=== PATIENT | female | born 2000 | race Caucasian/White ===

== ENCOUNTER 2023-04-25 18:41 | Emergency (ER) | payer OTHER, SELFPAY ==
[2023-04-25 18:44] VITALS: BP 132/80; PULSE 107; RESP 18; TEMP 36.9; O2SAT 97; BMI 18.9
--- NOTE | 2023-04-25 18:56 | ED.SOB1 ---
HPI - SOB/Dyspnea General Chief Complaint: Shortness of Breath/Dyspnea Stated Complaint: DIFF BREATHING Time Seen by Provider: 04/25/23 18:53 Source: patient Mode of arrival: ambulance Limitations: no limitations History of Present Illness HPI Narrative: 23-year-old female past medical history of asthma presents for a cough, sinus congestion and shortness of breath that started this morning. She states that she is allergic to cats and 3 of the house that she went to today had cats. She took a Benadryl today and this gave her some relief. She tried using her albuterol inhaler without relief. She states that hurts to take in a deep breath only on the left side. She is on control. Denies fever, sore throat, ear pain, CP Related Data Home Medications Medication Instructions Recorded Confirmed desogestrel 0.15 mg-ethinyl 1 tab PO QDAY 04/25/23 04/25/23 estradiol 0.03 mg tablet (Isibloom) quetiapine 100 mg tablet 100 mg PO .QHS 04/25/23 04/25/23 Previous Rx's Medication Instructions Recorded jwubvgjmioszapm-zbdjrvctsiohoqn-FB 10 ml PO Q6H PRN cold symptoms 2 04/25/23 2 mg-30 mg-10 mg/5 mL oral syrup days #80 mL (Bromfed DM) Allergies Allergy/AdvReac Type Severity Reaction Status Date / Time No Known Drug Allergies Allergy Verified 04/25/23 18:44 Review of Systems ROS Status of ROS 10 or more systems reviewed and unremarkable except as noted in history and below PFSH PFSH Social History Smoking status: Current every day smoker Exam Narrative Exam Narrative: General: A&Ox3, no distress, talking in full an complete sentences skin: warm, dry, intact head: normocephalic, atraumatic eyes: PERRLA, EOMI, normal conjunctiva nose: nares patent throat: no stridor neck: supple, trachea midline cardiac: +S1/S1. no murmur respiratory: lungs CTA, non-labored, no wheezing, no retractions extremities: FROM x 4, strength +5/5 neuro: A&Ox3 psych: appropriate mood and affect, cooperative Constitutional Vital Signs, click to edit/add: Last Vital Signs Temp 98.5 F 04/25/23 18:44 Pulse 107 H 04/25/23 18:44 Resp 18 04/25/23 18:44 BP 132/80 04/25/23 18:44 Pulse Ox 97 04/25/23 18:44 O2 Del Method Room Air 04/25/23 18:44 Course Vital Signs Vital signs: Vital Signs Temperature 98.5 F 04/25/23 18:44 Pulse Rate 107 H 04/25/23 18:44 Respiratory Rate 18 04/25/23 18:44 Blood Pressure 132/80 04/25/23 18:44 Pulse Oximetry 97 04/25/23 18:44 Oxygen Delivery Method Room Air 04/25/23 18:44 Temperature 98.5 F 04/25/23 18:44 Pulse Rate 107 H 04/25/23 18:44 Respiratory Rate 18 04/25/23 18:44 Blood Pressure 132/80 04/25/23 18:44 Pulse Oximetry 97 04/25/23 18:44 Oxygen Delivery Method Room Air 04/25/23 18:44 MDM - SOB/Dyspnea MDM Narrative Medical decision making narrative: Negative for COVID. D-dimer negative. Normal magnesium. Likely viral and patient will be given Decadron here and a prescription for Bromfed and follow-up with family doctor. I did offer chest x-ray and she declines. Afebrile, not tachypneic, not tachycardic, tolerating p.o., not hypoxic, non toxic appearing and ambulating at baseline and hemodynamically stable to be d/c. answered all questions. educated on SE of meds. pt in agreement with tx. educated when to return to ER. Lab Data Labs: Lab Results 04/25/23 04/25/23 Range/Units 18:57 19:10 D-Dimer 0.47 (<=0.59) mg/L FEU Magnesium 1.9 (1.8-2.4) mg/dL SARS-CoV-2 (PCR) Negative (NEGATIVE) Discharge Plan Discharge Chief Complaint: Shortness of Breath/Dyspnea Clinical Impression: Acute viral bronchitis Patient Disposition: Home, Self-Care Time of Disposition Decision: 19:42 Condition: Good Mode of Transportation: Private Vehicle Prescriptions / Home Meds: New dsknyjuxlytloqt-fddnudwmv-QX [Bromfed DM] 2-30-10 mg/5 mL syrup 10 ml PO Q6H PRN (Reason: cold symptoms) 2 Days Qty: 80 0RF No Action desogestrel-ethinyl estradiol [Isibloom] 0.15-0.03 mg tablet 1 tab PO QDAY quetiapine 100 mg tablet 100 mg PO .QHS Instructions: Acute Bronchitis (ED) Stand Alone Forms: Portal Instructions Referrals: Juan Carlos Jose MD [Primary Care Provider] - 1 week Discharge Date/Time: 04/25/23 19:53
[2023-04-25 19:22] LABS: SARS-CoV-2 Ag NEGATIVE (NEGATIVE)
[2023-04-25 19:29] LABS: Magnesium 1.9 mg/dL (1.8-2.4)
[2023-04-25 19:32] LABS: D Dimer 0.47 mg/L FEU (<=0.59)
[2023-04-25] MEDS: DEXAMETHASONE SODIUM PHOSPHATE 10 MG/ML VIAL PO (19:50)
[2023-04-26 15:51] LABS: SARS-CoV-2 NAA NOT DETECTED (NOT DETECTE)
== END 2023-04-25 19:53 | disposition home or self-care (01) ==
PROVIDERS: Physician Assistant; Emergency Provider Emergency Medicine; PCP Family Medicine
DX: J20.8 Acute bronchitis due to other specified organisms (principal); Z20.822 Contact with and (suspected) exposure to COVID-19; Z79.899 Other long term (current) drug therapy; J45.909 Unspecified asthma, uncomplicated; F17.210 Nicotine dependence, cigarettes, uncomplicated
CPT/HCPCS: 36415; 83735; 85378; 87635; 87811; 99283; J1100; U0003

== ENCOUNTER 2023-08-10 22:01 | Emergency (ER) | payer OTHER, SELFPAY ==
[2023-08-10 22:05] VITALS: BP 136/85; PULSE 81; RESP 16; TEMP 37.6; O2SAT 99; BMI 20.2
--- NOTE | 2023-08-10 22:25 | ED_ITS ---
HPI - Eye Problem General Chief complaint: Eye Problems Stated complaint: RED SWOLLEN EYE Time Seen by Provider: 08/10/23 22:12 Source: patient Mode of arrival: walk-in Limitations: no limitations History of Present Illness HPI Narrative: This otherwise healthy 23-year-old female who does not wear corrective lenses or contact lenses presents for evaluation of acute onset of redness and tenderness to the left upper eyelid. The patient states she woke up for work this evening and her left eye was crusted shut. She cleaned it off and noticed that she had redness and swelling to the upper eyelid. He states the eyelid is tender. She denies any foreign body sensation. She does not have a fever. She has pain with movement of the eye. There is no focal erythema around the eyes. She has not had a fever. Her vision is intact. She has tearing of the eye but no purulent drainage. Related Data Home Medications Medication Instructions Recorded Confirmed desogestrel 0.15 mg-ethinyl 1 tab PO QDAY 04/25/23 08/10/23 estradiol 0.03 mg tablet (Isibloom) quetiapine 100 mg tablet 100 mg PO .QHS 04/25/23 08/10/23 Allergies Allergy/AdvReac Type Severity Reaction Status Date / Time No Known Drug Allergies Allergy Verified 08/10/23 22:09 Review of Systems ROS Status of ROS 10 or more systems reviewed and unremark able except as noted in history and below [facility] Social History Smoking status: Never smoker Exam Narrative Exam Narrative: Nurses note and vital signs reviewed and patient is not hypoxic. General: The patient appears well and in no apparent distress. Patient is resting comfortably on cart. Skin: Warm, dry, no pallor noted. There is no rash noted. Head: Normocephalic, atraumatic Eye: Pupils are equal and reactive, extraocular muscles are intact, the left upper eyelid is erythematous and tender with no visible hordoleum. Conjunctiva of the upper and lower eyelids are inflamed Ears, Nose, Mouth, and Throat: oral mucosa is moist. Nares patent. Mouth without vesicles. Ear canals patent. Tm's without Erythema Cardiovascular: Regular Rate and Rhythm Respiratory: Patient is in no distress, no accessory muscle use, lungs are clear to auscultation, no wheezing, rales or rhonchiy Neurological: A&O x4, normal speech Psychiatric: Cooperative Constitutional Vital Signs, click to edit/add: Last Vital Signs Temp 99.7 F 08/10/23 22:05 Pulse 81 08/10/23 22:05 Resp 16 08/10/23 22:05 BP 136/85 08/10/23 22:05 Pulse Ox 99 08/10/23 22:05 O2 Del Method Room Air 08/10/23 22:05 Course Vital Signs Vital signs: Vital Signs Temperature 99.7 F 08/10/23 22:05 Pulse Rate 81 08/10/23 22:05 Respiratory Rate 16 08/10/23 22:05 Blood Pressure 136/85 08/10/23 22:05 Pulse Oximetry 99 08/10/23 22:05 Oxygen Delivery Method Room Air 08/10/23 22:05 Temperature 99.7 F 08/10/23 22:05 Pulse Rate 81 08/10/23 22:05 Respiratory Rate 16 08/10/23 22:05 Blood Pressure 136/85 08/10/23 22:05 Pulse Oximetry 99 08/10/23 22:05 Oxygen Delivery Method Room Air 08/10/23 22:05 MDM - Eye Problem MDM Narrative Medical decision making narrative: This 23-year-old female presents for evaluation of acute onset of left upper eyelid swelling and tenderness. She does not have a history of MRSA. She does work for a [employer] and thought maybe she had gotten something in her eye however she does not have any recollection of getting anything in her eye or foreign body sensation. When she woke up she states that her left eye was matted shut, she cleaned the eye off and noticed that the upper eyelid was erythematous and tender. She has not had a fever. She does not wear corrective lenses. Physical exam is consistent with acute blepharitis or developing hordoleum. I gave her a warm washcloth to soothe and comfort the eye. She was medicated emergency department with ibuprofen, Zofran, erythromycin ointment and 100 mg doxycycline. She will be discharged home with the remainder of the erythromycin ointment and doxycycline to use for the next 1 week. Discharge Plan Discharge Chief Complaint: Eye Problems Clinical Impression: Blepharitis of eyelid of left eye Patient Disposition: Home, Self-Care Time of Disposition Decision: 22:32 Prescriptions / Home Meds: No Action desogestrel-ethinyl estradiol [Isibloom] 0.15-0.03 mg tablet 1 tab PO QDAY quetiapine 100 mg tablet 100 mg PO .QHS Instructions: Blepharitis (ED) Stand Alone Forms: Portal Instructions Referrals: Juan Carlos Jose MD [Primary Care Provider] - 1 week
[2023-08-10] MEDS: DOXYCYCLINE MONOHYDRATE 100 MG CAPSULE PO (22:42)
[2023-08-10] MEDS: ONDANSETRON 4 MG RAPDIS TABLET SL (22:42)
[2023-08-10] MEDS: IBUPROFEN 600 MG TABLET PO (22:42)
[2023-08-10] MEDS: ERYTHROMYCIN OP OINT 0.5% 1 GM TUBE OP (22:42)
== END 2023-08-10 22:54 | disposition home or self-care (01) ==
PROVIDERS: Emergency Provider Emergency Medicine; PCP Family Medicine
DX: H01.004 Unspecified blepharitis left upper eyelid (principal); Z79.899 Other long term (current) drug therapy
CPT/HCPCS: 99284; Q0162

== ENCOUNTER 2025-04-18 08:47 | Outpatient (OUT) | payer OTHER, SELFPAY ==
--- OUTSIDE RECORDS SUMMARY | 2025-04-11 21:08 | XMS_ITS | Continuity of Care Document ---
Author Organization [facility] Address [address] [place] [address] Phone Care Team Providers Care Manager Process Excellence Name Role Phone Juan Carlos Jose MD Primary Care Provider [phone] Clau Gregory APRN Attending Provider Care Teams Patient Care Team Team Status: Active Member Role Status Jovani Jose MD Primary Care Provider Active Visit Care Team Team Status: Inactive Member Role Status Jovani Jose MD Primary Care Provider Active Start: April 11, 2025 End: April 11, 2025 JOLIE Goetz Attending Provider Active Start: April End: April 11, 2025 Visit Care Team Team Status: Inactive Member Role Status Jovani Jose MD Primary Care Provider Active Start: April 11, 2025 End: April 11, 2025 JOLIE Goetz Attending Provider Active Start: April End: April 11, 2025 Chief Complaint and Reason for Visit Chief Complaint Admit Date Left thumb injury April 11, 2025 2:05pm S69.92XA - Unspecified injury of left wr ist, hand April 11, 2025 2:22pm Reason for Visit Admit Date Fracture of thumb, left, closed Septembe r 2024 2:05pm Injury of left thumb April 11 2:05pm Allergies, Adverse Reactions, Alerts Allergen Type Severity Reaction Last Updated Verified Status No Known Allergies Allergy Unknown 2024 2:07pm Yes Active Social History Smoking Status Status Start Date End Date Date of Observa tion Never smoked tobacco (finding) January 20, 2018 12:25pm Observation Status Observation Response Date of Response Legal Sex Female (finding) Sex Assigned At Female March Family History Relationship Condition Age at Onset Recorded Date/T sonam mother Unknown Problems Active Problems Medical Problem Onset Date Status Fracture of thumb, left, closed Unknown Active Injury of left thumb Unknown Active Medications Medication Status Dose Units Route Directions Qty Days St art Date Stop Date End Date Instructions Adherence Inhaler,Ass ist Devices,Acc ess Device Active January 20, 2018 12:00a m Ibuprofen 600 mg tablet Discont inued 600 MG PO Three times daily as needed for pain January 20, 2018 12:00a m Septe er 2024 2:08p m Quetiapine 50 mg tablet Active 50 MG PO Daily 2024 12:00a m Unknown Procedures Procedure Date Performed Status XR finger LT thumb April 11, 2025 2:22pm c ompleted Relevant Diagnostic Tests and/or Laboratory Data Diagnostic Imaging Reports Author [facility] Report Date/Time April 11, 2025 2:40pm [facility] [place] [address] XRay Report Signed Patient: Deepti Armstrong MR#: [id number] : 2000 Acct:[id number] Age/Sex: 25 / F ADM Date: 5 Loc: XDUCLY Room: Type: [facility] Attending Dr: Clau Gregory APRN, [employer]-C Copies to: Clau Gregory APRN~ Ordering Provider: Clau Gregory APRN Date of Service: 04/11/25 XR/XR finger LT thumb: S69.92XA - Unspecified injury of left wrist, hand and fin... LEFT THUMB - 3 views CLINICAL HISTORY: Injury to left thumb for one day. Limited range of motion. COMPARISON: None FINDINGS: No focal soft tissue abnormality. There appears be a fracture involving the base of the distal phalanx of the thumb. In addition, appears to be a fracture involving the base of the proximal phalanx of the thumb. These fractures are only seen on one view. XR/XR finger LT thumb IMPRESSION: FRACTURES INVOLVING THE BASES OF THE PHALANGES OF THE THUMB. Impression dictated by: Irwin Newsome Jr.OCayla 04/11/2025 2:40 PM Dictation Location: [facility]--23 Transcribed By: PWS 04/11/25 1440 Dictated By: Irving Ray Jr, DO 04/11/25 1439 Signed By: <Electronically signed by Irving Ray Jr, DO in OV> 04/11/25 1440 Vital Signs Vital Reading Result Reference Range Collection Date/Time Height 65 [in_i] April 11, 2025 2:06pm Weight 58.74 kg April 11, 2025 2:06pm Body Temperature 98.7 [degF] 97.6-99.0 April 012024 2:06pm Heart Rate 85 /min 60-100 April 11, 2025 2:06pm Respiratory rate 18 /min 12-24 April 012024 2:06pm Oxygen saturation by Pulse oximetry 99 % 95-100 April 11, 2025 2:06pm BP Systolic 115 mm[Hg] 100-140 April 11, 2025 2:06pm BP Diastolic 80 mm[Hg] 60-100 April 11, 2025 2:06pm BMI (Body Mass Index) 21.5 kg/m2 Sept2024 2:06pm Advance Directives Advance Directive Response Recorded Date/ Time Advance Directives No January 20 1:04pm Insurance Providers Guarantor Deepti Armstrong Address [address] [place] [phone] Contact Info. Home Phone: Payer Policy Id Subscriber's Name Subscriber Id Effe ctive Date Expiration Date [employer] [id number] Deepti Armstrong [id number] Encounters Encounter Location(s) Arrival/Admit Date Discharge/Depart Date Provider(s) Departed Physician/Prov ider Office Visit -[facility] April 11, 2025 2:05pm April 11, 2025 3:07pm Clau Gregory APRN Departed Clinical -[facility] April 11, 2025 2:22pm April 11, 2025 2:23pm Clau Gregory APRN Recent Diagnosis Onset Date Admit Date Fracture of thumb, left, closed Unknown April 11, 2025 2:05pm Injury of left thumb Unknown April 012024 2:05pm Assessments Diagnosis Onset Date Resolution Status Admit Date Fracture of thumb, left, closed acute April 11, 2025 2:05pm Injury of left thumb acute Sept emb2024 2:05pm Plan of Treatment Author Clau Gregory [facility] Authored April 11, 2025 3:02pm Xray shows fractures at the base of the proximal and distal phalanxes. Alumifoam splint applied. Encouraged rest, ice, elevation. May use tylenol/motrin as needed for pain. Follow up with Ortho as discussed. Future Tests Future scheduled test information is unavailable Pending Tests Pending diagnostic test information is unavailable Future Visits Future appointment information is unavailable Referrals to Other Providers Referral information is unavailable Future Procedures Future procedure information is unavailable Future Medications Future medication information is unavailable Patient Instructions Patient instructions are unavailable
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
--- OUTSIDE RECORDS SUMMARY | 2025-04-18 08:50 | XMS_ITS | Clinical Summary ---
Author Organization [facility] Address [id number] [address] [place] [address] Care Team Providers Care Contract Recruiter Name Role Phone Unavailable Primary Care Provider Unavailabl e Allergies No known active allergies Medications omeprazole (PriLOSEC) 20 mg capsuleIndicati ons:heartburn Take 1 capsule (20 mg total) by mouth in the morning. Indications: heartburn. 05/18/2022 Active acetaminophen (TYLENOL EXTRA STRENGTH) 500 mg tabletIndicatio ns:toothache Take 2 tablets (1,000 mg total) by mouth every 6 (six) hours as needed for pain Indications: a toothache. 60 tablet 06/01/2022 Active Active Problems Problem Noted Date Diagnosed Date Oral abscess 05/29/2022 Tooth abscess 05/28/2022 Immunizations No known immunizations Social History Tobacco Use Types Packs/Day Years Used Date Smoking Tobacco: Never Smokeless Tobacco: Never Tobacco Cessation:Counseling Given: Not Answered Alcohol Use Standard Drinks/Week Comments Not Currently 0 (1 standard drink = 0.6 oz pur e alcohol) Childcare Answer Date Recorded Childcare Unknown 01/10/2019 Employment Answer Date Recorded Employment Unknown 01/10/2019 Purpose - Life Answer Date Recorded Purpose and direction in life Unknown Comments No Sex and Gender Information Value Date Recorded Sex Assigned at Not on file Legal Sex Female 10:40 PM EDT Gender Identity Not on file Sexual Orientation Not on file Last Filed Vital Signs Vital Sign Reading Time Taken Comments Blood Pressure 112/65 06/01/2022 8:18 AM EDT Pulse 89 06/01/2022 8:18 AM EDT Temperature 36.5 C (97.7 F) 06/01/2022 8:18 AM EDT Respiratory Rate 18 06/01/2022 8:18 AM EDT Oxygen Saturation 99% 05/31/2022 8:11 PM EDT Inhaled Oxygen Concentration - - Weight - - Height - - Body Mass Index - - Plan of Treatment Health Maintenance Due Date Last Done Comments Depression Screening 2011 Tobacco Screening 2011 Adult BMI Screening 2017 Pap Smear 2020 Influenza Vaccine 04/01/2025 05/24/2019, , 07/05/2017, Additional history exists DTaP,Tdap and Td Vaccines (8 - Td or Tdap) 10/26/2030 10/26/2020, 10/28/2010, 04/01/2004, Additional history exists Medical Devices Not on file Insurance Advance Directives * Full Code (Latest Code Status on File) Date Activated Date Inactivated Comments 05/28/2022 3:29 PM 06/01/2022 11:15 AM
--- OUTSIDE RECORDS SUMMARY | 2025-04-18 08:50 | XMS_ITS | Clinical Summary ---
Author Organization [facility] Address [address] [place], [place] [address] Care Team Providers Care Recep Name Role Phone Juan Carlos Jose MD Primary Care Provider [phone] Allergies No known active allergies Medications hydrOXYzine pamoate (VISTARIL) 25 mg capsule Take 25 mg by mouth three times daily as needed. Active escitalopram oxalate (LEXAPRO) 20 mg tablet Take 20 mg by mouth once daily. Active LEVONORGESTREL-E THIN ESTRADIOL (ORSYTHIA ORAL) Take by mouth. Active Active Problems Problem Noted Date Diagnosed Date Chronic abdominal pain 10/08/2015 Nausea with vomiting 10/08/2015 Dizziness 10/08/2015 Anxiety 10/08/2015 Palpitations 10/08/2015 Abnormal blood chemistry 09/16/2015 Social History Tobacco Use Types Packs/Day Years Used Date Smoking Tobacco: Never Smokeless Tobacco: Never Alcohol Use Standard Drinks/Week Comments No 0 (1 standard drink = 0.6 oz pur e alcohol) Comments Unknown Sex and Gender Information Value Date Recorded Sex Assigned at Not on file Legal Sex Female 7:58 AM EST Gender Identity Not on file Sexual Orientation Not on file Last Filed Vital Signs Vital Sign Reading Time Taken Comments Blood Pressure 114/71 09/16/2015 2:55 PM EST Pulse 80 09/16/2015 2:55 PM EST Temperature - - Respiratory Rate 16 09/16/2015 2:55 PM EST Oxygen Saturation - - Inhaled Oxygen Concentration - - Weight 62.1 kg (137 lb) 10/08/2015 11:04 AM EST Height 165.1 cm (5' 5 ) 10/08/2015 11:04 AM EST Body Mass Index 22.8 10/08/2015 11:04 AM EST Plan of Treatment Health Maintenance Due Date Last Done Comments Peds To Adult Transition Initial Discussion 2011 Peds To Adult Transition Annual Assessment 2013 HPV Vaccine (1 - 3-dose series) 2014 Anxiety Screening 2017 Depression Screening 2017 HIV Screening 2017 Hepatitis C Screening 2017 DTaP,Tdap,Td Vaccine (1 - Tdap) 2018 Hepatitis B Vaccine (1 of 3 - 19+ 3-dose series) 03/18 Cervical Cancer Screening 2020 Influenza Vaccine (#1) 2025 Insurance [employer] Care Teams Recep Relationship Specialty Start Date End Date Juan Carlos Jose MD PCP - General Family Medicine 09/03/15
--- OUTSIDE RECORDS SUMMARY | 2025-04-18 08:50 | XMS_ITS | Encounter Summary ---
Author Organization [facility] Address [id number] [address] [place] [address] Care Team Providers Care Pulper Name Role Phone Unavailable Primary Care Provider Unavailabl e Encounter Details Date Type Department Care Team (Late st Contact Info) Description 07/01/2022 Telephone [facility] [address] [place] [address] Shyann Alvarenga RMA Social History Tobacco Use Types Packs/Day Years Used Date Smoking Tobacco: Never Smokeless Tobacco: Never Alcohol Use Standard Drinks/Week Comments Not Currently 0 (1 standard drink = 0.6 oz pur e alcohol) Childcare Answer Date Recorded Childcare Unknown 01/10/2019 Employment Answer Date Recorded Employment Unknown 01/10/2019 Purpose - Life Answer Date Recorded Purpose and direction in life Unknown Comments Yes Sex and Gender Information Value Date Recorded Sex Assigned at Not on file Legal Sex Female 10:40 PM EDT Gender Identity Not on file Sexual Orientation Not on file documented as of this encounter Miscellaneous Notes * Telephone Encounter - ROXANE Husain - 07/01/2022 1:14 PM EST Tried to call patient to schedule appointment from referral we received but there was no answer rupal message could not be left. * Telephone Encounter - ROXANE Nolasco - 07/01/2022 1:14 PM EST Spoke with patient's mother and informed her that we had received a referral for patient. Patient'smother stated that she would let her know as she was unavailable at the time. Patient will contact office back. documented in this encounter Plan of Treatment Not on file documented as of this encounter Visit Diagnoses Not on filedocumented in this encounter
--- OUTSIDE RECORDS SUMMARY | 2025-04-18 08:50 | XMS_ITS | Encounter Summary ---
Author Organization [facility] Address [id number] [address] [place] [address] Care Team Providers Care Pediatric Ophthalmologist Name Role Phone Unavailable Primary Care Provider Unavailabl e Encounter Details Date Type Department Care Team (Late st Contact Info) Description 05/28/2022 Documentation [facility] [address] [place] [address] Rhonda Jones, DDS [address] [facility], [address] [place] [address] Social History Tobacco Use Types Packs/Day Years Used Date Smoking Tobacco: Never Assessed Childcare Answer Date Recorded Childcare Unknown 01/10/2019 Employment Answer Date Recorded Employment Unknown 01/10/2019 Purpose - Life Answer Date Recorded Purpose and direction in life Unknown Comments Yes Sex and Gender Information Value Date Recorded Sex Assigned at Not on file Legal Sex Female 10:40 PM EDT Gender Identity Not on file Sexual Orientation Not on file documented as of this encounter Plan of Treatment Not on file documented as of this encounter Visit Diagnoses Not on filedocumented in this encounter
--- OUTSIDE RECORDS SUMMARY | 2025-04-18 08:51 | XMS_ITS | Patient Health Record ---
Author Organization [facility] [place] Address [address] [place] [address] Care Team Providers Care Learning Services Coordinator Name Role Phone Matt Jose Primary Care Provider [phone] Allergies Allergen (clinical drug ingredient) Drug/Non Drug Allergy documented on EMR Reaction Allergy Type Onset Date Status None Reported (uncoded) Unknown Allergy Active Results Component Value Reference Range Notes COVID-19, Flu A+B IH (Not ye t reviewed by provider) Interpretation: Performing Lab: Notes/Report: COVID neg FLU A neg FLU B neg Control present Reason For Referral No Information Medications Medication SIG (Take, Route, Frequency, Duration) Notes Start Date End Date Status Amoxicillin-Pot Clavulanate 875-125 MG 1 tablet Orally every 12 hrs; Duration: 10 days 09/21/2024 Active Benzonatate 200 MG 1 capsule Orally Thr ee times a day; Duration: 7 days 09/24/2024 Active Albuterol Sulfate HFA 108 (90 Base) MCG/ACT 1 puff as needed Inhalation every 4 hrs PRN 06/14/2024 Active SEROquel 50 MG 1 tablet Orally qhs; Duration: 30 days 06/14/2024 Active Hyoscyamine Sulfate 0.125 MG 1-2 tabs SL SL every 4 hrs PRN abd pain 08/06/2024 Active Ondansetron 4 MG 1 tablet on the tong ue and allow to dissolve Orally qid; Duration: 5 days 08/06/2024 Active Diclofenac Sodium 75 MG 1 tablet as need ed Orally Twice a day; Duration: 30 days 04/11/2025 Active Social History Tobacco Use: Social History Observation Description Date Details (start date - stop date) Never Smoker NA - NA Tobacco Use/Smoking Question Answer Notes Patient is a nonsmoker AUDIT-C (Standard) Question Answer Notes Did you have a drink containing alcohol in the p ast year? 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) Active confirmed Problem Closed traumatic dislocation of patellofemoral joint (674692588) Dislocation of left patella, initial encounter (S83.005A) Active confirmed Vital Signs Temperature 100.3 degrees Fahrenheit 09/21/2024 Blood pressure diastolic 70 mm Hg 09/21/2024 Height 65 in 09/21/2024 Blood pressure systolic 110 mm Hg 09/21/2024 Weight 130.6 lbs 09/21/2024 BMI 21.73 kg/m2 09/21/2024 Encounters Encounter Location Date Provider Diagnosis [address] [address] 06/06/2024 Matt Campbelly [address] [address] 07/04/2024 Matt Hoy Anxiety F41.[address] [address] 09/24/2024 Matt Hoy [facility] [address] [place] [address] 04/11/2025 Matt Adriany [facility] [address] [place] [address] 08/06/2024 Matt Hoy Gastroenteritis K52. [address] [address] 09/21/2024 Matt Hoy Fever R50.9 and Acut e bronchitis, unspecified organism J20.9 [facility] [address] [place] [address] 06/14/2024 Matt Jose Anxiety F41.9 Assessments Encounter Date Diagnosis (ICD Code) Assessment Notes Treatment Notes Treatment Clinical Notes Section Notes 06/14/2024 Anxiety (ICD-10 - F41.9) 08/06/2024 Gastroenteritis (ICD-10 - K52.9) Get plenty of rest. Stay hydrated by sucking on ice chips or taking small sips of water. You can also try drinking clear soda, clear broths or noncaffeinated sports drinks. Stop eating solid foods for a few hours to let your stomach settle. East back into eating by eating bland, mirz-zy-dimnum foods like crackers, toast, gelatin, bananas, rice and chicken. Try to avoid foods/substances including dairy products, caffeine, alcohol, nicotine and fatty or highly seasoned foods. Medications such as ibuprofen or tylenol can make your stomach more upset, so use sparingly if at all. Also avoid foxl-tnu-robbtjm anti-diarrheal medications because it can make it harder for your body to eliminate the virus. 09/21/2024 Fever (ICD-10 - R50.9) 07/04/2024 Anxiety (ICD-10 - F41.9) 09/21/2024 Acute bronchitis, unspecified organism (ICD-10 - J20.9) Rest and drink more liquids, especially water. You may use a humidifier or vaporizer to help keep the drainage moist. Sney-tba-aoenoaj Nasal Saline may help the stuffy and runny nose. Use Ibuprofen and or Tylenol as needed for fever, chills, body aches or pain. Children 5 years old should not be given rkab-clp-sdjxpmz cough and cold medications such as guaifenesin and dextromethorphan. If you're over age 5, you may try vlex-vxt-yztdjws cold medications such as guaifenesin and dextromethorphan, or multi-symptom cold reliever such as Dayquil to help reduce the symptoms. Antibiotics have been prescribed. You should take these until completed and follow the directions. Antibiotics can sometimes cause upset stomach, and in rare cases, serious allergic reactions or serious gastrointestinal problems. If you start having severe abdominal pain, severe vomiting, or bloody diarrhea, you should be reevaluated by your physician or urgent care immediately. Follow up with your Primary Care Provider or return to clinic if symptoms do not improve within 3-5 days. If you develop severe symptoms such as shortness of breath, repeated vomiting, coughing up blood, or chest pain you should go to the emergency room or call 911 Plan Of Treatment Pending Test Test Name Order Date COVID-19, Flu A+B IH 09/21/2024 Insurance Providers Payer Name Payer Address Payer Phone Subscriber Number Group Number Insured Name Patient Relationship to Insured Coverage Start Date Coverage End Date [employer] [place] [employer] [address] [place] [address] [id number] Deepti Armstrong Self - patient is the insured Medical (General) History Medical History History ICD Code Asthma Ulcers Bladder/Kidney Infections Fainting/Passing out Anxiety Surgical History Surgery Date(Month/Year) tonsilectomy 2012 left knee MPFL reconstruction Hospitalization History Reason Date(Month/Year) see above
--- OUTSIDE RECORDS SUMMARY | 2025-04-18 08:51 | XMS_ITS | Clinical Summary ---
Author Organization [facility] Address [address] [place] [address] Care Team Providers Care Commissioner Of Internal Revenue Name Role Phone Juan Carlos Jose MD Primary Care Provider [phone] Allergies Active Allergy Reactions Criticality Noted Date Comments Citalopram Rash Low 02/07/2023 Medications etonogestrel-et hinyl estradiol (Nuvaring) 0.12-0.015 MG/24HR vaginal ringIndications : control counseling Insert 1 Ring into the vagina every 28 (twenty-eigh t) days. Insert vaginal ring for 3 weeks, then remove for 1 week. 1 each 11 02/07/2023 Active Family History Relation Name Status Comments Father Alive Mother Sibling Alive Social History Tobacco Use Types Packs/Day Years Used Date Smoking Tobacco: Never Smokeless Tobacco: Never Tobacco Cessation:Counseling Given: Not Answered Alcohol Use Standard Drinks/Week Comments Never 0 (1 standard drink = 0.6 oz pur e alcohol) Comments Unknown Sex and Gender Information Value Date Recorded Sex Assigned at Not on file Legal Sex Female 6:47 PM EDT Gender Identity Not on file Sexual Orientation Not on file Last Filed Vital Signs Vital Sign Reading Time Taken Comments Blood Pressure 106/68 02/07/2023 10:04 AM EDT Pulse - - Temperature - - Respiratory Rate - - Oxygen Saturation - - Inhaled Oxygen Concentration - - Weight 55.8 kg (123 lb) 02/07/2023 10:04 AM EDT Height 167.6 cm (5' 6 ) 02/07/2023 10:04 AM EDT Body Mass Index 19.85 02/07/2023 10:04 AM EDT Plan of Treatment Not on file Insurance [id number] [place] [address] [employer] MEDICAID [id number] [place] [address] Care Teams Commissioner Of Internal Revenue Relationship Specialty Start Date End Date Juan Carlos Jose MD PCP - General Family Medicine 02/03/23
--- OUTSIDE RECORDS SUMMARY | 2025-04-18 08:51 | XMS_ITS | Clinical Summary ---
Author Organization [facility] Address [address], [address] [place] [address] Care Team Providers Care Riveter Helper Name Role Phone Juan Carlos Jose MD Primary Care Provider [phone] Allergies No known active allergies Medications cetirizine (ZYRTEC) 5 MG tablet Take by mouth daily. Active Albuterol Sulfate (PROAIR HFA IN) Inhale into the lungs. Active NONFORMULARY control by mouth daily Active amitriptyline (ELAVIL) 10 MG tablet Take 20 mg by mouth nightly Active omeprazole (PRILOSEC) 20 MG delayed release capsule Take 40 mg by mouth daily Active docusate (COLACE, DULCOLAX) 100 MG CAPS Take 100 mg by mouth 2 times daily 01/06/2017 Active cephALEXin (KEFLEX) 500 MG capsule Take 2 capsules by mouth every 8 hours 6 capsule 01/06/2017 Active Active Problems Problem Noted Date Diagnosed Date Cyst of breast 11/14/2012 Family History Medical History Relation Name Comments Schizophrenia Maternal Grandfather Cancer Maternal Grandmother breast Other Mother Arthritis Paternal Grandmother Relation Name Status Comments Maternal Grandfather Maternal Grandmother Mother Paternal Grandmother Social History Tobacco Use Types Packs/Day Years Used Date Smoking Tobacco: Never Smokeless Tobacco: Never Alcohol Use Standard Drinks/Week Comments No 0 (1 standard drink = 0.6 oz pur e alcohol) Comments No Sex and Gender Information Value Date Recorded Sex Assigned at Not on file Legal Sex Female 5:54 AM EST Gender Identity Not on file Sexual Orientation Not on file Last Filed Vital Signs Vital Sign Reading Time Taken Comments Blood Pressure 110/70 01/06/2017 12:30 PM EDT Pulse 72 01/06/2017 12:30 PM EDT Temperature 36.5 C (97.7 F) 01/06/2017 12:30 PM EDT Respiratory Rate 16 01/06/2017 12:30 PM EDT Oxygen Saturation 98% 01/06/2017 12:30 PM EDT Inhaled Oxygen Concentration - - Weight 54.2 kg (119 lb 7.8 oz) 01/05/2017 8:24 P M EDT Height 165.1 cm (5' 5 ) 01/05/2017 8:24 PM EDT Body Mass Index 19.88 01/05/2017 8:24 PM EDT Plan of Treatment Not on file Medical Devices Implanted Type Area Inside Sales Specialist Device Identifier Shelf Expiration Date Model / Serial / Lot Tissue Frozen Gracilis Tendon >200mml Implanted:Qty: 1 on 01/05/2017 by Edgar Hamilton DO at [facility] Bone/[place] t/Tissue/ Human/Syn th Left: Knee [employer]-PMM 12/11/2018 [id number] / / System Delivery Composite Mpfl Implanted:Qty: 1 on 01/05/2017 by Edgar Hamilton DO at [facility] Screw/Tk te/Nail/R od Left: Knee [employer]-PMM 08/31/2018 [id number] / / Insurance [employer] Advance Directives * Full Code (Latest Code Status on File) Date Activated Date Inactivated Comments 01/05/2017 8:20 PM 01/06/2017 6:05 PM Care Teams Riveter Helper Relationship Specialty Start Date End Date Juan Carlos Jose MD [address] [place] [address] PCP - General 11/14/12
--- OUTSIDE RECORDS SUMMARY | 2025-04-18 08:53 | XMS_ITS | CCD ---
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 Neutrophils/100 WBC (Bld) 71.4 % Normal 43.0-75.0 [facility] Comment on above: Performed By: #### B MP #### [facility] [address] [place] [address] Dr. Carroll Pryor Platelet mean volume (Bld) [Entitic vol] 11.2 fL Normal 9.5-13.5 [facility] Comment on above: Performed By: #### B MP #### [facility] [address] [place] [address] Dr. Carroll Pryor PLT 325 103/ul Normal 150-450 [facility] Comment on above: Performed By: #### B MP #### [facility] [address] [place] [address] Dr. Carroll Pryor RBC 3.47 106/ul Critically low 4.20-5.40 [facility] Comment on above: Performed By: #### B MP #### [facility] [address] [place] [address] Dr. Carroll Pryor WBC 11.9 103/ul Critically high 4.0-11.0 [facility] Comment on above: Performed By: #### B MP #### [facility] [address] [place], [place] [id number] Dr. Carroll Pryor Covid-19 PCR ([facility])on SARS-CoV-2 (COVID-19) RNA ERINN+probe Ql (Unsp spec) Not detected Normal NOT DETECTED [facility] Comment on above: Result Comment: When diagnostic testing is negative, the possibility of a false negative should be considered in the context of a patient's recent exposures and the presence of clinical signs and symptoms consistent with SARS-CoV-2. This test is not yet approved or cleared by the [place] FDA. When there are no FDA-approved or cleared tests available, and other criteria are met, FDA can make tests available under an emergency access mechanism called an Emergency Use Authorization (EUA). The EUA for this test is supported by the Traffic Rate Analyst of Health and Human Service's declaration that circumstances exist to justify the emergency use of in vitro diagnostics for the detection and/or diagnosis of the virus that causes COVID-19. This EUA will remain in effect for the duration of the COVID-19 declaration justifying emergency of IVDs, unless it is terminated or revoked by the FDA (after which the test may no longer be used). Performed By: #### C VDTBH #### [facility] [address] [place] [address] Dr. Carroll Pryor DRUG SCREEN RAPID (URINE)on 07-03-2022 AMP Negative Normal NEGATIVE [facility] Comment on above: Performed By: #### C VDTBH #### [facility] [address] [place] [address] Dr. Carroll Pryor BAR Negative Normal NEGATIVE [facility] Comment on above: Performed By: #### C VDTBH #### [facility] [address] [place] [address] Dr. Carroll Pryor BUP Negative Normal NEGATIVE [facility] Comment on above: Performed By: #### C VDTBH #### [facility] [address] [place] [address] Dr. Carroll Pryor BZO Negative Normal NEGATIVE [facility] Comment on above: Performed By: #### C VDTBH #### [facility] [address] [place] [address] Dr. Carroll Pryor VA Negative Normal NEGATIVE [facility] Comment on above: Performed By: #### C VDTBH #### [facility] [address] [place] [address] Dr. Carroll Pryor CUT-OFFS SEE BELOW Normal [facility] Comment on above: Result Comment: AMP (Amphetamine): 500ng/mL, BAR (Barbituates): 200 ng/mL, BZO (Benzodiazepines): 150 ng/mL, BUP (Buprenorphine): 10 ng/mL, VA (Cocaine): 150 ng/mL, mAMP (Methamphetamine): 500 ng/mL, MTD (Methadone): 200 ng/mL, OPI (Opiates): 100 ng/mL, OXY (Oxycodone): 100 ng/mL, PCP (Phencyclidine): 25 ng/mL, PPX (Propoxyphene): 300 ng/mL, THC (Cannabinoids): 50 ng/mL, TCA (Trycyclic Antidepressants): 300 ng/mL Performed By: #### C VDTBH #### [facility] [address] [place] [address] Dr. Carroll Pryor DRUG CUT HEADER DRUG CLASS TEST SYST EM CUT-OFF CONCENTRATIONS ARE FOLLOWS: Normal [facility] Comment on above: Performed By: #### C VDTBH #### [facility] [address] [place] [address] Dr. Carroll Pryor mAMP Negative Normal NEGATIVE [facility] Comment on above: Performed By: #### C VDTBH #### [facility] [address] [place] [address] Dr. Carroll Pryor MTD Negative Normal NEGATIVE [facility] Comment on above: Performed By: #### C VDTBH #### [facility] [address] [place] [address] Dr. Carroll Pryor OPI Negative Normal NEGATIVE [facility] Comment on above: Performed By: #### C VDTBH #### [facility] [address] [place] [address] Dr. Carroll Pryor OXY Negative Normal NEGATIVE [facility] Comment on above: Performed By: #### C VDTBH #### [facility] [address] [place] [address] Dr. Carroll Pryor PCP Negative Normal NEGATIVE [facility] Comment on above: Performed By: #### C VDTBH #### [facility] [address] [place] [address] Dr. Carroll Pryor PPX Negative Normal NEGATIVE [facility] Comment on above: Performed By: #### C VDTBH #### [facility] [address] [place] [address] Dr. Carroll Pryor TCA Negative Normal NEGATIVE [facility] Comment on above: Performed By: #### C VDTBH #### [facility] [address] [place] [address] Dr. Carroll Pryor THC Negative Normal NEGATIVE [facility] Comment on above: Performed By: #### C VDTBH #### [facility] [address] [place] [address] Dr. Carroll Pryor TYPE AND SCREENon 07-03-2022 TYPE AND SCREEN Negative Normal [facility] Comment on above: Performed By: #### U ACSIND #### [facility] [address] [place] [address] Dr. Carroll Pryor UA (CLEAN/CATCH) NC MACHINIST/MICRO I F IND.on 06-26-2022 Bilirubin Ql (U) Negative Normal NEGATIVE [facility] Comment on above: Performed By: #### U ACSIND #### [facility] [address] [place] [address] Dr. Carroll Pryor Clarity (U) CLEAR Normal CLEAR [facility] Comment on above: Performed By: #### U ACSIND #### [facility] [address] [place] [address] Dr. Carroll Pryor Color (U) LT. YELLOW Normal YELLOW [facility] Comment on above: Performed By: #### U ACSIND #### [facility] [address] [place] [address] Dr. Carroll Pryor Glucose Ql (U) Negative Normal NEGATIVE [facility] Comment on above: Performed By: #### U ACSIND #### [facility] [address] [place] [address] Dr. Carroll Pryor Hemoglobin Ql (U) Negative Normal NEGATIVE [facility] Comment on above: Performed By: #### U ACSIND #### [facility] [address] [address] [address] Carroll Pryor Ketones Ql (U) TRACE Abnormal NEGATIVE [facility] Comment on above: Performed By: #### U ACSIND #### [facility] [address] [place] [address] Dr. Carroll Pryor LEUKOCYTES Negative Normal NEGATIVE [facility] Comment on above: Performed By: #### U ACSIND #### [facility] [address] [address] [address] Carroll Pryor Nitrite Ql (U) Negative Normal NEGATIVE [facility] Comment on above: Performed By: #### U ACSIND #### [facility] [address] [place] [address] Dr. Carroll Pryor pH (U) 6.0 [pH] Normal 5-9 [facility] Comment on above: Performed By: #### U ACSIND #### [facility] [address] [place] [address] Dr. Carroll Pryor SPEC GRAVITY >=1.030 Abnormal 1.005-<=1. 025 [facility] Comment on above: Performed By: #### U ACSIND #### [facility] [address] [place] [address] Dr. Carroll Pryor UA PROTEIN Negative Normal NEGATIVE/ TRACE [facility] Comment on above: Performed By: #### U ACSIND #### [facility] [address] [place] [address] Dr. Carroll Pryor UR MICRO IND NOT INDICATED Normal [facility] Comment on above: Performed By: #### U ACSIND #### [facility] [address] [place] [address] Dr. Carroll Pryor Urobilinogen Qn (U) 0.2 {Kulwinder'U}/dL Normal 0.2 - 1. 0 [facility] Comment on above: Performed By: #### U ACSIND #### [facility] [address] [place] [address] Dr. Carroll Pryor Nursing Assessmenton 022 Nursing Assessment [id number]#[id number]:[address] [facility] CULTURE OTHERon 06-18-2022 CULTURE OTHER Culture Observations : No growth of aerobes at 48 hours. Culture Observations: No growth of anaerobes at 72 hours. Normal [facility] Comment on above: Performed By: #### O THCX #### [facility] [address] [place] [address] Dr. Carroll Pryor GRAM STAINon 06-18-2022 COMMENTS NO ORGANISMS OBSERVED Normal [facility] Comment on above: Performed By: #### C VDTBH #### [facility] [address] [place] [address] Dr. Carroll Pryor DIPHTHEROIDS [facility] Comment on above: Performed By: #### C VDTBH #### [facility] [address] [place] [address] Dr. Carroll Pryor EPITHELIALS [facility] Comment on above: Performed By: #### C VDTBH #### [facility] [address] [place] [address] Dr. Carroll Pryor FUNGAL ELEMENTS [facility] Comment on above: Performed By: #### C VDTBH #### [facility] [address] [place] [address] Dr. Carroll MAGDALENO NEG BACILLI [facility] Comment on above: Performed By: #### C VDTBH #### [facility] [address] [place] [address] Dr. Carroll MAGDALENO NEG DIPPLOCOCCI [facility] Comment on above: Performed By: #### C VDTBH #### [facility] [address] [place] [address] Dr. Carroll Pryor GRAM POS BACILLI [facility] Comment on above: Performed By: #### C VDTBH #### [facility] [address] [place] [address] Dr. Carroll Pryor GRAM POSITIVE COCCI Normal [facility] Comment on above: Performed By: #### C VDTBH #### [facility] [address] [place] [address] Dr. Carroll Pryor GRAM STAIN SOURCE Right cheek mass Normal T [facility] Comment on above: Performed By: #### C VDTBH #### [facility] [address] [place] [address] Dr. Carroll Pryor GS_DIPTH Normal [facility] Comment on above: Performed By: #### C VDTBH #### [facility] [address] [place] [address] Dr. Carroll Pryor WBC NONE SEEN Normal [facility] Comment on above: Performed By: #### C VDTBH #### [facility] [address] [place] [address] Dr. Carroll Pryor US FINE NEEDLE ASP EXPon US FINE NEEDLE ASP EXP EXAMINATION: US FINE NEEDLE ASP EXP HISTORY: Structure of right cheek COMPARISON: No relevant comparison available. TECHNIQUE: After obtaining informed consent, ultrasound-guided fine needle aspiration was performed in the usual sterile manner. FINDINGS: IMAGING: Ultrasound. BIOPSY NEEDLE: 25-gauge and 19-gauge 2 inch needles LOCATION: Hypoechogenic right cheek mass/abscess SPECIMEN TYPE: Small amount of fluid aspirated. LOCAL ANESTHETIC: 2 mL 1% buffered lidocaine without epinephrine. COMPLICATIONS: None. LABORATORY: Tissue sample sent for culture. OTHER: Negative. PATHOLOGY: None ordered IMPRESSION: 1. Uneventful ultrasound guided fine needle aspiration (FNA). 2. Culture results are pending. Electronically authenticated by: JOHN OSORIO Date: 2022-06-18 13:09 Normal [facility] GROUP B STREP CULTUREon 06-01 S. agalactiae Ag Ql (Unsp spec) Culture Observations: NEGATIVE FOR GROUP B STREPTOCOCCUS. Normal [facility] Comment on above: Performed By: #### G BSCX #### [facility] [address] [place] [address] Dr. Carroll Pryor US ST HEAD_NECKon 06-10-[address] HEAD_NECK EXAM: US ST HEAD_NEC K HISTORY: Mass of head ; right cheek swelling and painful lump since tooth extraction a few weeks ago COMPARISON: None. TECHNIQUE: Percutaneous ultrasound of right cheek. Left cheek evaluated for comparison. FINDINGS: Geographic shaped hypoechoic area within the subcutaneous tissues of the right cheek, 2.2 x 1.5 x 1.0 cm which corresponds to patient's palpable, tender lump. IMPRESSION: 1. Suspect mild ligamentous changes/abscess within right cheek soft tissues. Ultrasound-guided biopsy could be performed if lump/symptoms do not resolve with treatment. Electronically authenticated by: KELSI MANN Date: 2022-06-10 16:09 Normal [facility] Outside Recordson 06-04-2022 Outside Records [id number]#[id number]:[address] [facility] Insurance Correspondence Off iceon 06-02-2022 Insurance Correspondence Office [id number]#[id number]:[address] [facility] Coding Summary.on 05-31-2022 Coding Summary. CD:[id number] Gh0bWw+PG hlYWQ+OO0CJIQiK93kySOrzD3LN5v DOE2ILZNFZNBBBU4YZE5zbYB8BNhl A1SobkNh DvkrvUOzHS74NQy5WSJ5iNvcVHhrl V7efTZhG1h9XfQzQM54uV23MUqaLZ FpYyM9PbTmbzyedISy U8mtShTckWDfPby+PHRhYmxlIHdpZ GLgCCqqPSGuEyAhePxjKO6bQh4cKD VyLWNvbGxhcHNlOiBj g3wmYIKxEEblEM9gfLbdH7SseUZ5L XZvx3y1Ct62dOG+TSTlANO7dCidJI jmm763ZpAqt7hgAVJ0 aVMvSVkoXEJ0V21ld6G4USZkRFLnZ HB0lLM9sJ2ffDwnqucrG9YscRDaVy H5PYR0rSFafI5iwSkj dlcqiC2cWlz+F18ADG3NDRWFST1SP is6I6IcWqxiyEQ+IP11YNVnPL51fM LwvCRen2aquSp2NyMw ABNcSRK2vZnzPTmeu9KxXJIfN38cd CTco3H2WJNjyJxtcOVaPgKstSL1bO 3tFQedxtlsv1wejsjd Skhfp2drwh30hE23J58cKUilNDZkG UP6EZLoXVQdlRnafb5yfQ9kMs9+ID yyk7mtv1jvkZc8FkDo CCKziaTpxEmmGBG1h5FfEa32B7Kyj Hdej1TaBbu5he93eDPrp6D4bIR5TL zoHWEozK0wMDziMbJ2 XLFtVjYdtH47jBIqWTwqIb1abRmur KqtDG5pBOSymojnSRSquB7sCVPwiV JhgJzdCA1mINSgxqix b787MnGrXEQ9HDFhiWIiP5HcjW3hX sSkHWBbGCGnS2EuwXNiPDbiP774SE ubClX3SNAiwdMiB4Ob QRAayEvwTcV7r3P5Mi9Bl3LznwltN BA1CWweZIIfKrZvXiJlKzA9L1ZpHc d9JHJunCwdPN2iD5Nb BLVxvhmdtpqmhYF1LKKuAWAhyS20r SDlGSnfCa2yt3A3i807FQUyYPMfzK 01Ch3yaMaxUQCviJCL mU0cgpdwn1ildyvxWcNsFEHhQZc1V Dj2FOTdzOpfByInCYM9AsD6LBJ8jP ZndL6nxKidqprenF2k Oyc+B98boX7iXZT0CYQ1fzifXJDzq dYwJG74WA27Z2AjWvblfXBacFN+PG KkczZwhGerBX3zUdQs q6rah3OdXNrgH6XzWNZsNQrhWmj7T SAyOVJ1zZF6sB4nNYNlDJhll9R7vJ S1C9AqplFsoh2lu6ba IDHrSElcY18cfSDti9G2VCUdrGS3S CJasCepCvNrlL62Ooc+PGNvbGdyb3 NkOqocr6mhd3ohhWi8 RvUnDDJdiaAqjUegERL0t4XzOy74P 29sIHdpZHRoPSIxNSUiIHZhbGlnbj 2deA7jVz0+PGNvbCB3 vZP7iE0kIJJtGpM0BRhtM650GaPzn BQpQzukq1fuw9glhOd7WzQoWFOilh OlnWduFQT8o9UdJt64 V73uVHxhSKSgMURsWFDqHOVvkGzvl s1fdU8kFt9+ST4rv9ewbz36jJ59mK I+VVOjRJE1gMsmIQmy NMMbcE4wFIojWaX9IQQbRgXhcJ29v PDrLTqdRj2huCizjDeaDA1uVFVjsi bpp123PwGvm5llLVGj eXRcKQjdVSG0F10ax9L1YTDaKNSgT XL8wXV5nY2cyUgvrvdmbAImlLvvnu OahUmwDHjzTLoaQ498 KLQpdXtiXpBswVllzpMhYhYwJVt6A 1RmNue3OBYnwEdkCN8ztGJaIVlvFa 8bcMqvcOubTT6jLWJk bclkx857DhVke1mrCEJhkMBvDQzuY XQ1R04tf0M6PQQgKUQmFQA9zLZ8dT 1hbGlnbjogbGVmdDsg nzYsaPtuSWfdLSgbY125YRSgzWtnB wAifsIcSUEzhVY9JQ76YJ85xKKdb2 I6uWC3F7NnBSVqruka trrniXW5KZMhEIKdeP02Wx9uhZdrN s6sPDPsXDF6OKBteSJpD8NerI1kQh CkVYGySTIaI4KjiJVb WHnzG780TWllJzP1LEZiaqRlW3JcC AFvpIuxAbY4m5L2Ru0MR9I9YD84XF 15vUDqa1U1kWI6L0Vi RGVjfnvhvcjynHV2BOCaRRFqmQ03F r2raOgkYe1yJGApAMP6JLDurINeY9 OghI2hAjSrDQAhQBXi D6MtaRRjBJdwK378PBzyCcE9PZQeh tRpX5XpLTRcpVjaIyF4i7F7Qt5PYU e6CT51BD63sNHqt9S1 bIT8W8DbMKQwbybgmhzoyOY9SGPdK SXctQ38Gx4jdFtvNl5gUVQdTZJ8BX ZwyDKfL3XipX4iRvTy QGPvUNSuT9YhtPSbHLnmO640PBprI rZ3YWQzirDpL9HpWICbrFbhPeZ6m2 Q6Dd4GFBLtPI62SKQ1 nBM6DT66XX74M7WtVkmluYFifQA+P HRhYmxlIHdpZHRoPScxMDAlJyBzdH qsBZ5mXd6rYSBbDNCj ySinmKAnFsEuy7ixDDHtIOqxXJ0xa WtiD9YwxBI8OQIra1e5Xo99F07lN8 JvdXA+WLOzeOS5bZQ3 tP2mXxIjBnT3BCepG955RcZzyGAkY yvej6pez8zzuXk0RfJ8STHqdxBboU opPTV2y6OzSb79D84q XXxwNZSlUZSqKNKcUKTeoCzpic5yx G9wIi8+AUSbvFX2fTZ2kM8xNhTaCl Y0UGcuM795VvCvtIUg Tjfje0rvz5hogBx0TxEeQBYpptCsn KghDBE8m4JrIa81G4FntIsjq1QvBo t6wl50bEEla1D5fJN1 R2OeLYTrahuupOIuvOxtVY6xDFBpt wpuKGQwpR7lVBKmO5o7AzRdUsQ8JW vpU1RqqpZ9XVXueWKw JNvqMMF9I10li2U8OMPwEUKfNVO0z PG1xS3nmHgzrstqnCUflYymzwXijI zkVAglMRltX645LMTg kWjbNCCiuT4cTRPojAXecKueRG8wI TBpbjsnPkhJTFRPTiwgSkFOTkEgSj wvdGQ+KBNoNVK7uCjm XNnhPZBfrA2fCVHkE8g0KxZtTuE8D XdjU7DvRMLhjuepEs14jN7oTsMoAn K5PAcvC9LlvyE1QHBr qSRdNLkwEIV5Q59wa2Q7UYPyKGLrI LY3tTO9wT3nuTxefrxufQTtwBhcxe LgwSfwPOaeDEbdF277 LCNfsWdpOzE0ArP5JfA7WSd6L6YxR vp2DBHrlPnyNA1glREhHZtqFq7spA moxJtnZJ6lQVWevlhb LKIiqP1bKXJgoPCrjHoyRT7bBWDvd yhuq099OhGhUEZ7FVEhoGSjY4RjrQ 3dFtIeXAXvYASrU2Zj kWHbPMjlD476DMcqBjS2YPAwhxHnI 5IpOAGxzOfxTeB2u4Q1Qh5xEaXQYR FyczwvdGQ+PHRkIHN0 gXxxFQnuPFZdbH4sJIPeW7s2TpWsK hW9OAqoN3JlGFAozcohQy15oZ1aYl MgAaT2EWgmJ2FjuiZ4 YXJpiMKhHZrxHFJ8J10wa0Q9ZSUgP OBhNMG2xPR2bQ6lxMcxszdkyRChhX sgdmVydGljYWwtYWxp L076BQXntEwwClAqbGSkIQbsdAP+P CXvOYK6rPnjMZinZSGzsH8jKITwM4 o3CrBiZsA3XWadX5Dw ITIayefiPa43aL8jEjUpGfO0JUccW 8XyupX0DQJbyQEbIAfyJBQ8T03er5 J9EVHbHCRhENQ0cVK5 uM1jyXowkrsqzXVxtNlvkuRxhLbiD XrrFZouX026VVLhkFgoTeaxdAO2yQ VudDwvdGQ+XJ37yc23 O6BlGyqcVgl0HTLuHFN4vXH2mJ4yX OZqHUekt3H1kXO0D5UxkhQgjt1fx4 wkJIAhCBskD06hnUBs t6B7TPTrbSU0FGWlyOcxBbCaoQ20C yc+ASMfsSdew1FmHtjyf6swu0ppqM b8EjQoNUUdoqRgnOua RLG3t4CkQp23C15gTSluOAGgSCVzP JVhOFMmxHvymd0pmA2xAo8+PGNvbC C3xDF8qD8dPzEwXzH6 IGnwQ047LpAnnAEwUxvzr1wkc1ejz Rq3DiJaTWMblwMsjForAEB6h8EbCo 33A5OjkAzmm2MfWgh1 lk29qHBbo0V6aKM7W7OuZLDqgnwrt JEdiTglPL4cMUFcxbxnDYSdmI9nWU GjE6i6QpDmOdE3DGej L2MxpvC3BRYicWYzPTSfxUWWhI4sc ujtc9udmutgNjQeOOUhGWm3WGj1SF YprNugApYuDWG1ZjP3 CES6uORarL2naOqxidtbxH3gExv+U Kg7s9svwTXrHV2njAE3QC19XW95sC Cax3D1jGB9B3LaEYTh yuzikvdnsXH2PJTnEKIkcA65Kr6na SwpZl9yBDTxEWZ3MEHelRYtL2ZvrC 0yIrChYGRjCGDtC1Ig yZMhGCyfM939YVjaMnM5MMBsjzYzJ 7VeXRAuoJxtPrH4k9P8Ip9DXX80RU 85ZL90oOBxz9S8pCH4 Y2MkHQSaiaoomeopdKH9XHPiMWVhy J45Fv7jaDjlKq5hOCUpEDC6NZQbvR DjB2MevK3cZyDaSPAc ULVjA3JwwSTjCEkiZ500QEbkDiH2P ZMcocIdU2WkKPNudCvhEkI2s8V9Xh 7DQb46BR41RC91wMSt u0D8nHV2S4FvUOMvrwkkstekjGV1M HDaOELwtT34Yc9ztFbaFj6eUJQtDE U1PFWgkWCxW8XwjB1n EyNySPLvIZYjX5AnhDWfEWmpS697G DdsBsO8KVRmnbXtU4QjRCDjrXtiVa I6v9Q3Ay9SWSfowiu2 K4JvOzdqbEV+JQ77XTXiBY63uJFze CChy5enzKo7NsJaMBRjBYU8aQsaCJ jif9XuVNUrG07ssOAn c2U6 (more content not included)... Normal [facility] ABO/Rh History Checkon 05-29 ABO/Rh History Check Patient discharged prior Normal [facility] Comment on above: Performed By: #### 2 [id number], [id number], [id number], [id number] ####[facility] [address] [place] [address] ABO/Rhon 05-28-2022 ABO/Rh Positive Invalid Interpretation Code [facility] Comment on above: Performed By: #### 2 [id number], [id number], [id number], [id number] ####[facility] [address] [place] [address] ABSCon 05-28-2022 ABSC Gel Interp Negative Normal [facility] Comment on above: Performed By: #### 2 [id number], [id number], [id number], [id number] ####[facility] [address] [place] [address] Auto Diffon 05-28-2022 Basophils/100 WBC (Bld) 0.5 % Normal 0.0-2.[address] [facility] Comment on above: Order Comment: Order Added by Discern Expert. Performed By: #### 2 [id number], 6307801, 8469513, 2058508, 22654365, 8717707, 6753753, 85640152, 50870519, 4160834 ####[facility] [address] [place] [address] Basophils/Leukocytes Auto (Bld) [Pure # fraction] 0.1 E9/L Normal 0.0-0.[address] [facility] Comment on above: Order Comment: Order Added by Discern Expert. Performed By: #### 2 104012, 8346777, 3458078, 1761580, 54611467, 9546798, 2311449, 68312722, 14605573, [id number] ####[address] [place] [address] Eosinophils/100 WBC (Bld) 0.7 % Normal 0.0-8.[address] [facility] Comment on above: Order Comment: Order Added by Discern Expert. Performed By: #### 2 876277, 9956487, 8388324, 6514717, 89611179, 5599810, 8456310, 60249590, 15092391, 6310803 ####[address] [place] [address] Eosinophils/Leukocyt es Auto (Bld) [Pure # fraction] 0.1 E9/L Normal 0.0-0.[address] [facility] Comment on above: Order Comment: Order Added by Discern Expert. Performed By: #### 2 447219, 1137699, 7075054, 0073578, 24512499, 2441089, 4914947, 02622787, 32029357, 9486106 ####[address] [place] [address] Lymphocytes/100 WBC (Bld) 14.1 % Normal 14.0-50.[address] [facility] Comment on above: Order Comment: Order Added by Discern Expert. Performed By: #### 2 066858, 6323185, 5761563, 6157806, 35072419, 7941295, 3193056, 15217130, 54238763, 9510872 ####[facility] [address] [place] [address] Lymphocytes/Leukocyt es Auto (Bld) [Pure # fraction] 1.6 E9/L Normal 1.0-4.[address] [facility] Comment on above: Order Comment: Order Added by Discern Expert. Performed By: #### 2 950294, 8053505, 2075602, 1539923, 64904723, 4890560, 1261377, 39534740, 64277043, 2075814 ####[facility] [address] [place] [address] Monocytes/100 WBC (Bld) 10.6 % Normal 4.0-14.[address] [facility] Comment on above: Order Comment: Order Added by Discern Expert. Performed By: #### 2 933014, 0734422, 8152118, 6812660, 86748173, 9243537, 7472476, 54606786, 59636909, 5076256 ####[facility] [address] [place] [address] Monocytes/Leukocytes Auto (Bld) [Pure # fraction] 1.2 E9/L High 0.2-1.[address] [facility] Comment on above: Order Comment: Order Added by Discern Expert. Performed By: #### 2 802049, 0761111, 9135090, 9432988, 47069070, 7346519, 1832174, 63854367, 91688445, 1988685 ####[facility] [address] [place] [address] Neutrophils/100 WBC (Bld) 74.1 % Normal 36.0-75.[address] [facility] Comment on above: Order Comment: Order Added by Discern Expert. Performed By: #### 2 983282, 4578772, 3505833, 5566826, 20790282, 0046508, 1575498, 66496961, 51483294, 0247644 ####[facility] [address] [place] [address] Neutrophils/Leukocyt es Auto (Bld) [Pure # fraction] 8.6 E9/L High 2.0-7.[address] [facility] Comment on above: Order Comment: Order Added by Discern Expert. Performed By: #### 2 737337, 1987062, 9012497, 5024594, 67740643, 9356690, 2788255, 76296843, 18286720, 7196071 ####[facility] [address] [place] [address] BLOOD BANKOrdered By: Eliu Nails on 05-28-2022 ABO/Rh Interp Positive Invalid Interpretation Code [facility] BB Subsection ABSC Gel Interp Negative (05/28/22 4:15 AM) Normal [facility] BB Subsection FMHV 0 mL Invalid Interpretation Code [facility] Man Sero BMPon 05-28-2022 Urea nitrogen/Creatinine [Mass ratio] UTC Abnormal 05-[address] [facility] Comment on above: Result Comment: Resu lt verified by Discern Rule. Performed result UTC (Unable to Calculate) was sent as an Alpha code due the inability to calculate a valid numeric value. Performed By: #### 2 478389, 8438431, 0811112, 1528633, 01889648, 8871951, 9667929, 63556559, 92177193, 7087095 ####[facility] [address] [place] [address] Anion gap [Moles/Vol] 13 mmol/L Normal 6-[address] [facility] Comment on above: Performed By: #### 2 634605, 1096705, 7940780, 9164198, 19592555, 5557139, 7277495, 15785468, 34198371, 5011255 ####[facility] [address] [place] [address] Calcium [Mass/Vol] 8.4 mg/dL Low 8.9-11.[address] [facility] Comment on above: Performed By: #### 2 925040, 8871882, 4801190, 7808283, 12122376, 4883664, 2373280, 86786588, 82096612, 5521435 ####[facility] [address] [place] [address] Chloride [Moles/Vol] 105 mmol/L Normal 101-111 [facility] Comment on above: Performed By: #### 2 586859, 5616553, 8884063, 9449081, 73066487, 8092123, 9018893, 03526917, 66465263, 1148736 ####[facility] [address] [place] [address] CO2 [Moles/Vol] 21 mmol/L Normal 21-[address] [facility] Comment on above: Performed By: #### 2 389650, 8459838, 9146390, 5367383, 30993473, 3850634, 6254783, 61072678, 85027772, 9482931 ####[facility] [address] [place] [address] Creatinine [Mass/Vol] 0.5 mg/dL Normal 0.5-1.[address] [facility] Comment on above: Performed By: #### 2 487074, 4274697, 9825098, 6482115, 34165690, 8520560, 0441884, 85605655, 07336599, 4680911 ####[facility] [address] [place] [address] Glucose [Mass/Vol] 95 mg/dL Normal 55-[address] [facility] Comment on above: Result Comment: If t his glucose result represents a fasting glucose, interpretation should refer to the following reference range: 55-99 mg/dL Performed By: #### 2 522096, 0150687, 9011893, 9604369, 21448703, 4973854, 2295325, 75146635, 16017054, 6787807 ####[facility] [address] [place] [address] Potassium [Moles/Vol] 3.5 mmol/L Normal 3.5-5.[address] [facility] Comment on above: Performed By: #### 2 949005, 9031910, 9352529, 3248568, 51443740, 7686521, 9627802, 18114387, 94763877, 8874806 ####[facility] [address] [place] [address] Sodium [Moles/Vol] 135 mmol/L Normal 135-[address] [facility] Comment on above: Performed By: #### 2 053121, 7644226, 1996560, 8458763, 60527198, 6202057, 8531628, 79942446, 33535857, 4570131 ####[facility] [address] [place] [address] Urea nitrogen [Mass/Vol] mg/dL Normal 5-[address] [facility] Comment on above: Performed By: #### 2 287330, 9176586, 0125243, 8782589, 74013834, 0542184, 1620313, 04964887, 33481294, 8797161 ####[facility] [address] [place] [address] Blood Bank ID#on 05-28-2022 BBID# [id number] Invalid Interpretation Code [facility] Comment on above: Performed By: #### 2 061723, 63100829, 76268309, 37543411 ####[facility] [address] [place] [address] CBC w/ Auto Diffon 2 Erythrocyte distribution width (RBC) [Ratio] 13.2 % Normal 10.9-14.[address] [facility] Comment on above: Performed By: #### 2 347828, 0545942, 5105626, 0746354, 92564550, 2397306, 4193520, 13981604, 90814249, 9402596 ####[facility] [address] [place] [address] Hematocrit (Bld) [Volume fraction] 24.6 % Low 34.0-46.[address] [facility] Comment on above: Performed By: #### 2 635066, 6758427, 4518783, 8159447, 36990442, 6084188, 4370272, 54972698, 49817886, 3154061 ####[facility] [address] [place] [address] Hemoglobin (Bld) [Mass/Vol] 8.4 g/dL Low 12.0-16.[address] [facility] Comment on above: Performed By: #### 2 905517, 7529090, 4603668, 6520577, 05086326, 2965490, 3884920, 94035722, 95217182, 2466121 ####[facility] [address] [place] [address] MCH (RBC) [Entitic mass] 30.0 pg Normal 27.0-34.[address] [facility] Comment on above: Performed By: #### 2 536139, 5899822, 1012699, 4262369, 41562513, 2788229, 3011063, 83609048, 56712346, 3995135 ####[facility] [address] [place] [address] MCHC (RBC) [Mass/Vol] 34.2 g/dL Normal 31.4-36.[address] [facility] Comment on above: Performed By: #### 2 137025, 6393533, 0110370, 7029598, 10180341, 6488003, 3979489, 05774017, 85185912, 8832450 ####[facility] [address] [place] [address] MCV (RBC) [Entitic vol] 87.7 fL Normal 80.0-100.[address] [facility] Comment on above: Performed By: #### 2 770778, 4890883, 3131309, 9573205, 33220803, 0347636, 8710779, 44960043, 91774449, 2695776 ####[facility] [address] [place] [address] Platelet mean volume (Bld) [Entitic vol] 8.6 fL Normal 6.4-10.[address] [facility] Comment on above: Performed By: #### 2 653825, 0540813, 3113695, 1748973, 76775502, 7735505, 7131052, 22253607, 78329981, 7052819 ####[facility] [address] [place] [address] Platelets (Bld) [#/Vol] 258.0 E9/L Normal 150.0-500. [address] [facility] Comment on above: Performed By: #### 2 655464, 6075827, 2790688, 0366981, 80133275, 2550510, 1252416, 95651109, 02331448, 2111135 ####[facility] [address] [place] [address] RBC (Bld) [#/Vol] 2.8 E12/L Low 4.3-5.[address] [facility] Comment on above: Performed By: #### 2 645371, 6870300, 0257062, 8893830, 29148213, 8797230, 1901576, 08328794, 95354825, 6301189 ####[facility] [address] [place] [address] WBC corrected for nucl RBC Auto (Bld) [#/Vol] 11.7 E9/L High 4.0-11.[address] [facility] Comment on above: Performed By: #### 2 776812, 3959266, 0034050, 3110933, 60888660, 3902786, 4671476, 85681251, 91108168, 6009496 ####[facility] [address] [place] [address] CHEMISTRYOrdered By: SYSTEM SYSTEM on 05-28-2022 Albumin [Mass/Vol] 2.4 g/dL Low 3.3 - 5.0 gm/dL [facility] Remisol Albumin/Globulin [Mass ratio] 0.6 {ratio} Low 1.1 - 2.2 [facility] ALP [Catalytic activity/Vol] 86 [iU]/d Normal 21 - 98 Int._Unit/ L [facility] ALT No additional P-5'-P [Catalytic activity/Vol] 7 [iU]/d Normal 6 - 46 Int._Unit/ L [facility] Anion gap [Moles/Vol] 13 mmol/L Normal 6 - 16 mEq/L [facility] AST [Catalytic activity/Vol] 13 [iU]/d Normal 5 - 43 Int._Unit/ L [facility] Bilirubin [Mass/Vol] 0.7 mg/dL Normal 0.0 - 1 .1 mg/dL [facility] Bilirubin.direct [Mass/Vol] 0.5 mg/dL High 0.1 - 0.4 mg/dL [facility] Bilirubin.indirect [Mass or moles/Vol] 0.2 mg/dL Normal 0.1 - 0.9 mg/dL [facility] Calcium [Mass/Vol] 8.4 mg/dL Low 8.9 - 11. 1 mg/dL [facility] Chloride [Moles/Vol] 105 mmol/L Normal 101 - 1 11 mmol/L [facility] CO2 [Moles/Vol] 21 mmol/L Normal 21 - 31 mmol/L [facility] Creatinine [Mass/Vol] 0.5 mg/dL Normal 0.5 - 1.3 mg/dL [facility] Remisol GFR/1.73 sq M.predicted among blacks MDRD (S/P/Bld) [Vol rate/Area] mL/min/1.73 m2 Normal >=59mL/min /1.73 m2 [facility] Chem S GFR/1.73 sq M.predicted among non-blacks MDRD (S/P/Bld) [Vol rate/Area] mL/min/1.73 m2 Normal >=59mL/min /1.73 m2 [facility] Chem S Globulin (S) [Mass/Vol] 4.2 g/dL High 1.4 - 4.0 gm/dL [facility] Remisol Glucose [Mass/Vol] 95 mg/dL Normal 55 - 199 mg/dL [facility] Potassium [Moles/Vol] 3.5 mmol/L Normal 3.5 - 5.3 mmol/L [facility] Protein [Mass/Vol] 6.6 g/dL Normal 6.0 - 7.8 gm/dL [facility] Sodium [Moles/Vol] 135 mmol/L Normal 135 - 145 mmol/L [facility] Urate [Mass/Vol] 3.5 mg/dL Normal 2.2 - 7.4 mg/dL [facility] Urea nitrogen [Mass/Vol] mg/dL Normal 5 - 21 mg/dL [facility] Urea nitrogen/Creatinine [Mass ratio] Unable to Calculate Invalid Interpretation Code [facility] Remisol COAGULATIONOrdered By: Eliu Nails on 05-28-2022 aPTT Coag (PPP) [Time] 22.4 s Low 25.1 - 36.5 second(s) [facility] Auto Coag Fibrin+Fibrinogen fragments (S) [Mass/Vol] <10 (05/28/22 4:15 AM) Normal <10 [facility] Man Sero Fibrinogen Coag (PPP) [Mass/Vol] 619 mg/dL High 200 - 393 mg/dL [facility] Auto Coag INR Coag (PPP) [Relative time] 1.0 {INR} Invalid Interpretation Code [facility] Auto Coag PT Coag (PPP) [Time] 11.2 s Normal 9.4 - 1 2.5 second(s) [facility] Auto Coag EMS Documentationon 05-28-20 EMS Documentation [id number]#[id number]:[address] [facility] EMS Documentation [id number]#1.00CD:[address] [facility] EMS Documentation [id number]#1.00CD:[address] [facility] EMS Documentation [id number]#1.00CD:[address] [facility] FSPon 05-28-2022 Fibrin+Fibrinogen fragments (S) [Mass/Vol] <10 Normal <[address] [facility] Comment on above: Performed By: #### 2 097876, 7782047, 2332584, 0101277, 83537673, 4981689, 4922617, 39458432, 16746989, 2507228 ####[facility] [address] [place] [address] Stainon 05-28-2022 FMHV 0 mL Invalid Interpretation Code [facility] Comment on above: Performed By: #### 2 241586, 3129218, 3763125, 2539649, 43590422, 3166774, 4344386, 74082303, 93146107, 4033860 ####[facility] [address] [place] [address] Negative Control Negative Normal [facility] Comment on above: Performed By: #### 2 439219, 5372567, 6742032, 3981973, 36626708, 3624906, 9212737, 02540684, 59298698, 6450856 ####[facility] [address] [place] [address] Fibrinogenon 05-28-2022 Fibrinogen Coag (PPP) [Mass/Vol] 619 mg/dL High 200-[address] [facility] Comment on above: Performed By: #### 2 496304, 8375328, 8628594, 2849181, 77759977, 1026601, 4719612, 47325755, 22674535, 2167714 ####[facility] [address] [place] [address] HEMATOLOGYOrdered By: SYSTEM SYSTEM on 05-28-2022 Basophils/100 WBC (Bld) 0.5 % Normal 0.0 - 2.0 % [facility] HemeAutoSS Basophils/Leukocytes Auto (Bld) [Pure # fraction] 0.1 E9/L Normal 0.0 - 0.2 E9/L [facility] HemeAutoSS Eosinophils/100 WBC (Bld) 0.7 % Normal 0.0 - 8.0 % [facility] HemeAutoSS Eosinophils/Leukocyt es Auto (Bld) [Pure # fraction] 0.1 E9/L Normal 0.0 - 0.5 E9/L [facility] HemeAutoSS Lymphocytes/100 WBC (Bld) 14.1 % Normal 14.0 - 50.0 % [facility] HemeAutoSS Lymphocytes/Leukocyt es Auto (Bld) [Pure # fraction] 1.6 E9/L Normal 1.0 - 4.0 E9/L [facility] HemeAutoSS Monocytes/100 WBC (Bld) 10.6 % Normal 4.0 - 14.0 % [facility] HemeAutoSS Monocytes/Leukocytes Auto (Bld) [Pure # fraction] 1.2 E9/L High 0.2 - 1.0 E9/L [facility] HemeAutoSS Neutrophils/100 WBC (Bld) 74.1 % Normal 36.0 - 75.0 % [facility] HemeAutoSS Neutrophils/Leukocyt es Auto (Bld) [Pure # fraction] 8.6 E9/L High 2.0 - 7.5 E9/L [facility] HemeAutoSS HEMATOLOGYOrdered By: Eliu Nails on 05-28-2022 Erythrocyte distribution width (RBC) [Ratio] 13.2 % Normal 10.9 - 14.2 % [facility] HemeAutoSS Hematocrit (Bld) [Volume fraction] 24.6 % Low 34.0 - 46.0 % [facility] HemeAutoSS Hemoglobin (Bld) [Mass/Vol] 8.4 g/dL Low 12.0 - 16.0 gm/dL [facility] HemeAutoSS MCH (RBC) [Entitic mass] 30.0 pg Normal 27.0 - 34.0 pg [facility] HemeAutoSS MCHC (RBC) [Mass/Vol] 34.2 g/dL Normal 31.4 - 36.0 gm/dL [facility] HemeAutoSS MCV (RBC) [Entitic vol] 87.7 fL Normal 80.0 - 100.0 fL [facility] HemeAutoSS Platelet mean volume (Bld) [Entitic vol] 8.6 fL Normal 6.4 - 10.8 fL [facility] HemeAutoSS Platelets (Bld) [#/Vol] 258.0 E9/L Normal 150.0 - 500.0 E9/L [facility] HemeAutoSS RBC (Bld) [#/Vol] 2.8 E12/L Low 4.3 - 5.9 E12/L [facility] HemeAutoSS WBC corrected for nucl RBC Auto (Bld) [#/Vol] 11.7 E9/L High 4.0 - 11.0 E9/L [facility] HemeAutoSS Hep Func Panelon 05-28-2022 Albumin [Mass/Vol] 2.4 g/dL Low 3.3-5.[address] [facility] Comment on above: Performed By: #### 2 274203, 0314911, 4328936, 8083583, 51852053, 2832969, 2693812, 48805127, 64463127, 8360918 ####[facility] [address] [place] [address] Albumin/Globulin (S) [Mass conc ratio] 0.6 Low 1.1-2.[address] [facility] Comment on above: Performed By: #### 2 109875, 8450796, 3660645, 7923785, 72554705, 5878099, 6913115, 93772805, 25023912, 6752360 ####[facility] [address] [place] [address] ALP [Catalytic activity/Vol] 86 Int._Unit/L Normal 21-[address] [facility] Comment on above: Performed By: #### 2 169093, 4022356, 2978699, 9504166, 42924795, 3605122, 5879108, 49037966, 79845270, 9809253 ####[facility] [address] [place] [address] ALT No additional P-5'-P [Catalytic activity/Vol] 7 Int._Unit/L Normal 6-[address] [facility] Comment on above: Performed By: #### 2 409490, 1872546, 6203680, 9647520, 41673414, 7975637, 6723631, 38222768, 43927170, 2299827 ####[facility] [address] [place] [address] AST [Catalytic activity/Vol] 13 Int._Unit/L Normal 5-[address] [facility] Comment on above: Performed By: #### 2 033799, 3246349, 9739322, 5714632, 07214772, 8249264, 5477213, 09593187, 79162293, 8809554 ####[facility] [address] [place] [address] Bilirubin [Mass/Vol] 0.7 mg/dL Normal 0.0-1.1 [facility] Comment on above: Performed By: #### 2 496497, 0913987, 1666390, 6529016, 84884342, 5224190, 1673967, 27309149, 35276797, 3285637 ####[facility] [address] [place] [address] Bilirubin.direct [Mass/Vol] 0.5 mg/dL High 0.1-0.[address] [facility] Comment on above: Performed By: #### 2 644514, 3004318, 7335683, 7877511, 02227436, 5596229, 9975516, 19823767, 02002978, 9020537 ####[facility] [address] [place] [address] Bilirubin.indirect [Mass or moles/Vol] 0.2 mg/dL Normal 0.1-0.[address] [facility] Comment on above: Performed By: #### 2 455353, 9161954, 2575172, 1359153, 51907041, 0690001, 4762748, 92104936, 38578331, 6256161 ####[facility] [address] [place] [address] Globulin (S) [Mass/Vol] 4.2 g/dL High 1.4-4.[address] [facility] Comment on above: Performed By: #### 2 987880, 4402111, 0174555, 8286186, 82539501, 7585228, 3236481, 49243618, 02374472, 3827652 ####[facility] [address] [place] [address] Protein [Mass/Vol] 6.6 g/dL Normal 6.0-7.[address] [facility] Comment on above: Performed By: #### 2 777522, 2684370, 7887576, 9609310, 48014925, 3663582, 0422012, 67488928, 23203304, 9269495 ####[facility] [address] [place] [address] Inpatient Clinical Summaryon 05-28-2022 Inpatient Clinical Summary [address] [address] Clinical Summary Person Information Name: DEEPTI CARDOZA [place] Age: 22 Years : 2000 Sex: Female PCP: Eloisa Khan MD Marital Status: Single Phone: [phone] Race: White Ethnicity: Non- or Language: Barbadian Visit Id: Visit Reason: FACIAL ABRASION Speciality: Acuity: Obs Enc Type: Inpatient Med Service: Obstetrics Arrival: 05/26/2022 17:28:35 Discharge: 05/28/2022 13:15:00 Dispo Type: Critical [facility] Hosp Address: [address] [place] [id number] Provider Notes: Diagnosis: 1:; 2:Facial abscess; 3:Acute abscess of maxillary sinus; 4:Starvation ketoacidosis Problems Active (01/11/2022) Smoking Status: Never Smoker Functional Status: Sensory Deficits: History of Falls: Mobility Assistance Prior to Admission: Independent ADLs: Independent Current Level of Assistance for Self-Care/Mobility: Cognitive Status: Allergies No Known Allergies Laboratory or Other Results This Visit (last charted value for your 05/26/2022 visit) Hematology 05/28/2022 4:15 AM Basophil Auto: 0.5 % -- Normal range between ( 0.0 and 2.0 ) Eos Auto: 0.7 % -- Normal range between ( 0.0 and 8.0 ) Hct: 24.6 % -- Normal range between ( 34.0 and 46.0 ) HGB: 8.4 gm/dL -- Normal range between ( 12.0 and 16.0 ) Lymph Auto: 14.1 % -- Normal range between ( 14.0 and 50.0 ) RBC: 2.8 E12/L -- Normal range between ( 4.3 and 5.9 ) RDW: 13.2 % -- Normal range between ( 10.9 and 14.2 ) MCH: 30.0 pg -- Normal range between ( 27.0 and 34.0 ) MCHC: 34.2 gm/dL -- Normal range between ( 31.4 and 36.0 ) MCV: 87.7 fL -- Normal range between ( 80.0 and 100.0 ) Bowman Auto: 10.6 % -- Normal range between ( 4.0 and 14.0 ) MPV: 8.6 fL -- Normal range between ( 6.4 and 10.8 ) Neutro Auto: 74.1 % -- Normal range between ( 36.0 and 75.0 ) Platelet: 258.0 E9/L -- Normal range between ( 150.0 and 500.0 ) WBC: 11.7 E9/L -- Normal range between ( 4.0 and 11.0 ) Bowman Absolute: 1.2 E9/L -- Normal range between ( 0.2 and 1.0 ) Eos Absolute: 0.1 E9/L -- Normal range between ( 0.0 and 0.5 ) Basophil Absolute: 0.1 E9/L -- Normal range between ( 0.0 and 0.2 ) Neutro Absolute: 8.6 E9/L -- Normal range between ( 2.0 and 7.5 ) Lymph Absolute: 1.6 E9/L -- Normal range between ( 1.0 and 4.0 ) Coagulation 05/28/2022 4:15 AM FSP: <10 INR: 1.0 Fibrinogen: 619 mg/dL -- Normal range between ( 200 and 393 ) PT: 11.2 second(s) -- Normal range between ( 9.4 and 12.5 ) PTT: 22.4 second(s) -- Normal range between ( 25.1 and 36.5 ) Chemistry 05/28/2022 4:15 AM Creatinine: 0.5 mg/dL -- Normal range between ( 0.5 and 1.3 ) A/G Ratio: 0.6 -- Normal range between ( 1.1 and 2.2 ) BUN/Creat Ratio: Unable to Calculate -- Normal range between ( 10 and 20 ) AGAP: 13 mEq/L -- Normal range between ( 6 and 16 ) Albumin Lvl: 2.4 gm/dL -- Normal range between ( 3.3 and 5.0 ) Alk Phos: 86 Int._Unit/L -- Normal range between ( 21 and 98 ) ALT: 7 Int._Unit/L -- Normal range between ( 6 and 46 ) AST: 13 Int._Unit/L -- Normal range between ( 5 and 43 ) Bili Direct: 0.5 mg/dL -- Normal range between ( 0.1 and 0.4 ) Bili Total: 0.7 mg/dL -- Normal range between ( 0.0 and 1.1 ) CO2: 21 mmol/L -- Normal range between ( 21 and 31 ) Glucose Lvl: 95 mg/dL -- Normal range between ( 55 and 199 ) Sodium Lvl: 135 mmol/L -- Normal range between ( 135 and 145 ) Total Protein: 6.6 gm/dL -- Normal range between ( 6.0 and 7.8 ) BUN: <5 mg/dL -- Normal range between ( 5 and 21 ) Calcium Lvl: 8.4 mg/dL -- Normal range between ( 8.9 and 11.1 ) Potassium Lvl: 3.5 mmol/L -- Normal range between ( 3.5 and 5.3 ) Uric Acid: 3.5 mg/dL -- Normal range between ( 2.2 and 7.4 ) Chloride: 105 mmol/L -- Normal range between ( 101 and 111 ) Bili Indirect: 0.2 mg/dL -- Normal range between ( 0.1 and 0.9 ) eGFR: >60 mL/min/1.73 m2 eGFR AA: >60 mL/min/1.73 m2 Globulin: 4.2 gm/dL -- Normal range between ( 1.4 and 4.0 ) 05/27/2022 5:46 AM Magnesium: 1.5 mg/dL -- Normal range between ( 1.3 and 2.4 ) Blood Bank 05/28/2022 4:15 AM ABO/Rh: A POS ABSC Gel Interp: Negative FMHV: 0 mL Measurements: Height: 167.5 cm Weight: 69.5 kg Blood Pressure: 114 mmHg / 61 mmHg BMI: 24.31 kg/m2 Procedures History of knee surgery (2016) Tonsillectomy (2009) Immunizations No Immunizations Documented This Visit Final Med List: clindamycin By Mouth 3 times a day. multivitamin, ( Multivitamins with Vitamin B Complex, Vitamin C, Minerals and L-Methylfolate oral capsule) 1 Capsules By Mouth every day. omeprazole 40 Milligram By Mouth every day as needed Control of stomach acid. Care Team Members: Attending Physician: Dl White MD Consulting Physician: Asim Monroe DO; ABDIAZIZ VILLANUEVA, Denis Ariza (more content not included)... Normal [facility] Inpatient Patient Summaryon 05-28-2022 Inpatient Patient Summary [address] [address] Patient Discharge Instructions PERSON INFORMATION Name: DEEPTI CARDOZA Date of : 2000 Current Date: 05/28/2022 13:28:46 PHYSICIANS Admitting Physician: Dl White MD Primary Care Physician: Eloisa Khan MD PCP Comment: Discharge Diagnosis: 1:; 2:Facial abscess; 3:Acute abscess of maxillary sinus; 4:Starvation ketoacidosis Condition at Discharge: Other: pt transferred for [facility] to assume care due to level of care needed. Dr. Freed transferred pt to [facility] DEEPTI CARDOZA has been given the following list of follow-up instructions, prescriptions, and patient education materials: PATIENT FOLLOW-UP INFORMATION Diet: Activity: Wound Care Instructions: Remove Your Dressing IN: Days Call Your Doctor For: IF UNABLE TO CONTACT YOUR PHYSICIAN AND YOU FEEL IT IS AN EMERGENCY, GO TO THE NEAREST EMERGENCY ROOM OR CALL 911 Home Treatment: Devices/Equipment: None Special Services: Additional Instructions: Physician to provide the following pending test results: None Follow up: With: Address: When: Rajendra RUSS [facility]ly [facility], [address] [place] [address] [place] [address] Business (1) In the event that this physician does not participate in your insurance network, please consult with your insurance company to find a nearby participating provider. Comment: NANI Pierre JANNA J, have received the attached patient education materials/instructions and have verbalized understanding. Patient Signature Date Clinican/Nurse Signature Date MEDICATION LIST Medications to Continue with No Changes Other Medications clindamycin By Mouth 3 times a day. Last Dose: Next Dose: multivitamin, ( Multivitamins with Vitamin B Complex, Vitamin C, Minerals and L-Methylfolate oral capsule) 1 Capsules By Mouth every day. Last Dose: Next Dose: omeprazole 40 Milligram By Mouth every day as needed Control of stomach acid. Last Dose: Next Dose: Pharmacy Information: Other: [facility] [place] PATIENT EDUCATION INFORMATION Instructions: Medication Leaflets: You may receive a survey from [email or web address] asking you to rate your care experience. Your feedback is important and will help us understand what we do well and how we can improve the quality of care we provide to you, your loved ones and our community. It?s an honor to serve you. Thank you for choosing [facility] Normal [facility] Insurance Correspondence Off 05-28-2022 Insurance Correspondence Office [id number]#[id number]:[address] [facility] Outside Recordson 05-28-2022 Outside Records [id number]#[id number]:[address] [facility] PT & PTTon 05-28-2022 aPTT Coag (PPP) [Time] 22.4 second(s) Low 25.1-36.[address] [facility] Comment on above: Result Comment: Para meter 15 days - 4 weeks 1 - 5 months 6 - 11 months 1 - 5 years 6 - 10 years 11 - 17 years PTT Mean: 35.4 (27.6-45.6) Mean: 33.5 (24.8-40.7) Mean: 32.4 (25.1-40.7) Mean: 31.6 (24.0-39.2) Mean: 31.6 (26.9-38.7) Mean: 31.0 (24.6-38.4) Pediatric Reference ranges were obtained from a study by ezio Malcolm al. prepared from 1437 samples obtained at 7 different centers using the same coagulation reagent and instrumentation as [facility]. Currently there are no coagulation studies available worldwide for children to 14 days, and no normal ranges. Heparin therapeutic range (represented by Anti-Factor Xa activity of 0.2 - 0.4 U/mL) corresponds to PTT of 56.6 - 109.0 sec. Performed By: #### 2 538399, 7366859, 6692610, 3368522, 82978554, 3378841, 9095639, 64890167, 67734150, 9683404 ####[facility] [address] [place] [address] INR Coag (PPP) [Relative time] 1.0 {INR} Invalid Interpretation Code [facility] Comment on above: Result Comment: INR results are specifically intended to assess patients stabilized on long-term Anticoagulation therapy suggested INR?s ?Less Intensive Anticoagulation? 2.0 ? 3.0 Conventional Range 3.0 ? 4.5 Performed By: #### 2 036638, 0618448, 3585967, 1492015, 99030686, 0952693, 1636322, 42668954, 89942281, 7080764 ####[facility] [address] [place] [address] PT Coag (PPP) [Time] 11.2 second(s) Normal 9.4-12.[address] [facility] Comment on above: Result Comment: 15 d ays - 4 weeks 1 - 5 months 6 -11 months 1 ? 5 years 6 ? 10 years 11 -17 years Mean: 11.2 (9.5 ? 12.6) Mean: 11.0 (9.7 ? 12.8) Mean: 11.0 (9.8 ? 13.0) Mean: 11.3 (9.9 ? 13.4) Mean: 11.7 (10.0 ? 14.6) Mean: 11.8 (10.0 - 14.1) Pediatric Reference ranges were obtained from a study by Mulugeta Lomeli et al. prepared from 1437 samples obtained at 7 different centers using the same coagulation reagent and instrumentation as [facility]. Currently there are no coagulation studies available worldwide for children to 14 days, and no normal ranges. Performed By: #### 2 164074, 2725664, 0966228, 1180227, 59325805, 3916408, 6000776, 72213482, 55728402, 1973714 ####[facility] [address] [place] [address] Prescriptions/Work Noteson 1 Prescriptions/Work Notes [id number]#[id number]:[address] [facility] Progress Note-Physicianon Progress Note-Physician Assessment/Plan 22-year-old with second (first 1 uneventful with the baby of 7 pounds 7 ounces) at 33 weeks of and 5 days presents to emergency department due to severe facial pain and inability to to eat. 1. (Z34.90: Encounter for supervision of normal , unspecified, unspecified trimester) Continue with vitamin Starvation ketoacidosis has resolved Routine monitoring for baby every shift Will transfer patient to a place with [facility] and OMFS 2. Facial abscess (L02.01: Cutaneous abscess of face) Worse today Spoke to ENT. preferrers patient going to tertiary care with OMFS Will continue with Unasyn and warm compress NPO Transfer to [facility] once bed is available 3. Acute abscess of maxillary sinus (J01.00: Acute maxillary sinusitis, unspecified) will need OMFS Transfer to [facility] Continue with Tylenol Antibiotics as ordered 4. Starvation ketoacidosis (T73.0XXA: Starvation, initial encounter) Resolved Will continue with IVF as patient will be NPO Orders: ampicillin-sulbactam + Sodium Chloride 0.9% intravenous solution 100 mL, 3 gram = 1 EA, Injection, IV Piggyback, q6hrFT for 10 day(s), Stop date 06/06/22 17:59:00 EST, Routine, Start date 05/27/22 18:00:00 EDT, 200 mL/hr, Infuse over 30 minute(s) Sodium Chloride 0.9% intravenous solution 1,000 mL, 1,000 mL, IV, 100 mL/hr, for 1 dose(s), Stop date 05/28/22 4:04:00 EDT, Routine, Start date 05/27/22 18:05:00 EDT, 10 hour(s), Total volume (mL): 1,000, 68.2 kg, 1.78, m2 Basic Metabolic Panel eGFR NPO Diet Plan discussed with patient at bedside This report was transcribed using voice recognition software. Every effort was made to ensure accuracy, however, inadvertently computerized city jailer mistakes may be present. Denis Freed Hospitalist Subjective Patient is worse today. Abscess stopped draining overnight. She cannot close her lips. Review of Systems Worse. Pain is 9 out of 10. Objective Vitals & Measurements T: 36.9 ?C(Oral) TMIN: 36.6 ?C(Oral) TMAX: 37.0 ?C(Oral) HR: 88(Monitored) RR: 18 BP: 127/68 SpO2: 98% WT: 69.5 kg Intake & Output This visit (24 hour periods starting at 07:00 EDT) 05/28/22 * 05/27/22 05/26/22 Total Summary Intake mL 10.5 3,166.79 2,459.74 Output mL 100 1,250 1,725 Fluid Balance -89.5 1,916.79 734.74 Intake (8) Dextrose 5% with 0.45% NaCl intravenous solution 1,000 mL + sodium bicarbonate 75 mEq mL -- -- 1,185.62 Generic Diluent, acetaminophen mL -- -- 50.12 Oral Intake mL -- 1,660 1,020 Sodium Chloride 0.9% intravenous solution 250 mL mL -- 961.79 -- Sodium Chloride 0.9%, ampicillin-sulbactam mL -- 500 200 acetaminophen-hydrocodone mL 10 40 -- nalbuphine mL 0.5 3 2 ondansetron mL -- 2 2 Total 10.5 3,166.79 2,459.74 Output (1) Urine Voided mL 100 1,250 1,725 Total 100 1,250 1,725 Counts (0) * This column has not completed the indicated time period. Physical Exam General: alert, moderate distress on Room air ENMT: Right side of the face is much more swollen and red. She looks much more uncomfortable. Dense and hard Cardiovascular: regular rate and rhythm, normal peripheral perfusion Respiratory: Lungs CTA, respirations non labored Abdomen: Soft, nontender, without rebound or rigidity, positive bowel sounds Extremities: no deformity, no trauma Genitourinary: Gravid uterus Skin: Intact Hematological: No signs of large bruising/ecchymosis or petechiae Neurological: oriented x 4, LOC appropriate for age, CN II-XII intact, motor strength equal & normal bilaterally, sensation equal & normal bilaterally, speech normal Psych: Denies suicidal ideation or homicidal ideation Lab Results WBC: 11.7 E9/L High (05/28/22 04:15:00) RBC: 2.8 E12/L Low (05/28/22 04:15:00) HGB: 8.4 gm/dL Low (05/28/22 04:15:00) Hct: 24.6 % Low (05/28/22 04:15:00) MCV: 87.7 fL (05/28/22 04:15:00) MCH: 30 pg (05/28/22 04:15:00) MCHC: 34.2 gm/dL (05/28/22 04:15:00) RDW: 13.2 % (05/28/22 04:15:00) Platelet: 258 E9/L (05/28/22 04:15:00) MPV: 8.6 fL (05/28/22 04:15:00) Neutro Auto: 74.1 % (05/28/22 04:15:00) Lymph Auto: 14.1 % (05/28/22 04:15:00) Bowman Auto: 10.6 % (05/28/22 04:15:00) Eos Auto: 0.7 % (05/28/22 04:15:00) Basophil Auto: 0.5 % (05/28/22 04:15:00) Neutro Absolute: 8.6 E9/L High (05/28/22 04:15:00) Lymph Absolute: 1.6 E9/L (05/28/22 04:15:00) Bowman Absolute: 1.2 E9/L High (05/28/22 04:15:00) Eos Absolute: 0.1 E9/L (05/28/22 04:15:00) Basophil Absolute: 0.1 E9/L (05/28/22 04:15:00) PT: 11.2 second(s) (05/28/22 04:15:00) INR: 1 (05/28/22 04:15:00) PTT: 22.4 second(s) Low (05/28/22 04:15:00) Fibrinogen: 619 mg/dL High (05/28/22 04:15:00) FSP: <10 (05/28/22 04:15:00) Glucose Lvl: 95 mg/dL (05/28/22 04:15:00) BUN: <5 (05/28/22 04:15:00) Creatinine: 0.5 mg/dL (05/28/22 04:15:00) eGFR: >60 (05/28/22 04:15:00) eGFR AA: >6 (more content not included)... Normal [facility] Comment on above: Result Comment: Elec tronically Signed By: ABDIAZIZ VILLANUEVA, Denis Ariza\.br\Date and Time Signed: 05/28/22 09:31 EDT Transfer Documentson 022 Transfer Documents [id number]#[id number]:[address] [facility] Transfer Documents [id number]#[id number]:[address] [facility] Uric Acidon 05-28-2022 Urate [Mass/Vol] 3.5 mg/dL Normal 2.2-7.[address] [facility] Comment on above: Performed By: #### 2 943955, 6617376, 7094354, 6404717, 77658353, 8848839, 6732933, 73233639, 91320101, 4764369 ####[facility] [address] [place] [address] eGFRon 05-28-2022 GFR/1.73 sq M.predicted among blacks MDRD (S/P/Bld) [Vol rate/Area] mL/min/{1.73_m2} Normal >=[address] [facility] Comment on above: Order Comment: Order added by Discern Expert. Result Comment: eGFR is race adjusted. AA=. Performed By: #### 2 888858, 3982674, 4465015, 1109195, 45506500, 1713160, 0653275, 84685644, 17529640, 0159081 ####[facility] [address] [place] [address] GFR/1.73 sq M.predicted among non-blacks MDRD (S/P/Bld) [Vol rate/Area] mL/min/{1.73_m2} Normal >=[address] [facility] Comment on above: Order Comment: Order added by Discern Expert. Result Comment: Spa Assistant Manager timbo kidney disease could be indicated at eGFR's of less than 60 mL/min/1.73m2. Kidney failure is indicated at less than 15 mL/min/1.73m2. Performed By: #### 2 103035, 6401911, 5876678, 2424994, 37886887, 2478263, 7439197, 14225681, 79478435, 0530910 ####[facility] [address] [place] [address] Auto Diffon 05-27-2022 Basophils/100 WBC (Bld) 0.2 % Normal 0.0-2.[address] [facility] Comment on above: Order Comment: Order Added by Discern Expert. Performed By: #### 2 162931, 4178994, 04336529, 8055723, 1447441 #### [facility] [address] [place] [address] Basophils/Leukocytes Auto (Bld) [Pure # fraction] 0.0 E9/L Normal 0.0-0.[address] [facility] Comment on above: Order Comment: Order Added by Discern Expert. Performed By: #### 2 605875, 6605980, 07791087, 6374678, 1423673 #### [facility] [address] [place] [address] Eosinophils/100 WBC (Bld) 0.3 % Normal 0.0-8.[address] [facility] Comment on above: Order Comment: Order Added by Litzy Expert. Performed By: #### 2 866356, 2731835, 50781953, 7089029, 5525160 #### [facility] [address] [place] [address] Eosinophils/Leukocyt es Auto (Bld) [Pure # fraction] 0.0 E9/L Normal 0.0-0.[address] [facility] Comment on above: Order Comment: Order Added by Litzy Expert. Performed By: #### 2 344013, 9044242, 53017429, 3339178, 3916346 #### [facility] [address] [place] [address] Lymphocytes/100 WBC (Bld) 8.3 % Low 14.0-50.[address] [facility] Comment on above: Order Comment: Order Added by Litzy Expert. Performed By: #### 2 912026, 7484009, 90672857, 1525742, 8494074 #### [facility] [address] [place] [address] Lymphocytes/Leukocyt es Auto (Bld) [Pure # fraction] 1.2 E9/L Normal 1.0-4.[address] [facility] Comment on above: Order Comment: Order Added by Litzy Expert. Performed By: #### 2 475203, 7993352, 42787001, 9498746, 2949062 #### [facility] [address] [place] [address] Monocytes/100 WBC (Bld) 11.6 % Normal 4.0-14.[address] [facility] Comment on above: Order Comment: Order Added by Discern Expert. Performed By: #### 2 522629, 8019723, 29113614, 8923771, 1260244 #### [facility] [address] [place] [address] Monocytes/Leukocytes Auto (Bld) [Pure # fraction] 1.7 E9/L High 0.2-1.[address] [facility] Comment on above: Order Comment: Order Added by Discern Expert. Performed By: #### 2 295717, 4133675, 21342272, 8367289, 4737418 #### [facility] [address] [place] [address] Neutrophils/100 WBC (Bld) 79.6 % High 36.0-75.[address] [facility] Comment on above: Order Comment: Order Added by Discern Expert. Performed By: #### 2 310586, 4820811, 57877134, 4949170, 2447204 #### [facility] [address] [place] [address] Neutrophils/Leukocyt es Auto (Bld) [Pure # fraction] 11.8 E9/L High 2.0-7.[address] [facility] Comment on above: Order Comment: Order Added by Discern Expert. Performed By: #### 2 931981, 2577633, 64135399, 6885855, 9103933 #### [facility] [address] [place] [address] BMPon 05-27-2022 Potassium [Moles/Vol] 3.3 mmol/L Low 3.5-5.[address] [facility] Comment on above: Performed By: #### 2 722103, 5112566, 92044315, 2968408, 2969096 #### [facility] [address] [place] [address] Urea nitrogen/Creatinine [Mass ratio] [facility] Abnormal 10-[address] [facility] Comment on above: Result Comment: Resu lt verified by Discern Rule. Performed result UT (Unable to Calculate) was sent as an Alpha code due the inability to calculate a valid numeric value. Performed By: #### 2 433056, 1233331, 64012802, 7138971, 3196615 #### [facility] [address] [place] [address] Anion gap [Moles/Vol] 11 mmol/L Normal 6-[address] [facility] Comment on above: Performed By: #### 2 270862, 6720065, 69708383, 4557128, 1883240 #### [facility] [address] [place] [address] Calcium [Mass/Vol] 8.3 mg/dL Low 8.9-11.[address] [facility] Comment on above: Performed By: #### 2 775401, 6651911, 67316582, 4384967, 4221146 #### [facility] [address] [place] [address] Chloride [Moles/Vol] 104 mmol/L Normal 101-111 [facility] Comment on above: Performed By: #### 2 298014, 4978701, 53002384, 3066994, 6523992 #### [facility] [address] [place] [address] CO2 [Moles/Vol] 20 mmol/L Low 21-[address] [facility] Comment on above: Performed By: #### 2 045883, 0508174, 59212989, 6289821, 5822689 #### [facility] [address] [place] [address] Creatinine [Mass/Vol] 0.5 mg/dL Normal 0.5-1.[address] [facility] Comment on above: Performed By: #### 2 442200, 2481474, 57900630, 5290779, 3117729 #### [facility] [address] [place] [address] Glucose [Mass/Vol] 98 mg/dL Normal 55-[address] [facility] Comment on above: Result Comment: If t his glucose result represents a fasting glucose, interpretation should refer to the following reference range: 55-99 mg/dL Performed By: #### 2 643881, 2772323, 86081640, 2996272, 5069069 #### [facility] [address] [place] [address] Sodium [Moles/Vol] 132 mmol/L Low 135-[address] [facility] Comment on above: Performed By: #### 2 549601, 9945909, 75374280, 9672805, 4527407 #### [facility] [address] [place] [address] Urea nitrogen [Mass/Vol] mg/dL Normal 5-[address] [facility] Comment on above: Performed By: #### 2 266333, 3433473, 45407026, 8023214, 5276777 #### [facility] [address] [place] [address] CBC w/ Auto Diffon Erythrocyte distribution width (RBC) [Ratio] 13.0 % Normal 10.9-14.[address] [facility] Comment on above: Performed By: #### 2 543055, 9542184, 11356203, 3208044, 1584993 #### [facility] [address] [place] [address] Hematocrit (Bld) [Volume fraction] 25.2 % Low 34.0-46.[address] [facility] Comment on above: Performed By: #### 2 626569, 9885468, 46796813, 4879957, 3805297 #### [facility] [address] [place] [address] Hemoglobin (Bld) [Mass/Vol] 8.6 g/dL Low 12.0-16.[address] [facility] Comment on above: Performed By: #### 2 414580, 4855542, 34887830, 1329301, 3075697 #### [facility] [address] [place] [address] MCH (RBC) [Entitic mass] 29.8 pg Normal 27.0-34.[address] [facility] Comment on above: Performed By: #### 2 876798, 7242233, 45651999, 0763710, 5908566 #### [facility] [address] [place] [address] MCHC (RBC) [Mass/Vol] 34.0 g/dL Normal 31.4-36.[address] [facility] Comment on above: Performed By: #### 2 799236, 8655148, 35374987, 2621838, 5764253 #### [facility] [address] [address] MCV (RBC) [Entitic vol] 87.6 fL Normal 80.0-100.[address] [facility] Comment on above: Performed By: #### 2 952470, 4377874, 64891460, 9660588, 9978645 #### [facility] [address] [address] Platelet mean volume (Bld) [Entitic vol] 8.9 fL Normal 6.4-10.[address] [facility] Comment on above: Performed By: #### 2 093911, 6828091, 32944757, 9996859, 5181782 #### [facility] [address] [place] [address] Platelets (Bld) [#/Vol] 270.0 E9/L Normal 150.0-500. [address] [facility] Comment on above: Performed By: #### 2 926267, 6153765, 27816552, 0946376, 1715704 #### [facility] [address] [place] [address] RBC (Bld) [#/Vol] 2.9 E12/L Low 4.3-5.[address] [facility] Comment on above: Performed By: #### 2 091945, 1035808, 08776615, 4851424, 1923417 #### [facility] [address] [address] WBC corrected for nucl RBC Auto (Bld) [#/Vol] 14.8 E9/L High 4.0-11.[address] [facility] Comment on above: Performed By: #### 2 569258, 6759057, 60546389, 6776712, 9493697 #### [facility] [address] [place] [address] CHEMISTRYOrdered By: SYSTEM SYSTEM on 05-27-2022 Anion gap [Moles/Vol] 11 mmol/L Normal 6 - 16 mEq/L [facility] Calcium [Mass/Vol] 8.3 mg/dL Low 8.9 - 11. 1 mg/dL [facility] Chloride [Moles/Vol] 104 mmol/L Normal 101 - 1 11 mmol/L [facility] CO2 [Moles/Vol] 20 mmol/L Low 21 - 31 mmol/L [facility] Creatinine [Mass/Vol] 0.5 mg/dL Normal 0.5 - 1.3 mg/dL [facility] GFR/1.73 sq M.predicted among blacks MDRD (S/P/Bld) [Vol rate/Area] mL/min/1.73 m2 Normal >=59mL/min /1.73 m2 [facility] Chem S GFR/1.73 sq M.predicted among non-blacks MDRD (S/P/Bld) [Vol rate/Area] mL/min/1.73 m2 Normal >=59mL/min /1.73 m2 [facility] Chem S Glucose [Mass/Vol] 98 mg/dL Normal 55 - 199 mg/dL [facility] Magnesium [Mass/Vol] 1.5 mg/dL Normal 1.3 - 2 .4 mg/dL [facility] Sodium [Moles/Vol] 132 mmol/L Low 135 - 145 mmol/L [facility] Urea nitrogen [Mass/Vol] mg/dL Normal 5 - 21 mg/dL [facility] Urea nitrogen/Creatinine [Mass ratio] Unable to Calculate Invalid Interpretation Code [facility] CHEMISTRYOrdered By: Ehsan Sequeira on 05-27-2022 Potassium [Moles/Vol] 3.3 mmol/L Low 3.5 - 5.3 mmol/L [facility] Coding Summary.on 05-27-2022 Coding Summary. CD:[id number] Gh0bWw+PG hlYWQ+WH7HHUQvL11ieSOkbR5LW2s WKM8VZNWJEUAFBF0WLG0fbSX6PYrq A6NfgqZj YzfiuEVxGE07MPs0GRD0aBamYCdew W2fvJYuE0r7UgCaQE85yA04VKlkCJ XiAvE7RvYvvrjkvMJk C7mvVmJjrUJyHhv+PHRhYmxlIHdpZ ORvPSbeSUTyKhAsaSckRE1yPa5rOD VyLWNvbGxhcHNlOiBj u9jtVROfXPndZL8cpXhvK4TjnMV4X QFsm9s3Fa73tUG+VCMbAYX4vVxpOS tin269OtAsj6cuZUT1 rTQpKSijSKN7V78kk3V2NCZuQVMwC JA7qAN5eE6wuDonltplO5CsdZUeGx V6UQO5qHPhkK0zgAss wvklzQ3eFal+T24OZP1EFYFPQJ2VF ml2V9FxMizqqNK+OD23MWIbAR73iD LkqJZvz3emaCa9GyHh CHBrHGJ5xOahFEmdq0BeNCDiI83je BZee9B9CUNzaRzbhJJuQcAzcBV4gI 1fWMftfcbiu6yjdybn Msvdp7ywup74vZ77E28vMFudOASzM CY2ABTgGQXrlTknia5osZ4mSp0+ID efw3vuy9jxaGk3RkPs IPOlmeBriNdqZVJ8r6ZgHa93C9Vyk Oblj5DnPdi4oa77tEAho4L5zVX2UV rfHIKhsI1vKPxsCmM7 CDCmYrJvzX77aPCgUBkiJl7ogNhfs RmcRR8hHGJhgxaxAZUjxQ4uQXEggN XizPtqJF9oCFVuvvfm r984RpFbLEY0AHIicXDxZ5XchY6vA iPxUXIiWKYsD2ZffURkEHqpX227XP vqItX1ERYminNtY9Wk BOKqwWbnEfA5v2Y2Ad0Yg0QnpjeiV BJ1HCpyWEUjUnM6PrRaCsJ9W5YxOz u4WIUxfOlkES0kW0Gl KHItdjkyigdnaWQ9UKEhRAWhzC68h MXyWCxhOh3yo7C3s554IUXqXPLxfF 66Ko9ekSfrQYIobRSF iH1bbyced3fvmpolExCkDHLrBWa0B Px3TTMmrOmnUmIkKSY7UzB2KXT0rG FzhY6avKrrazuvpO1v Oyc+Y16pqL8dZGD4HNT4hojzXQPuf aXjMC62RH03Y2LjGutmtTFwvMJ+PG PvfaAjrEyiPG4zAgYc n6ath6EpHOttP2MhOUEiNTocSwa4T UIfOEO4dKV9lN8tBFJpIFiej8Y0zS S8Q4OqbuOwxf7eg9ix UASvGZuiA93oiITce2Z4GYTbiNL6D XCcdFkcLwKxiO23Kco+PGNvbGdyb3 OlNchit3dbm5yryJj2 KhMeXYNggkCzjQoiJEG0o4HkKn22O 29sIHdpZHRoPSIxNSUiIHZhbGlnbj 4zfP1cYn1+PGNvbCB3 lWB9kR9uWVQrMqX3VVytJ274VdTye NXeVptwc7wyi1pdvNl9HvBlHGSwkx HxjXecOJD7g7LvWf75 N62xGAoqFHSlSJHrOZReGIMhcWxej e2yyN7pVx5+PJ5iv1hayo25fS09jC I+FBKvYXL1jSzmFJdl DWYykN8jWZvzMnS4VNTwLrGjfU77z KZxBZcnEt7nuNxnmRjmJX3pJNBxpd evl185VzWqp6wqAYKx uUXiGCwwIBI2M22to5U8TKJnLRXgF AN9rPC1qP2rqLggvhdlbSNhmTbjgy EgsSwoSBsjTAeqI136 ISEtbMwyZdWfdXpmqoLsNbPmZDq0E 8GfWej7JAYfePdqGA9znEZjRZlvLy 1vbYbkgMwbMA8tOHTh ozvlq935OwRqv0jyUCNzpICoNVtiQ QI4Y13cd2N4QLHtJPFcFGG5kYI9tL 1hbGlnbjogbGVmdDsg sxKvzNwtATvfEYxpY318XMEnqAzsQ oHbfhEoHSKzwYH2CL72WO65uSRul7 I5hKI2Z4JjXRUnwnln cwqtfJI4OWRbMNLjqM64Pb9agYzpN m1rTDWmTXI2AJCznEQdR4MeoM9tLq OtCNDgDCSnV6QrvFZg TNofX217PJyrOqX5WKEttbHyF6SiJ JCleUmtEgU9z2X7Eh2FD2X1KX40BE 86fNVtv6L3zCB3D7Ts OZQwlzayobwffMW3ZMFzMFGndW69Z c7uySemNm6pYUMmASP3MBLjeBSnV4 IyzW3dHpHhNIOgRKVg F4HeuXIfTCttI140UZqhSsE7YADgj dKoS4HhYNXniGhlQbS6s1X1Fp7CSA o3AX75WF66kLKjv1N4 dOU9Q1WkAMXvzulmvcljzMW6KZOsM UMynP41Jq9yjCacJn5iUAByFPI0IP MilNFxG2VrlL8dHmYp YQVpDZHxG1CxaQRuBDcmI732QTgyF pN9JHSdszFiD6TjWFLcsThvFfL5n9 V3Rm4UVSQjPR27HFJ7 gWZ9XV50LZ35M6YiEtgtbHEckNW+P HRhYmxlIHdpZHRoPScxMDAlJyBzdH xaLF4lTz9nILYuQNPn cTdejURrUtQsj6olKIJiZRozVL2eb KwyG9XyhZX7VCAua0i8Nq62H24aL2 JvdXA+ZWKvzAW9tMK6 uK2oEsVfZaM5JIlaH960BiXdwXDqU zgpo7vsl4juvOz0JsQ0YAWbebLzqV jvRYP9y1OvQr02Z93l BJdhUJGoBHOiRSJpJBFbfTmxxm9bn G9wIi8+KVMcnJF6vBD2qL6fHpJgKg C1SFtdO924KoUfmGXj Vkptx5oxv1dlnMk6OoZsYMOijqPzf UauZOM5k7GeVb43B8DejAwlu0VjFd m4kz67lPCjk1I6qUK5 R0PaSOLentbhzCXwdQokDN0pSACvc licKTRaqO9qADMoU1o7DbYiIuJ5JX brJ1KcgbZ4FDPiqVBh LPyyYEH3S14yg2N1FMOmDPWgLXG0z CF5fB7rfSbhltqeqMTxhWyopoIfnL elGNjeEWxlY293LCHx xEqkSNHxvM7vNWFfeESjhRmiMU8yL TBpbjsnPkhJTFRPTiwgSkFOTkEgSj wvdGQ+FRJaYTM1bTub BQdmAPDqwC3aEAHeM3t5IoGxZbC4T QcrD9YwQCKujfmdUy87zF5sKiOdTj K7ISrmE7ScrfT4HUBw qSAmLKhsELK1J49ju4D5QPOdPKHrB XU1bCA4dY6cnZvodhcuxXModXpzvw DusYpcCFkjXOgdF461 KQIzmRaoJvS2UuE7FfK3OCs3M3ApW kj4YWQgqPltFG8ucYXqRBofUq9vyA pflJhzME6wXEFdubfj HVLpnS6lYBDonYCnjUbjXL7mIHYcj dmmx052AhOsMQB9ZLOprHQpF8TlkB 5qRjZxVPBjAMOcV0Mv lNLmCEbpP252KRasVbM0BDYxzqQgQ 0JxEDMesDnpKwQ9p6W6My5aDxRYBX FyczwvdGQ+PHRkIHN0 mNuxUZyvGUQttT4oYONkB7m7LgYiG jN1WLkwZ6OxFKUljszlRm33rV9qAo BvBcY9ZZxiU5XmkzY6 ASPlbDIqZWmpXAC1S42by1J3VLJyC DKkHOW7rBJ2aU7vkNjanozpjPUxyG sgdmVydGljYWwtYWxp B037KZCbaCotAfVfhSDaGDgcdRQ+P VQzRDO3tYfvGWkcWRUcgR5gODZpE9 m8IrUeJkJ4TNqdZ5Oa TTZvwchtEb88vA8qVfCdWxK8SHexS 4CjdmU3ORYxwJHqFSxjJDK8E01yz1 P0EWXcYXGdGIB2yCP3 vW1duMhddzmwsWLdpDnlbhJvmJfxZ FniQTchJ354VUEuhBdiPqQyOFSzHE 5jeTwvdGQ+OR31np59 G3FjBbpwRjw3FRXdJSN5oNK0yL2tT GHvTOtdj5K2iIK1Z4GvnaTwch7am5 qlYMDbNFvkD05scWXq t4J0BMHlpWE8EFNkeUrbQlTylI75B yc+NPBjzUjhr4DeVutci6xrp6ggiD z1EgGeJYInddEgtJpa AQW8e6YkBy90P23kYYbySCLoVMSxQ GVuMEKzzPblrj5uuB9fUt0+PGNvbC G1zPL8jQ2eHyCoGyF3 XFaqA228CnYcqRTsTojec7qre7ura Qd2TsZuZQKkqtEtcEuyMVU8s4VgBb 20F2YiqSumj8AeXuc8 ag93xSGuh7U8bCH7Y6SlBNSfeaewn KVxeGynEM0aKVOneuwpSJQljD2hTA DnV0t0FwHwTyL0UWxm N1CylyJ8HPSzlPLbRCFspVUXnE3lw gnxh7xxndwvYwWeMNRtIOn3OMe6FV GswZhqDsExMDO8ApL6 WUA0pZWfuM9liOucfktexN9pCzn+U Ba3c6tuwCAeVB4pfNW6JJ54LV12yQ Dll8U9vUN4P2SjRDUd zljgcovgaGZ0UOAiMFCvcS67Nr1fy AygTl8yMDZkAXK1OFTxqCBnI8GrhP 7eQnZkIJExLKNxO5Ll qKLjOLsjO140LGeoSeA6GRLpykRxO 4CbLSEycXpyKzP0e4T7Vy8NDR75SB 76IA78bLKrs1L9cNZ3 Z8NpTEMmucvpzjkibKK3SRVzIHOpk X02Gq2xdEebDx1rQGFrUHZ2WTBneM CiF9CmoP6rQfXgAJTy BMAtE5QanGXuCGhcM677SYpiEaY4S DMexrXsD0KlIAVghZqiCuV4k4I6Xu 9JGk74EP18GH07pDNm f1W5tAN9X5UvPIRntmjzzpipcCZ7K XKvVHOakZ67Ch5gnTcgFm9xPXKdMT D2QHUndVSyP7RtfL0s EcFbNTXwIFZyH1RpoHYeVUtmD732J KtgCtM7JFBsroHuG2RqKBDcwBswVe Q0v4R2Hc2BYQfgvrn9 L4ToKfuvbPJ+RG38AMYzJS44yGXwk YOjg7crfPi1AxNpAHQbXEO3lZiiZY zxu3IdREAdS67vwMDh c2U6 (more content not included)... Normal [facility] Consultation Noteon 05-27-20 Consultation Note ENT Full consult dic t. Imp: Right facial cellulitis Right dental abscess Right facial pain Plan: 1. Continue IV antibiotics 2. Warm compresses 3. Follow for progress 4. Should be considered for dental extraction if not improving Normal [facility] Comment on above: Result Comment: Elec tronically Signed By: Asim Monroe DO\.br\Date and Time Signed: 05/27/22 12:59 EDT HEMATOLOGYOrdered By: SYSTEM SYSTEM on 05-27-2022 Basophils/100 WBC (Bld) 0.2 % Normal 0.0 - 2.0 % [facility] HemeAutoSS Basophils/Leukocytes Auto (Bld) [Pure # fraction] 0.0 E9/L Normal 0.0 - 0.2 E9/L [facility]eAutoSS Eosinophils/100 WBC (Bld) 0.3 % Normal 0.0 - 8.0 % [facility]eAutoSS Eosinophils/Leukocyt es Auto (Bld) [Pure # fraction] 0.0 E9/L Normal 0.0 - 0.5 E9/L [facility]eAutoSS Lymphocytes/100 WBC (Bld) 8.3 % Low 14.0 - 50.0 % [facility]eAutoSS Lymphocytes/Leukocyt es Auto (Bld) [Pure # fraction] 1.2 E9/L Normal 1.0 - 4.0 E9/L [facility]eAutoSS Monocytes/100 WBC (Bld) 11.6 % Normal 4.0 - 14.0 % [facility]eAutoSS Monocytes/Leukocytes Auto (Bld) [Pure # fraction] 1.7 E9/L High 0.2 - 1.0 E9/L [facility]AutoSS Neutrophils/100 WBC (Bld) 79.6 % High 36.0 - 75.0 % [facility]eAutoSS Neutrophils/Leukocyt es Auto (Bld) [Pure # fraction] 11.8 E9/L High 2.0 - 7.5 E9/L [facility] HemeAutoSS HEMATOLOGYOrdered By: Selina De Jesus on 05-27-2022 Erythrocyte distribution width (RBC) [Ratio] 13.0 % Normal 10.9 - 14.2 % [facility] Hematocrit (Bld) [Volume fraction] 25.2 % Low 34.0 - 46.0 % [facility]eAuto[facility] Hemoglobin (Bld) [Mass/Vol] 8.6 g/dL Low 12.0 - 16.0 gm/dL [facility]Auto[facility] MCH (RBC) [Entitic mass] 29.8 pg Normal 27.0 - 34.0 pg [facility] MCHC (RBC) [Mass/Vol] 34.0 g/dL Normal 31.4 - 36.0 gm/dL [facility]Auto[facility] MCV (RBC) [Entitic vol] 87.6 fL Normal 80.0 - 100.0 fL [facility] Platelet mean volume (Bld) [Entitic vol] 8.9 fL Normal 6.4 - 10.8 fL [facility] HemeAutoSS Platelets (Bld) [#/Vol] 270.0 E9/L Normal 150.0 - 500.0 E9/L [facility]Auto[facility] RBC (Bld) [#/Vol] 2.9 E12/L Low 4.3 - 5.9 E12/L [facility] HemeAutoSS WBC corrected for nucl RBC Auto (Bld) [#/Vol] 14.8 E9/L High 4.0 - 11.0 E9/L [facility] HemeAutoSS Insurance Correspondence Off iceon 05-27-2022 Insurance Correspondence Office [id number]:[address] [facility] Magnesiumon 05-27-2022 Magnesium [Mass/Vol] 1.5 mg/dL Normal 1.3-2.[address] [facility] Comment on above: Performed By: #### 2 059434, 6193093, 53629206, 2115235, 8644999 #### [facility] [address] [place] [address] Progress Note-Physicianon 10 -27-2022 Progress Note-Physician Assessment/Plan 22-year-old with second (first 1 uneventful with the baby of 7 pounds 7 ounces) at 33 weeks of and 4 days presents to emergency department due to severe facial pain and inability to to eat. 1. (Z34.90: Encounter for supervision of normal , unspecified, unspecified trimester) Continue with vitamin Starvation ketoacidosis has resolved Routine monitoring for baby every shift Ordered: Initial IP Consult New/Estab Pt Low 55 Min 17837 2. Facial abscess (L02.01: Cutaneous abscess of face) Continue with Unasyn Abscess is draining Continue with warm compresses We will stop IV fluids and encourage oral intake Will use liquid Tylenol and told nurse to use krdzip-ioy-vkegb for today and use IV pain medication for breakthrough pain. Still left Tylenol as needed Ordered: Initial IP Consult New/Estab Pt Low 55 Min 44038 3. Acute abscess of maxillary sinus (J01.00: Acute maxillary sinusitis, unspecified) Continue with Tylenol and Nubain Antibiotics as ordered Awaiting ENT evaluation Ordered: Initial IP Consult New/Estab Pt Low 55 Min 66480 4. Starvation ketoacidosis (T73.0XXA: Starvation, initial encounter) Resolved Will let patient eat and drink normally and encouraging oral intake Stopping IV fluids We will still repeat labs tomorrow morning Ordered: Initial IP Consult New/Estab Pt Low 55 Min 96306 Orders: acetaminophen, 640 mg = 20 mL, Liquid, Oral, q6hr PRN Pain/Fever, Routine, Start date 05/27/22 8:24:00 EDT, 05/27/22 8:24:00 EDT acetaminophen + Generic Diluent 50 mL, 500 mg = 50 mL, Soln-IV, IV Piggyback, Once, Stop date 05/26/22 18:00:00 EDT, Start date 05/26/22 18:00:00 EDT, 400 mL/hr, Infuse over 7.5 minute(s) ampicillin-sulbactam + Sodium Chloride 0.9% intravenous solution 100 mL, 3 gram = 1 EA, Injection, IV Piggyback, q6hrFT, Routine, Start date 05/27/22 0:00:00 EDT, 200 mL/hr, Infuse over 30 minute(s) Dextrose 5% with 0.45% NaCl intravenous solution 1,000 mL + sodium bicarbonate 75 mEq, 1,000 mL, IV, 150 mL/hr, for 1 dose(s), Stop date 05/27/22 0:59:00 EDT, Start date 05/26/22 17:48:00 EDT, 7.2 hour(s), Total volume (mL): 1,075, 69 kg, 1.79, m2 multivitamin, , 1 tab(s), Tab, Oral, Daily, Routine, Start date 05/27/22 9:00:00 EDT ondansetron, 4 mg = 2 mL, Injection, IV Push, q6hr PRN Nausea, Routine, Start date 05/26/22 18:00:00 EDT pantoprazole, 40 mg = 1 tab(s), Tab-DR, Oral, Daily PRN Control of stomach acid, Routine, Start date 05/26/22 19:13:00 EDT, 05/26/22 19:13:00 EDT Ambulate with Assistance Automated Diff Basic Metabolic Panel CBC w/ Auto Diff Consult to ENT eGFR Intake and Output Magnesium Level Notify Provider Vital Signs Notify Provider Vital Signs Precautions Regular Diet Vital Signs Warm Compress Weight Plan discussed with patient at bedside This report was transcribed using voice recognition software. Every effort was made to ensure accuracy, however, inadvertently computerized city jailer mistakes may be present. Dr. Denis Freed Hospitalist at [facility] Subjective Patient feels still soreness and discomfort. No other complaints. Talked about eye being open more. There is drainage coming out with the warm compresses. Review of Systems Soreness. Still able to swallow and no difficulty breathing Objective Vitals & Measurements T: 37.9 ?C(Oral) TMIN: 36.8 ?C(Oral) TMAX: 37.9 ?C(Oral) HR: 110(Monitored) RR: 20 BP: 133/58 SpO2: 98% HT: 167.5 cm WT: 68.2 kg Intake & Output This visit (24 hour periods starting at 07:00 EDT) 05/27/22 * 05/26/22 05/25/22 Total Summary Intake mL -- 2,459.74 -- Output mL -- 1,725 -- Fluid Balance -- 734.74 -- Intake (6) Dextrose 5% with 0.45% NaCl intravenous solution 1,000 mL + sodium bicarbonate 75 mEq mL -- 1,185.62 -- Generic Diluent, acetaminophen mL -- 50.12 -- Oral Intake mL -- 1,020 -- Sodium Chloride 0.9%, ampicillin-sulbactam mL -- 200 -- nalbuphine mL -- 2 -- ondansetron mL -- 2 -- Total -- 2,459.74 -- Output (1) Urine Voided mL -- 1,725 -- Total -- 1,725 -- Counts (0) * This column has not completed the indicated time period. Physical Exam General: alert, mild distress ENMT: Has swelling on the right side of the face that is improved compared to before. She is able to open her eye and there is no squinting going on like yesterday Cardiovascular: regular rate and rhythm, normal peripheral perfusion Respiratory: Lungs CTA, respirations non labored Abdomen: Soft, nontender, without rebound or rigidity, positive bowel sounds Extremities: no deformity, no trauma Genitourinary: Deferred Hematological: No signs of large bruising or petechiae. Neurological: oriented x 4, LOC appropriate for age, CN II-XII intact, motor strength equal & normal bilaterally, sensation equal & normal bilaterally, (more content not included)... Normal [facility] Comment on above: Result Comment: Elec tronically Signed By: ABDIAZIZ VILLANUEVA, Denis Ariza\.br\Date and Time Signed: 05/27/22 08:28 EDT eGFRon 05-27-2022 GFR/1.73 sq M.predicted among blacks MDRD (S/P/Bld) [Vol rate/Area] mL/min/{1.73_m2} Normal >=[address] [facility] Comment on above: Order Comment: Order added by Discern Expert. Result Comment: eGFR is race adjusted. AA=. Performed By: #### 2 289867, 3983429, 49573200, 4745020, 7524850 #### [facility] Laboratory [address] [place] [address] GFR/1.73 sq M.predicted among non-blacks MDRD (S/P/Bld) [Vol rate/Area] mL/min/{1.73_m2} Normal >=[address] [facility] Comment on above: Order Comment: Order added by Discern Expert. Result Comment: Spa Assistant Manager timbo kidney disease could be indicated at eGFR's of less than 60 mL/min/1.73m2. Kidney failure is indicated at less than 15 mL/min/1.73m2. Performed By: #### 2 826651, 3904372, 44629125, 9146057, 9721661 #### [facility] [address] [place] [address] Auto Diffon 05-26-2022 Basophils/100 WBC (Bld) 0.2 % Normal 0.0-2.[address] [facility] Comment on above: Order Comment: Order Added by Discern Expert. Performed By: #### 2 170740, 9656844, 11334951, 6268110, 0364264, 40885772 ####[address] [place] [address] Basophils/Leukocytes Auto (Bld) [Pure # fraction] 0.0 E9/L Normal 0.0-0.[address] [facility] Comment on above: Order Comment: Order Added by Discern Expert. Performed By: #### 2 670267, 8086050, 75794462, 7467792, 0380101, 36666960 ####[facility] [address] [place] [address] Eosinophils/100 WBC (Bld) 0.1 % Normal 0.0-8.[address] [facility] Comment on above: Order Comment: Order Added by Discern Expert. Performed By: #### 2 393105, 3702259, 06037469, 5847261, 8734719, 54833336 ####[facility] [address] [place] [address] Eosinophils/Leukocyt es Auto (Bld) [Pure # fraction] 0.0 E9/L Normal 0.0-0.[address] [facility] Comment on above: Order Comment: Order Added by Discern Expert. Performed By: #### 2 230981, 7508700, 40858882, 4641279, 7675100, 54588289 ####[place] [address] [address] Lymphocytes/100 WBC (Bld) 7.1 % Low 14.0-50.[address] [facility] Comment on above: Order Comment: Order Added by Discern Expert. Performed By: #### 2 434646, 4465282, 52083111, 7862290, 7972586, 97548736 ####[address] [address] Lymphocytes/Leukocyt es Auto (Bld) [Pure # fraction] 1.1 E9/L Normal 1.0-4.[address] [facility] Comment on above: Order Comment: Order Added by Discern Expert. Performed By: #### 2 267670, 3297620, 39451113, 9564460, 8451927, 90805039 ####[address] [address] Monocytes/100 WBC (Bld) 7.7 % Normal 4.0-14.[address] [facility] Comment on above: Order Comment: Order Added by Discern Expert. Performed By: #### 2 187509, 1712985, 52352235, 2907620, 7737364, 44908962 ####[address] [address] Monocytes/Leukocytes Auto (Bld) [Pure # fraction] 1.2 E9/L High 0.2-1.[address] [facility] Comment on above: Order Comment: Order Added by Discern Expert. Performed By: #### 2 650776, 1756689, 02205503, 0019114, 4458334, 71546005 ####[address] [address] Neutrophils/100 WBC (Bld) 84.9 % High 36.0-75.[address] [facility] Comment on above: Order Comment: Order Added by Litzy Expert. Performed By: #### 2 346174, 0973268, 76839391, 3261116, 8644004, 16439838 ####[address] [address] Neutrophils/Leukocyt es Auto (Bld) [Pure # fraction] 13.6 E9/L High 2.0-7.[address] [facility] Comment on above: Order Comment: Order Added by Discern Expert. Performed By: #### 2 353896, 4680043, 06316788, 6948757, 7366924, 85069051 ####[facility] [address] [place] [address] BMPon 05-26-2022 Urea nitrogen/Creatinine [Mass ratio] UTC Abnormal - [facility] Comment on above: Result Comment: Resu lt verified by Discern Rule. Performed result [facility] (Unable to Calculate) was sent as an Alpha code due the inability to calculate a valid numeric value. Performed By: #### 2 057093, 6043153, 42290378, 3683261, 4683902, 57782039 ####[facility] [address] [place] [address] Anion gap [Moles/Vol] 21 mmol/L High 6-[address] [facility] Comment on above: Performed By: #### 2 025164, 8946511, 76705387, 9413318, 7673509, 97416660 ####[facility] [address] [place] [address] Calcium [Mass/Vol] 9.3 mg/dL Normal 8.9-11.[address] [facility] Comment on above: Performed By: #### 2 778092, 4669134, 31749810, 1378774, 9874617, 64061900 ####[facility] [address] [place] [address] Chloride [Moles/Vol] 101 mmol/L Normal 101-111 [facility] Comment on above: Performed By: #### 2 707297, 2843788, 13774787, 4639333, 8415103, 05092959 ####[facility] [address] [place] [address] CO2 [Moles/Vol] 11 mmol/L Abnormal [facility] Comment on above: Result Comment: Crit ical Result verified by repeat analysis\Critical Result S_CO2:11.0) Called to [facility] AT by FIORELLA MOMIN and read back for confirmation at 05/26/2022 15:30:3 Performed By: #### 2 874006, 4699109, 46664293, 9805665, 4343365, 57907355 ####[facility] [address] [place] [address] Creatinine [Mass/Vol] 0.6 mg/dL Normal 0.5-1.[address] [facility] Comment on above: Performed By: #### 2 272645, 9074082, 76994757, 9267738, 9054499, 95501641 ####[facility] [address] [place] [address] Glucose [Mass/Vol] 63 mg/dL Normal 55-[address] [facility] Comment on above: Result Comment: If t his glucose result represents a fasting glucose, interpretation should refer to the following reference range: 55-99 mg/dL Performed By: #### 2 564387, 6122440, 05546581, 6195705, 5527745, 58823310 ####[facility] [address] [place] [address] Potassium [Moles/Vol] 4.0 mmol/L Normal 3.5-5.[address] [facility] Comment on above: Performed By: #### 2 565245, 6546293, 50221524, 4519911, 8709412, 84479603 ####[facility] [address] [place] [address] Sodium [Moles/Vol] 129 mmol/L Low 135-[address] [facility] Comment on above: Performed By: #### 2 792052, 3571426, 56496161, 2929930, 4828571, 45044306 ####[facility] [address] [place] [address] Urea nitrogen [Mass/Vol] mg/dL Normal 5-[address] [facility] Comment on above: Performed By: #### 2 136435, 2140964, 77625684, 6903811, 6290576, 72458358 ####[facility] [address] [place] [address] CBC w/ Auto Diffon Erythrocyte distribution width (RBC) [Ratio] 12.9 % Normal 10.9-14.[address] [facility] Comment on above: Order Comment: staples d for pt in wr x2. will check back later [id number] 05/26/2022 14:13:36 EDT Performed By: #### 2 987940, 4825415, 11884154, 7891669, 6984296, 30277260 ####[facility] [address] [place] [address] Hematocrit (Bld) [Volume fraction] 32.5 % Low 34.0-46.[address] [facility] Comment on above: Order Comment: staples d for pt in wr x2. will check back later [id number] 05/26/2022 14:13:36 EDT Performed By: #### 2 475833, 2320955, 76210798, 0713975, 9243153, 34745757 ####[facility] [address] [place] [address] Hemoglobin (Bld) [Mass/Vol] 10.8 g/dL Low 12.0-16.[address] [facility] Comment on above: Order Comment: staples d for pt in wr x2. will check back later [id number] 05/26/2022 14:13:36 EDT Performed By: #### 2 263195, 3954696, 84802761, 6560832, 2772339, 66035626 ####[facility] [address] [place] [address] MCH (RBC) [Entitic mass] 29.9 pg Normal 27.0-34.[address] [facility] Comment on above: Order Comment: staples d for pt in wr x2. will check back later [id number] 05/26/2022 14:13:36 EDT Performed By: #### 2 012937, 3817897, 24526745, 0003964, 0591307, 61479008 ####[facility] [address] [place] [address] MCHC (RBC) [Mass/Vol] 33.3 g/dL Normal 31.4-36.[address] [facility] Comment on above: Order Comment: staples d for pt in wr x2. will check back later [id number] 05/26/2022 14:13:36 EDT Performed By: #### 2 115572, 5250824, 64651484, 5389889, 4812331, 22666661 ####[address] [place] [address] MCV (RBC) [Entitic vol] 89.7 fL Normal 80.0-100.[address] [facility] Comment on above: Order Comment: staples d for pt in wr x2. will check back later [id number] 05/26/2022 14:13:36 EDT Performed By: #### 2 078827, 6248960, 50486342, 9256822, 1820634, 85831813 ####[address] [address] Platelet mean volume (Bld) [Entitic vol] 8.5 fL Normal 6.4-10.[address] [facility] Comment on above: Order Comment: staples d for pt in wr x2. will check back later [id number] 05/26/2022 14:13:36 EDT Performed By: #### 2 764041, 0870844, 06778725, 1040546, 6788675, 50809159 ####[facility] [address] [place] [address] Platelets (Bld) [#/Vol] 288.0 E9/L Normal 150.0-500. [address] [facility] Comment on above: Order Comment: staples d for pt in wr x2. will check back later [id number] 05/26/2022 14:13:36 EDT Performed By: #### 2 683651, 2811435, 88413903, 7731396, 3991792, 09588495 ####[facility] [address] [place] [address] RBC (Bld) [#/Vol] 3.6 E12/L Low 4.3-5.[address] [facility] Comment on above: Order Comment: bel chacon for pt in wr x2. will check back later [id number] 05/26/2022 14:13:36 EDT Performed By: #### 2 988899, 7186072, 06251506, 5616660, 5244883, 79614407 ####[facility] [address] [place] [address] WBC corrected for nucl RBC Auto (Bld) [#/Vol] 16.0 E9/L High 4.0-11.[address] [facility] Comment on above: Order Comment: bel chacon for pt in wr x2. will check back later [id number] 05/26/2022 14:13:36 EDT Result Comment: Slid e reviewed by MICHELLE. Performed By: #### 2 097338, 9526944, 27334660, 9137605, 4857226, 65289286 ####[facility] [address] [place] [address] CHEMISTRYOrdered By: SYSTEM SYSTEM on 05-26-2022 Anion gap [Moles/Vol] 21 mmol/L High 6 - 16 mEq/L [facility] Calcium [Mass/Vol] 9.3 mg/dL Normal 8.9 - 11. 1 mg/dL [facility] Chloride [Moles/Vol] 101 mmol/L Normal 101 - 1 11 mmol/L [facility] CO2 [Moles/Vol] 11 mmol/L Invalid Interpretation Code 21 - 31 mmol/L [facility] Comment on above: Result Comment: Crit ical Result verified by repeat analysis\Critical Result S_CO2:11.0) Called to [facility] by FIORELLA MOMIN and read back for confirmation at 05/26/2022 15:30:3 Creatinine [Mass/Vol] 0.6 mg/dL Normal 0.5 - 1.3 mg/dL [facility] GFR/1.73 sq M.predicted among blacks MDRD (S/P/Bld) [Vol rate/Area] mL/min/1.73 m2 Normal >=59mL/min /1.73 m2 [facility] Chem S GFR/1.73 sq M.predicted among non-blacks MDRD (S/P/Bld) [Vol rate/Area] mL/min/1.73 m2 Normal >=59mL/min /1.73 m2 [facility] Chem S Glucose [Mass/Vol] 63 mg/dL Normal 55 - 199 mg/dL [facility] Lactate [Mass/Vol] 0.8 mmol/L Normal 0.5 - 2.2 mmol/L [facility] Potassium [Moles/Vol] 4.0 mmol/L Normal 3.5 - 5.3 mmol/L [facility] Sodium [Moles/Vol] 129 mmol/L Low 135 - 145 mmol/L [facility] Urea nitrogen [Mass/Vol] mg/dL Normal 5 - 21 mg/dL [facility] Remisol Urea nitrogen/Creatinine [Mass ratio] Unable to Calculate Invalid Interpretation Code 10 - [address] Maxillofacial w/ Contrast on 05-26-2022 CT Maxillofacial w/ Contrast Exam Date/Time: 05/26/2022 15:32 EDT Reason for Exam: Maxillary/facial abscess;Other (please specify) Addendum All CT scans at this facility use dose modulation, iterative reconstruction, and/or weight based dosing when appropriate to reduce radiation dose to as low as reasonably achievable. FINAL REPORT Dictated: 07/07/2022 2:37 pm Negro Rodrigez DO Signed (Electronic Signature): 07/07/2022 2:37 pm Signed by: Negro Rodrigez DO Transcribed by: AMANDA Technologist: JAYA Report IMPRESSION: SOFT TISSUE ABSCESS SUPERFICIAL TO THE RIGHT MAXILLA MEASURING APPROXIMATELY 2 X 1.5 X 1.5 CM WITH ADJACENT PHLEGMON AND OVERLYING CELLULITIS. EXAMINATION: CT Maxillofacial w/ Contrast HISTORY: Facial abscess COMPARISON: None available TECHNIQUE: Multiple axial images were obtained of the maxillofacial region with contrast. Multiplanar reformats were obtained. FINDINGS: Within the soft tissues just superficial to the right maxilla there is a rim-enhancing fluid collection measuring approximately 2 cm in AP dimension by 1.5 cm in transverse dimension by 1.5 cm in craniocaudal dimension with a small focus of air within the nondependent portion of this fluid collection. There is regional subcutaneous soft tissue edema. No cortical breakthrough of the maxilla. Dental oscar of the second maxillary bicuspid where there is also a tiny periapical lucency concerning for periapical abscess. A Mildly enlarged sublingual and right cervical chain lymph nodes are likely reactive. No acute facial bone fracture. Mild mucosal thickening of the right maxillary sinus. Report Orbital contents are within normal limits. FINAL REPORT Dictated: 05/26/2022 3:51 pm Negro Rodrigez DO Signed (Electronic Signature): 05/26/2022 3:51 pm Signed by: Negro Rodrigez DO Transcribed by: AMANDA Technologist: JAYA Technical Comments GFR (mL/min/1/73m2) na Contrast: Isovue 300 Contrast amount in ml's: 100 Report last revised on 07/07/2022 14:37 EST by Negro Rodrigez DO [facility] Consent for Treatmenton 05-02 Consent for Treatment [id number]:127 [facility] Consent for Treatment [id number]:127 [facility] ED Clinical Summaryon 2021 ED Clinical Summary (Inserted Image. Ana ble to display) [place] [id number] ED Clinical Summary Person Information Name: DEEPTI CARDOZA Stephanie/[facility] Age: 22 Years : 2000 Sex: Female Language: Barbadian PCP: Eloisa Khan MD Marital Status: Single Visit Id: Visit Reason: Dental pain; Facial swelling; DENTAL PAIN/SWELLING Speciality: Acuity: 3 Enc Type: Emergency Med Service: Emergency Arrival: 05/26/2022 12:44:59 Discharge: 05/26/2022 17:45:57 LOS: 000 05:01 Checkin: 05/26/2022 12:44:59 Checkout: 05/26/2022 17:45:57 Dispo Type: Home (Routine DC) EVENTS: Event Name Event Status Request Date/Time Start Date/Time Complete Date/Time Arrive Complete 05/26/2022 12:44:59 05/26/2022 12:44:59 05/26/2022 12:44:59 Document Home Meds Request 05/26/2022 12:44:59 Triage Complete 05/26/2022 12:44:59 05/26/2022 12:53:32 05/26/2022 12:53:32 Bed Assign Complete 05/26/2022 12:48:43 05/26/2022 12:48:43 05/26/2022 12:48:43 Dr Exam Complete 05/26/2022 12:48:43 05/26/2022 14:49:02 05/26/2022 14:49:02 RN Exam Complete 05/26/2022 12:48:43 05/26/2022 14:44:34 05/26/2022 14:44:34 Pending Labs Complete 05/26/2022 13:50:37 05/26/2022 15:30:45 Lab Complete 05/26/2022 13:50:37 05/26/2022 15:30:45 Pending Labs Cancel 05/26/2022 13:51:52 05/26/2022 14:22:52 Pending Labs Inlab 05/26/2022 13:52:13 Lab Inlab 05/26/2022 13:52:13 Pending Labs Complete 05/26/2022 14:23:21 05/26/2022 14:23:21 05/26/2022 14:49:35 Pending Labs Complete 05/26/2022 14:34:01 05/26/2022 14:34:01 05/26/2022 15:30:47 Lab Complete 05/26/2022 14:34:01 05/26/2022 14:34:01 05/26/2022 15:30:47 Registration Complete 05/26/2022 14:49:02 05/26/2022 15:00:36 05/26/2022 15:00:36 Pending Labs Complete 05/26/2022 14:49:50 05/26/2022 14:49:50 05/26/2022 14:49:50 Meds Admin Complete 05/26/2022 15:00:09 05/26/2022 17:20:00 CT Complete 05/26/2022 15:00:09 05/26/2022 15:32:28 05/26/2022 15:32:41 Reg Complete Request 05/26/2022 15:00:36 Reg Bed Request Complete 05/26/2022 15:00:36 05/26/2022 15:00:36 05/26/2022 15:00:36 Pending Labs Complete 05/26/2022 15:01:19 05/26/2022 15:01:19 05/26/2022 15:01:27 Lab Complete 05/26/2022 15:01:19 05/26/2022 15:01:19 05/26/2022 15:01:27 Pending Labs Complete 05/26/2022 15:36:32 05/26/2022 16:31:24 Lab Complete 05/26/2022 15:36:32 05/26/2022 16:31:24 Urine Collect Complete 05/26/2022 15:36:32 05/26/2022 16:31:24 Meds Admin Cancel 05/26/2022 15:38:00 05/26/2022 17:20:49 Pending Labs Complete 05/26/2022 16:01:56 05/26/2022 16:01:56 05/26/2022 16:01:56 Consult Request 05/26/2022 17:15:00 Consult Request 05/26/2022 17:15:35 Meds Admin Request 05/26/2022 17:20:00 Meds Admin Request 05/26/2022 17:24:36 Meds Admin Request 05/26/2022 17:26:28 Meds Admin Request 05/26/2022 17:28:08 Discharge Complete 05/26/2022 17:46:04 05/26/2022 17:46:04 05/26/2022 17:46:04 Transfer Complete 05/26/2022 17:46:04 05/26/2022 17:46:04 05/26/2022 17:46:04 ADDRESS: [address] [place] [id number] [facility] DOC NOTES: MEDICAL INFORMATION: Prescriptions Given: Medications to Continue with No Changes Other Medications amitriptyline 20 Milligram By Mouth once a day (at bedtime). diphenhydrAMINE (Allergy 25 mg oral tablet) 1 Tablets By Mouth As Directed as needed Allergy symptoms. ethinyl estradiol-norethindrone (Junel 08/20) 1 Tablets By Mouth every day. multivitamin, ( Multivitamins with Vitamin B Complex, Vitamin C, Minerals and L-Methylfolate oral capsule) 1 Capsules By Mouth every day. omeprazole 40 Milligram By Mouth every day as needed Control of stomach acid. sucralfate (Carafate 1 gram Tab) 1 Tablets By Mouth 4 times a day. Refills: 0. PATIENT EDUCATION INFORMATION: Instructions: Follow up: DIAGNOSIS: 1:Facial abscess; 2:Facial cellulitis; 3:Starvation ketoacidosis Normal [facility] ED Note-Physicianon 05-26-20 ED Note-Physician Basic Information Time Seen: Domitila Mariano M.D. 05/26/2022 14:49 Chief Complaint Sent by dentist today. Facial swelling and pain from tooth abscess. Chills and nausea. Taking antibiotic as prescribed since tuesday. History of Present Illness The patient is 22-year-old female 33 weeks who presented to the emergency room with left facial swelling and pain. The patient states she initially saw the dentist on Tuesday who placed her on clindamycin for an infected tooth. The patient states over the weekend it got worse. She went to see the dentist again on Tuesday who tried to open the abscess. The patient states since Tuesday her swelling has gotten worse. She has some chills this morning. Denies any fever. The patient denies any other associated symptoms. Review of Systems Additional ROS info: Except as noted in the above Review of Systems and in the History of Present Illness all other systems have been reviewed and are negative or noncontributory. Physical Exam Vitals & Measurements T: 37.6 ?C(Oral) HR: 106(Peripheral) RR: 16 BP: 115/67 SpO2: 100% HT: 167.6 cm WT: 69 kg BMI: 24.56 General: alert, mild distress Skin: warm, dry Head: no trauma, there is moderate swelling of the right maxillary region with induration and mild erythema on the skin. The swelling reaches to the lower aspect of the lower palpebral does not involve the orbital region Neck: Trachea midline Eye: normal conjunctiva, sclera clear, PERRL, EOMI, vision unchanged ENMT: Oral mucosa moist, there is moderate tenderness with tongue blade percussion over the right upper second premolar. There is swelling on the lateral aspect of the gingiva. Cardiovascular: Tachycardia Respiratory: Lungs CTA, respirations non labored, breath sounds equal Gastrointestinal: soft, non distended, uterus is gravid, no tenderness, no guarding Extremities: no deformity, no trauma Neurological: Alert and oriented, speech normal, no focal neuro deficits Psychiatric: cooperative, affect appropriate for age, Medical Decision Making The patient presented with facial pain and swelling. Her pain is due to facial abscess with cellulitis. Initially the case was discussed with Dr. White who agreed with CT scan. Blood work reviewed. The patient has leukocytosis. Her sodium is low. CO2 is 11. Glucose 63. More likely starvation ketoacidosis as the patient states she has been barely eating because of the pain. The urine shows ketones but no glucose. Initially patient was given Unasyn 3 g IV. She was given 1 L of normal saline then D5 and normal saline. The case is discussed with Dr. Monroe who agreed with Unasyn and he will see the patient in consult. Dr. White will admit the patient to labor and delivery with consult hospitalist for comanagement of ketoacidosis. Critical Care Time: 40 minutes billable from other separate procedures Assessment/Plan 1. Facial abscess (L02.01: Cutaneous abscess of face) 2. Facial cellulitis (L03.211: Cellulitis of face) 3. Starvation ketoacidosis (T73.0XXA: Starvation, initial encounter) Orders: Sodium Chloride 0.9% intravenous solution, 1,000 mL, Soln-IV, IV, Once, Stop date 05/26/22 14:56:00 EDT, STAT, Start date 05/26/22 14:56:00 EDT, mL/hr, Infuse over 61, minute(s) Automated Diff Basic Metabolic Panel Blood Culture Charcoal CBC w/ Auto Diff Consult to ENT Consult to Hospitalist CT Maxillofacial w/ Contrast eGFR Extra Blue Tube Extra SST Tube Lactic Acid Sedimentation Rate Automated UA With Cult Reflex Medications Administered Given Dextrose 5% with NS IV Cyndi 1000 mL 1,000 mL, 1000 mL, IV [id number] [F], 1000 mL, IV Sodium Chloride 0.9% intravenous solution 100 mL + ampicillin-sulbactam additive 3 gm, IV Piggyback Disposition Plan Patient Discharge Condition Stable Discharge Disposition Admitted to the hospital Discharge Prescription List Prescriptions No active prescription medications Follow-up No qualifying data available Problem List/Past Medical History Ongoing Historical No qualifying data Medications Inpatient ampicillin-sulbactam additive + Sodium Chloride 0.9% intravenous solution 100 mL Dextrose 5% with 0.45% NaCl intravenous solution 1,000 mL + sodium bicarbonate 75 mEq Dextrose 5% with 0.45% NaCl intravenous solution 1,000 mL + sodium bicarbonate 75 mEq Ofirmev + Generic Diluent 50 mL Home Allergy 25 mg oral tablet, 25 mg= 1 tab(s), Oral, As Directed, PRN, Not taking amitriptyline, 20 mg, Oral, Once a day (at bedtime), Not taking Carafate 1 gram Tab, 1 gm= 1 tab(s), Oral, QID, Not taking Junel 08/20, 1 tab(s), Oral, Daily, Not taking omeprazole, 40 mg, Oral, Daily, PRN, Not taking Multivitamins with Vitamin B Complex, Vitamin C, Minerals and L-Methylfolate oral capsule, 1 cap(s), Oral, Daily Allergies No Known Allergies Social History Alcohol - No Risk, 01/11/2022 Substance Abuse - No Risk, 01/11/2022 Tobacco - No Risk, 01/11/2022 Lab Res (more content not included)... Normal [facility] Comment on above: Result Comment: Elec tronically Signed By: Domitila Mariano M.D.\.favio\Date and Time Signed: 05/26/22 17:54 EDT ED Patient Education Noteon 05-26-2022 ED Patient Education Note Normal [facility] ED Patient Summaryon 022 ED Patient Summary (Inserted Image. Ana ble to display) [place] [id number] Patient Discharge Instructions Person Information Name: DEEPTI CARDOZA Age: 22 Years Arrival Date: 05/26/2022 12:44:59 Discharge Diagnosis: 1:Facial abscess; 2:Facial cellulitis; 3:Starvation ketoacidosis Primary Care Physician: Eloisa Khan MD Provider Information Primary Provider: Domitila Mariano M.D. Advanced Hand Painter:None The exam and treatment you received in the Emergency Department were for an urgent problem and are not intended as complete care. It is important that you follow up with a doctor, nurse practitioner, or physician?s clinical trial assistant for ongoing care. If your symptoms become worse or you do not improve as expected and you are unable to reach your usual health care provider, you should return to the Emergency Department. We are available 24 hours a day. NANI DEEPTI Elia has been given the following list of patient education materials, prescriptions and follow-up instructions: Follow-up Instructions: In the event that this physician does not participate in your insurance network, please consult with your insurance company to find a nearby participating provider. Patient Education Materials: A MESSAGE TO ALL PATIENTS REGARDING OPIOIDS PRESCRIPTION OPIOIDS: WHAT YOU NEED TO KNOW Prescription opioids can be used to help relieve ypxcgmee-md-xqxjfl pain and are often prescribed following a surgery or injury, or for certain health conditions. These medications can be an important part of the treatment but also come with serious risks. It is important to work with your healthcare provider to make sure you are getting the safest, most effective care. WHAT ARE THE RISKS AND SIDE EFFECTS OF OPIOID USE? Prescription opioids carry serious risks of addiction and overdose, especially with prolonged use. An opioid overdose, often marked by slowed breathing, can cause sudden . The use of prescription opioids can have a number of side effects as well, even when taken as directed: ? Tolerance?meaning you might need to take more of the medication for the same pain relief ? Physical dependence?meaning you have symptoms of withdrawal when a medication is stopped ? Increased sensitivity to pain ? Constipation ? Nausea, vomiting, and dry mouth ? Sleepiness and dizziness ? Confusion ? Depression ? Low levels of testosterone that can result in lower sex drive, energy, and strength ? Itching and sweating RISKS ARE GREATER WITH: ? History of drug misuse, substance use disorder, or overdose ? Mental health conditions (such as depression or anxiety) ? Sleep apnea ? Older age (65 years and older) ? Avoid alcohol while taking prescription opioids. Also, unless specifically advised by your health care provider, medications to avoid include: ? Benzodiazepines (such as Xanax or Valium) ? Muscle relaxants (such as Soma or Flexeril) ? Hypnotics (such as Ambien or Lunesta) ? Other prescription opioids KNOW YOUR OPTIONS Talk to your health care provider about ways to manage your pain that don?t involve prescription opioids. Some of these options may actually work better and have fewer risks and side effects. Options may include: ? Pain relievers such as acetaminophen, ibuprofen, and naproxen ? Some medication that are also used for depression or seizures ? Physical therapy and exercise ? Cognitive behavioral therapy, a psychological, goal-directed approach, in which patients learn how to modify physical, behavioral, and emotional triggers of pain and stress. IF YOU ARE PRESCRIBED OPIOIDS FOR PAIN: ? Never take opioids in greater amounts or more often than prescribed. ? Follow up with your primary health care provider. o Work together to create a plan on how to manage your pain. o Talk about ways to help manage your pain that don?t involve prescription opioids. o Talk about any and all concerns and side effects. ? Help prevent misuse and abuse o Never sell or share prescription opioids. o Never use another person?s prescription opioids. ? Store prescription opioids in a secure place and out of reach of others (this may include visitors, children, friends, and family). ? Safely dispose of unused prescription opioids: Find your community drug take-back program or your pharmacy mail-back program, or flush them down the toilet, following guidance from the Food and Drug Administration (www.fda.gov/Drugs/ResourcesF orYou). ? Visit www.cdc.gov/drugoverdose to learn about the risks of opioids abuse and overdose. ? If you believe you may be struggling with addiction, tell your health landcare officer and ask for guidance or call [facility] National Helpline at 2-942-734-MCRL. v Source: [place] Department of Health and Human Services/Center for Disease Control & Prevention [facility] Medications G (more content not included)... Normal [facility] HEMATOLOGYOrdered By: SYSTEM SYSTEM on 05-26-2022 Basophils/100 WBC (Bld) 0.2 % Normal 0.0 - 2.0 % [facility] HemeAutoSS Basophils/Leukocytes Auto (Bld) [Pure # fraction] 0.0 E9/L Normal 0.0 - 0.2 E9/L [facility] HemeAutoSS Eosinophils/100 WBC (Bld) 0.1 % Normal 0.0 - 8.0 % [facility] HemeAutoSS Eosinophils/Leukocyt es Auto (Bld) [Pure # fraction] 0.0 E9/L Normal 0.0 - 0.5 E9/L [facility] HemeAutoSS Lymphocytes/100 WBC (Bld) 7.1 % Low 14.0 - 50.0 % [facility] HemeAutoSS Lymphocytes/Leukocyt es Auto (Bld) [Pure # fraction] 1.1 E9/L Normal 1.0 - 4.0 E9/L [facility] HemeAutoSS Monocytes/100 WBC (Bld) 7.7 % Normal 4.0 - 14.0 % [facility] HemeAutoSS Monocytes/Leukocytes Auto (Bld) [Pure # fraction] 1.2 E9/L High 0.2 - 1.0 E9/L [facility] HemeAutoSS Neutrophils/100 WBC (Bld) 84.9 % High 36.0 - 75.0 % [facility] HemeAutoSS Neutrophils/Leukocyt es Auto (Bld) [Pure # fraction] 13.6 E9/L High 2.0 - 7.5 E9/L [facility] HemeAutoSS HEMATOLOGYOrdered By: Trevor Garcia on 05-26-2022 Erythrocyte distribution width (RBC) [Ratio] 12.9 % Normal 10.9 - 14.2 % [facility] HemeAutoSS Hematocrit (Bld) [Volume fraction] 32.5 % Low 34.0 - 46.0 % [facility] HemeAutoSS Hemoglobin (Bld) [Mass/Vol] 10.8 g/dL Low 12.0 - 16.0 gm/dL [facility] HemeAutoSS MCH (RBC) [Entitic mass] 29.9 pg Normal 27.0 - 34.0 pg [facility] HemeAutoSS MCHC (RBC) [Mass/Vol] 33.3 g/dL Normal 31.4 - 36.0 gm/dL [facility] HemeAutoSS MCV (RBC) [Entitic vol] 89.7 fL Normal 80.0 - 100.0 fL [facility] HemeAutoSS Platelet mean volume (Bld) [Entitic vol] 8.5 fL Normal 6.4 - 10.8 fL [facility] HemeAutoSS Platelets (Bld) [#/Vol] 288.0 E9/L Normal 150.0 - 500.0 E9/L [facility] HemeAutoSS RBC (Bld) [#/Vol] 3.6 E12/L Low 4.3 - 5.9 E12/L [facility] HemeAutoSS Sed Rate Automated 57 mm/h High 0 - 34 mm/hr [facility] HemeAutoSS WBC corrected for nucl RBC Auto (Bld) [#/Vol] 16.0 E9/L High 4.0 - 11.0 E9/L [facility] HemeAutoSS Comment on above: Result Comment: Slid e reviewed by MICHELLE. Lactic Acidon 05-26-2022 Lactate [Mass/Vol] 0.8 mmol/L Normal 0.5-2.[address] [facility] Comment on above: Performed By: #### 2 [id number], [id number], [id number] ####[facility] [address] [place] [address] Progress Note-Nurseon 2021 Progress Note-Nurse Patient brought back to ED 14 at this time. Normal [facility] RAD - Consent to Procedureon 05-26-2022 RAD - Consent to Procedure [id number] [facility] Sed Rate Automatedon 022 Sed Rate Automated 57 mm/hr High 0-[address] [facility] Comment on above: Performed By: #### 2 [id number], [id number] ####[facility] [address] [place] [address] UA With Cult Reflexon 2021 Bilirubin Ql (U) Negative Normal Negative [facility] Comment on above: Performed By: #### 1 [id number] ####[facility] [address] [place] [address] Clarity (U) CLEAR Normal Clear [facility] Comment on above: Performed By: #### 1 [id number] ####[facility] [address] [place] [address] Color (U) YELLOW Normal Yellow [facility] Comment on above: Performed By: #### 1 [id number] ####[address] [address] Epithelial cells.squamous LM.HPF (Urine sed) [#/Area] 0-2 Normal 0-[address] [facility] Comment on above: Performed By: #### 1 [id number] ####[address] [address] Glucose Test strip (U) [Mass/Vol] Negative Normal Negative [facility] Comment on above: Performed By: #### 1 [id number] ####[address] [address] Hemoglobin Ql (U) TRACE Abnormal Negative [facility] Comment on above: Performed By: #### 1 [id number] ####[address] [address] Ketones (U) [Mass/Vol] 3+ Abnormal Negative [facility] Comment on above: Performed By: #### 1 [id number] ####[address] [address] Plantation.plasma/Lithi um.RBC (Bld) [Mass ratio] 0-3 Normal 0-[address] [facility] Comment on above: Performed By: #### 1 [id number] ####[address] [address] Nitrite Ql (U) Negative Normal Negative [facility] Comment on above: Performed By: #### 1 [id number] ####[address] [address] pH (U) 5.5 [pH] Invalid Interpretation Code 5.0-9.[address] [facility] Comment on above: Performed By: #### 1 [id number] ####[address] [address] Protein (U) [Mass/Vol] Negative Normal Negative [facility] Comment on above: Performed By: #### 1 [id number] ####[address] [address] Specific gravity (U) [Rel density] 1.020 Invalid Interpretation Code 1.005-1.[address] [facility] Comment on above: Performed By: #### 1 [id number] ####[facility] [address] [place] [address] Type of Urine collection method Clean Catch Normal [facility] Comment on above: Performed By: #### 1 [id number] ####[facility] [address] [place] [address] Urobilinogen Qn (U) 0.2 {Kulwinder'U}/dL Normal 0.0-1.[address] [facility] Comment on above: Performed By: #### 1 [id number] ####[facility] [address] [place] [address] WBC Auto Ql (U) Negative Normal Negative [facility] Comment on above: Performed By: #### 1 [id number] ####[facility] [address] [place] [address] WBC LM.HPF (Urine sed) [#/Area] 0-5 Normal 0-[address] [facility] Comment on above: Performed By: #### 1 [id number] ####[facility] [address] [place] [address] URINALYSISOrdered By: Fiorella cuellar on 05-26-2022 Bilirubin Ql (U) Negative (05/26/22 4:17 PM) Normal Negative [facility] UA Auto SS Clarity (U) Clear (05/26/22 4:17 PM) Normal Clear [facility] UA Auto SS Color (U) Yellow (05/26/22 4:17 PM) Normal Yellow [facility] UA Auto SS Epithelial cells.squamous LM.HPF (Urine sed) [#/Area] 0-2 /HPF Normal 0-2/HPF [facility] UA Auto SS Glucose Test strip (U) [Mass/Vol] Negative (05/26/22 4:17 PM) Normal Negative [facility] UA Auto SS Hemoglobin Ql (U) Trace *ABN* (05/26/22 4:17 PM) Invalid Interpretation Code Negative [facility] UA Auto SS Ketones (U) [Mass/Vol] 3+ *ABN* (05/26/22 4:17 PM) Invalid Interpretation Code Negative [facility] UA Auto SS Plantation.plasma/Lithi um.RBC (Bld) [Mass ratio] 0-3 /HPF Normal 0-3/HPF [facility] UA Auto SS Nitrite Ql (U) Negative (05/26/22 4:17 PM) Normal Negative [facility] UA Auto SS pH (U) 5.5 *NA* (05/26/22 4:17 PM) Invalid Interpretation Code 5.0 - 9.0 [facility] UA Auto SS Protein (U) [Mass/Vol] Negative (05/26/22 4:17 PM) Normal Negative [facility] UA Auto SS Specific gravity (U) [Rel density] 1.020 *NA* (05/26/22 4:17 PM) Invalid Interpretation Code 1.005 - 1.030 [facility] UA Auto SS UA Spec Desc Clean Catch (05/26/22 4:17 PM) Normal [facility] UA Auto SS Urobilinogen Qn (U) 0.3170196 {Kulwinder'U}/dL Normal 0.0 - 1.0 EU/dL [facility] UA Auto SS WBC Auto Ql (U) Negative (05/26/22 4:17 PM) Normal Negative [facility] UA Auto SS WBC LM.HPF (Urine sed) [#/Area] 0-5 /HPF Normal 0-5/HPF [facility] UA Auto SS eGFRon 05-26-2022 GFR/1.73 sq M.predicted among blacks MDRD (S/P/Bld) [Vol rate/Area] mL/min/{1.73_m2} Normal >=[address] [facility] Comment on above: Order Comment: Order added by Discern Expert. Result Comment: eGFR is race adjusted. AA=. Performed By: #### 2 [id number], [id number], [id number], [id number], [id number], [id number] ####[facility] [address] [place] [address] GFR/1.73 sq M.predicted among non-blacks MDRD (S/P/Bld) [Vol rate/Area] mL/min/{1.73_m2} Normal >=[address] [facility] Comment on above: Order Comment: Order added by Discern Expert. Result Comment: Spa Assistant Manager timbo kidney disease could be indicated at eGFR's of less than 60 mL/min/1.73m2. Kidney failure is indicated at less than 15 mL/min/1.73m2. Performed By: #### 2 [id number], [id number], [id number], [id number], [id number], [id number] ####[facility] [address] [place] [address] PREG GROWTHon 05-06-2022 US PREG GROWTH EXAMINATION: US PREG GROWTH HISTORY: Large for gestation age fetus COMPARISON: No relevant comparison available. FINDINGS: Heart Rate: 136.0 bpm Amniotic Fluid Volume: 22.5 cm Number: 1.0 Position: Cephalic presentation, longitudinal lie Maximum Vertical Pocket: 7.3 cm cm 5.1 cm cm 5.6 cm cm 4.6 cm cm BIOMETRY: BPD: 7.9 cm cm; 31 weeks 5 days; 69% HC: 28.9 cmcm; 31 weeks 6 days, 44% AC: 28.3 cm cm; 32 weeks 3 days, 88% FL: 5.9 cm cm; 30 weeks 6 days; 41.1 % % EFW: 1844.0 grams, 4 lbs. 1 oz., 76% FL/AC: 20.9 FL/BPD: 75.2 HC/AC: 1.0 GESTATIONAL AGE: Age by EDC: 30 weeks 5 days SLADE by EDC: 07/10/2022 Age by US: 31 weeks 5 days SLADE by US: 07/03/2022 IMPRESSION: Amniotic fluid index at the upper limits of normal Otherwise normal interval growth Electronically authenticated by: JOHN OSORIO Date: 2022-05-06 17:01 Normal [facility] GLUCOSE - 1HRon 04-21-2022 Glucose [Mass/Vol] 112 mg/dL Critically high 74-106 [facility] Comment on above: Performed By: #### C BC #### [facility] [address] [place] [address] Dr. Carroll Pryor HEMOGRAM AND PLATELon 2021 Hematocrit (Bld) [Volume fraction] 31.2 % Critically low 36.0-48.0 [facility] Comment on above: Performed By: #### C BC #### [facility] [address] [place] [address] [address] Carroll Pryor Hemoglobin (Bld) [Mass/Vol] 10.7 g/dL Critically low 12.0-16.0 [facility] Comment on above: Performed By: #### C BC #### [facility] [address] [place] [address] Dr. Carroll Pryor MCH (RBC) [Entitic mass] 31.7 pg Normal 26.7-34.0 [facility] Comment on above: Performed By: #### C BC #### [facility] [address] [place] [address] Dr. Carroll Pryor MCHC (RBC) [Mass/Vol] 34.3 g/dL Normal 29.9-35.2 [facility] Comment on above: Performed By: #### C BC #### [facility] [address] [place] [address] Dr. Carroll Pryor MCV (RBC) [Entitic vol] 92.3 fL Normal 81.0-99.0 [facility] Comment on above: Performed By: #### C BC #### [facility] [facility] [address] [place] [address] Dr. Carroll Pryor PLT 257 103/ul Normal 150-450 [facility] Comment on above: Performed By: #### C BC #### [facility] [address] [place] [address] Dr. Carroll Pryor RBC 3.38 106/ul Critically low 4.20-5.40 [facility] Comment on above: Performed By: #### C BC #### [facility] [address] [place] [address] Dr. Carroll Pryor WBC 10.3 103/ul Normal 4.0-11.0 [facility] Comment on above: Performed By: #### C BC #### [facility] [address] [place] [address] Dr. Carroll Pryor PAP ACOG PANEL 2: 21 to 29on 04-02-2022 . . Normal [facility] Comment on above: Result Comment: Perf ormed at: BA Performed By: #### B MP #### [facility] [address] [place] [address] Dr. Carroll Pryor Age Gdln ACOG Testing 21-29 Normal [facility] Comment on above: Performed By: #### B MP #### [facility] [address] [place] [address] Dr. Carroll Pryor DIAGNOSIS: Comment Normal [facility] Comment on above: Result Comment: NEGA TIVE FOR INTRAEPITHELIAL LESION OR MALIGNANCY. Performed at: BA Performed By: #### B MP #### [facility] [address] [place] [address] Dr. Carroll Pryor Methodology: Comment Normal [facility] Comment on above: Result Comment: This liquid based ThinPrep(R) pap test was screened with the use of an image guided system. Performed at: WB Performed By: #### B MP #### [facility] [address] [place] [address] Dr. Carroll Pryor Note: Comment Normal [facility] Comment on above: Result Comment: The Pap smear is a screening test designed to aid in the detection of premalignant and malignant conditions of the uterine cervix. It is not a diagnostic procedure and should not be used as the sole means of detecting cervical cancer. Both false-positive and false-negative reports do occur. . Performed at: WB Performed By: #### B MP #### [facility] [address] [place] [address] Dr. Carroll Pryor Performed by: Comment Normal [facility] Comment on above: Result Comment: Kailee [employer] (ASCP) Performed at: BA Performed By: #### B MP #### [facility] [address] [place] [address] Dr. Carroll Pryor Reflex Criteria: Comment Normal [facility] Comment on above: Result Comment: The HPV DNA reflex criteria were not met with this specimen result therefore, no HPV testing was performed. . Performed at: BA Performed By: #### B MP #### [facility] [address] [place] [address] Dr. Carroll Pryor Specimen adequacy: Comment [facility] Comment on above: Result Comment: Sati sfactory for evaluation. No endocervical component is identified. Performed at: BA Performed By: #### B MP #### [facility] [address] [address] [address] Carroll Pryor CHLAMYDIA/GONOCOCCUS ERINN (SW AB/URINE/PAPon 04-01-2022 Chlamydia trachomatis, ERINN Negative Normal Negative [facility] Comment on above: Performed By: #### C BC #### [facility] [address] [address] [address] Carroll Pryor Neisseria gonorrhoeae, ERINN Negative Normal Negative [facility] Comment on above: Performed By: #### C BC #### [facility] [address] [address] [address] Carroll Pryor VAGINITIS/VAGINOSIS DNA PROB Casey 03-31-2022 Rhoda species Negative Normal Negative [facility] Comment on above: Performed By: #### U ACSIND #### [facility] [address] [address] [address] Carroll Pryor Gardnerella vaginalis Negative Normal Negative [facility] Comment on above: Performed By: #### U ACSIND #### [facility] [address] [address] [address] Carroll Pryor Trichomonas vaginalis Negative Normal Negative [facility] Comment on above: Performed By: #### U ACSIND #### [facility] [address] [address] [address] Carroll Pryor US PREG ANATOMY SINGLEon US PREG ANATOMY SINGLE EXAMINATION: US PREG ANATOMY SINGLE HISTORY: screening COMPARISON: No relevant comparison available. TECHNIQUE: Transabdominal sonographic examination was performed for obstetrical and evaluation. FINDINGS: Number: 1 Heart Rate: 138.0 bpm H.B. /min Amniotic Fluid Volume: Subjectively normal Placental Location: Posterior with lower margin 5.3 cm from os. Incidental 1.8 cm placental denson. Cervix Length: 4.8 cm, closed. ANATOMY: Normal Structures -cerebellum, choroid plexus, cisterna magna, lateral cerebral ventricles, orbits, midline falx, hard palate, four-chamber heart, RVOT, LVOT, stomach, kidneys, bladder, umbilical cord insertion into abdomen, three-vessel cord, cervical spine, thoracic spine, lumbar spine, sacral spine, right upper extremity, left upper extremity, right lower extremity, left lower extremity. SUBOPTIMALLY SEEN: None ABNORMALITIES: None BIOMETRY: BPD: 4.8 cm 20 weeks 4 days HC: 18.9 cm 21 weeks 1 days AC: 17.0 cm 22 weeks 0 days FL: 3.6 cm 21 weeks 3 days EFW:437.0 grams; 62% FL/AC: 21.2 FL/BPD: 75.0 HC/AC: 1.1 GESTATIONAL AGE: Age by EDC: 21 weeks 2 days SLADE by EDC: 07/10/2022 Age by current US: 21 weeks 2 days SLADE by current US: 07/10/2022 IMPRESSION: 1. Single live intrauterine with growth detailed above. Electronically authenticated by: KELSI MANN Date: 2022-03-01 16:35 Normal [facility] CBC AUTO DIFFon 02-22-2022 BASO # 0.0 103/ul Normal 0.0-0.1 [facility] Comment on above: Performed By: #### C VDTBH #### [facility] [address] [place] [address] Dr. Carroll Pryor Basophils/100 WBC (Bld) 0.2 % Normal 0.2-2.0 [facility] Comment on above: Performed By: #### C VDTBH #### [facility] [address] [place] [address] Dr. Carroll Pryor EO # 0.1 103/ul Normal 0.0-0.7 [facility] Comment on above: Performed By: #### C VDTBH #### [facility] [address] [place] [address] Dr. Carroll Pryor Eosinophils/100 WBC (Bld) 0.6 % Critically low 0.9-7.0 [facility] Comment on above: Performed By: #### C VDTBH #### [facility] [address] [place] [address] Dr. Carroll Pryor Erythrocyte distribution width (RBC) [Ratio] 12.0 % Normal 11.0-15.0 [facility] Comment on above: Performed By: #### C VDTBH #### [facility] [address] [place] [address] Dr. Carroll Pryor Hematocrit (Bld) [Volume fraction] 29.6 % Critically low 36.0-48.0 [facility] Comment on above: Performed By: #### C VDTBH #### [facility] [address] [place] [address] Dr. Carroll Pryor Hemoglobin (Bld) [Mass/Vol] 10.5 g/dL Critically low 12.0-16.0 [facility] Comment on above: Performed By: #### C VDTBH #### [facility] [address] [place] [address] Dr. Carroll Pryor IG # 0.05 10e3/ul Critically high 0.00-0.03 [facility] Comment on above: Performed By: #### C VDTBH #### [facility] [address] [place] [address] Dr. Carroll Pryor IG % 0.6 % Critically high 0.0-0.5 [facility] Comment on above: Performed By: #### C VDTBH #### [facility] [address] [place] [address] Dr. Carroll Pryor LYMPH # 0.3 103/ul Critically low 1.2-3.8 [facility] Comment on above: Performed By: #### C VDTBH #### [facility] [address] [place] [address] Dr. Carroll Pryor Lymphocytes/100 WBC (Bld) 2.9 % Critically low 20.5-60.0 [facility] Comment on above: Performed By: #### C VDTBH #### [facility] [address] [place] [address] Dr. Carroll Pryor MANUAL DIFF REQ NO Normal [facility] Comment on above: Performed By: #### C VDTBH #### [facility] [address] [place] [address] Dr. Carroll Pryor MCH (RBC) [Entitic mass] 31.5 pg Normal 26.7-34.0 [facility] Comment on above: Performed By: #### C VDTBH #### [facility] [address] [place] [address] Dr. Carroll Pryor MCHC (RBC) [Mass/Vol] 35.5 g/dL Critically high 29.9-35.2 [facility] Comment on above: Performed By: #### C VDTBH #### [facility] [address] [place] [address] Dr. Carroll Pryor MCV (RBC) [Entitic vol] 88.9 fL Normal 81.0-99.0 [facility] Comment on above: Performed By: #### C VDTBH #### [facility] [address] [place] [address] Dr. Carroll Pryor MONO # 0.5 103/ul Normal 0.3-0.8 [facility] Comment on above: Performed By: #### C VDTBH #### [facility] [address] [place] [address] Dr. Carroll Pryor Monocytes/100 WBC (Bld) 5.8 % Normal 1.7-12.0 [facility] Comment on above: Performed By: #### C VDTBH #### [facility] [address] [place] [address] Dr. Carroll Pryor NEUT # 7.8 103/ul Critically high 1.4-6.5 [facility] Comment on above: Performed By: #### C VDTBH #### [facility] [address] [place] [address] Dr. Carroll Pryor Neutrophils/100 WBC (Bld) 89.9 % Critically high 43.0-75.0 [facility] Comment on above: Performed By: #### C VDTBH #### [facility] [address] [place] [address] Dr. Carroll Pryor Platelet mean volume (Bld) [Entitic vol] 10.4 fL Normal 9.5-13.5 [facility] Comment on above: Performed By: #### C VDTBH #### [facility] [address] [place] [address] Dr. Carroll Pryor PLT 214 103/ul Normal 150-450 [facility] Comment on above: Performed By: #### C VDTBH #### [facility] [address] [place] [address] Dr. Carroll Pryor RBC 3.33 106/ul Critically low 4.20-5.40 [facility] Comment on above: Performed By: #### C VDTBH #### [facility] [address] [place] [address] Dr. Carroll Pryor WBC 8.6 103/ul Normal 4.0-11.0 [facility] Comment on above: Performed By: #### C VDTBH #### [facility] [address] [place] [address] Dr. Carroll Pryor Covid-19 PCR ([facility])on 01-30 SARS-CoV-2 (COVID-19) RNA ERINN+probe Ql (Unsp spec) Detected Critically abnormal NOT DETECTED [facility] Comment on above: Result Comment: This test is not yet approved or cleared by the [place] FDA. When there are no FDA-approved or cleared tests available, and other criteria are met, FDA can make tests available under an emergency access mechanism called an Emergency Use Authorization (EUA). The EUA for this test is supported by the Traffic Rate Analyst of Health and Human Service's declaration that circumstances exist to justify the emergency use of in vitro diagnostics for the detection and/or diagnosis of the virus that causes COVID-19. This EUA will remain in effect for the duration of the COVID-19 declaration justifying emergency of IVDs, unless it is terminated or revoked by the FDA (after which the test may no longer be used). Performed By: #### U ACSIND #### [facility] [address] [place] [address] Dr. Carroll Pryor PROF 14(COMP METB)on 022 Albumin [Mass/Vol] 3.1 g/dL Critically low 3.4-5.0 [facility] Comment on above: Performed By: #### C VDTBH #### [facility] [address] [place] [address] Dr. Carroll Pryor Albumin/Globulin [Mass ratio] 0.8 {ratio} Normal [facility] Comment on above: Performed By: #### C VDTBH #### [facility] [address] [address] [address] Carroll Pryor ALP [Catalytic activity/Vol] 40 U/L Critically low 46-116 [facility] Comment on above: Performed By: #### C VDTBH #### [facility] [address] [address] [address] Carroll Pryor ALT [Catalytic activity/Vol] 10 U/L Critically low 14-59 [facility] Comment on above: Performed By: #### C VDTBH #### [facility] [address] [address] [address] Carroll Pryor Anion gap [Moles/Vol] 15.3 mmol/L Normal [facility] Comment on above: Performed By: #### C VDTBH #### [facility] [address] [place] [address] Dr. Carroll Pryor AST [Catalytic activity/Vol] 11 U/L Critically low 15-37 [facility] Comment on above: Performed By: #### C VDTBH #### [facility] [address] [place] [address] Dr. Carroll Pryor Bilirubin [Mass/Vol] 0.3 mg/dL Normal 0.2-1.0 [facility] Comment on above: Performed By: #### C VDTBH #### [facility] [address] [place] [address] Dr. Carroll Pryor Calcium [Mass/Vol] 8.7 mg/dL Normal 8.5-10.1 [facility] Comment on above: Performed By: #### C VDTBH #### [facility] [address] [place] [address] Dr. Carroll Pryor Chloride [Moles/Vol] 103 mmol/L Normal 98-107 [facility] Comment on above: Performed By: #### C VDTBH #### [facility] [address] [address] [address] Carroll Pryor CO2 [Moles/Vol] 19.1 mmol/L Critically low 21.0-32.0 [facility] Comment on above: Performed By: #### C VDTBH #### [facility] [address] [place] [address] Dr. Carroll Pryor Creatinine [Mass/Vol] 0.60 mg/dL Normal 0.55-1.02 [facility] Comment on above: Performed By: #### C VDTBH #### [facility] [address] [place] [address] Dr. Carroll Pryor EGFR-AF ANGOLAN >60 Normal >=60 [facility] Comment on above: Performed By: #### C VDTBH #### [facility] [address] [place] [address] Dr. Carroll Pryor EGFR-NON AF ANGOLAN >60 Normal >=60 [facility] Comment on above: Performed By: #### C VDTBH #### [facility] [address] [place] [address] Dr. Carroll Pryor Globulin (S) [Mass/Vol] 3.8 g/dL Normal [facility] Comment on above: Performed By: #### C VDTBH #### [facility] [address] [place] [address] Dr. Carroll Pryor Glucose [Mass/Vol] 88 mg/dL Normal 74-106 [facility] Comment on above: Performed By: #### C VDTBH #### [facility] [address] [place] [address] Dr. Carroll Pryor Potassium [Moles/Vol] 3.4 mmol/L Critically low 3.5-5.1 [facility] Comment on above: Performed By: #### C VDTBH #### [facility] [address] [place] [address] Dr. Carroll Pryor Protein [Mass/Vol] 6.9 g/dL Normal 6.4-8.2 [facility] Comment on above: Performed By: #### C VDTBH #### [facility] [address] [place] [address] Dr. Carroll Pryor Sodium [Moles/Vol] 134 mmol/L Critically low 136-145 Th [facility] Comment on above: Performed By: #### C VDTBH #### [facility] [address] [place] [address] Dr. Carroll Pryor Urea nitrogen [Mass/Vol] 5.0 mg/dL Critically low 7.0-18.0 [facility] Comment on above: Performed By: #### C VDTBH #### [facility] [address] [place] [address] Dr. Carroll Pryor Urea nitrogen/Creatinine [Mass ratio] 8.3 mg/mg Normal [facility] Comment on above: Performed By: #### C VDTBH #### [facility] [address] [place] [address] Dr. Carroll Kauffman Urineon 01-13-2022 Bacteria identified Cx Nom (U) Microbiology PROCEDURE: Urine Culture [R1] SOURCE: U CleanCatch BODY SITE: COLLECTED DATE/TIME: 01/11/2022 19:59 EDT RECEIVED DATE/TIME: 01/11/2022 21:31 EDT START DATE/TIME: 01/11/2022 21:31 EDT FREE TEXT SOURCE: NUSRAT VILLANUEVA, Hayden SILVERIO MD, Hayden FINAL REPORTS Final Report [] Verified Date/Time: 01/13/2022 06:56 EDT 300 cfu/ml Mixed skin contaminants Performing Locations R1: This test was performed at: [facility], [address] [place] [address], [address] [place] [address], [facility] Comment on above: Performed By: #### 1 [id number] ####[facility] [id number] [place] [address] CHLAMYDIA/GONOCOCCUS ERINN (SW AB/URINE/PAPon 01-13-2022 Chlamydia trachomatis, ERINN Negative Normal Negative [facility] Comment on above: Performed By: #### C BC #### [facility] [address] [place] [address] Dr. Carroll Pryor Neisseria gonorrhoeae, ERINN Negative Normal Negative [facility] Comment on above: Performed By: #### C BC #### [facility] [address] [place] [address] Dr. Carroll Pryor Coding Summary.on 01-13-2022 Coding Summary. CD:[id number] Gh0bWw+PG hlYWQ+BJ6SVFMpS34yeCYhiX0YZ4o KQH4KRWFLLCUTYP8CXF3bhTW3RVlv F0AbixKp BvnsfOMtKI06QAb1XQW0pNyzZUxef H9dlEUrU3y7ImEkWN41vE58ECfxQZ LvXwB5OdStzsehpEFk K4wyZiFvfOGhMtc+PHRhYmxlIHdpZ VBmTVtbNNLpTkPpuZxqSC2oLp1yMN VyLWNvbGxhcHNlOiBj d1qfMXEgLTjdAY2ctTmkR5CrxMY8B DUbq9c6Cg05aAD+CBIuYIU8zXjkHF lql894TeFia9coBKG8 eXNwCTejAYX2Z33xx0T2MUTxBKPjI NC1tYP9cE3niZosofivQ3XqmXNhDa A1DLT0sSTofI8hsThp iicqdR4zJut+I50SOL4MUQHWCO5MP eh0M5DwVbexyUF+WI40ESQmSD00cQ AwlTXpe0dbwCl0UkHc XTPsMWD9oGzfSDnbh7YrRIKiL60xh RIva6M1UPTznUtzsGHoXbSvtEC1zT 8dMEmlrepfz2zckoeh Wnqrd8peuz67gB67K11iRShsLFOpY IR0WMEgHVPfzHdimj6ceD8qUt2+ID mod8pqi5dhpWj2PuYh KPYuuuDusMlaMVT8x1QxXf02X8Oae Pivi2BcEsy4lt96pXYlg5I7mQE8LE crGJCyqP3aXJftVeI3 SOFjHaMnaG81yPGwCSliMj9ibUlpk MntWL8xUYVudttzHHAqmA2kGXKqgT NhbQpmNG3dEYRbvycb a297TaNgWTG0EZPhlWFaE6XgbX8fI pIxGNAsIGZaN5PgcIXsVUwdI413ZJ iwFkM0DJYyrgFwB7Qe JDRrvJomGzF8y3H1Io8Rs9TfdiphC XH3YDfvLTB6LsN9HmDvLvX7N4RuOz x1QDRquPqfXI0zO9Gv WJIiojdxkpwyiKX9UQPwEWNgyQ14i OQcGPsvMe3yf2H4y655USNuICJesO 33An5ttMobETIyyFNN iC1vehyjs6ipymsnPmLfELGuQYz1N Bi2VMXtvRueSlKfOMU3XlP4BXC1gY VbrO8zgGrxmybzxT6g Oyc+L87yrK5wXAV8EJK6jaxvSJOne oImNE82ES21S0RoMxoaoNTfuNT+PG LutiJtpAnsEY1bMcQx j8gzf2QuGBhxV9PoDXMoRBqaCoq5O BXiRIO1aJY9zG1oQVGcKUdmp3A8qP Q7K0AligCstr1yz5vv UTQxBZvfW70njYKlp5F9UWUukAD5U ZNfhBqgCxNulF87Ead+PGNvbGdyb3 IwOcvva4zwh5kevJl2 RwRzBIJuhqQyyCcxDSQ1h9JeZe94N 29sIHdpZHRoPSIxNSUiIHZhbGlnbj 4pyC7kBy3+PGNvbCB3 rGO2vM2vDUTiExW5JVltW576SxWpd CEfPlfuj9jbj8dpcNc3AtXgUHYpmq FovFogYCA6s6WfEh67 C35oBKmnCITxVGXgBCJmILSdtXstk z2oqC4eVt3+HD6qs1pgpn25bO95lM I+AXFsDEQ1eHwlIJfy SGTmvF8aLAykAfY1HRDyVxAusM34r GTuVOczDk3nuOtrfRceBR3mLKHtid lgb487WqTfp0fiQPQr aKTqTJalQXR3K28dx6Z3HJZaGAXuG TG2lTX9mH3jnIgwxyabeVWkbVtcyv CnhDgiIZepHCavI184 LGQulEesQpPcfFivtqJdLhKcUKa7T 6DhZeh5NORrbOhtPP8cyPRfZMjgSi 8umGngxZbeCS7qAQXw mwicz983PyShh9tdTDAznEElLLzeE UP7X66ya1B9JAMxRSHeWBZ8xUV9nM 1hbGlnbjogbGVmdDsg onJjjYbfRBgxTVyyG754JBJcrQaxN fMvinOeTMYtyHU9MX76RZ51wCOyu4 K4wRE6Z3OpLIQprwdy veabcOY0ZZMoAQCarV01Tr8feHtcZ o2aQQXkZYP4GVHycYViE7KcwG3iEv SuWBXqVVOiN7DfeHMb TTprK670OLlcUtJ3OYIwlgYeG5YaU MIptPltGeX4q4Y1Ne3RW3G5DM77YM 00tLEyi2T0oFG6V3Qf GJAgjngynaytrYN6UPPnABMdpP01P f7jrRtbSw0eNGRrDNP1GKDxwQHjU0 XggU2aEoWjDYJnWSKu I7IhjCJvQXbdC510DUhhGqG3JHWgs tVgB3HvYKDnrFwcDgL6u2P7Ak7YKC y3LD08UC17xZLob1Q0 aKB4V1NfTXZzncymxmqnrOW8GKXmB NVicI75Rs1hpQfbHv5qWHIpFQG2DY YnjTFfY0IneW9dQqDf EZDnYXNsC4ZbdUZqXXuvU827NAqcD xY2CJSkjxHtW6PfJICfbRgeQzS6b3 S9Bd5YGGZxWP92FUY0 qGQ5PS90EU32G0DiGqtvvXIsbHX+P HRhYmxlIHdpZHRoPScxMDAlJyBzdH liZX1oLf2rTOGaKHUn qLpffCRxSpMwi1hsKVKqLFhlBC9ca QlqP3AqaOM1CYSki6t6Os32W56tY0 JvdXA+QKCbzUR6hJZ7 wV0hKxAaAyI3AFnhG715UsFskMTdT gflt6qhk4yzjEg9CyE0HUTixcBotJ daQET2w1KtYl94Y49f EFemKKZcUPWzNNWiHICklIyhkk8ns G9wIi8+UHEbzMX9aCS0eD7tOdWrOs A9JZyoB584UgNebMBv Zbneq5pnu2sopFp8YwCpYOLdzfXkj ZcsPVV9f7PxSm56E7XrhHktk9QvYk t4kz83eTQru0Q7bXL4 N6EkJGSqfojkkUKexEqcTD1mFPKpi xnbPARmnS6uNWTuU8t0TuQxTkO6QU cmP6IaodM0BJNyqJFx CXniHUD0G41hz8G4TVFuIPZgCQH5g MU2yE4maGkbqtaqwRXszPmokeOjyY coDPfjKGytE148QQUo hJgyYLJevY1mKSQqfZZncMzkEU8xZ TBpbjsnPkhJTFRPTiwgSkFOTkEgSj wvdGQ+XJIkBGZ2tNui AVbrIHKgwO0xOANaX0h9XqTiSpE7P UxsC6QjRSHzowamFf66rU2zUhHmOv P4QIavT0IskgT3IBEw lJDkWGrrFUO1F77dr0V9MTYcOCReL KZ6bII9cB4ryWngoarauBQhnImtnu FvpCsrTBwgGAgmF469 ZAVhnUpkAlV6JtW6DnF3JFc3M7FrJ ig3PELqiOaeUP6hlZSeONboNj7peW mpoUkvPS5jADGvjyfx DQFawA0qZDTkcJLtpVghTN8uTTVbb zkuu193XsXjJEB8OVTxmGBtT7UvfA 9qJfAfSFSeQCVjI2Uo kWZeTLqdY592UPgrSgL1FSGhbyJwK 0UvWRVveDjxGhW4i1U5Ag7lAzCRUH FyczwvdGQ+PHRkIHN0 rFumWIriSNBgmC3uDFFdD3y5DxMqS pL3PWacX0ZuTOSwuyovJp38uM5lPn WhTdW9GNfyS1QcixO0 MSEsvBVmYFapHWM8K01ty4L5MWOmG FYmEFV2xJK3qU0nyImjdrknnPIwqW sgdmVydGljYWwtYWxp R242JHQeaVppSaPufQQqXFyxdYI+P UMdFNX8qLrkRIrmUMAbcG0oSQKtJ0 q0UaTmNvO0NOcmQ1Kf SLPcycoqIo02bC3uKmCjXtQ1KHzjP 1VgpaM4UUSfdQNrHXueHEF7I18nk1 H1WPExSCZfQAK1yXQ2 tG7kpLrdbaoyyMZrnZybcxCntLxbS HpmGKpmR387RAXfaHyiXb0EOJTcuA FnZTwvdGQ+FX21rn52 E1JoHjdqYeg1VIXxHEX3lHG2sG3iB DErLVfts2Q4wQS1F6AbzuDvbm2to1 xwSLZgDWgaZ46qlVKq k1M7CEDtgJT6ARDzjHutOaUerW01F yc+NDIdfSetx8VmNvahe9rmt7yzcH h8XjKiOSTcrwEtqLfh URU2v7CrBw83Q84eUQkqQAXsMYPaW ELfSFCpoDgsnq4zqD6kFd5+PGNvbC Y2rQP9gE7rXbPsFiQ2 NWmeN318LxCbiTMhHhlyu7oeq0lmz Dw2XbBzLGJcbfRfzGxlKXA0p0VbRu 27D3BfuCmwq3AiPyh1 yw01mYRto0F2jIT0V3BzVBVogkbji LAqsQteOJ4bENSvuyujJWYshJ8jEP JmE5m8OyIaFtG2VRwd R6XcggD9VOJzaXEeNBLrkWEGzH8hp jrgx1foyiznHtLjGTPqNLr4DUv3FF AktKbqGcFeAIU9OvJ5 XWL0mJIzpK9rwJlnsrpdgM5rQez+U Cm8k1myyJSoTB8xeGE8AL77BR23iZ Qtw1F5iFE1I6MfWZPx ejsatvwyfDC2XVVjGKTeqG01Dq4im PpsFj4fYYZoLKS2GPTppWIsX4LiuC 9hSxAbMHQmIQThX7Pl bKKbGYuaE422QNlyGsO0QVGhddFsV 0FnGTEcjDhlLrA8z7N7Sd7LLU36FO 03ZO36sJYlk8X7aBG5 M6BkVXVjetrtwzcwtLX0PNEpTBWyf J12Hv5vuHlhZt1aTXFuPJY8SNBaxE YhD1RtdN3uVtKtZEXi ULMkN2WfiLVtXXfjK604TUcbYwL4G ERphkRaW2OlXYEmoHkzHpF6n0Z2Dp 2XYb76OO22DC13pSIy p9O3eYT8Q7TmSLYojulxbjhvcWL9C CViSUWdjZ03Qy9mrAudBv2jYUVqDC R5PWEjbJPiM0HhzE6q MpThKWAsXXKxI9BlzTYpPTgpZ997M RzwUaA8CSUojvMvX5NlFPAlzLxyIq P5t6U0Xw9DMDjdpwh7 B6UxKqqibYL+FI66EYMcEL09nRTct DWhj9ykjQp5KnDnNPIaBCD2yVzbNV try1LrTJMxO67lmUKa c2U6 (more content not included)... Normal [facility] Nursing Assessmenton 022 Nursing Assessment [id number]#1.00CD:[address] [facility] Consent for Treatmenton 12-30 Consent for Treatment [id number]#1.00CD:127 [facility] Discharge Instructionson Discharge Instructions [id number]#1.00CD:[address] [facility] ER URINE PROFILEon Bilirubin Ql (U) Negative Normal NEGATIVE [facility] Comment on above: Performed By: #### YULIET VELAZQUEZ #### [facility] [address] [place] [address] Dr. Carroll Pryor Clarity (U) CLEAR Normal CLEAR [facility] Comment on above: Performed By: #### JEREMIAH VELAZQUEZRO #### [facility] [address] [place] [address] Dr. Carroll Pryor Color (U) YELLOW Normal YELLOW [facility] Comment on above: Performed By: #### JEREMIAH VELAZQUEZRO #### [facility] [address] [place] [address] Dr. Carroll Pryor ERUAHD A micrscopic examina tion will be performed if indicated. Normal [facility] Comment on above: Performed By: #### YULIET VELAZQUEZ #### [facility] [address] [place] [address] Dr. Carroll Pryor Glucose Ql (U) Negative Normal NEGATIVE [facility] Comment on above: Performed By: #### YULIET VELAZQUEZ #### [facility] [address] [place] [address] Dr. Carroll Pryor Hemoglobin Ql (U) LARGE Abnormal NEGATIVE [facility] Comment on above: Performed By: #### RUTHIE VELAZQUEZICRO #### [facility] [address] [place] [address] Dr. Carroll Pryor Ketones Ql (U) Negative Normal NEGATIVE [facility] Comment on above: Performed By: #### Christopher ORELLANA UMICRO #### [facility] [address] [place] [address] Dr. Carroll Pryor LEUKOCYTES Negative Normal NEGATIVE [facility] Comment on above: Performed By: #### Christopher ORELLANA UMICRO #### [facility] [address] [place] [address] Dr. Carroll Pryor Nitrite Ql (U) Negative Normal NEGATIVE [facility] Comment on above: Performed By: #### RUTHIE VELAZQUEZICRO #### [facility] [address] [place] [address] Dr. Carroll Pryor pH (U) 6.0 [pH] Normal 5-9 [facility] Comment on above: Performed By: #### Christopher ORELLANA UMICRO #### [facility] [address] [place] [address] Dr. Carroll Pryor SPEC GRAVITY 1.025 Normal 1.005-<=1. 025 [facility] Comment on above: Performed By: #### Christopher ORELLANA UMICRO #### [facility] [address] [place] [address] Dr. Carroll Pryor UA PROTEIN Negative Normal NEGATIVE/ TRACE [facility] Comment on above: Performed By: #### Christopher ORELLANA UMICRO #### [facility] [address] [place] [address] Dr. Carroll Pryor UR MICRO IND INDICATED Normal [facility] Comment on above: Performed By: #### Christopher ORELLANA UMICRO #### [facility] [address] [place] [address] Dr. Carroll Pryor Urobilinogen Qn (U) 0.2 {Kulwinder'U}/dL Normal 0.2 - 1. 0 [facility] Comment on above: Performed By: #### E YULIET ORELLANA #### [facility] [address] [address] [address] Carroll Pryor Inpatient Clinical Summaryon 01-11-2022 Inpatient Clinical Summary [address] [address] Clinical Summary Person Information Name: DEEPTI CARDOZA [place] Age: 21 Years : 2000 Sex: Female PCP: Eloisa Khan MD Marital Status: Single Race: White Ethnicity: Non- or Language: Barbadian Visit Id: Visit Reason: CRAMPING-14 WKS Speciality: Acuity: Obs Enc Type: OB Triage Med Service: Obstetrics Arrival: 01/11/2022 19:10:53 Discharge: 01/11/2022 20:44:00 Dispo Type: Home ([facility]) Address: [address] [place] [address] [address] [facility] [id number] Provider Notes: Diagnosis: Problems Active (01/11/2022) Smoking Status: Former Smoker Functional Status: Sensory Deficits: History of Falls: Mobility Assistance Prior to Admission: ADLs: Current Level of Assistance for Self-Care/Mobility: Cognitive Status: Allergies No Known Allergies Laboratory or Other Results This Visit (last charted value for your 01/11/2022 visit) Urinalysis 01/11/2022 7:59 PM UA Bacteria: Trace /HPF UA Bili: Negative UA Color: Yellow UA Glucose: Negative UA Ketones: Negative UA Leuk Est: Negative UA Nitrite: Negative UA Protein: Negative UA RBC: 4-20 /HPF UA Squam Epithelial: 0-2 /HPF UA Urobilinogen: 0.2 EU/dL -- Normal range between ( 0.0 and 1.0 ) UA WBC: 6-15 /HPF UA Spec Desc: Clean Catch UA Blood: 2+ UA Clarity: Clear UA pH: 6.0 -- Normal range between ( 5.0 and 9.0 ) UA Spec Grav: 1.025 -- Normal range between ( 1.005 and 1.030 ) Measurements: Height: 167.64 cm Weight: 61.5 kg Blood Pressure: 118 mmHg / 64 mmHg BMI: 21.88 kg/m2 Procedures No Procedures Documented Immunizations No Immunizations Documented This Visit Final Med List: amitriptyline 20 Milligram By Mouth once a day (at bedtime). diphenhydrAMINE (Allergy 25 mg oral tablet) 1 Tablets By Mouth As Directed as needed Allergy symptoms. ethinyl estradiol-norethindrone (08/20) 1 Tablets By Mouth every day. multivitamin, ( Multivitamins with Vitamin B Complex, Vitamin C, Minerals and L-Methylfolate oral capsule) 1 Capsules By Mouth every day. omeprazole 40 Milligram By Mouth every day as needed Control of stomach acid. sucralfate (Carafate 1 gram Tab) 1 Tablets By Mouth 4 times a day. Refills: 0. Care Team Members: Attending Physician: Hayden SILVERIO MD Consulting Physician: Referring Physician: Follow up: With: Address: When: Hayden SILVERIO [address] [place] [address], [facility], [facility] [place] [address] [phone] Business (1) Within 1 to 2 days Comments: Call for any problems. Call physician for heavy vaginal bleeding Call office in the morning to schedule an ultrasound Patient Education Information: Normal [facility] Inpatient Patient Summaryon 01-11-2022 Inpatient Patient Summary [address] [address] Patient Discharge Instructions PERSON INFORMATION Name: DEEPTI CARDOZA Date of : 2000 Current Date: 01/11/2022 21:07:24 PHYSICIANS Admitting Physician: Hayden SILVERIO MD Primary Care Physician: Eloisa Khan MD PCP Comment: Discharge Diagnosis: Condition at Discharge: DEEPTI CARDOZA has been given the following list of follow-up instructions, prescriptions, and patient education materials: PATIENT FOLLOW-UP INFORMATION Diet: Activity: Wound Care Instructions: Remove Your Dressing IN: Days Call Your Doctor For: IF UNABLE TO CONTACT YOUR PHYSICIAN AND YOU FEEL IT IS AN EMERGENCY, GO TO THE NEAREST EMERGENCY ROOM OR CALL 911 Home Treatment: Devices/Equipment: Special Services: Additional Instructions: Physician to provide the following pending test results: Follow up: With: Address: When: Hayden SILVERIO [address] [place] [address], [address], [place] [address] [phone] Business (1) Within 1 to 2 days Comments: Call for any problems. Call physician for heavy vaginal bleeding Call office in the morning to schedule an ultrasound In the event that this physician does not participate in your insurance network, please consult with your insurance company to find a nearby participating provider. Comment: NAIN Pierre JANNA J, have received the attached patient education materials/instructions and have verbalized understanding. Patient Signature Date Clinican/Nurse Signature Date MEDICATION LIST Medications to Continue with No Changes Other Medications amitriptyline 20 Milligram By Mouth once a day (at bedtime). Last Dose: Next Dose: diphenhydrAMINE (Allergy 25 mg oral tablet) 1 Tablets By Mouth As Directed as needed Allergy symptoms. Last Dose: Next Dose: ethinyl estradiol-norethindrone (08/20) 1 Tablets By Mouth every day. Last Dose: Next Dose: multivitamin, ( Multivitamins with Vitamin B Complex, Vitamin C, Minerals and L-Methylfolate oral capsule) 1 Capsules By Mouth every day. Last Dose: Next Dose: omeprazole 40 Milligram By Mouth every day as needed Control of stomach acid. Last Dose: Next Dose: sucralfate (Carafate 1 gram Tab) 1 Tablets By Mouth 4 times a day. Refills: 0. Last Dose: Next Dose: Pharmacy Information: Other: [facility] PATIENT EDUCATION INFORMATION Instructions: Medication Leaflets: You may receive a survey from Nickolas Malloy asking you to rate your care experience. Your feedback is important and will help us understand what we do well and how we can improve the quality of care we provide to you, your loved ones and our community. It?s an honor to serve you. Thank you for choosing [facility] Normal [facility] Insurance Correspondenceon 0 01-11-2022 Insurance Correspondence [id number] [facility] UA With Cult Reflexon 2021 Bacteria LM Ql (Urine sed) TRACE Normal Trace [facility] Comment on above: Performed By: #### 1 [id number], [id number] ####[facility] [address] [place] [address] Bilirubin Ql (U) Negative Normal Negative [facility] Comment on above: Performed By: #### 1 [id number], [id number] ####[facility] [address] [place] [address] Clarity (U) CLEAR Normal Clear [facility] Comment on above: Performed By: #### 1 [id number], [id number] ####[facility] [address] [place] [address] Color (U) YELLOW Normal Yellow [facility] Comment on above: Performed By: #### 1 [id number], [id number] ####[facility] [address] [place] [address] Epithelial cells.squamous LM.HPF (Urine sed) [#/Area] 0-2 Normal 0-[address] [facility] Comment on above: Performed By: #### 1 [id number], [id number] ####[facility] [address] [place] [address] Glucose Test strip (U) [Mass/Vol] Negative Normal Negative [facility] Comment on above: Performed By: #### 1 [id number], [id number] ####[facility] [address] [place] [address] Hemoglobin Ql (U) 2+ Abnormal Negative [facility] Comment on above: Performed By: #### 1 [id number], [id number] ####[facility] [address] [place] [address] Ketones (U) [Mass/Vol] Negative Normal Negative [facility] Comment on above: Performed By: #### 1 [id number], [id number] ####[facility] [address] [place] [address] Plantation.plasma/Lithi um.RBC (Bld) [Mass ratio] 4-20 Normal 0-[address] [facility] Comment on above: Performed By: #### 1 [id number], [id number] ####[facility] [address] [place] [address] Nitrite Ql (U) Negative Normal Negative [facility] Comment on above: Performed By: #### 1 [id number], [id number] ####[facility] [address] [place] [address] pH (U) 6.0 [pH] Invalid Interpretation Code 5.0-9.[address] [facility] Comment on above: Performed By: #### 1 [id number], [id number] ####[address] [address] Protein (U) [Mass/Vol] Negative Normal Negative [facility] Comment on above: Performed By: #### 1 [id number], [id number] ####[address] [address] Specific gravity (U) [Rel density] 1.025 Invalid Interpretation Code 1.005-1.[address] [facility] Comment on above: Performed By: #### 1 [id number], [id number] ####[place] [address] Type of Urine collection method Clean Catch Normal [facility] Comment on above: Performed By: #### 1 [id number], [id number] ####[address] [address] Urobilinogen Qn (U) 0.2 {Kulwinder'U}/dL Normal 0.0-1.[address] [facility] Comment on above: Performed By: #### 1 [id number], [id number] ####[address] [address] WBC Auto Ql (U) Negative Normal Negative [facility] Comment on above: Performed By: #### 1 [id number], [id number] ####[address] [address] WBC LM.HPF (Urine sed) [#/Area] 6-15 Abnormal 0-[address] [facility] Comment on above: Performed By: #### 1 [id number], [id number] ####[address] [address] URINALYSISOrdered By: Fiorella cuellar on 01-11-2022 Bacteria LM Ql (Urine sed) Trace /HPF Normal Trace/HPF [facility] UA Auto SS Bilirubin Ql (U) Negative (01/11/22 7:59 PM) Normal Negative [facility] UA Auto SS Clarity (U) Clear (01/11/22 7:59 PM) Normal Clear [facility] UA Auto SS Color (U) Yellow (01/11/22 7:59 PM) Normal Yellow [facility] UA Auto SS Epithelial cells.squamous LM.HPF (Urine sed) [#/Area] 0-2 /HPF Normal 0-2/HPF [facility] UA Auto SS Glucose Test strip (U) [Mass/Vol] Negative (01/11/22 7:59 PM) Normal Negative [facility] UA Auto SS Hemoglobin Ql (U) 2+ *ABN* (01/11/22 7:59 PM) Invalid Interpretation Code Negative [facility] UA Auto SS Ketones (U) [Mass/Vol] Negative (01/11/22 7:59 PM) Normal Negative [facility] UA Auto SS Plantation.plasma/Lithi um.RBC (Bld) [Mass ratio] 4-20 /HPF Normal 0-3/HPF [facility] UA Auto SS Nitrite Ql (U) Negative (01/11/22 7:59 PM) Normal Negative [facility] UA Auto SS pH (U) 6.0 *NA* (01/11/22 7:59 PM) Invalid Interpretation Code 5.0 - 9.0 [facility] UA Auto SS Protein (U) [Mass/Vol] Negative (01/11/22 7:59 PM) Normal Negative [facility] UA Auto SS Specific gravity (U) [Rel density] 1.025 *NA* (01/11/22 7:59 PM) Invalid Interpretation Code 1.005 - 1.030 [facility] UA Auto SS UA Spec Desc Clean Catch (01/11/22 7:59 PM) Normal [facility] UA Auto SS Urobilinogen Qn (U) 0.9221572 {Kulwinder'U}/dL Normal 0.0 - 1.0 EU/dL [facility] UA Auto SS WBC Auto Ql (U) Negative (01/11/22 7:59 PM) Normal Negative [facility] UA Auto SS WBC LM.HPF (Urine sed) [#/Area] 6-15 /HPF Invalid Interpretation Code 0-5/HPF [facility] UA Auto SS URINE MICROSCOPIC ONLYon BACTERIA TRACE Abnormal NONE SEEN [facility] Comment on above: Performed By: #### Christopher ORELLANA UMICRO #### [facility] [address] [place] [address] Dr. Carroll Pryor Bacteria identified Cx Nom (U) NOT INDICATED Normal [facility] Comment on above: Performed By: #### E ESTEBAN, UMICRO #### [facility] [address] [place] [address] Dr. Carroll Pryor CAST SEEN Abnormal NONE SEEN [facility] Comment on above: Performed By: #### E ESTEBAN, UMICRO #### [facility] [address] [place] [address] Dr. Carroll Pryor Crystals LM Nom (Urine sed) NONE SEEN Normal NONE SEEN [facility] Comment on above: Performed By: #### E ESTEBAN UMICRO #### [facility] [address] [place] [address] Dr. Carroll Pryor Epithelial cells LM Ql (Urine sed) MODERATE Abnormal NONE SEEN /RARE [facility] Comment on above: Performed By: #### Christopher ORELLANA UMICRO #### [facility] [address] [place] [address] Dr. Carorll Pryor HYALINE CAST RARE Normal [facility] Comment on above: Performed By: #### Christopher ORELLANA UMICRO #### [facility] [address] [place] [address] Dr. Carroll Pryor MUCOUS NONE SEEN Normal NONE SEEN [facility] Comment on above: Performed By: #### Christopher ORELLANA UMICRO #### [facility] [address] [place] [address] Dr. Carroll Pryor RBC 10-20 Abnormal 0-2 [facility] Comment on above: Performed By: #### Christopher ORELLANA UMICRO #### [facility] [address] [place] [address] Dr. Carroll Pryor WBC 0-2 Abnormal NONE SEEN [facility] Comment on above: Performed By: #### Christopher ORELLANA UMICRO #### [facility] [address] [place] [address] Dr. Carroll Pryor US PREG PLACENTAon 06-13-202 2 US PREG PLACENTA EXAMINATION: US PREG PLACENTA HISTORY: Abnormal vaginal bleeding COMPARISON: No relevant comparison available. FINDINGS: PLACENTA: Posterior, grade 0. No mass, subchorionic hematoma, or abruption. HEART RATE: 142 OTHER: None. IMPRESSION: 1. Early intrauterine 14 weeks, 2 days. 2. Unremarkable posterior placenta. Electronically authenticated by: KELSI MANN Date: 2022-01-11 13:58 Normal [facility] WET PREPon 01-11-2022 CLUE CELLS NONE SEEN Normal NONE SEEN [facility] Comment on above: Performed By: #### C BC #### [facility] [address] [place] [address] Dr. Carroll Pryor FUNGAL ELEMENTS NONE SEEN Normal NONE SEEN [facility] Comment on above: Performed By: #### C BC #### [facility] [address] [place] [address] Dr. Carroll Pryor RBC -WET PREP NONE SEEN Normal NONE SEEN [facility] Comment on above: Performed By: #### C BC #### [facility] [address] [place] [address] Dr. Carroll Pryor TRICHOMONAS NONE SEEN Normal NONE SEEN [facility] Comment on above: Performed By: #### C BC #### [facility] [address] [place] [address] Dr. Carroll Pryor WBC- WET PREP NONE SEEN Normal NONE SEEN [facility] Comment on above: Performed By: #### C BC #### [facility] [address] [place] [address] Dr. Carroll Pryor WET PREP BACTERIA NONE SEEN Normal NONE SEEN [facility] Comment on above: Performed By: #### C BC #### [facility] [address] [place] [address] Dr. Carroll Pryor HEP B SURFACE ANTIGEN SCREEN on 12-24-2021 HBsAg Screen Negative Normal Negative [facility] Comment on above: Performed By: #### C VDTBH #### [facility] [address] [place] [address] Dr. Carroll Pryor HEPATITIS C VIRUS AB W/ REFL EX QUANTon 12-24-2021 HCV AB 0.1 s/co ratio Normal 0.0-0.9 [facility] Comment on above: Performed By: #### C VDTBH #### [facility] [address] [place] [address] Dr. Carroll Pryor Interpretation: Comment Normal [facility] Comment on above: Result Comment: Nega tive Not infected with HCV, unless recent infection is suspected or other evidence exists to indicate HCV infection. Performed By: #### C VDTB #### [facility] [address] [place] [address] Dr. Carroll Pryor HIV 1 AND 2 WITH REFLEXon HIV Screen 4th Generation wRfx Non-Reactive Normal Non Reactive [facility] Comment on above: Result Comment: HIV Negative HIV-1/HIV-2 antibodies and HIV-1 p24 antigen were NOT detected. There is no laboratory evidence of HIV infection. Performed By: #### C VDTBH #### [facility] [address] [place] [address] Dr. Carroll Pryor RPR QUANTon 12-24-2021 Rapid Plasma Reagin, Quant Non-Reactive Normal NonRea<1:1 [facility] Comment on above: Result Comment: Plea se Note: This test does not meet current guidelines for screening and diagnosis of syphilis. This test is intended for following treatment response in patients being treated for syphilis infection. To screen for syphilis infection, a reflex cascade that includes both RPR and a treponema-specific assay should be utilized, such as Treponema pallidum (Syphilis) Screening Bath (215449) or Rapid Plasma Reagin (RPR) Test With Reflex to Quantitative RPR and Confirmatory Treponema pallidum Antibodies (136108). Performed By: #### B MP #### [facility] [address] [place] [address] Dr. Carroll Pryor RUBELLA AB IGGon 12-24-2021 Rubella Antibodies, IgG 1.27 index Normal Immune >0.99 [facility] Comment on above: Result Comment: Non- immune <0.90 Equivocal 0.90 - 0.99 Immune >0.99 Performed By: #### C VDTBH #### [facility] [address] [place] [address] Dr. Carroll Pryor CBC AUTO DIFFon 12-23-2021 BASO # 0.0 103/ul Normal 0.0-0.1 [facility] Comment on above: Performed By: #### U ACSIND #### [facility] [address] [address] [address] Carroll Pryor Basophils/100 WBC (Bld) 0.2 % Normal 0.2-2.0 [facility] Comment on above: Performed By: #### U ACSIND #### [facility] [address] [address] [address] Carroll Pryor EO # 0.1 103/ul Normal 0.0-0.7 [facility] Comment on above: Performed By: #### U ACSIND #### [facility] [address] [place] [address] Dr. Carroll Pryor Eosinophils/100 WBC (Bld) 0.4 % Critically low 0.9-7.0 [facility] Comment on above: Performed By: #### U ACSIND #### [facility] [address] [place] [address] Dr. Carroll Pryor Erythrocyte distribution width (RBC) [Ratio] 11.7 % Normal 11.0-15.0 [facility] Comment on above: Performed By: #### U ACSIND #### [facility] [address] [place] [address] Dr. Carroll Pryor Hematocrit (Bld) [Volume fraction] 37.9 % Normal 36.0-48.0 [facility] Comment on above: Performed By: #### U ACSIND #### [facility] [address] [place] [address] Dr. Carroll Pryor Hemoglobin (Bld) [Mass/Vol] 13.0 g/dL Normal 12.0-16.0 [facility] Comment on above: Performed By: #### U ACSIND #### [facility] [address] [place] [address] Dr. Carroll Pryor IG # 0.05 10e3/ul Critically high 0.00-0.03 [facility] Comment on above: Performed By: #### U ACSIND #### [facility] [address] [address] [address] Carroll Pryor IG % 0.4 % Normal 0.0-0.5 [facility] Comment on above: Performed By: #### U ACSIND #### [facility] [address] [address] [address] Carroll Pryor LYMPH # 1.6 103/ul Normal 1.2-3.8 [facility] Comment on above: Performed By: #### U ACSIND #### [facility] [address] [address] [address] Carroll Pryor Lymphocytes/100 WBC (Bld) 12.6 % Critically low 20.5-60.0 [facility] Comment on above: Performed By: #### U ACSIND #### [facility] [address] [place] [address] Dr. Carroll Pryor MANUAL DIFF REQ NO Normal [facility] Comment on above: Performed By: #### U ACSIND #### [facility] [address] [place] [address] Dr. Carroll Pryor MCH (RBC) [Entitic mass] 30.3 pg Normal 26.7-34.0 [facility] Comment on above: Performed By: #### U ACSIND #### [facility] [address] [place] [address] Dr. Carroll Pryor MCHC (RBC) [Mass/Vol] 34.3 g/dL Normal 29.9-35.2 [facility] Comment on above: Performed By: #### U ACSIND #### [facility] [address] [place] [address] Dr. Carroll Pryor MCV (RBC) [Entitic vol] 88.3 fL Normal 81.0-99.0 [facility] Comment on above: Performed By: #### U ACSIND #### [facility] [address] [place] [address] Dr. Carroll Pryor MONO # 0.7 103/ul Normal 0.3-0.8 [facility] Comment on above: Performed By: #### U ACSIND #### [facility] [address] [address] [address] Carroll Pryor Monocytes/100 WBC (Bld) 5.2 % Normal 1.7-12.0 [facility] Comment on above: Performed By: #### U ACSIND #### [facility] [address] [address] [address] Carroll Pryor NEUT # 10.5 103/ul Critically high 1.4-6.5 [facility] Comment on above: Performed By: #### U ACSIND #### [facility] [address] [address] [address] Carroll Pryor Neutrophils/100 WBC (Bld) 81.2 % Critically high 43.0-75.0 [facility] Comment on above: Performed By: #### U ACSIND #### [facility] [address] [address] [address] Carroll Pryor Platelet mean volume (Bld) [Entitic vol] 9.9 fL Normal 9.5-13.5 [facility] Comment on above: Performed By: #### U ACSIND #### [facility] [address] [address] Dr. Carroll Pryor PLT 285 103/ul Normal 150-450 [facility] Comment on above: Performed By: #### U ACSIND #### [facility] [address] [address] [address] Carroll Pryor RBC 4.29 106/ul Normal 4.20-5.40 [facility] Comment on above: Performed By: #### U ACSIND #### [facility] [address] [address] [address] Carroll Pryor WBC 12.9 103/ul Critically high 4.0-11.0 [facility] Comment on above: Performed By: #### U ACSIND #### [facility] [address] [address] [address] Carroll Pryor CULTURE URINEon 12-23-2021 CULTURE URINE Culture Observations : MODERATE GROWTH OF MIXED GENITAL BRIAN. NO POTENTIAL PATHOGENS SEEN. Normal [facility] Comment on above: Performed By: #### U ACSIND #### [facility] [address] [place] [address] Dr. Carroll Pryor GLYCOHEMOGLOBIN A1Con 2021 ADA RECOMMENDATION SEE BELOW Normal [facility] Comment on above: Result Comment: ADA RECOMMENDED LIMIT 4.0 - 6.0 ADA THERAPEUTIC TARGET < 7.0 ACTION SUGGESTED > 7.0 Performed By: #### C VDTBH #### [facility] [address] [place] [address] Dr. Carroll Pryor Glucose [Mass/Vol] 105 mg/dL Normal [facility] Comment on above: Performed By: #### C VDTBH #### [facility] [address] [place] [address] Dr. Carroll Pryor HbA1c (Bld) [Mass fraction] 5.3 % Normal 4.5-6.2 [facility] Comment on above: Performed By: #### C VDTBH #### [facility] [address] [place] [address] Dr. Carroll Pryor RACHNA BOX TEST PT SEND OUTo n 12-23-2021 SENT TO REF LAB 12/23/2021 Normal [facility] Comment on above: Performed By: #### N BOX #### [facility] [address] [place] [address] Dr. Carroll Pryor TYPE AND SCREENon 12-23-2021 TYPE AND SCREEN Negative Normal [facility] Comment on above: Performed By: #### U ACSIND #### [facility] [address] [place] [address] Dr. Carroll Pryor CBC AUTO DIFFon 12-16-2021 BASO # 0.0 103/ul Normal 0.0-0.1 [facility] Comment on above: Performed By: #### C BC #### [facility] [address] [place] [address] Dr. Carroll Pryor Basophils/100 WBC (Bld) 0.3 % Normal 0.2-2.0 [facility] Comment on above: Performed By: #### C BC #### [facility] [address] [place] [address] Dr. Carroll Pryor EO # 0.1 103/ul Normal 0.0-0.7 [facility] Comment on above: Performed By: #### C BC #### [facility] [address] [place] [address] Dr. Carroll Pryor Eosinophils/100 WBC (Bld) 1.2 % Normal 0.9-7.0 [facility] Comment on above: Performed By: #### C BC #### [facility] [address] [place] [address] Dr. Carroll Pryor Erythrocyte distribution width (RBC) [Ratio] 11.4 % Normal 11.0-15.0 [facility] Comment on above: Performed By: #### C BC #### [facility] [address] [place] [address] Dr. Carroll Pryor Hematocrit (Bld) [Volume fraction] 35.4 % Critically low 36.0-48.0 [facility] Comment on above: Performed By: #### C BC #### [facility] [address] [place] [address] Dr. Carroll Pryor Hemoglobin (Bld) [Mass/Vol] 12.2 g/dL Normal 12.0-16.0 [facility] Comment on above: Performed By: #### C BC #### [facility] [address] [place] [address] Dr. Carroll Pryor IG # 0.02 10e3/ul Normal 0.00-0.03 [facility] Comment on above: Performed By: #### C BC #### [facility] [address] [place] [address] Dr. Carroll Pryor IG % 0.3 % Normal 0.0-0.5 [facility] Comment on above: Performed By: #### C BC #### [facility] [address] [place] [address] Dr. Carroll Pryor LYMPH # 1.4 103/ul Normal 1.2-3.8 [facility] Comment on above: Performed By: #### C BC #### [facility] [address] [place] [address] Dr. Carroll Pryor Lymphocytes/100 WBC (Bld) 18.4 % Critically low 20.5-60.0 [facility] Comment on above: Performed By: #### C BC #### [facility] [address] [place] [address] Dr. Carroll Pryor MANUAL DIFF REQ NO Normal [facility] Comment on above: Performed By: #### C BC #### [facility] [address] [place] [address] Dr. Carroll Pryor MCH (RBC) [Entitic mass] 30.7 pg Normal 26.7-34.0 [facility] Comment on above: Performed By: #### C BC #### [facility] [address] [place] [address] Dr. Carroll Pryor MCHC (RBC) [Mass/Vol] 34.5 g/dL Normal 29.9-35.2 [facility] Comment on above: Performed By: #### C BC #### [facility] [address] [place] [address] Dr. Carroll Pryor MCV (RBC) [Entitic vol] 88.9 fL Normal 81.0-99.0 [facility] Comment on above: Performed By: #### C BC #### [facility] [address] [place] [address] Dr. Carroll Pryor MONO # 0.4 103/ul Normal 0.3-0.8 [facility] Comment on above: Performed By: #### C BC #### [facility] [address] [place] [address] Dr. Carroll Pryor Monocytes/100 WBC (Bld) 5.5 % Normal 1.7-12.0 [facility] Comment on above: Performed By: #### C BC #### [facility] [address] [place] [address] Dr. Carroll Pryor NEUT # 5.6 103/ul Normal 1.4-6.5 [facility] Comment on above: Performed By: #### C BC #### [facility] [address] [place] [address] Dr. Carroll Pryor Neutrophils/100 WBC (Bld) 74.3 % Normal 43.0-75.0 [facility] Comment on above: Performed By: #### C BC #### [facility] [address] [place] [address] Dr. Carroll Pryor Platelet mean volume (Bld) [Entitic vol] 10.1 fL Normal 9.5-13.5 [facility] Comment on above: Performed By: #### C BC #### [facility] [address] [place] [address] Dr. Carroll Pryor PLT 251 103/ul Normal 150-450 [facility] Comment on above: Performed By: #### C BC #### [facility] [address] [place] [address] Dr. Carroll Pryor RBC 3.98 106/ul Critically low 4.20-5.40 [facility] Comment on above: Performed By: #### C BC #### [facility] [address] [place] [address] Dr. Carroll Pryor WBC 7.5 103/ul Normal 4.0-11.0 [facility] Comment on above: Performed By: #### C BC #### [facility] [address] [place] [address] Dr. Carroll Pryor ER URINE PROFILEon 2 Bilirubin Ql (U) Negative Normal NEGATIVE [facility] Comment on above: Performed By: #### C VDTBH #### [facility] [address] [place] [address] Dr. Carroll Pryor Clarity (U) CLEAR Normal CLEAR [facility] Comment on above: Performed By: #### C VDTBH #### [facility] [address] [place] [address] Dr. Carroll Pryor Color (U) YELLOW Normal YELLOW [facility] Comment on above: Performed By: #### C VDTBH #### [facility] [address] [place] [address] Dr. Carroll Pryor ERUAHD A micrscopic examina tion will be performed if indicated. Normal [facility] Comment on above: Performed By: #### C VDTBH #### [facility] [address] [place] [address] Dr. Carroll Pryor Glucose Ql (U) Negative Normal NEGATIVE [facility] Comment on above: Performed By: #### C VDTBH #### [facility] [address] [place] [address] Dr. Carroll Pryor Hemoglobin Ql (U) Negative Normal NEGATIVE [facility] Comment on above: Performed By: #### C VDTBH #### [facility] [address] [place] [address] Dr. Carroll Pryor Ketones Ql (U) Negative Normal NEGATIVE [facility] Comment on above: Performed By: #### C VDTBH #### [facility] [address] [place] [address] Dr. Carroll Pryor LEUKOCYTES Negative Normal NEGATIVE [facility] Comment on above: Performed By: #### C VDTBH #### [facility] [address] [place] [address] Dr. Carroll Pryor Nitrite Ql (U) Negative Normal NEGATIVE [facility] Comment on above: Performed By: #### C VDTBH #### [facility] [address] [place] [address] Dr. Carroll Pryor pH (U) 6.0 [pH] Normal 5-9 [facility] Comment on above: Performed By: #### C VDTBH #### [facility] [address] [place] [address] Dr. Carroll Pryor SPEC GRAVITY >=1.030 Abnormal 1.005-<=1. 025 [facility] Comment on above: Performed By: #### C VDTBH #### [facility] [address] [place] [address] Dr. Carroll Pryor UA PROTEIN Negative Normal NEGATIVE/ TRACE [facility] Comment on above: Performed By: #### C VDTBH #### [facility] [address] [place] [address] Dr. Carroll Pryor UR MICRO IND NOT INDICATED Normal [facility] Comment on above: Performed By: #### C VDTBH #### [facility] [address] [place] [address] Dr. Carroll Pryor Urobilinogen Qn (U) 0.2 {Kulwinder'U}/dL Normal 0.2 - 1. 0 [facility] Comment on above: Performed By: #### C VDTB #### [facility] [address] [place] [address] Dr. Carroll Pryor PROF CHEM 8 (BAS METB)on Anion gap [Moles/Vol] 10.2 mmol/L Normal [facility] Comment on above: Performed By: #### B MP #### [facility] [address] [place] [address] Dr. Carroll Pryor Calcium [Mass/Vol] 8.7 mg/dL Normal 8.5-10.1 [facility] Comment on above: Performed By: #### B MP #### [facility] [address] [place] [address] Dr. Carroll Pryor Chloride [Moles/Vol] 106 mmol/L Normal 98-107 [facility] Comment on above: Performed By: #### B MP #### [facility] [address] [place] [address] Dr. Carroll Pryor CO2 [Moles/Vol] 26.8 mmol/L Normal 21.0-32.0 [facility] Comment on above: Performed By: #### B MP #### [facility] [address] [place] [address] Dr. Carroll Pryor Creatinine [Mass/Vol] 0.56 mg/dL Normal 0.55-1.02 [facility] Comment on above: Performed By: #### B MP #### [facility] [address] [place] [address] Dr. Carroll Pryor EGFR-AF ANGOLAN >60 Normal >=60 [facility] Comment on above: Performed By: #### B MP #### [facility] [address] [place] [address] Dr. Carroll Pryor EGFR-NON AF ANGOLAN >60 Normal >=60 [facility] Comment on above: Performed By: #### B MP #### [facility] [address] [place] [address] Dr. Carroll Pryor Glucose [Mass/Vol] 89 mg/dL Normal 74-106 [facility] Comment on above: Performed By: #### B MP #### [facility] [address] [address] [address] Carroll Pryor Potassium [Moles/Vol] 4.0 mmol/L Normal 3.5-5.1 [facility] Comment on above: Performed By: #### B MP #### [facility] [address] [address] [address] Carroll Pryor Sodium [Moles/Vol] 139 mmol/L Normal 136-145 [facility] Comment on above: Performed By: #### B MP #### [facility] [address] [address] [address] Carroll Pryor Urea nitrogen [Mass/Vol] 6.0 mg/dL Critically low 7.0-18.0 [facility] Comment on above: Performed By: #### B MP #### [facility] [address] [address] [address] Carroll Pryor Urea nitrogen/Creatinine [Mass ratio] 10.7 mg/mg Normal [facility] Comment on above: Performed By: #### B MP #### [facility] [address] [address] [address] Carroll Pryor US KIDNEYS BLADDERon -[id number] [id number] US KIDNEYS BLADDER EXAM: US KIDNEYS TRESSA DDER HISTORY: Personal history of urinary calculi COMPARISON: 10/07/2017 TECHNIQUE: Multiple sonographic images of the kidneys and urinary bladder were obtained, supplemented with Doppler. FINDINGS: The right kidney measures 12.5 x 5.1 x 4 point centimeters. The cortical thickness is 1.2 cm. Multiple echogenic foci are seen scattered throughout the kidney, the largest measuring 5 mm in the midpole. There is no evidence of a cystic or solid mass. There is no apparent hydronephrosis at this time. The left kidney measures 12.1 x 4.2 x 4.5 cm. The cortical thickness of 1.1 cm. Multiple echogenic foci are noted throughout, the largest measuring 4 mm in the mid pole. There is no evidence of a cystic or solid mass. There is no apparent hydronephrosis at this time. The urinary bladder is moderately well distended and the bladder cid are smooth. The bladder cid are not thickened and there is no evidence of a mass or calcification within the bladder. The prevoid volume is 446 mL and the post void volume is 3.5 mL, which is normal. Incidentally noted is a small intrauterine gestation. IMPRESSION: No cystic or solid mass is identified in either kidney. There are multiple renal calculi present bilaterally, without evidence of hydronephrosis at this time. The urinary bladder appears unremarkable. No mass or calcification is identified. There is a normal post void residual volume. Incidentally noted is an intrauterine gestation. No free fluid is present at this time. Electronically authenticated by: EMILY PETERSON Date: 2021-12-16 12:21 Normal [facility] US PREG TVon 12-04-2021 US PREG TV EXAMINATION: US PREG TV HISTORY: Missed period COMPARISON: No relevant comparison available. FINDINGS: Saldivar intrauterine gestation Gestational sac: 2.96 cm, 7 weeks 6 days CRL: 1.6 cm, 8 weeks 3 days Heart rate: 165 bpm Yolk sac: Yes The cervix is closed measuring 5.1 cm in length The uterus is normal in appearance, retroverted, retroflexed The right ovary is not visualized Left ovary measures 3.4 x 2.2 x 2.2 cm, normal in appearance. Clinical age: 8 weeks 6 days Clinical [place]: 07/10/2022 Ultrasound age: 8 weeks 1 day Ultrasound [place]: 07/15/2022 IMPRESSION: Saldivar intrauterine gestation measuring 8 weeks 1 day Electronically authenticated by: JOHN OSORIO Date: 2021-12-04 16:14 Normal [facility] PREG QUANT HCGon 09-06-2021 HCG QUANT 607 mIU/mL Normal [facility] Comment on above: Performed By: #### C BC #### [facility] [address] [place] [address] Dr. Carroll Pryor HCG RANGE SEE BELOW Normal [facility] Comment on above: Result Comment: 5-50 0-1 WEEK 40-300 1-2 WEEKS 100-1,000 2-3 WEEKS 500-6,000 3-4 WEEKS 5,000-200,000 1-2 MONTHS 10,000-100,000 2-3 MONTHS 3,000-50,000 2ND TRIMESTER 1,000-50,000 3RD TRIMESTER Performed By: #### C BC #### [facility] [address] [place] [address] Dr. Carroll Pryor ABO AND RH TYPEon 09-05-2021 ABO and Rh group Nom (Bld) ABO Rh Typing A Rh Positive Normal [facility] Comment on above: Performed By: #### U ACSIND #### [facility] [address] [place] [address] Dr. Carroll Pryor CBC AUTO DIFFon 09-05-2021 BASO # 0.0 103/ul Normal 0.0-0.1 [facility] Comment on above: Performed By: #### C BC #### [facility] [address] [place] [address] Dr. Carroll Pryor Basophils/100 WBC (Bld) 0.3 % Normal 0.2-2.0 [facility] Comment on above: Performed By: #### C BC #### [facility] [address] [place] [address] Dr. Carroll Pryor EO # 0.2 103/ul Normal 0.0-0.7 [facility] Comment on above: Performed By: #### C BC #### [facility] [address] [place] [address] Dr. Carroll Pryor Eosinophils/100 WBC (Bld) 2.4 % Normal 0.9-7.0 [facility] Comment on above: Performed By: #### C BC #### [facility] [address] [place] [address] Dr. Carroll Pryor Erythrocyte distribution width (RBC) [Ratio] 11.8 % Normal 11.0-15.0 [facility] Comment on above: Performed By: #### C BC #### [facility] [address] [place] [address] Dr. Carroll Pryor Hematocrit (Bld) [Volume fraction] 40.8 % Normal 36.0-48.0 [facility] Comment on above: Performed By: #### C BC #### [facility] [address] [place] [address] Dr. Carroll Pryor Hemoglobin (Bld) [Mass/Vol] 13.7 g/dL Normal 12.0-16.0 [facility] Comment on above: Performed By: #### C BC #### [facility] [address] [place] [address] Dr. Carroll Pryor IG # 0.01 10e3/ul Normal 0.00-0.03 [facility] Comment on above: Performed By: #### C BC #### [facility] [address] [place] [address] Dr. Carroll Pryor IG % 0.1 % Normal 0.0-0.5 [facility] Comment on above: Performed By: #### C BC #### [facility] [address] [place] [address] Dr. Carroll Pryor LYMPH # 2.1 103/ul Normal 1.2-3.8 [facility] Comment on above: Performed By: #### C BC #### [facility] [address] [place] [address] Dr. Carroll Pryor Lymphocytes/100 WBC (Bld) 31.2 % Normal 20.5-60.0 [facility] Comment on above: Performed By: #### C BC #### [facility] [address] [place] [address] Dr. Carroll Pryor MANUAL DIFF REQ NO Normal [facility] Comment on above: Performed By: #### C BC #### [facility] [address] [place] [address] Dr. Carroll Pryor MCH (RBC) [Entitic mass] 30.0 pg Normal 26.7-34.0 [facility] Comment on above: Performed By: #### C BC #### [facility] [address] [place] [address] Dr. Carroll Pryor MCHC (RBC) [Mass/Vol] 33.6 g/dL Normal 29.9-35.2 [facility] Comment on above: Performed By: #### C BC #### [facility] [address] [place] [address] Dr. Carroll Pryor MCV (RBC) [Entitic vol] 89.5 fL Normal 81.0-99.0 [facility] Comment on above: Performed By: #### C BC #### [facility] [address] [place] [address] Dr. Carroll Pryor MONO # 0.5 103/ul Normal 0.3-0.8 [facility] Comment on above: Performed By: #### C BC #### [facility] [address] [place] [address] Dr. Carroll Pryor Monocytes/100 WBC (Bld) 7.7 % Normal 1.7-12.0 [facility] Comment on above: Performed By: #### C BC #### [facility] [address] [place] [address] Dr. Carroll Pryor NEUT # 3.9 103/ul Normal 1.4-6.5 [facility] Comment on above: Performed By: #### C BC #### [facility] [address] [place] [address] Dr. Carroll Pryor Neutrophils/100 WBC (Bld) 58.3 % Normal 43.0-75.0 [facility] Comment on above: Performed By: #### C BC #### [facility] [address] [place] [address] Dr. Carroll rPyor Platelet mean volume (Bld) [Entitic vol] 9.7 fL Normal 9.5-13.5 [facility] Comment on above: Performed By: #### C BC #### [facility] [address] [place] [address] Dr. Carroll Pryor PLT 301 103/ul Normal 150-450 [facility] Comment on above: Performed By: #### C BC #### [facility] [address] [place] [address] Dr. Carroll Pryor RBC 4.56 106/ul Normal 4.20-5.40 [facility] Comment on above: Performed By: #### C BC #### [facility] [address] [place] [address] Dr. Carroll Pryor WBC 6.7 103/ul Normal 4.0-11.0 [facility] Comment on above: Performed By: #### C BC #### [facility] [address] [place] [address] Dr. Carroll Pryor ER URINE PROFILEon 2 Bilirubin Ql (U) Negative Normal NEGATIVE [facility] Comment on above: Performed By: #### C BC #### [facility] [address] [place] [address] Dr. Carroll Pryor Clarity (U) CLEAR Normal CLEAR [facility] Comment on above: Performed By: #### C BC #### [facility] [address] [place] [address] Dr. Carroll Pryor Color (U) YELLOW Normal YELLOW [facility] Comment on above: Performed By: #### C BC #### [facility] [address] [place] [address] Dr. Carroll Pryor ERUAHInes A micrscopic examina tion will be performed if indicated. Normal [facility] Comment on above: Performed By: #### C BC #### [facility] [address] [place] [address] Dr. Carroll Pryor Glucose Ql (U) Negative Normal NEGATIVE [facility] Comment on above: Performed By: #### C BC #### [facility] [address] [place] [address] Dr. Carroll Pryor Hemoglobin Ql (U) LARGE Abnormal NEGATIVE [facility] Comment on above: Performed By: #### C BC #### [facility] [address] [place] [address] Dr. Carroll Pryor Ketones Ql (U) Negative Normal NEGATIVE [facility] Comment on above: Performed By: #### C BC #### [facility] [address] [place] [address] Dr. Carroll Pryor LEUKOCYTES Negative Normal NEGATIVE [facility] Comment on above: Performed By: #### C BC #### [facility] [address] [place] [address] Dr. Carroll Pryor Nitrite Ql (U) Negative Normal NEGATIVE [facility] Comment on above: Performed By: #### C BC #### [facility] [address] [place] [address] Dr. Carroll Pryor pH (U) 6.0 [pH] Normal 5-9 [facility] Comment on above: Performed By: #### C BC #### [facility] [address] [place] [address] Dr. Carroll Pryor SPEC GRAVITY 1.030 Abnormal 1.005-<=1. 025 [facility] Comment on above: Performed By: #### C BC #### [facility] [address] [place] [address] Dr. Carroll Pryor UA PROTEIN Negative Normal NEGATIVE/ TRACE [facility] Comment on above: Performed By: #### C BC #### [facility] [address] [place] [address] Dr. Carroll Pryor UR MICRO IND INDICATED Normal [facility] Comment on above: Performed By: #### C BC #### [facility] [address] [place] [address] Dr. Carroll Pryor Urobilinogen Qn (U) 0.2 {Kulwinder'U}/dL Normal 0.2 - 1. 0 [facility] Comment on above: Performed By: #### C BC #### [facility] [address] [place] [address] Dr. Carroll Pryor PREG QUANT HCGon 09-05-2021 HCG QUANT 741 mIU/mL Normal [facility] Comment on above: Performed By: #### U ACSIND #### [facility] [address] [place] [address] Dr. Carroll Pryor HCG RANGE SEE BELOW Normal [facility] Comment on above: Result Comment: 5-50 0-1 WEEK 40-300 1-2 WEEKS 100-1,000 2-3 WEEKS 500-6,000 3-4 WEEKS 5,000-200,000 1-2 MONTHS 10,000-100,000 2-3 MONTHS 3,000-50,000 2ND TRIMESTER 1,000-50,000 3RD TRIMESTER Performed By: #### U ACSIND #### [facility] [address] [place] [address] Dr. Carroll Pryor URon 09-05-2021 , QUAL Positive Abnormal NEGATIVE [facility] Comment on above: Performed By: #### U ACSIND #### [facility] [address] [place] [address] Dr. Carroll Pryor URINE MICROSCOPIC ONLYon BACTERIA NONE SEEN Normal NONE SEEN [facility] Comment on above: Performed By: #### C BC #### [facility] [address] [place] [address] Dr. Carroll Pryor Bacteria identified Cx Nom (U) NOT INDICATED Normal [facility] Comment on above: Performed By: #### C BC #### [facility] [address] [place] [address] Dr. Carroll Pryor CAST NONE SEEN Normal NONE SEEN [facility] Comment on above: Performed By: #### C BC #### [facility] [address] [place] [address] Dr. Carroll Pryor Crystals LM Nom (Urine sed) NONE SEEN Normal NONE SEEN [facility] Comment on above: Performed By: #### C BC #### [facility] [address] [place] [address] Dr. Carroll Pryor Epithelial cells LM Ql (Urine sed) FEW Abnormal NONE SEEN /RARE [facility] Comment on above: Performed By: #### C BC #### [facility] [address] [place] [address] Dr. Carroll Pryor MUCOUS TRACE Abnormal NONE SEEN [facility] Comment on above: Performed By: #### C BC #### [facility] [address] [place] [address] Dr. Carroll Pryor RBC 2-5 Abnormal 0-2 [facility] Comment on above: Performed By: #### C BC #### [facility] [address] [place] [address] Dr. Carroll Pryor WBC 0-2 Abnormal NONE SEEN [facility] Comment on above: Performed By: #### C BC #### [facility] [address] [place] [address] Dr. Carroll Pryor US PREG TVon 09-05-2021 US PREG TV EXAM: US PREG TV HISTORY: Abdominal pain COMPARISON: None. TECHNIQUE: Endovaginal approach ultrasound is performed. Multiple grayscale and color images are submitted for review. FINDINGS: Retroverted uterus is seen. Intrauterine sonolucent sac is seen, which may represent an early intrauterine gestation sac, with mean sac diameter measuring 0.38 cm. No yolk sac, pole or cardiac activity is seen at this time. The right ovary measures 3.0 x 2.3 x 1.8 cm. Approximately 1.5 x 1.1 x 1.3 cm sonolucent structure is seen in the right ovary, which may represent a corpus luteum cyst. Normal blood flow is seen in the ovary. The left ovary measures 2.2 x 1.5 x 1.6 cm and demonstrates normal morphology and blood flow. The cervix is closed. The cervical length measures 5 cm. IMPRESSION: Intrauterine sonolucent sac is seen without yolk sac or pole visualized. This may be related to early intrauterine gestation. Continued clinical, laboratory and sonographic correlation is suggested. No abnormal adnexal mass is seen to suggest ectopic at this time. Likely right ovary corpus luteal cyst. Electronically authenticated by: TARA BURNHAM Date: 2021-09-05 21:10 Normal [facility]on SARS-CoV-2 (COVID-19) RNA ERINN+probe Ql (Unsp spec) Not detected Normal NOT DETECTED [facility] Comment on above: Result Comment: This test is not yet approved or cleared by the [place] FDA. When there are no FDA-approved or cleared tests available, and other criteria are met, FDA can make tests available under an emergency access mechanism called an Emergency Use Authorization (EUA). The EUA for this test is supported by the Traffic Rate Analyst of Health and Human Service's (HHS's) declaration that circumstances exist to justify the emergency use of in vitro diagnostics for the detection and/or diagnosis of the virus that causes COVID-19. This EUA will remain in effect (meaning this test can be used) for the duration of the COVID-19 declaration justifying emergency of IVDs, unless it is terminated or revoked by FDA (after which the test may no longer be used). When diagnostic testing is negative, the possibility of a false negative should be considered in the context of a patient's recent exposures and the presence of clinical signs and symptoms consistent with SARS-CoV-2. Performed By: #### C #### [facility] [address] [place] [address] Dr. Carroll Pryor XR KNEE LEFT STANDARD EXTEND ED VWon 05-05-2017 XR KNEE LEFT STANDARD EXTENDED VW EXAMINATION:4 VIEWS OF THE LEFT KNEE05/05/2017 5:09 pmCOMPARISON:None.HISTORY:ORD ERING SYSTEM PROVIDED HISTORY: Dislocation of left patella, initialencounterTECHNOLOGIST PROVIDED HISTORY:Ordering Physician Provided Reason for Exam: dislocation of left patella,initial encounter, patellar instability of left kneeAcuity: UnknownType of Exam: UnknownAdditional signs and symptoms: Pt states she has felt a knot on left knee for1 month. No known injury. H/O reconstructive surgery of left knee.FINDINGS:No acute fracture. Joint spaces are preserved. No joint effusion.Lucencies within the patella may be related to prior surgery. Tracks areseen within the medial femoral condyle from prior surgery.IMPRESSION: No acute findings.Interpreted by:LATISHA Lyleigned by:Dominick Myers MD05/05/17Final result Normal [facility] Vital Signs Date Time Vital Sign Value Performing Clinician Facility 04-11-2025 14:[id number] Body height 165.1 cm Eloisa Khan MD Work Phone: [facility] 04-11-2025 14:06-0400 Body mass index (BMI) [Ratio] 21.5 kg/m2 Eloisa Khan MD Work Phone: [facility] 04-11-2025 14:06-0400 Body temperature 98.7 [degF] Eloisa Khan MD Work Phone: [facility] 04-11-2025 14:06-0400 Body weight 58.74 kg Eloisa Khan MD Work Phone: [facility] 04-11-2025 14:06-0400 Diastolic blood pressure 80 mm[Hg] Eloisa Khan MD Work Phone: [facility] 04-11-2025 14:06-0400 Heart rate 85 /min Eloisa Khan MD Work Phone: [facility] 04-11-2025 14:06-0400 Respiratory rate 18 /min Eloisa Khan MD Work Phone: [facility] 04-11-2025 14:06-0400 SaO2% (BldA) [Mass fraction] 99 % Eloisa Khan MD Work Phone: [facility] 04-11-2025 14:06-0400 Systolic blood pressure 115 mm[Hg] Eloisa Khan MD Work Phone: [facility] 05-28-2022 13:18-0400 Hourly Rounding Dl Printy [facility] Comment on above: Result Comment: [facility] transport team capri zapata pt for transfer at this time. 05-28-2022 13:12-0400 Hourly Rounding Dl Printy [facility] Comment on above: Result Comment: Maxine meza [facility] called and reported pt on way. 05-28-2022 13:08-0400 Hourly Rounding Dl Printy [facility] Comment on above: Result Comment: [facility] transport team here for pt 05-28-2022 12:22-0400 Promise to Return Dl Printy [facility] 05-28-2022 12:01-0400 Promise to Return Dl Printy [facility] 05-28-2022 11:43-0400 Promise to Return Dl Printy [facility] 05-28-2022 10:30-0400 Blood Pressure Location Dl Printy [facility] 05-28-2022 10:30-0400 Body temperature 98.24 [degF] Dl Printy [facility] 05-28-2022 10:30-0400 Diastolic blood pressure 61 mm[Hg] Dl Printy [facility] 05-28-2022 10:30-0400 Mean blood pressure 79 mm[Hg] Dl Printy [facility] 05-28-2022 10:30-0400 Respiratory rate 18 /min Dl Printy [facility] 05-28-2022 10:30-0400 SaO2% (BldA) [Mass fraction] 98 % Dl Printy [facility] 05-28-2022 10:30-0400 Systolic blood pressure 114 mm[Hg] Dl Printy [facility] 05-28-2022 07:45-0400 Blood Pressure Location Dl Printy [facility] 05-28-2022 07:45-0400 Body temperature 98.42 [degF] Dl Printy [facility] 05-28-2022 07:45-0400 Diastolic blood pressure 68 mm[Hg] Dl Printy [facility] 05-28-2022 07:45-0400 Heart rate 88 /min Dl Printy [facility] 05-28-2022 07:45-0400 Mean blood pressure 88 mm[Hg] Dl Printy [facility] 05-28-2022 07:45-0400 Respiratory rate 18 /min Dl Printy [facility] 05-28-2022 07:45-0400 SaO2% (BldA) [Mass fraction] 98 % Dl Printy [facility] 05-28-2022 07:45-0400 Systolic blood pressure 127 mm[Hg] Dl Printy [facility] 05-28-2022 03:54-0400 Blood Pressure Location Dl Printy [facility] 05-28-2022 03:54-0400 Body temperature 98.24 [degF] Dl Printy [facility] 05-28-2022 03:54-0400 Diastolic blood pressure 62 mm[Hg] Dl Printy [facility] 05-28-2022 03:54-0400 Heart rate 92 /min Dl Printy [facility] 05-28-2022 03:54-0400 Mean blood pressure 75 mm[Hg] Dl Printy [facility] 05-28-2022 03:54-0400 Respiratory rate 18 /min Dl Printy [facility] 05-28-2022 03:54-0400 Systolic blood pressure 101 mm[Hg] Dl Printy [facility] 05-28-2022 00:07-0400 Heart rate 97 /min Dl Printy [facility] 05-28-2022 00:07-0400 SaO2% (BldA) [Mass fraction] 98 % Dl Printy [facility] 05-26-2022 18:04-0400 Body temperature 99.68 [degF] Dl Printy [facility] 05-26-2022 17:37-0400 Hourly Rounding [facility] 05-26-2022 17:37-0400 Promise to Return [facility] 05-26-2022 17:37-0400 SaO2% (BldA) [Mass fraction] 100 % [facility] 05-26-2022 16:45-0400 Hourly Rounding [facility] 05-26-2022 16:45-0400 Promise to Return [facility] 05-26-2022 15:45-0400 Hourly Rounding [facility] 05-26-2022 15:45-0400 Promise to Return [facility] 05-26-2022 15:37-0400 Diastolic blood pressure 67 mm[Hg] [facility] 05-26-2022 15:37-0400 Heart rate 106 /min [facility] 05-26-2022 15:37-0400 Mean blood pressure 83 mm[Hg] [facility] 05-26-2022 15:37-0400 Respiratory rate 16 /min [facility] 05-26-2022 15:37-0400 SaO2% (BldA) [Mass fraction] 100 % [facility] 05-26-2022 15:37-0400 Systolic blood pressure 115 mm[Hg] [facility] 05-26-2022 12:48-0400 Body temperature 99.68 [degF] [facility] 05-26-2022 12:48-0400 Diastolic blood pressure 78 mm[Hg] [facility] 05-26-2022 12:48-0400 Heart rate 118 /min [facility] 05-26-2022 12:48-0400 Respiratory rate 16 /min [facility] 05-26-2022 12:48-0400 SaO2% (BldA) [Mass fraction] 100 % [facility] 05-26-2022 12:48-0400 Systolic blood pressure 147 mm[Hg] [facility] 01-11-2022 20:44-0400 Hourly Rounding Hayden SILVERIO [facility] Comment on above: Result Comment: Patient discharged to pr ivate vehicle. No s/s of distress noted at the time of discharge. 01-11-2022 20:30-0400 Hourly Rounding Hayden SILVERIO [facility] Comment on above: Result Comment: Discharge instructions g ivraymond and appropriate questions answered. Patient up to the bathroom to change. 01-11-2022 19:25-0400 Blood Pressure Location Hayden SILVERIO [facility] 01-11-2022 19:25-0400 Body temperature 98.06 [degF] Hayden SILVERIO [facility] 01-11-2022 19:25-0400 Diastolic blood pressure 64 mm[Hg] Hayden SILVERIO [facility] 01-11-2022 19:25-0400 Heart rate 87 /min Hayden SILVERIO [facility] 01-11-2022 19:25-0400 Hourly Rounding Hayden SILVERIO [facility] Comment on above: Result Comment: [facility] of cramping that radiate to hips and back. Patient states cramping started last night with some brown discharge. Patient rates cramping 10/10. Call light in reach. Urine sent to lab. 01-11-2022 19:25-0400 Mean blood pressure 82 mm[Hg] Hayden SILVERIO [facility] 01-11-2022 19:25-0400 Respiratory rate 16 /min Hayden SILVERIO [facility] 01-11-2022 19:25-0400 Systolic blood pressure 118 mm[Hg] Hayden SILVERIO [facility] Encounters Encounter Date Encounter Type Care Provider Facility Start: 04-11-2025 End: 04-11-2025 ambulatory Eloisa Khan MD Work Phone: [facility] Work Phone: Start: 04-11-2025 End: 04-11-2025 Patient encounter procedure Clau Gregory [facility] Work Phone: Start: 07-08-2022 End: 07-08-[address] RAJENDRA VILLAVICENCIO Facility:[facility] Start: 07-03-2022 End: 07-05-2022 Evaluation and management of inpatient DR RAJENDRA VILLAVICENCIO Facility:[facility] Start: 06-26-2022 End: 06-26-2022 ambulatory PANKAJ GARCIA Facility:[facility] Start: 06-18-2022 End: 06-18-[address] ELOISA KHAN Facility:[facility] Start: 06-15-2022 End: 06-15-[address] ELOISA KHAN Facility:[facility] Start: 06-10-2022 End: 06-11-[address] ELOISA KHAN Facility:[facility] Start: 05-26-2022 End: 05-28-2022 Evaluation and management of inpatient Omari Friedman Facility:[facility] Start: 05-26-2022 End: 05-28-2022 Evaluation and management of inpatient Dl White [facility] Start: 05-26-2022 End: 05-26-2022 Emergency department patient visit Domitila Mariano Facility:[facility] Start: 05-26-2022 End: 05-26-2022 Emergency department patient visit Denis FREED [facility] Start: 05-25-2022 End: 05-25-2022 ambulatory MARICRUZ NIEVES Facility:[facility] Start: 05-21-2022 End: 05-21-2022 ambulatory BERTHA SANDHU Facility:[facility] Start: 05-06-2022 End: 05-07-[address] ELOISA KHAN Facility:[facility] Start: 04-21-2022 End: 04-22-[address] ELOISA KHAN Facility:[facility] Start: 03-29-2022 End: 03-29-[address] ELOISA KHAN Facility:[facility] Start: 03-01-2022 End: 03-02-[address] RAJENDRA VILLAVICENCIO Facility:[facility] Start: 02-22-2022 End: 02-22-[address] NETO JULES Facility: Start: 01-11-2022 End: 01-11-2022 ambulatory Hayden SILVERIO Facility:[facility] Start: 01-11-2022 End: 01-11-2022 OB Triage Hayden SILVERIO [facility] Start: 01-11-2022 End: 01-11-2022 ambulatory BERTHA SANDHU Facility:[facility] Start: 12-23-2021 End: 12-24-[address] RAJENDRA VILLAVICENCIO Facility:[facility] Start: 12-16-2021 End: 12-16-[address] CHERY VARGAS Facility:[facility] Start: 12-04-2021 End: 12-05-[address] RAJENDRA VILLAVICENCIO Facility:[facility] Start: 10-08-[address] RAJENDRA VILLAVICENCIO Facility :[facility] Start: 09-30-[address] RAJENDRA VILLAVICENCIO Facility :[facility] Start: 09-06-2021 End: 09-06-[address] CHERY VARGAS Facility:[facility] Start: 09-05-2021 End: 09-05-[address] ANTOINETTE CAMARENA Facility:[facility] Start: 08-06-2021 End: 08-06-[address] ELOISA KHAN Facility:[facility] Start: 07-11-2018 End: 07-12-2018 Patient encounter procedure DEFAULT PHYSICIAN Facility:[facility] Start: 05-05-2017 End: 05-06-2017 Ambulatory RICHARD JOHNSON [facility] Procedures Date Procedure Procedure Detail Performing Clinician Start: 04-11-2025 Plain X-ray of left thumb Eloisa Khan MD Work Phone: Start: 07-03-2022 Delivery of Products of Conception, External Approach DR RAJENDRA VILLAVICENCIO Start: 07-03-2022 Drainage of Amniotic Fluid, Therapeutic from Products of Conception, Via Natural or Artificial Opening DR RAJENDRA VILLAVICENCIO Start: 07-03-2022 Introduction of Othe r Hormone into Peripheral Vein, Percutaneous Approach DR RAJENDRA VILLAVICENCIO Start: 07-03-2022 Repair Perineum Skin , External Approach DR RAJENDRA VILLAVICENCIO Start: 05-05-2017 Radiologic exam knee complete 4/more views RICHARD JOHNSON Start: 08-01-2015 History of operative procedure on knee Denis FREED Start: 08-01-2009 Tonsillectomy Denis LOPEZ Payers Date Payer Category Payer Medicaid [id number] 2016 Unknown [id number] 1999 Unknown [id number] 2.16.8 40.1.549039.3.579.2.647 1999 Unknown [id number] 2.16.8 40.1.349796.3.579.2.727 1999 Unknown [id number] 2.16.8 40.1.371162.3.579.2.727 1999 Unknown [id number] 2.16.8 40.1.399097.3.579.2.727 1999 Unknown [id number] 2.16.84 0.1.707509.3.579.2.593 1999 Unknown [id number] 2.16.84 0.1.400320.3.579.2.593 1999 Unknown [id number] 2.16.84 0.1.604269.3.579.2.593 1999 Unknown [id number] 2.16.84 0.1.831712.3.579.2.593 1999 Unknown [id number] 2.16.84 0.1.518561.3.579.2.593 1999 Unknown [id number] 2.16.84 0.1.654214.3.579.2.593 1999 Unknown [id number] 2.16.84 0.1.259887.3.579.2.593 1999 Unknown [id number] 2.16.84 0.1.544096.3.579.2.593 1999 Unknown [id number] 2.16.84 0.1.081591.3.579.2.593 1999 Unknown [id number] 2.16.84 0.1.942745.3.579.2.593 1999 Unknown [id number] 2.16.84 0.1.087016.3.579.2.593 1999 Unknown [id number] 2.16.84 0.1.922084.3.579.2.593 1999 Unknown [id number] 2.16.84 0.1.840376.3.579.2.593 1999 Unknown [id number] 2.16.84 0.1.926144.3.579.2.593 1999 Unknown [id number] 2.16.84 0.1.311299.3.579.2.593 1999 Unknown [id number] 2.16.84 0.1.547620.3.579.2.593 1999 Unknown [id number] 2.16.84 0.1.649250.3.579.2.593 1999 Unknown [id number] 2.16.84 0.1.011180.3.579.2.593 1999 Unknown [id number] 2.16.84 0.1.434624.3.579.2.593 1999 Unknown [id number] 2.16.84 0.1.680021.3.579.2.593 1999 Unknown [id number] 2.16.84 0.1.537191.3.579.2.593 1999 Unknown [id number] 2.16.84 0.1.191867.3.579.2.593 1960 Medicaid [id number] 1960 Self-pay 1960 Self-pay [id number] Unknown Unknown [id number] 2.16.84 0.1.934400.3.579.2.593 Unknown [id number] 2.16.8 40.1.908649.3.579.2.531 Social History Date Type Detail Facility Tobacco smoking status No Smokin g Status Entered [facility] Comment on above: denies Sex Assigned At Female [facility] Tobacco smoking status No Smokin g Status Entered [facility] Start: 01-20-2018 Tobacco smoking stat [facility] Never smoked tobacco (finding) [facility] Sex Female (finding) [facility] Start: 2000 Sex Assigned At Female F [facility] Functional Status Date Assessment Result Facility 05-26-2022 Functional Status No [facility] 05-26-2022 Functional Status N/A [facility] 01-11-2022 Functional Status N/A [facility] Clinical Notes 01-11-2022 to 04-11-2025 Note Date & Type Note Facility 04-11-2025 Evaluation note Diagnosis Onset Date Resolution Fracture of thumb, left, closed acute April 11, 2025 2:05pm Injury of left thumb acute Apr 2:05pm [facility] Work Phone: 1(972) 488-173411-02-2022 NotePatient: DEEPTI CARDOZA Age: 22 years Sex: Female : 2000 Associated Diagnoses: None Author: Christopher VILLANUEVA, Dl Rodrigez History of Present Illness Patient is Para Information: : 1 Para Term: 0 Para : 0 Para Abortions: 0 Para Livin. Pt is 33 week ....pt of Dr Villavicencio. Presents to ER with c/o pain and swelling in her jaw rfoma tooth abscess. CT in the ER confirms abscess. Because of worsening infection with inability to eat and resultant acidosis, pt has been admitted for IV antibiotics and IV hydration to resolve the acidosis. SHe is admitted to L+D because of the . Review of Systems Respiratory: No shortness of breath, No cough. Gastrointestinal Genitourinary: Negative. Health Status Allergies: Allergic Reactions (All) No Known Allergies Problem list: All Problems Anxiety / SNOMED CT 34150842 / Confirmed Asthma / SNOMED CT 125284512 / Confirmed Facial abscess / SNOMED CT 210130890 / Confirmed / SNOMED CT 467879928 / Confirmed Histories History History (0,0,0,0) No previous pregnancies history have been recorded Family History: No family history items have been selected or recorded. Procedure history: History of knee surgery (2398720977) in 2016 at 16 Years. Tonsillectomy ([id number]) in 2009 at 10 Years. Social History Social & Psychosocial History Social History Alcohol No Risk (01/11/2022) Comment: denies (05/26/2022 14:Deepthi Yates RN, Anabela Vargas) Substance Abuse No Risk (01/11/2022) Comment: denies (05/26/2022 14:Deepthi Yates RN, Anabela Vargas) Tobacco No Risk (01/11/2022) Comment: denies (05/26/2022 14:Deepthi Yates RN, Anabela Vargas) Psychosocial History Family/Social (05/26/22) Emotional Support Available: Yes Coping: Effective (05/26/22) Domestic Concerns: None Domestic Violence Screen (01/11/22) Have You Ever Been Emotionally Or Physically Abused by Your Partner: No Have You Been Physically Hurt by Someone Within the Past Year: No Within the Last Year, Has Anyone Forced You to Have Sexual Activity: No . Physical Examination General: Alert and oriented. HENT: Normocephalic. Respiratory: Respirations are non-labored. Gastrointestinal: gravid abdomen. Obstetric Exam Saldivar/ Baby A evaluation: heart tones reactive. Neurologic: Alert, Oriented. Psychiatric: Cooperative. Impression and Plan Diagnosis (MEJ51-SD Z34.90, Discharge, Medical). Facial abscess (MYI27-TV L02.01, Discharge, Medical). Acute abscess of maxillary sinus (IPW50-GN J01.00, Discharge, Medical). Starvation ketoacidosis (EGR16-MR T73.0XXA, Discharge, Medical). [facility]:Result Comment: Electronically Signed By: Christopher VILLANUEVA, Dl Rodrigez\.br\Date and Time Signed: 06/02/22 17:03 EDT 06-02-2022 NoteMicrobiology PROCEDURE: Blood Culture Charcoal [R1] SOURCE: Blood BODY SITE: Arm R COLLECTED DATE/TIME: 05/26/2022 14:17 EDT RECEIVED DATE/TIME: 05/26/2022 14:40 EDT START DATE/TIME: 05/26/2022 14:41 EDT FREE TEXT SOURCE: rt giovanni Mariano M.D., Domitila Mariano M.D., Domitila Vargas FINAL REPORTS Final Report [] Verified Date/Time: 06/02/2022 16:02 EDT No growth at 7 days. Performing Locations R1: This test was performed at: [facility], [address] [place] [address], [address]- , , [facility] CenterComment on above:Performed By: #### [id number] ####[facility] [id number] [place], [place] [id number] NoteHOSPITAL REGULATIONS: All Positive and Important Negative Findings Shall Be Recorded Date of Consultation: 05/27/2022 Attending Physician: Dl White M.D. Consulting Physician: Delfina Hutton.T.: CONSULTATION CHIEF COMPLAINT: Right-sided facial pain and swelling. HISTORY OF PRESENT ILLNESS: This is a 22-year-old white female who is currently in her second trimester of who has recently had onset of right-sided dental discomfort. Saw her dentist earlier this week, underwent localized drainage of an area of infection along with manipulation of the dentition in that region. The patient was placed on oral antibiotics. The patient noted acute onset offacial swelling and pain which did not respond to medical therapy. Subsequently came to the Emergency Department. The patient was evaluated in the Emergency Department at which time, a CT scan was completed showing extensive soft tissue swelling in the area of the right face with evidence of dental abscess on the right side in the area of the right upper dentition. The patient was placed on intravenous antibiotics and then placed in the hospital for further evaluation and therapy. PAST MEDICAL HISTORY: The patient's past medical history is unremarkable other than currently . FAMILY HISTORY: Noncontributory. PAST SURGICAL HISTORY: Positive for knee surgery and tonsillectomy. PSYCHOSOCIAL HISTORY: Negative for tobacco or alcohol or illicit drug use. PHYSICAL EXAMINATION: Physical examination shows a 22-year-old white female who is awake and alert but in mild to moderate distress currently secondary to significant right-sided mid facial swelling and mild hyperemia. Respirations are of normal rate. Pulses are strong bilaterally. Skin is warm anddry. Mild hyperemia and warm feeling is noted in the area of the soft tissues of the anterior face.Ear canals are patent. Tympanic membranes are intact. Nose is well aerated with no ulcer, mass, or lesion. Gross examination of the head shows soft tissue edema of the soft tissues of the right side of the face. There is a small area of central softness, possible fluctuance. Examination of mouth and throat shows uvula to be in the midline. There is extensive inflammatory change in the gingival buccal sulcus superiorly on the right. Mild yellow drainage is noted. This examination is quite uncomfortable. Palpation of the neck reveals some slight adenopathy in the submental region on the right side. LABORATORY DATA: Review of her complete blood count completed yesterday shows a white blood cell count of 16,000 with a hemoglobin and hematocrit of 10.8 and 32.5 respectively; 289,000 platelets werenoted in this specimen. Neutrophil shift is noted. Repeat complete blood count this morning shows similar findings. IMPRESSION: 1. Right facial soft tissue swelling cellulitis. 2. Right upper dentition dental abscess. 3. Right-sided facial pain. 4. . PLAN: At this time, I do recommend the patient be continued on intravenous antibiotics which seem to be helping according to the nursing staff. Warm compresses to the face are helpful to facilitate reduction of swelling and to help the abscess drain. The patient should maintain good hydration to allow for a power cleaner operator mouth and possible drainage of the abscess transorally. Will watch this patient very closely for any airway compromise. Would think that potentially dental extraction may be necessary to prevent further infections or to allow for the abscess to be drained. Currently the patient seems to be doing quite well on intravenous antibiotics. Delfina Hutton Dictated: 05/27/2022 [id number] Transcribed: 05/28/2022 cc:Dl White M.D.[facility] CenterComment on above:Result Comment: Electronically Signed By: Asim Monroe DO\.favio\Date and Time Signed: 06/01/22 11:02 [id number] NoteTRANSFER SUMMARY 05/28/2022 DIAGNOSIS:Intrauterine at 33 weeks gestation with oral abscess, unresolved on parenteral antibiotics. The patient is a 22 year old white female who presented to the Emergency Room complaining of facialpain. She is a 33 weeks and 4 days gestation. She had been attempted to have a bad tooth taken of by a dentist but was unable to have this resolved. The infection in her tooth extended to her maxillofacial area on the right. Although it was seemingly draining some it continued to progress despite her white blood cell count being more normalized in consultation with Ear, Nose and Throat and Internal Medicine it was recommend that she have this taken of by an oral surgeon. With her on board, she is being sent to a tertiary care center that can manage anesthesia in the face of and manage the oral surgery needs. Her has been monitored with good reactive non- stress tests. She has had minor uterine irritability on occasion, otherwise uncomplicated. Transfer for management of oral abscess. Omari Friedman M.D. lr Dictated: 05/28/2022 [id number] Transcribed: 05/28/2022[facility] CenterComment on above:Result Comment: Electronically Signed By: Elder VILLANUEVA, Omari Chacon\.br\Date and Time Signed: 05/28/22 14:06 [id number] NoteThe following Patient Education Materials have been given to the patient: EducationMateriThe [facility]10-28-2022 Evaluation + Plan note Extracted from: Title:APSO Note Author:Denis FREED MD Date: 22-year-old with s econd (first 1 uneventful with the baby of 7 pounds 7 ounces) at 33 weeks of and 5 days presents to emergency department due to severe facial pain and inability to to eat. 1. (Z34.90: Encounter for supervision of normal , unspecified, unspecified trimester) Continue with vitamin Starvation ketoacidosis has resolved Routine monitoring for baby every shift Will transfer patient to a place with [facility] and [facility] 2. Facial abscess (L02.01: Cutaneous abscess of face) Worse today Spoke to ENT. preferrers patient going to tertiary care with [facility] Will continue with Unasyn and warm compress NPO Transfer to [facility] once bed is available 3. Acute abscess of maxillary sinus (J01.00: Acute maxillary sinusitis, unspecified) will need [facility] Transfer to [facility] Continue with Tylenol Antibiotics as ordered 4. Starvation ketoacidosis (T73.0XXA: Starvation, initial encounter) Resolved Will continue with IVF as patient will be NPO Orders: ampicillin-sulbactam + Sodium Chloride 0.9% intravenous solution 100 mL, 3 gram = 1 EA, Injection, IV Piggyback, q6hrFT for 10 day(s), Stop date 06/06/22 17:59:00 EST, Routine, Start date 05/27/22 18:00:00 EDT, 200 mL/hr, Infuse over 30 minute(s) Sodium Chloride 0.9% intravenous solution 1,000 mL, 1,000 mL, IV, 100 mL/hr, for 1 dose(s), Stop date 05/28/22 4:04:00 EDT, Routine, Start date 05/27/22 18:05:00 EDT, 10 hour(s), Total volume (mL): 1,000, 68.2 kg, 1.78, m2 Basic Metabolic Panel eGFR NPO Diet Plan discussed with patient at bedside This report was transcribed using voice recognition software. Every effort was made to ensure accuracy, however, inadvertently computerized city jailer mistakes may be present. Denis Freed Hospitalist Extracted from: Title:Right facial pain/swelling Author:Asim Ward ch, DO Date:05/27/22 ENT Full consult dict. Imp: Right facial cellulitis Right dental abscess Right facial pain Plan: 1. Continue IV antibiotics 2. Warm compresses 3. Follow for progress 4. Should be considered for dental extraction if not improving Extracted from: Title:APSO Note Author:Denis FREED MD Date: 22-year-old with s econd (first 1 uneventful with the baby of 7 pounds 7 ounces) at 33 weeks of and 4 days presents to emergency department due to severe facial pain and inability to to eat. 1. (Z34.90: Encounter for supervision of normal , unspecified, unspecified trimester) Continue with vitamin Starvation ketoacidosis has resolved Routine monitoring for baby every shift Ordered: Initial IP Consult New/Estab Pt Low 55 Min 47821 2. Facial abscess (L02.01: Cutaneous abscess of face) Continue with Unasyn Abscess is draining Continue with warm compresses We will stop IV fluids and encourage oral intake Will use liquid Tylenol and told nurse to use [id number] for today and use IV pain medication for breakthrough pain. Still left Tylenol as needed Ordered: Initial IP Consult New/Estab Pt Low 55 Min 86779 3. Acute abscess of maxillary sinus (J01.00: Acute maxillary sinusitis, unspecified) Continue with Tylenol and Nubain Antibiotics as ordered Awaiting ENT evaluation Ordered: Initial IP Consult New/Estab Pt Low 55 Min 94046 4. Starvation ketoacidosis (T73.0XXA: Starvation, initial encounter) Resolved Will let patient eat and drink normally and encouraging oral intake Stopping IV fluids We will still repeat labs tomorrow morning Ordered: Initial IP Consult New/Estab Pt Low 55 Min 91548 Orders: acetaminophen, 640 mg = 20 mL, Liquid, Oral, q6hr PRN Pain/Fever, Routine, Start date 05/27/22 8:24:00 EDT, 05/27/22 8:24:00 EDT acetaminophen + Generic Diluent 50 mL, 500 mg = 50 mL, Soln-IV, IV Piggyback, Once, Stop date 05/26/22 18:00:00 EDT, Start date 05/26/22 18:00:00 EDT, 400 mL/hr, Infuse over 7.5 minute(s) ampicillin-sulbactam + Sodium Chloride 0.9% intravenous solution 100 mL, 3 gram = 1 EA, Injection, IV Piggyback, q6hrFT, Routine, Start date 05/27/22 0:00:00 EDT, 200 mL/hr, Infuse over 30 minute(s) Dextrose 5% with 0.45% NaCl intravenous solution 1,000 mL + sodium bicarbonate 75 mEq, 1,000 mL, IV, 150 mL/hr, for 1 dose(s), Stop date 05/27/22 0:59:00 EDT, Start date 05/26/22 17:48:00 EDT, 7.2 hour(s), Total volume (mL): 1,075, 69 kg, 1.79, m2 multivitamin, , 1 tab(s), Tab, Oral, Daily, Routine, Start date 05/27/22 9:00:00 EDT ondansetron, 4 mg = 2 mL, Injection, IV Push, q6hr PRN Nausea, Routine, Start date 05/26/22 18:00:00 EDT pantoprazole, 40 mg = 1 tab(s), Tab-DR, Oral, Daily PRN Control of stomach acid, Routine, Start date 05/26/22 19:13:00 EDT, 05/26/22 19:13:00 EDT Ambulate with Assistance Automated Diff Basic Metabolic Panel CBC w/ Auto Diff Consult to ENT eGFR Intake and Output Magnesium Level Notify Provider Vital Signs Notify Provider Vital Signs Precautions Regular Diet Vital Signs Warm Compress Weight Plan discussed with patient at bedside This report was transcribed using voice recognition software. Every effort was made to ensure accuracy, however, inadvertently computerized city jailer mistakes may be present. Dr. Denis Freed Hospitalist at [facility] Extracted from: Title:Consult Note Author:Denis FREED MD Date :05/26/22 22-year-old with s econd (first 1 uneventful with the baby of 7 pounds 7 ounces) at 33 weeks of and 4 days presents to emergency department due to severe facial pain and inability to to eat. 1. (Z34.90: Encounter for supervision of normal , unspecified, unspecified trimester) Management as per [employer] service Routine monitoring of the baby given significant starvation ketoacidosis As per patient baby is meeting developmental milestones and all the imaging has been normal Was weighing around 4 pounds at the 30-week checkup 2. Facial abscess (L02.01: Cutaneous abscess of face) Continue with Unasyn ENT consulted No significant abscess identified but does show phlegmon We will continue with pain control and warm compresses 3. Acute abscess of maxillary sinus (J01.00: Acute maxillary sinusitis, unspecified) IV Tylenol Antibiotics as ordered ENT consulted 4. Starvation ketoacidosis (T73.0XXA: Starvation, initial encounter) Patient with significant acidosis from starvation D5 half-normal saline ordered We will repeat labs tomorrow Anticipate acidosis improving with IV fluids Plan discussed with patient at bedside Orders: acetaminophen + Generic Diluent 50 mL, 500 mg = 50 mL, Soln-IV, IV Piggyback, Once, Stop date 05/26/22 18:00:00 EDT, Start date 05/26/22 18:00:00 EDT, 400 mL/hr, Infuse over 7.5 minute(s) acetaminophen + Generic Diluent 50 mL, 500 mg = 50 mL, Soln-IV, IV Piggyback, Once, Stop date 05/26/22 18:00:00 EDT, Start date 05/26/22 18:00:00 EDT, 400 mL/hr, Infuse over 7.5 minute(s) ampicillin-sulbactam + Sodium Chloride 0.9% intravenous solution 100 mL, 3 gram = 1 EA, Injection, IV Piggyback, q6hrFT, Routine, Start date 05/27/22 0:00:00 EDT, 200 mL/hr, Infuse over 30 minute(s) ampicillin-sulbactam + Sodium Chloride 0.9% intravenous solution 100 mL, 3 gram = 1 EA, Injection, IV Piggyback, q6hrFT, Routine, Start date 05/26/22 0:00:00 EDT, 200 mL/hr, Infuse over 30 minute(s) Dextrose 5% with 0.45% NaCl intravenous solution 1,000 mL + sodium bicarbonate 75 mEq, 1,000 mL, IV, 75 mL/hr, for 30 day(s), Stop date 06/26/22 0:59:00 EST, Start date 05/27/22 1:00:00 EDT, 14.3 hour(s), Total volume (mL): 1,075, 69 kg, 1.79, m2 Dextrose 5% with 0.45% NaCl intravenous solution 1,000 mL + sodium bicarbonate 75 mEq, 1,000 mL, IV, 150 mL/hr, for 1 dose(s), Stop date 05/27/22 0:36:00 EDT, Start date 05/26/22 17:25:00 EDT, 7.2 hour(s), Total volume (mL): 1,075, 69 kg, 1.79, m2 Dextrose 5% with 0.45% NaCl intravenous solution 1,000 mL + sodium bicarbonate 75 mEq, 1,000 mL, IV, 75 mL/hr, for 30 day(s), Stop date 06/26/22 0:36:00 EST, Start date 05/27/22 0:37:00 EDT, 14.3 hour(s), Total volume (mL): 1,075, 69 kg, 1.79, m2 Dextrose 5% with 0.45% NaCl intravenous solution 1,000 mL + sodium bicarbonate 75 mEq, 1,000 mL, IV, 150 mL/hr, for 1 dose(s), Stop date 05/27/22 0:59:00 EDT, Start date 05/26/22 17:48:00 EDT, 7.2 hour(s), Total volume (mL): 1,075, 69 kg, 1.79, m2 ondansetron, 4 mg = 2 mL, Injection, IV Push, q6hr PRN Nausea, Routine, Start date 05/26/22 18:00:00 EDT Ambulate with Assistance Basic Metabolic Panel CBC w/ Auto Diff Consult to ENT Intake and Output Magnesium Level Notify Provider Vital Signs Notify Provider Vital Signs Precautions Pulse Oximetry Regular Diet Vital Signs Warm Compress Weight Thank you for allowing us to participate in this patient's care. Please call us with any questions Plan discussed with patient at bedside in ER bed #14 This report was transcribed using voice recognition software. Every effort was made to ensure accuracy, however, inadvertently computerized city jailer mistakes may be present. Dr. Denis Freed Hospitalist at [facility]10-28-2022 NotePROGRESS NOTE: 05/27/2022 The patient is doing better visually from where she has and seems to be more comfortable than report. The patient is a patient of Dr. Villavicencio who has a soft tissue abscess superficial to the right maxilla 2 x 1.5 x 1.5 adjacent phlegmon and overlying cellulitis. She was seen by Dr. Freed and originally on the service of Dr. White through the night. She has a T-max of 37.9, her blood pressure is stable, her pulse is 110, respirations 20. Laboratory reveals some decrease in the white blood cells from initial presentation and her CO2 is up from 11 to 20. Urine output is better. The patient has a large swelling on the right side of her face. She is using a suction catheter to keep comfortable with saliva. Lungs are clear. Abdomen is soft, nontender. Positive heart tones. Extremities negative clubbing, cyanosis or edema. IMPRESSION: Large orofacial abscess currently with parenteral antibiotics. Ears, Nose and Throat consulted, awaiting for plan of management. We have discussed with the patient that currently this hasno major impact on the infant as long as her rest of physiologic numbers are normal. Will try to keep her comfortable and continue parenteral antibiotics while awaiting definitive management plan. Omari Friedman M.D. uvaldo Dictated: 05/27/2022 [id number] Transcribed: 05/27/2022[facility] CenterComment on above:Result Comment: Electronically Signed By: Elder VILLANUEVA, Omari Chacon\.br\Date and Time Signed: 05/28/22 10:24 [id number] NoteReason for Consultation Starvation ketoacidosis History of Present Illness 22-year-old with second (first 1 uneventful with the baby of 7 pounds 7 ounces)at 33 weeks of and 4 days presents to emergency department due to severe facial pain and inability to to eat. Patient states that she had bad tooth that dentist did not remove. They try to drill a hole and hope that it would drain. It never drained and she progressively got worsening facial swelling. Since Tuesday she is unable to eat properly. She is trying to tilt her head to 1 side and drink some body armor drinks. Here in the emergency department she was found to have significant right maxillary swelling with facial cellulitis. She was also found to have starvation ketoacidosis. She was referred to OB service with hospitalist and ENT in consultation. Review of Systems Constitutional: no fever, no chills, no sweats, no weakness Respiratory: no shortness of breath, no cough, no orthopnea, no wheezing Cardiovascular: no chest pain, no palpitations, no edema Additional ROS info: Except as noted in the above Review of Systems and in the History of Present Illness all other systems have been reviewed and are negative or noncontributory. Physical Exam General: alert, mild distress on Room air ENMT: Significant right facial swelling and there is no obviously draining abscess in the mouth Cardiovascular: Slightly tachycardic rate and rhythm, normal peripheral perfusion Respiratory: Lungs CTA, respirations non labored Abdomen: Soft, nontender, without rebound or rigidity, positive bowel sounds Extremities: no deformity, no trauma Genitourinary: Deferred Skin: Intact Hematological: No signs of large bruising/ecchymosis or petechiae Neurological: oriented x 4, LOC appropriate for age, CN II-XII intact, motor strength equal & normal bilaterally, sensation equal & normal bilaterally, speech normal Psych: Denies suicidal ideation or homicidal ideation Images No qualifying data available. Assessment/Plan 22-year-old with second (first 1 uneventful with the baby of 7 pounds 7 ounces)at 33 weeks of and 4 days presents to emergency department due to severe facial pain and inability to to eat. 1. (Z34.90: Encounter for supervision of normal , unspecified, unspecified trimester) Management as per [employer] service Routine monitoring of the baby given significant starvation ketoacidosis As per patient baby is meeting developmental milestones and all the imaging has been normal Was weighing around 4 pounds at the 30-week checkup 2. Facial abscess (L02.01: Cutaneous abscess of face) Continue with Unasyn ENT consulted No significant abscess identified but does show phlegmon We will continue with pain control and warm compresses 3. Acute abscess of maxillary sinus (J01.00: Acute maxillary sinusitis, unspecified) IV Tylenol Antibiotics as ordered ENT consulted 4. Starvation ketoacidosis (T73.0XXA: Starvation, initial encounter) Patient with significant acidosis from starvation D5 half-normal saline ordered We will repeat labs tomorrow Anticipate acidosis improving with IV fluids Plan discussed with patient at bedside Orders: acetaminophen + Generic Diluent 50 mL, 500 mg = 50 mL, Soln-IV, IV Piggyback, Once, Stop date 05/26/22 18:00:00 EDT, Start date 05/26/22 18:00:00 EDT, 400 mL/hr, Infuse over 7.5 minute(s) acetaminophen + Generic Diluent 50 mL, 500 mg = 50 mL, Soln-IV, IV Piggyback, Once, Stop date 05/26/22 18:00:00 EDT, Start date 05/26/22 18:00:00 EDT, 400 mL/hr, Infuse over 7.5 minute(s) ampicillin-sulbactam + Sodium Chloride 0.9% intravenous solution 100 mL, 3 gram = 1 EA, Injection, IV Piggyback, q6hrFT, Routine, Start date 05/27/22 0:00:00 EDT, 200 mL/hr, Infuse over 30 minute(s) ampicillin-sulbactam + Sodium Chloride 0.9% intravenous solution 100 mL, 3 gram = 1 EA, Injection, IV Piggyback, q6hrFT, Routine, Start date 05/26/22 0:00:00 EDT, 200 mL/hr, Infuse over 30 minute(s) Dextrose 5% with 0.45% NaCl intravenous solution 1,000 mL + sodium bicarbonate 75 mEq, 1,000 mL, IV, 75 mL/hr, for 30 day(s), Stop date 06/26/22 0:59:00 EST, Start date 05/27/22 1:00:00 EDT, 14.3 hour(s), Total volume (mL): 1,075, 69 kg, 1.79, m2 Dextrose 5% with 0.45% NaCl intravenous solution 1,000 mL + sodium bicarbonate 75 mEq, 1,000 mL, IV, 150 mL/hr, for 1 dose(s), Stop date 05/27/22 0:36:00 EDT, Start date 05/26/22 17:25:00 EDT, 7.2 hour(s), Total volume (mL): 1,075, 69 kg, 1.79, m2 Dextrose 5% with 0.45% NaCl intravenous solution 1,000 mL + sodium bicarbonate 75 mEq, 1,000 mL, IV, 75 mL/hr, for 30 day(s), Stop date 06/26/22 0:36:00 EST, Start date 05/27/22 0:37:00 EDT, 14.3 hour(s), Total volume (mL): 1,075, 69 kg, 1.79, m2 Dextrose 5% with 0.45% NaCl intravenous solution 1,000 mL + sodium bicarbonate 75 mEq, 1,000 mL, IV, 150 mL/hr, for 1 dose(s), Stop date 05/27/22 0:59:00 EDT, Start date 05/26/22 17:48:00 EDT (more content not included)...[facility] CenterComment on above:Result Comment: Electronically Signed By: ABDIAZIZ VILLANUEVA, Denis Ariza\.br\Date and Time Signed: 05/26/22 18:12 [id number] Hospital Discharge instructions Follow Up Care 05/26/2022 17:30:39 With:Rajendra VILLAVICENCIO Address: [address] , [place] [address]- Business (1) When: Unknown [facility]10-26-2022 Evaluation + Plan noteExtracted from: Title:ED Note Author:Montserrat Verduzco, Domitila Londono te:05/26/22 1. Facial abscess (L02.01: C utaneous abscess of face) 2. Facial cellulitis (L03.211: Cellulitis of face) 3. Starvation ketoacidosis (T73.0XXA: Starvation, initial encounter) Orders: Sodium Chloride 0.9% intravenous solution, 1,000 mL, Soln-IV, IV, Once, Stop date 05/26/22 14:56:00 EDT, STAT, Start date 05/26/22 14:56:00 EDT, mL/hr, Infuse over 61, minute(s) Automated Diff Basic Metabolic Panel Blood Culture Charcoal CBC w/ Auto Diff Consult to ENT Consult to Hospitalist CT Maxillofacial w/ Contrast eGFR Extra Blue Tube Extra SST Tube Lactic Acid Sedimentation Rate Automated UA With Cult Reflex Diagnostic Tests Pending * Blood Culture Charcoal 05/26/22 [facility]06-13-2022 NoteThe following Patient Education Materials have been given to the patient: EducationMaterialMer[facility] Health St[facility]06-[facility]-2022 Hospital Discharge instructions Follow Up Care 01/11/2022 19:15:06 With:Hayden SILVERIO Address: [address] [place] [address], [facility] [address]- [phone] Business (1) When:1 to 2 days Comments:Call for any problems.Call physician for heavy vaginal bleedingCall office in the morning to schedule an ultrasound [facility]06-13-2022 Evaluation + Plan note Diagnostic Tests Pending * Urine Culture [facility]22 [facility] Diagnosis Onset Date Resolution Status Admit Date Fracture of thumb, left, closed acute April 11, 2025 2:05pm Injury of left thumb acute Apr emb2024 2:05pm [facility] Work Phone: Hospital course Narrative No data available for this section [facility] No data available for this section [facility] No data available for this section [facility] HospitalReason for referral (narrative)No reason for referral information availableMercy Health St. [facility] Work Phone: Summary Purpose Family History No Family History Records Found Relationship Condition Age at Onset Recorded Date/T sonam mother Unknown Advance Directives No Advanced Directives Records Found Advance Directive Response Recorded Date/ Time Advance Directives No January 20 1:04pm Chief Complaint and Reason for Visit Chief Complaint Admit Date Left thumb injury April 11, 2025 2:05pm S69.92XA - Unspecified injury of left wr ist, hand April 11, 2025 2:22pm Reason for Visit Admit Date Fracture of thumb, left, closed Septembe r 2024 2:05pm Injury of left thumb April 11 2:05pm Additional Source Comments INFORMATION SOURCE (unrecogn ized section and content) DATE CREATED AUTHOR 01/24/2018 [facility] DATE CREATED AUTHOR AUTHOR'S ORGANIZ ATION 07/13/2018 [facility] DATE CREATED AUTHOR AUTHOR'S ORGANIZ ATION 07/08/2022 [facility] DATE CREATED AUTHOR AUTHOR'S ORGANIZ ATION 07/22/2022 [facility] [place] [facility] DATE CREATED AUTHOR AUTHOR'S ORGANIZ ATION 04/15/2025 [facility] Care Team (unrecognized sect ion and content) Team Status: Active Member Role Status Jovani Khan MD Primary Care Provider Active Team Status: Inactive Member Role Status Jovani Khan MD Primary Care Provider Active Start: April 11, 2025 End: April 11, 2025 JOLIE Goetz Attending Provider Active Start: April End: April 11, 2025 Team Status: Active Member Role Status Jovani Khan MD Primary Care Provider Active Start: April 11, 2025 JOLIE Goetz Attending Provider Active Start: April Goals (unrecognized section and content) Goals may be documented in a n alternate section FOR RECORDS PERTAINING TO PATIENTS WHO ARE OR HAVE BEEN ENROLLED IN A CHEMICAL DEPENDENCY/SUBSTANCEABUSE PROGRAM, SOME INFORMATION MAY BE OMITTED. This clinical summary was aggregated from multiple sources. Caution should be exercised in using it in the provision of clinical care. This summary normalizes information from multiple sources, and as a consequence, information in this document may materially change the coding, format and clinical context of patient data. In addition, data may be omitted in some cases. CLINICAL DECISIONS SHOULD BE BASED ON THE PRIMARY CLINICAL RECORDS. [facility] [employer] provides no warranty or guarantee of the accuracy or completeness of information in this document.
== END 2025-04-18 08:48 | disposition home or self-care (01) ==
LOC: RAD 08:47
PROVIDERS: PCP Family Medicine; Visit Provider Physician Assistant
DX: S62.502A Fracture of unspecified phalanx of left thumb, initial encounter for closed fracture (principal)
CPT/HCPCS: 73140

== ENCOUNTER 2025-06-21 08:20 | Outpatient (OUT) | payer OTHER, SELFPAY ==
--- OUTSIDE RECORDS SUMMARY | 2024-04-04 03:15 | XMS_ITS | Continuity of Care Document ---
Author Organization [facility] Address [address] [place] [phone] Phone Care Team Providers Care Senior Software Engineer Analytics Name Role Phone Abigail Marin DDS Unavailable Unavailable Allergies, Adverse Reactions, Alerts Substance Reaction Status Criticality No Known Allergies Active No Inform ation Medications Medication Instructions Dosage Effective Dates (start - stop) Status Comments EnilloRing 0.12 mg-0.015 mg/24 hr vaginal ring - Active Seroquel 100 mg tablet take 1 tablet by oral route 2 times every day 100 MG - Active ProAir RespiClick 90 mcg/actuation breath activated inhale 2 puff by inhalation route every 4 - 6 hours as needed 180 MCG - Active amoxicillin 875 mg-potassium clavulanate 125 mg tablet TAKE 1 TABLET BY MOUTH EVERY 12 HOURS - No Longer Active Procedures Procedure Date Extraction Surgical/erupt Tooth 024 Oral Hygiene Instruction Bitewig-single Film Intraoral-periapical 1st Film Panoramic Film Limited Oral Eval Advance Directives Directive Yes / No Effective Date File Name No Information Encounters Encounter Description Practice Location Reason(s) For Visit Diagnoses Date Provider Providers Copied on Encounter [facility], [address] [place] [address], [id number], [place] tel:[phone] Dental Clinic extraction (chief complaint) Encounter for screening for dental disorders Tomas GUTHRIE Yixjus. [address] [place] [address], [id number], [place]. tel:[phone] [facility], [address] [place] [address], [place], [place], [id number], tel:[phone] Dental Clinic Dental limited (chief complaint) Encounter for screening for dental disordersBody mass index [BMI] 19.9 or less, adult Jamie Mcintyre . tel:[phone] Family History Family Member Type Diagnosis Age At Onset Father Problem Alive and well Mother Problem (finding) Payers Payer name Insurance type Covered republican ID Felicita samuels(s) Self Pay Indigent 09 [id number] Social History Type Description Quantity Date Captured Comments Alcohol Use Details Unknown Caffeine Use Details Unknown Tobacco Use Status Current non-smoker Smoking Status Never smoker Sex Female Sexual Orientation Straight or heterosexual Mar Gender Identity Female Vital Signs Date / Time: Height Weight BMI Pulse Rate Blood Pressure Temperature Respiratory Rate Body Surface Area Head Circumference Head Circ. Percentile Wt./Francesco. Percentile BMI percentile Pulse Ox Inhaled Ox 8:43 AM 66.00 in 54.431 kg (120.00 lbs) 19.3 7 kg/m eter (2) 87 /min 113/72 mm[Hg] Chief Complaint And Reason For Visit From encounter dated '04/04/2024 08:15'. extraction (chief complaint). Description: extraction Reason For Referral Reason For Referral No Information Plan Of Treatment Date Type Action Status Goal Hepatitis C screening. Due o n due Goal Tdap. Due on due Goal PRAPARE ASSESSMENT. Due on S ep due Goal PAP. Due on due Goal Influenza vaccine. Due on Se p due Goal Depression screening. Due on due Goal RLP. Due on due Goal Unhealthy drug use screening . Due on due Goal Tdap Vaccine. Due on 2023 due Goal PAP. Due on due Goal Hepatitis C screening. Due o n due Goal Influenza vaccine. Due on Au due Goal RLP. Due on due Goal Tdap. Due on due Goal Depression screening. Due on due Goal Unhealthy drug use screening . Due on due Goal Tdap Vaccine. Due on 2023 due Goal PRAPARE ASSESSMENT. Due on A due Goal Dietary management education , guidance, and counseling completed History Of Present Illness Encounter Date Complaint History Of Prese nt Illness extraction extraction Dental limited Dental limited, EMERG[facility]Y, [facility] tooth pain, pain level 6 Functional Status Date Functional Assessmen t No Information Instructions Date Instruction Additional Infor mation Dietary management e ducation, guidance, and counseling Related to Body mass index [BMI] 19.9 or less, adult Prescribed activity/ exercise education Related to Body mass index [BMI] 19.9 or less, adult Assessments Type Assessment Date No Information Patient Care Teams Name Effective Dates (start - stop) Status Members No Information
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
--- OUTSIDE RECORDS SUMMARY | 2025-06-21 08:22 | XMS_ITS | Clinical Summary ---
Author Organization Address [address] [place], [place] [address] Care Team Providers Care Indian Trader Name Role Phone Juan Carlos Jose MD Primary Care Provider [phone] Allergies No known active allergies Medications MedicationSigDispense QuantityRefillsLast FilledStart DateEnd DateStatus hydrOXYzine pamoate (VISTARIL) 25 mg capsule Take 25 mg by mouth three times daily as needed.Active escitalopram oxalate (LEXAPRO) 20 mg tablet Take 20 mg by mouth once daily.Active LEVONORGESTREL-ETHIN ESTRADIOL (ORSYTHIA ORAL) Take by mouth.Active Active Problems ProblemNoted DateDiagnosed DateChronic abdominal pain10/08/2015Nausea with bikyawvw44/09/7528Uuuwdpawd47/09/3165Pxkgwhj94/09/0426Casxoyuisenz45/09/2016 Abnormal blood ubyeeqhnf44/16/2016 Social History Tobacco UseTypesPacks/DayYears UsedDateSmoking Tobacco: NeverSmokeless Tobacco: NeverAlcohol UseStandard Drinks/WeekCommentsNo0 (1 standard drink = 0.6 oz pure alcohol)CommentsUnknownSex and Gender InformationValueDate RecordedSex Assigned at BirthNot on fileLegal GsbEcvuws18/03/2016 7:58 AM ESTGender Identity Not on fileSexual OrientationNot on file Last Filed Vital Signs Vital SignReadingTime TakenCommentsBlood Byhkyhsz482/71009/16/2015 2:55 PM EST Awubc8475/16/2016 2:55 PM ESTTemperature--Respiratory Fsmn481709/16/2015 2:55 PM ESTOxygen Saturation--Inhaled Oxygen Concentration--Slzvfj33.1 kg (137 lb) 10/08/2015 11:04 AM BHSLodbsi707.1 cm (5' 5 )10/08/2015 11:04 AM ESTBody Mass Index22.8010/08/2015 11:04 AM EST Plan of Treatment Health MaintenanceDue DateLast DoneCommentsPeds To Adult Transition Initial Kukaypghve95/18/2011Peds To Adult Transition Annual Dfliewrpui99/18/2013HPV Vaccine (1 - 3-dose series)2014nxiety Ugzxjhdbn06/18/2017Depression Lewhcjpxw90/18/2017HIV Sqtqsulwd35/18/2017Hepatitis C Rfftnhzys04/18/2017 DTaP,Tdap,Td Vaccine (1 - Tdap)2018Hepatitis B Vaccine (1 of 3 - 19+ 3- dose series)2018Cervical Cancer Nhikzsabc46/18/2020Covid-19 Vaccine ( - 2024- season)2025Influenza Vaccine (#1)2025 Insurance * Guarantor: Angelique LINARES TypeRelation to PatientDate of BirthPhone Billing AddressPersonal/FamilyMother [address] [place] [address] Care Teams Team MemberRelationshipSpecialtyStart Date Juan Carlos Jose MD PCP - GeneralFamily Medicine09/03/15
--- OUTSIDE RECORDS SUMMARY | 2025-06-21 08:22 | XMS_ITS | Clinical Summary ---
Author Organization [facility] Address [address], [address] [place] [address] Care Team Providers Care Campaign Worker Name Role Phone Juan Carlos Jose MD Primary Care Provider [phone] Allergies No known active allergies Medications MedicationSigDispense QuantityRefillsLast FilledStart DateEnd DateStatus cetirizine (ZYRTEC) 5 MG tablet Take by mouth daily.Active Albuterol Sulfate (PROAIR HFA IN) Inhale into the lungs.Active NONFORMULARY control by mouth dailyActive amitriptyline (ELAVIL) 10 MG tablet Take 20 mg by mouth nightlyActive omeprazole (PRILOSEC) 20 MG delayed release capsule Take 40 mg by mouth dailyActive docusate (COLACE, DULCOLAX) 100 MG CAPS Take 100 mg by mouth 2 times daily01/06/2017Active cephALEXin (KEFLEX) 500 MG capsule Take 2 capsules by mouth every 8 hours 6 capsule 01/06/2017Active Active Problems ProblemNoted DateDiagnosed DateCyst of ehlowf9611/14/2012 Family History Medical HistoryRelationNameCommentsSchizophreniaMaternal GrandfatherCancer Maternal GrandmotherbreastOtherMotherDeceasedArthritisPaternal Grandmother RelationNameStatusCommentsMaternal GrandfatherMaternal GrandmotherMotherPaternal Grandmother Social History Tobacco UseTypesPacks/DayYears UsedDateSmoking Tobacco: NeverSmokeless Tobacco: NeverAlcohol UseStandard Drinks/WeekCommentsNo0 (1 standard drink = 0.6 oz pure alcohol)CommentsNoSex and Gender InformationValueDate RecordedSex Assigned at BirthNot on fileLegal NbtDthfgf32/12/2013 5:54 AM ESTGender Identity Not on fileSexual OrientationNot on file Last Filed Vital Signs Vital SignReadingTime TakenCommentsBlood Wnpignzq726/70001/06/2017 12:30 PM EDT Suqfv1944/08/2017 12:30 PM WFZTmpjrgzfxxe79.5 ??C (97.7 ??F)01/06/2017 12:30 PM EDTRespiratory Oxch987101/06/2017 12:30 PM EDTOxygen Pyhtgzsdts45%01/06/2017 12:30 PM EDTInhaled Oxygen Concentration--Pvbxkt60.2 kg (119 lb 7.8 oz)01/05/2017 8:24 PM KELGakkcb325.1 cm (5' 5 )01/05/2017 8:24 PM EDTBody Mass Index19.8801/05/2017 8:24 PM EDT Plan of Treatment Not on file Medical Devices ImplantedTypeAreaManufacturerDevice IdentifierShelf Expiration DateModel / Serial / LotTissue Frozen Gracilis Tendon >200mml Implanted:Qty: 1 on 01/05/2017 by Edgar Hamilton DO at [facility]/Graft/Tissue/Human/SynthLeft: KneeREGENERATION TECHNOLOGY INC-PM 12/11/[id number] / / System Delivery Composite Mpfl Implanted:Qty: 1 [facility]05/2017 [facility]ate/Nail/RodLeft: KneeARTHREX INC-PM08/31/[id number] / / Insurance Advance Directives * Full Code (Latest Code Status on File) Date ActivatedDate InactivatedComments01/05/2017 8:20 PM01/06/2017 6:05 PM Care Teams Team MemberRelationshipSpecialtyStart DateEnd Date Juan Carlos Jose MD [address] [id number] [facility]11/14/12
--- OUTSIDE RECORDS SUMMARY | 2025-06-21 08:22 | XMS_ITS | Encounter Summary ---
Author Organization [facility] Address [address] [place] [address] Care Team Providers Care Cisco Certified Network Associate Name Role Phone Juan Carlos Jose MD Primary Care Provider [phone] Encounter Details DateTypeDepartmentCare Team (Latest Contact Info)Trrqetgqakn99/07/2025Travel Social History Tobacco UseTypesPacks/DayYears UsedDateSmoking Tobacco: NeverSmokeless Tobacco: NeverAlcohol UseStandard Drinks/WeekCommentsNever0 (1 standard drink = 0.6 oz pure alcohol)CommentsUnknownSex and Gender InformationValueDate Recorded Sex Assigned at BirthNot on fileLegal ZxvEfuumb79/15/2023 6:47 PM EDTGender IdentityNot on fileSexual OrientationNot on filedocumented as of this encounter Plan of Treatment DateTypeDepartmentCare Team (Latest Contact Info)Okiogarwbgo26/02/2025 9:30 AM ESTOffice Visit [facility] [address] [place] [address] Dominick Davalos, PA [address] [place] [address] documented as of this encounter Visit Diagnoses Not on filedocumented in this encounter Care Teams Team MemberRelationsSonora Regional Medical CenterpecialtyStart DateEnd Date Juan Carlos Jose MD [address] [place] [address] PCP - GeneralFamily Medicine04/23/25documented as of this encounter
--- OUTSIDE RECORDS SUMMARY | 2025-06-21 08:22 | XMS_ITS | Clinical Summary ---
Author Organization [employer] [facility] Address [id number] [address] [place] [address] Care Team Providers Care Call Center Professional Name Role Phone Unavailable Primary Care Provider Unavailabl e Allergies No known active allergies Medications MedicationSigDispense QuantityRefillsLast FilledStart DateEnd DateStatus omeprazole (PriLOSEC) 20 mg capsule Indications:heartburnTake 1 capsule (20 mg total) by mouth in the morning. Indications: heartburn.2Active acetaminophen (TYLENOL EXTRA STRENGTH) 500 mg tablet Indications:toothacheTake 2 tablets (1,000 mg total) by mouth every 6 (six) hours as needed for pain Indications: a toothache. 60 tablet 06/01/2022ctive Active Problems ProblemNoted DateDiagnosed DateOral teiblks0105/29/2022Tooth rgnmmdv2405/28/2022 Immunizations No known immunizations Social History Tobacco UseTypesPacks/DayYears UsedDateSmoking Tobacco: NeverSmokeless Tobacco: Never Tobacco Cessation:Counseling Given: Not Answered Alcohol UseStandard Drinks/WeekCommentsNot Currently0 (1 standard drink = 0.6 oz pure alcohol)ChildcareAnswerDate IqhesjywUmmghenzqHxrwkbu98/12/2019Employment AnswerDate XwacjsdoUvvpiyjthsXawqymf24/12/2019Purpose - LifeAnswerDate Recorded Purpose and direction in dpzqAgmaaty67/11/2021CommentsNoSex and Gender InformationValueDate RecordedSex Assigned at BirthNot on fileLegal SexFemale 04/01/2015 10:40 PM EDTGender IdentityNot on fileSexual OrientationNot on file Last Filed Vital Signs Vital SignReadingTime TakenCommentsBlood Usvbdech389/6511/08/2021 8:18 AM EDT Oskap0875 8:18 AM BQHMcywcdjixwq61.5 ??C (97.7 ??F)06/01/2022 8:18 AM EDTRespiratory Icwc489308/01/2021 8:18 AM EDTOxygen Qoxeqwzocb66%05/31/2022 8:11 PM EDTInhaled Oxygen Concentration--Weight--Height--Body Mass Index-- Plan of Treatment Health MaintenanceDue DateLast DoneCommentsDepression Qxdmjxdti12/18/2011Tobacco Kbqkihmks91/18/2011dult BMI Ewvfgwvgx67/18/2017Pap Smear2020Influenza Nprutsw61/01/839178/, 06/18/2018, 07/05/2017, Additional history exists DTaP,Tdap and Td Vaccines (8 - Td or Tdap), 10/28/2010, 04/01/2004, Additional history exists Medical Devices Not on file Insurance Advance Directives * Full Code (Latest Code Status on File) Date ActivatedDate BhhlaliixjvScevukcp93/28/2022 3:29 PM06/01/2022 11:15 AM
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
--- OUTSIDE RECORDS SUMMARY | 2025-06-21 08:22 | XMS_ITS | Encounter Summary ---
Author Organization [facility] Address [address] [place] [address] Care Team Providers Care Mechanical Manufacturing Technician Name Role Phone Juan Carlos Jose MD Primary Care Provider [phone] Encounter Details DateTypeDepartmentCare Team (Latest Contact Info)Fwuvmageeou18/07/2025amboo flowsheet [facility] [address] [place] [address] Dominick Davalos, PA [address] [place] [address] Social History Tobacco UseTypesPacks/DayYears UsedDateSmoking Tobacco: NeverSmokeless Tobacco: NeverAlcohol UseStandard Drinks/WeekCommentsNever0 (1 standard drink = 0.6 oz pure alcohol)CommentsUnknownSex and Gender InformationValueDate Recorded Sex Assigned at BirthNot on fileLegal AjpHsdsum99/15/2023 6:47 PM EDTGender IdentityNot on fileSexual OrientationNot on filedocumented as of this encounter Plan of Treatment DateTypeDepartmentCare Team (Latest Contact Info)Jaksvyeodka61/02/2025 9:30 AM ESTOffice Visit [facility] [address] [place] [address] Dominick Davalos, PA [address] [facility] [place] [address] documented as of this encounter Visit Diagnoses Not on filedocumented in this encounter Care Teams Team MemberRelationshipSpecialtyStart DateEnd Date Juan Carlos Jose MD [address] [place] [address] PCP - GeneralFamily Medicine04/23/25documented as of this encounter
--- OUTSIDE RECORDS SUMMARY | 2025-06-21 08:22 | XMS_ITS | Clinical Summary ---
Author Organization [facility] Address [address] [place] [address] Care Team Providers Care Stitcher Feeder Name Role Phone Juan Carlos Jose MD Primary Care Provider [phone] Allergies Active AllergyReactionsCriticalityNoted WmdtXbixkctlMteqzipyaoNxojAep37/10/2023 Medications MedicationSigDispense QuantityRefillsLast FilledStart DateEnd DateStatus albuterol HFA 90 mcg/act inhaler every 4 (four) hours06/14/2024ctive albuterol HFA 90 mcg/act inhaler every 4 (four) hoursActive albuterol (ProAir RespiClick) 90 mcg/act breath-activated inhaler Inhale 2 puffs every 4 (four) hoursActive QUEtiapine (SEROquel) 50 MG tablet Take 50 mg by mouth at bedtimeActive celecoxib (CeleBREX) 200 MG capsule Indications:Sprain of metacarpophalangeal (MCP) joint of left thumb, initial encounterTake 1 capsule (200 mg) by mouth Daily Take with food 30 capsule 5Active methylPREDNISolone (Medrol Dospak) 4 MG tablets Indications:Sprain of interphalangeal joint of left thumb, initial encounter, Sprain of metacarpophalangeal (MCP) joint of left thumb, initial encounterFollow schedule on package instructions 21 tablet 5108/07/2024Discontinued(Therapy completed) Active Problems No known active problems Encounters DateTypeDepartmentCare OucjMhzgxlqbjnx70/07/2025 10:15 AM ESTOffice Visit [facility] [address] [place] [phone] Dominick Davalos PA Pain of left thumb (Primary Dx); Sprain of metacarpophalangeal (MCP) joint of left thumb, initial encounter 06/07/2025[facility] flowsheet [place] [address] [address] [facility] [place] [phone] Dominick Davalos PA 06/07/20258101Rcppwn15/28/2025Telephone [facility] [address] [phone] Isa Randall, OT OT Initial Eval; Fu x2; fu x3; Final x4 (Received no attempts back.)05/10/2025 10:15 AM EDTOffice Visit [facility] [address] [place] [phone] Dominick Davalos PA Pain of left thumb (Primary Dx); Sprain of metacarpophalangeal (MCP) joint of left thumb, initial encounter 05/10/2025 flowsheet [place] [address] [address] [facility] [place] [phone] Dominick Davalos PA 05/10/20255398Slexgh06/26/2025 10:45 AM EDTOffice Visit [place] [address] [place] [address] Dominick Davalos PA Pain of left thumb (Primary Dx); Sprain of interphalangeal joint of left thumb, initial encounter; Sprain of metacarpophalangeal (MCP) joint of left thumb, initial encounter 04/26/2025 flowsheet [facility] [address] [place] [phone] Dominick Davalos PA 04/26/2025Travelfrom Last 3 Months Family History RelationNameStatusCommentsFatherAliveMotherDeceasedSiblingAlive Social History Tobacco UseTypesPacks/DayYears UsedDateSmoking Tobacco: NeverSmokeless Tobacco: Never Tobacco Cessation:Counseling Given: Not Answered Alcohol UseStandard Drinks/WeekCommentsNever0 (1 standard drink = 0.6 oz pure alcohol)CommentsUnknownSex and Gender InformationValueDate RecordedSex Assigned at BirthNot on fileLegal ZytSvfxjk47/15/2023 6:47 PM EDTGender Identity Not on fileSexual OrientationNot on file Last Filed Vital Signs Vital SignReadingTime TakenCommentsBlood Dtwzxhkk989/6807 10:04 AM EDT Pulse--Temperature--Respiratory Rate--Oxygen Saturation--Inhaled Oxygen Concentration--Jcurdh75.7 kg (125 lb)04/26/2025 10:40 AM QWPSlxttq074.6 cm (5' 6 )04/26/2025 10:40 AM EDTBody Mass Index20.18004/26/2025 10:40 AM EDT Plan of Treatment DateTypeDepartmentCare Team (Latest Contact Info)Bkvocvlxfil73/02/2025 9:30 AM ESTOffice Visit [facility] [address] [place] [address] Dominick Davalos PA [address] [place] [address] [address] [place] [address] Care Teams Team MemberRelationshipSpecialtyStart DateEnd Date Juan Carlos Jose MD [address] [place] [phone] PCP - GeneralFamily Medicine04/23/25
--- NOTE | 2025-06-21 08:24 | MR_ITS ---
The [address] [address] Patient Name: MERCED CARDOZA MRN: [id number] date: 2000 Sex: F Assigned Patient Location: MRI Current Patient Location: MRI Accession/Order Number: [id number] Exam Date: 06/21/2025 08:30 Report Date: 06/21/2025 13:55 At the request of: DWIGHT CHERRY Procedure: MR hand LT wo con MR hand LT wo con 06/21/2025 9:19 AM SIGNS AND SYMPTOMS: Acute left first metacarpophalangeal joint pain, limited range of motion PROTOCOL: Multiplanar multisequence MR images of the left hand without IV contrast COMPARISON: 04/18/2025 FINDINGS: Alignment: Normal Fluid: Carpus effusion: None. Distal radioulnar joint effusion: None. First metacarpophalangeal joint: There is a small joint effusion. Mild subchondral cystic changes noted in the head of the first metacarpal. Lunate facet: Normal Hamate-lunate: Normal. Extensor compartment: I: Intact. II: Intact. III: Intact. IV: Intact. V: Intact. : Intact. Flexor compartment: Carpal tunnel: Median nerve: Normal. Flexor retinaculum: Intact. Flexor tendons: Intact. Guyon canal: Normal. Articular: Thumb carpometacarpal joint: Intact. First metacarpophalangeal joint: There is a small joint effusion. Mild subchondral cystic changes noted in the head of the first metacarpal. Scaphotrapeziotrapezoidal joint: Intact. Pisiform-triquetral joint: Intact. Bones (other than subarticular marrow): Normal. Muscles: Normal. Vessels: Normal. MR/MR hand LT wo con IMPRESSION: Mild degenerative changes are noted in the first metacarpal phalangeal joint with a small joint effusion. The overlying soft tissues are within normal limits. Impression dictated by: Edward Orellana M.D. 06/21/2025 1:55 PM Dictation Location: [place] [address] Electronically authenticated by: [id number] Date: 06/21/2025 13:55
--- OUTSIDE RECORDS SUMMARY | 2025-06-21 08:25 | XMS_ITS | CCD ---
Author Organization [facility] Care Team Providers Care Value Analyst Name Role Phone ALEX RICHARD ANTOINE Unavailable Unavailable JUAN CARLOS KHAN Unavailable Unavailable RICHARD JOHNSON Unavailable Unavailable JUAN CARLOS KHAN Unavailable Unavailable PHYSICIAN, DEFAULT Unavailable Unavailable PHYSICIAN, DEFAULT Unavailable Unavailable Juan Carlos Khan Primary Care Physician [phone] Domitila Mariano Attending Unavailable Fer, Asim S Consulting Unavailable ABDIAZIZ, Denis P Admitting Unavailable Biedclarke, Asim S Consulting Unavailable Biedenbach, Asim S [...] Attending Unavailable RUSS, DR MEJIA Admitting Unavailable SHELBY, DR JOHN Lerner Consulting Unavailable BILL, DR AMIN Primary Care Unavailable RUSS, DR MEJIA Consulting Unavailable HOY, DR AMIN Attending Unavailable HOY, DR AMIN Consulting Unavailable HOY, DR AMIN Admitting Unavailable HOY, DR AMIN Primary Care Unavailable WEST, DR JOHN Lerner Consulting Unavailable HAY, DR GOTTLIEB Attending Unavailable HAY, DR GOTTLIEB Admitting Unavailable HAY, DR GOTTLIEB Consulting Unavailable RUSSELLY, DR AMIN Primary Care Unavailable MARICRUZ NIEVES Attending Unavailable MARICRUZ NIEVES Consulting Unavailable RUSSELLY, DR AMIN Primary Care Unavailable MARICRUZ NIEVES Admitting Unavailable PHOEBE, BERTHA Attending Unavailable PHOEBE, BERTHA Consulting Unavailable HOY, DR AMIN Primary Care Unavailable PHOEBE, BERTHA [...] DR AMIN Consulting Unavailable HOY, DR AMIN Primary Care Unavailable HOY, DR AMIN Admitting Unavailable ZIEBER, DR KELSI Owen Consulting Unavailable HOY, DR AMIN Attending Unavailable HOY, DR AMIN Consulting Unavailable HOY, DR AMIN Admitting Unavailable HOY, DR AMIN Primary Care Unavailable HOY, DR AMIN Primary Care Unavailable RUSS, DR MEJIA Admitting Unavailable RUSS, DR MEJIA Attending Unavailable RUSS, DR MEJIA Consulting Unavailable HOY, DR AMIN Primary Care Unavailable [...] MEJIA Consulting Unavailable PHOEBE, BERTHA Attending Unavailable PHOEBE, BERTHA Admitting Unavailable ZIAYANNA, DR KELSI Owen Consulting Unavailable RUSSELLY, DR AMIN Primary Care Unavailable DILIP ESCALANTE [...] Attending Unavailable PAY, DR DUQUE Consulting Unavailable RUSSELLY, DR AMIN Primary Care Unavailable DILIP FREEMAN Consulting Unavailable RUSS, DR MEJIA Admitting Unavailable RUSS, DR MEJIA Attending Unavailable KARASIK, DR FELIZ Consulting Unavailable RUSSELLY, DR AMIN Primary Care Unavailable RUSS, DR MEJIA Consulting Unavailable ARIANNAMENG Consulting Unava ilable RUSS, DR MEJIA Procedure Practitioner Unavailab le RADHA, PANKAJ Attending Unavailable RADHA, PANKAJ Consulting Unavailable RADHA, PANKAJ Admitting Unavailable BILL, DR AMIN Primary Care Unavailable RUSS, DR MEJIA Attending Unavailable RUSS, DR MEJIA Admitting Unavailable RUSSELLY, DR AMIN Primary Care Unavailable HAY, DR GOTTLIEB Admitting Unavailable HAY, DR GOTTLIEB Attending Unavailable HAY, DR GOTTLIEB Consulting Unavailable BILL, DR AMIN Primary Care Unavailable EMILY PETERSON Consulting Unavailable Juan Carlos Khan MD Primary Care Provider [phone] Clau Gregory APRN Attending Provider Clau Gregory Attending Unavail able Clau Gregory Admitting Unavail able Juan Carlos Khan Primary Care Unavailable Sam Decker DO Attending Provider [phone] Juan Carlos Khan MD Primary Care Provider [phone] Juan Carlos Khan MD Primary Care Provider [phone] DWIGHT DAVALOS Attending Unavailable JUAN CARLOS KHAN Referring Unavailable DWIGHT DAVALOS Attending Unavailable DWIGHT DAVALOS Attending Unavailable Allergies Allergy ClassificationReported Allergen(s)Allergy TypeDate of OnsetReaction(s) Facility (10 sources)CitalopramDrug Upvfskb32-90-6222TltsLNFR Healthcare Medications Current Medications MedicationDrug Class(es)DatesSig (Normalized)Sig (Original)[id number] 200 actuat albuterol 0.09 mg/actuat metered dose inhaler (20 sources)beta2-Adrenergic AgonistStart: 38-18-0715pmsixiblb HFA 90 mcg/act inhaler every 4 (four) hours 06/14/2024 Activetake 2 puff(s) by inhalation every four hoursalbuterol (ProAir RespiClick) 90 mcg/act breath-activated inhaler Inhale 2 puffs every 4 (four) hours ActiveAllergy 25 mg oral tablet (1 source)Start: 38-78-2646Cofxsst 25 mg oral tablet 25 mg = 1 tab(s), Oral, As Directed, PRN Allergy symptoms, Refills(s) 0, Allergy symptoms Start Date: 06/18/15 Status: OrderedAmitriptyline (1 source)Tricyclic AntidepressantStart: 30-85-5099fccd 20 mg by mouth once daily at bedtimeamitriptyline 20 mg, Oral, Once a day (at bedtime), Refills(s) 0, Depression Start Date: 07/20/16 Status: Orderedcelecoxib 200 mg oral capsule (2 sources)Nonsteroidal Anti-inflammatory DrugStart: 06-07-2025 End: 00-05-2749wrca 1 capsule by mouth once daily at mealtimecelecoxib (CeleBREX) 200 MG capsule Indications: Sprain of metacarpophalangeal (MCP) joint of left thumb, initial encounter Take 1 capsule (200 mg) by mouth Daily Take with food 30 capsule ActiveClindamycin (2 sources)Lincosamide AntibacterialStart: 72-28-4142wlopxywhegs Oral, TID, Refills(s) 0 Start Date: 05/26/22 Status: OrderedInhaler,Assist Devices,Access Device (3 sources)Start: 26-59-1217Rqokgbr,Assist Devices,Access Device Active January 20, 2018 12:00amJunel 08/20 (1 source)Start: 10-67-9556baqt 1 tablet by mouth once dailyJunel 08/20 1 tab(s), Oral, Daily, Refill(s) 0, control/menstrual regulation Start Date: 12/27/17 Status: OrderedmethylPREDNISolone (9 sources)CorticosteroidStart: 04-26-2025 End: 41-14-2210pavwxiSADHLHEyardc (Medrol Dospak) 4 MG tablets Indications: Sprain of interphalangeal joint of left thumb, initial encounter , Sprain of metacarpophalangeal (MCP) joint of left thumb, initial encounter Follow schedule on package instructions 21 tablet 04/26/2025 06/07/2025 Discontinued (Therapy completed)Start: 97-27-2553htfetdJTIWAETzuwgy (Medrol Dospak) 4 MG tablets Indications: Sprain of interphalangeal joint of left thumb, initial encounter , Sprain of metacarpophalangeal (MCP) joint of left thumb, initial encounter Follow schedule on package instructions 21 tablet 04/26/2025 Activenaproxen 500 mg oral tablet (1 source)Nonsteroidal Anti-inflammatory DrugStart: 06-76-5322pold 1 tablet by mouth twice dailyNaproxen 500 mg tablet Active 500 MG PO Twice daily 60 April 18, 2025 12:00am Complies with drug therapyomeprazole 40 mg oral tablet (3 sources)Proton Pump InhibitorStart: 42-59-0245frae 40 mg by mouth once daily as neededomeprazole 40 mg, Oral, Daily, PRN Control of stomach acid, Refills(s) 0, Control of stomach acid Start Date: 05/30/17 Status: OrderedPrenatal Multivitamins with Vitamin B Complex, Vitamin C, Minerals and L-Methylfolate oral capsule (3 sources)Start: 90-94-4730Pomdshtl Multivitamins with Vitamin B Complex, Vitamin C, Minerals and L-Methylfolate oral capsule 1 cap(s), Oral, Daily, 30 cap(s), Refill(s) 0 Start Date: 01/11/22 Status: OrderedQUEtiapine 50 mg oral tablet (12 sources)Atypical AntipsychoticStart: 46-71-2982orya 1 tablet by mouth once dailyQuetiapine 50 mg tablet Active 50 MG PO Daily April 11, 2025 12:00am Complies with drug therapy Completed/Discontinued Medications MedicationDrug Class(es)DatesSig (Normalized)Sig (Original)21 day ethinyl estradiol 0.267567 mg/hr / etonogestrel 0.005 mg/hr vaginal system (3 sources)Progestin, EstrogenStart: 02-07-2023 End: 16-39-4296hawlcorexkik-ethinyl estradiol (Nuvaring) 0.12-0.015 MG/24HR vaginal ring Indications: control counseling Insert 1 Ring into the vagina every 28 (twenty-eight) days. Insert vaginal ring for 3 weeks, then remove for 1 week. 1 each 02/07/2023 04/26/2025 Discontinued (Therapy completed)ibuprofen 600 mg oral tablet (3 sources)Nonsteroidal Anti-inflammatory DrugStart: 01-20-2018 End: 97-42-6517nodv 1 tablet by mouth three times daily as needed for pain Ibuprofen 600 mg tablet Discontinued 600 MG PO Three times daily as needed for pain January 20, 2018 12:00am April 11, 2025 2:08pmsucralfate 1000 mg oral tablet (1 source)Aluminum ComplexStart: 06-78-3830esqs 1 tablet by mouth four times dailyCarafate 1 gram Tab 1 gram = 1 tab(s), Oral, QID, # 120 tab(s), Refills(s) 0, Pharmacy: [facility]/pharmacy #[id number] Start Date: 12/27/17 Status: Ordered Problems Active Problems Problem ClassificationProblemDateDocumented DateEpisodic/ChronicAnxiety disorders (2 sources)Yloagpj38-19-9943OcapxiuVcjatb (3 sources)Asthma; Translations: [Unspecified asthma, uncomplicated]Onset: 280111-75-5418MmcsjesSswjevkzl of teeth and jaw (4 sources)Periapical abscess without sinus; Translations: [Other specified disorders of teeth and supporting structures]Onset: 92-51-2989RjzhcvvxVonbh or threatened labor (4 sources)False labor at or after 37 completed weeks of gestation; Translations: [FALSE LABOR AT/AFTR 37 CMPLWK GEST]Onset: 32-66-2554Nnocmtir Fracture of upper limb (6 sources)Closed fracture of phalanx of left thumb; Translations: [Fracture of unspecified phalanx of left thumb, initial encounter for closed fracture] 19-76-2373OmjxjxmlCwmvjfirlqazz symptoms and ill-defined conditions (1 source)Personal history of urinary (tract) infections; Translations: [PERS HX URINARY TRACT INFECTIONS]Onset: 16-36-8845NljnntmaBlecroktl disorders (4 sources)Irregular menstruation, unspecified; Translations: [IRREGULAR MENSTRUATION UNSPECIFIED]Onset: 60-42-8898ItlerpcVY-related trauma to perineum and vulva (1 source)First degree perineal laceration during delivery; Translations: [FIRST DEG PERINEAL LAC DUR DELIV]Onset: 05-68-8563MnkafzguBjqnf complications of ; puerperium affecting management of mother (1 source)Diseases of the respiratory system complicating childbirth; Translations: [DISEASES RESP SYS COMP CHILDBIRTH]Onset: 65-40-6211MljfjkacNkldn complications of (1 source)Diseases of the digestive system complicating , third trimester; Translations: [O99.613]Onset: 05-43-6714UsackqizRquat complications of (4 sources)Maternal care for excessive growth, third trimester, not applicable or unspecified; Translations: [MAT CARE EXCSS FTL GRTH 3RD TRI UNS] Onset: 20-60-2519LqzvcoxcRzyle complications of (4 sources)Other specified related conditions, third trimester; Translations: [OTH SPEC PREG RELATEDCOND 3RD TRI]Onset: 19-60-1746YkvagbnkZuqme connective tissue disease (8 sources)Pain in left thumb; Translations: [Pain in left finger(s)]04-24-2025 EpisodicOther female genital disorders (3 sources)Abnormal uterine and vaginal bleeding, unspecified; Translations: [ABNORMAL UTERINE VAGINAL BLEED UNS]Onset: 84-38-3092TzpvczcSobfd injuries and conditions due to external causes (2 sources)Starvation; Translations: [Starvation, initial encounter]Onset: 46-06-0665ZgeqppshHyjjw injuries and conditions due to external causes (7 sources)Thumb injury ; Translations: [Unspecified injury of left wrist, hand and finger(s), initial encounter]24-68-3437RpefhxpvOhhue injuries and conditions due to external causes (1 source)Unspecified injury of left wrist, hand and finger(s), initial encounter; Translations: [Unspecifiedinjury of left wrist, hand and finger(s), initial encounter]Onset: 28-77-9075NhirvbttZuunk and delivery including normal (15 sources)Normal ; Translations: [Encounter for supervision of normal , unspecified, unspecified trimester]Onset: 60-93-0689MwlxafcuOmxzp skin disorders (4 sources)Localized swelling, mass and lump, head; Translations: [LOCALIZED SWELLING MASS AND LUMP HEAD]Onset: 61-33-8498SmcxddcgBxfjv skin disorders (1 source)Disorder of the skin and subcutaneous tissue, unspecified; Translations: [DISORDER SKIN AND SUBQ TISSUE UNS]Onset: 52-24-0721HjsfhyiaJmrpl upper respiratory infections (1 source)Acute maxillary sinusitis, unspecified; Translations: [Acute maxillary sinusitis, unspecified]Onset: 30-80-9020TnaozkcrTcqnijzw codes; unclassified (1 source)39 weeks gestation of ; Translations: [39 WEEKS GESTATION OF ]Onset: 15-58-3821FiusaanxGoobbgnc codes; unclassified (1 source)33 weeks gestation of ; Translations: [33 WEEKS GESTATION OF ]Onset: 31-29-9330IoppwmrwJfzbpfmn codes; unclassified (1 source)30 weeks gestation of ; Translations: [30 WEEKS GESTATION OF ]Onset: 90-08-4256CymchwyyIeci and subcutaneous tissue infections (5 sources)Abscess of face; Translations: [Cutaneous abscess of face]Onset: 97-70-9512NscifbdzGfvikxi and strains (8 sources)Sprain of interphalangeal joint of left thumb, initial encounter; Translations: [Sprain of interphalangeal (joint) of hand]39-37-7261Pogfzbut Substance-related disorders (1 source)Nicotine dependence, cigarettes, uncomplicated; Translations: [NICOTINE DEPEND CIGARETTES UNCOMP]Onset: 44-92-3172EwbqiupCypqfhryrqiv (3 sources)PregnancyOnset: 721979-22-9175Bacyhblukxub (4 sources)CONTACT W/AND (SUSP) EXPOS COVID-19; Translations: [CONTACT W/AND (SUSP) EXPOS COVID-19]Onset: 13-96-3384Rpwbl infection (1 source)COVID-19; Translations: [COVID-19]Onset: 02-25-2022 Past or Other Problems Problem ClassificationProblemDateDocumented DateEpisodic/ChronicAbdominal pain (1 source)Unspecified abdominal pain; Translations: [UNSPECIFIED ABDOMINAL PAIN] Onset: 70-93-3077XpbfsekpUmajixkk of urinary tract (1 source)Personal history of urinary calculi; Translations: [PERSONAL HISTORY OF URINARY CALCULI]Onset: 72-96-9862LnfrkyepOdrucygymj during ; abruptio placenta; placenta previa (1 source)Threatened ; Translations: [THREATENED ]Onset: 10-29-5631BnnvgjczPqxlccatiqlkm and screening for infectious disease (3 sources)Encounter for screening for human papillomavirus (HPV); Translations: [Encounter for screening for infections with a predominantly sexual mode of transmission]Onset: 21-26-3453WcattoyaRkjbd disorders and dislocations; trauma-related (3 sources)Unspecified dislocation of left patella, initial encounter; Translations: [Unspecified dislocation of left patella, initial encounter]Onset: 47-47-6864OaubyolwEsjoi complications of (4 sources)Vomiting of , unspecified; Translations: [VOMITING OF UNSPECIFIED]Onset: 72-16-1001UibfafrqXahwy complications of (1 source)Other viral diseases complicating , second trimester; Translations: [OTH VIRAL DZ COMP PREG SECOND TRI]Onset: 31-18-3179YmbyantiLqmyk complications of (1 source)Smoking (tobacco) complicating , second trimester; Translations: [SMOKING TOBACCO COMP PREG 2ND TRI]Onset: 03-31-2534RdcuozepNdthk complications of (4 sources)Other specified related conditions, second trimester; Translations: [OTH SPEC PREG RELATED COND 2ND TRI]Onset: 74-99-3499YvarewlmZfxhp complications of (1 source)Infections of cervix in , second trimester; Translations: [INFECTIONS CERVIX 2NDTRI]Onset: 61-89-0313PdrbeovoCwiha complications of (4 sources)Other specified related conditions, first trimester; Translations: [OTH SPEC PREG RELATEDCOND 1ST TRI]Onset: 51-34-2074DcsdhuakNvfwb connective tissue disease (1 source)Myalgia, unspecified site; Translations: [MYALGIA UNSPECIFIED SITE] Onset: 09-36-0321ElpjcyohSmrcs female genital disorders (1 source)Other specified noninflammatory disorders of vagina; Translations: [OTH SPEC NONINFLAMMATORY D/O VAGINA]Onset: 14-92-8556AvdrgpooZbdyq non- traumatic joint disorders (3 sources)Other instability, left knee; Translations: [Other instability, left knee]Onset: 54-25-5596JvezszhcSzrtz screening for suspected conditions (not mental disorders or infectious disease) (13 sources)Encounter for screening for diabetes mellitus; Translations: [Encounter for screening for malignantneoplasm of cervix]Onset: 12-25-2021 EpisodicResidual codes; unclassified (1 source)14 weeks gestation of ; Translations: [14 WEEKS GESTATION OF ]Onset: 30-64-6537QzsjruodBoixqfyb codes; unclassified (1 source)11 weeks gestation of ; Translations: [11 WEEKS GESTATION OF ]Onset: 53-10-9547BpvdewyrPywkcfvy codes; unclassified (1 source)8 weeks gestation of ; Translations: [8 WEEKS GESTATION OF ]Onset: 35-92-5425QlkfczulMhcmsfie codes; unclassified (1 source)Less than 8 weeks gestation of ; Translations: [< 8 WEEKS GESTATION ]Onset: 02-54-7625ZjkalbggGorpcpassld (1 source)Incomplete spontaneous without complication; Translations: [INCOMPL SPONT AB W/O COMPLICATION]Onset: 65-39-7177TepuqlyzMcvcoktsiukc (1 source)CONTACT W/AND (SUSP) EXPOS COVID-19; Translations: [CONTACT W/AND (SUSP) EXPOS COVID-19]Onset: 65-37-8101Qmkgmgipicuk (4 sources)Sprain of metacarpophalangeal (MCP) joint of left thumb, initial uaumqimet66-17-9006 Results Test NameValueInterpretationReference RangeFacilityX-ray reportOrdered By: Irving Ray on 63-95-3030Trdql reportTRINITY [facility] [address] [place] [address] [place] [address] XRay Report Signed Patient: Deepti Cardoza MR#: [id number] : 2000 Acct:[id number] Age/Sex: 25 / F ADM Date: 5 Loc: XDUCLY Room: Type: [facility] CLI Attending Dr: Clau Gregory MASTER PLANNER, [employer] LEADER-C Copies to: Clau Gregory APRN~ Ordering Provider: Clau Gregory APRN Date of Service: 04/11/25 XR/XR finger LT thumb: S69.92XA - Unspecified injury of left wrist, handand fin... LEFT THUMB - 3 views CLINICAL [...] Jr., D.O. 04/11/2025 2:40 PM Dictation Location: [place] [address] Transcribed By: [facility] 04/11/25 1440 Dictated By: Irving Ray Jr, DO 04/11/25 1439 Signed By: 04/11/25 1440 [facility] thumbon 07-81-2764PZ finger LT thumb[address] [address] XRay Report Signed Patient: Deepti Cardoza MR#: [id number] : 2000 Acct:[id number] Age/Sex: 25 / F ADM Date: 04/11/25 Loc: XDUCLY Room: Type: [facility] CLI Attending Dr: Clau Gregory MASTER PLANNER, [employer] UNIT LEADER-C Copies to: Clau Gregory APRN Ordering Provider: [...] Jr., D.O. 04/11/2025 2:40 PM Dictation Location: [place] [address] Transcribed By: [facility] 04/11/25 1440 Dictated By: Irving Ray Jr, DO 04/11/25 1439 Signed By: 04/11/25 1440[facility] Physician GroupCBC AUTO DIFFon 58-31-3764SFJB # 0.0 103/ulNormal0.0-0.1[facility] HospitalComment on above:Performed By: #### CBC #### [facility] [address] [place] [address] Dr. Carroll PryorBasophils/100 WBC (Bld)0.3 %Normal0.2-2.0[facility] Comment on above:Performed By: #### CBC #### [facility] [address] [place] [address] Dr. Carroll Amaral #0.1 103/ulNormal0.0-0.7The [facility] OhioComment on above: Performed By: #### CBC #### [facility] [address] [place] [address] Dr. Carroll Castleosinophils/100 WBC (Bld)1.1 %Normal0.9-7.0[facility] Comment on above:Performed By: #### CBC #### [facility] [address] [place] [address] Dr. Yilan ChangErythrocyte distribution width (RBC) [Ratio]13.5 %Lybxyk45.0-15.0 [facility] HospitalComment on above:Performed By: #### CBC #### [facility] [address] [place] [address] Dr. Carroll PryorHematocrit (Bld) [Volume fraction]24.8 %Critically low36.0-48.0 The [facility] OhioComment on above:Performed By: #### CBC #### [facility] [address] [place] [address] Dr. Carroll PryorHemoglobin (Bld) [Mass/Vol]8.0 g/dLCritically low12.0-16.0The [facility] OhioComment on above:Performed By: #### CBC #### [facility] [address] [place] [address] Dr. Carroll Iqbal #0.05 10e3/ulCritically high0.00-0.03The [facility] Comment on above:Performed By: #### CBC #### [facility] [address] [place] [address] Dr. Carroll Iqbal %0.5 %Normal0.0-0.5ThSelect Medical Specialty Hospital - AkronComment on above: Performed By: #### CBC #### [facility] [address] [place] [address] Dr. Carroll Holguin #2.0 103/ulNormal1.2-3.8The [facility] OhioComment on above:Performed By: #### CBC #### [facility] [address] [place] [address] Dr. Carroll Bowenhocytes/100 WBC (Bld)19.2 %Critically low20.5-60.0The [facility] Health Miamisburgment on above:Performed By: #### CBC #### [facility] [address] [place] [address] Dr. Carroll MarvinUAL DIFF REQNONormalThe [facility] OhioComment on above: Performed By: #### CBC #### [facility] [address] [place] [address] Dr. Carroll Kaye (RBC) [Entitic mass]27.7 yfFbifyc81.7-34.0The [facility] OhioComment on above:Performed By: #### CBC #### [facility] [address] [place] [address] Dr. Carroll Agarwal (RBC) [Mass/Vol]32.3 g/qXCgwhnm04.9-35.2The [facility] OhioComment on above:Performed By: #### CBC #### [facility] [address] [place] [address] Dr. Carroll Agarwal (RBC) [Entitic vol]85.8 oXXfvpuz59.0-99.0The [facility] OhioComment on above:Performed By: #### CBC #### [facility] [address] [place] [address] Dr. Carroll Braga #0.7 103/ulNormal0.3-0.8The [facility] OhioComment on above:Performed By: #### CBC #### [facility] [address] [place] [address] Dr. Carroll Kcocytes/100 WBC (Bld)6.9 %Normal1.7-12.0[facility] Comment on above:Performed By: #### CBC #### [facility] [address] [place] [address] Dr. Carroll Lema #7.4 103/ulCritically high1.4-6.5The [facility] Comment on above:Performed By: #### CBC #### [facility] [address] [place] [address] Dr. Carroll Damonutrophils/100 WBC (Bld)72.0 %Qwcgkv35.0-75.0The [facility] OhioComment on above:Performed By: #### CBC #### [facility] [address] [place] [address] Dr. Carroll Garibay mean volume (Bld) [Entitic vol]10.8 fLNormal9.5-13.5The [facility] OhioComment on above:Performed By: #### CBC #### [facility] [address] [place] [address] Dr. Carroll PryorPLT223 103/xtWjvgmo511-585Gel [facility] OhioComment on above: Performed By: #### CBC #### [facility] [address] [place] [address] Dr. Carroll PryorRBC2.89 106/ulCritically low4.20-5.40The [facility] OhioComment on above:Performed By: #### CBC #### [facility] [address] [place] [address] Dr. Carroll PryorWBC10.3 103/ulNormal4.0-11.0The [facility] OhioComment on above:Performed By: #### CBC #### [facility] [address] [place] [address] Dr. Carroll Atkinson AUTO DIFFon 57-11-2313FGQY #0.0 103/ulNormal0.0-0.1The [facility] OhioComment on above:Performed By: #### BMP #### [facility] [address] [place] [address] Dr. Carroll PryorBasophils/100 WBC (Bld)0.3 %Normal0.2-2.0The [facility] Comment on above:Performed By: #### BMP #### [facility] [address] [place] [address] Dr. Carroll Amaral #0.1 103/ulNormal0.0-0.7The [facility] OhioComment on above: Performed By: #### BMP #### [facility] [address] [place] [address] Dr. Carroll Castleosinophils/100 WBC (Bld)1.0 %Normal0.9-7.0The [facility] Comment on above:Performed By: #### BMP #### [facility] [address] [place] [address] Dr. Carroll Castlerythrocyte distribution width (RBC) [Ratio]13.5 %Zfhlhn50.0-15.0 The [facility] OhioComment on above:Performed By: #### BMP #### [facility] [address] [place] [address] [address] Carroll PryorHematocrit (Bld) [Volume fraction]29.6 %Critically low36.0-48.0 The [facility] OhioComment on above:Performed By: #### BMP #### [facility] [address] [address] [address] Carroll PryorHemoglobin (Bld) [Mass/Vol]9.7 g/dLCritically low12.0-16.0The [facility] HospitalComment on above:Performed By: #### BMP #### [facility] [address] [place] [address] Dr. Carroll PryorIG #0.08 10e3/ulCritically high0.00-0.03The [facility] Comment on above:Performed By: #### BMP #### [facility] [address] [place] [address] Dr. Carroll PryorIG %0.7 %Critically high0.0-0.5The [facility] OhioComment on above:Performed By: #### BMP #### [facility] [address] [place] [address] Dr. Carroll Holguin #2.3 103/ulNormal1.2-3.8The [facility] OhioComment on above:Performed By: #### BMP #### [facility] [address] [place] [address] Dr. Carroll Ngomphocytes/100 WBC (Bld)19.0 %Critically low20.5-60.0[facility] City HospitalComment on above:Performed By: #### BMP #### [facility] [address] [address] [address] Carroll PryorMANUAL DIFF REQNONormalThe [facility] OhioComment on above: Performed By: #### BMP #### [facility] [address] [place] [address] Dr. Carroll Kaye (RBC) [Entitic mass]28.0 aiOcttej04.7-34.0The [facility] HospitalComment on above:Performed By: #### BMP #### [facility] [address] [address] [address] Carroll AgarwalHC (RBC) [Mass/Vol]32.8 g/lLLrvrsu51.9-35.2The [facility] OhioComment on above:Performed By: #### BMP #### [facility] [address] [place] [address] Dr. Carroll AgarwalV (RBC) [Entitic vol]85.3 nSOsvjnd13.0-99.0The [facility] OhioComment on above:Performed By: #### BMP #### [facility] [address] [place] [address] Dr. Carroll Braga #0.9 103/ulCritically high0.3-0.8The [facility] Comment on above:Performed By: #### BMP #### [facility] [address] [place] [address] Dr. Carroll Kcocytes/100 WBC (Bld)7.6 %Normal1.7-12.0[facility] Comment on above:Performed By: #### BMP #### [facility] [address] [place] [address] Dr. Carroll Lema #8.5 103/ulCritically high1.4-6.5The [facility] Comment on above:Performed By: #### BMP #### [facility] [address] [place] [address] Dr. Carroll Damonutrophils/100 WBC (Bld)71.4 %Dfdpkj09.0-75.0The [facility] OhioComment on above:Performed By: #### BMP #### [facility] [address] [place] [address] Dr. Carroll Serralet mean volume (Bld) [Entitic vol]11.2 fLNormal9.5-13.5The [facility] OhioComment on above:Performed By: #### BMP #### [facility] [address] [place] [address] Dr. Carroll PyrorPLT325 103/wgDupdcz904-846Xmd [facility] Miamisburgment on above: Performed By: #### BMP #### [facility] [address] [place] [address] Dr. Carroll PryorRBC3.47 106/ulCritically low4.20-5.40The [facility] on above:Performed By: #### BMP #### [facility] [address] [place] [address] Dr. Carroll PryorWBC11.9 103/ulCritically high4.0-11.0The [facility] OhioComment on above:Performed By: #### BMP #### [facility] [address] [place] [address] Dr. Carroll PryorCovid-19 PCR ([facility])on 15-98-9218QOMH-CoV-2 (COVID-19) RNA ERINN+probe Ql (Unsp spec)Not detectedNormalNOT DETECTEDZanesville City Hospital Comment on above:Result Comment: When diagnostic testing is negative, the [...] for this test is supported by the [place] of Health and Human Service's declaration that circumstances exist to justify the emergency use of in vitro diagnostics for the detection and/or diagnosis of the virus that causes COVID-19. This EUA will remain in effect for the duration of the COVID-19 declaration justifying emergency of IVDs, unless it is terminated or revoked by the FDA (after which the test may no longer be used).Performed By: #### CVDTBH #### [facility] [address] [place] [address] Dr. Carroll PryorDRUG SCREEN RAPID (URINE)on 64-24-2532YPMRqrwyhduUmyjrhUTGIRGJV The [facility] on above:Performed By: #### CVDTBH #### [facility] [address] [place] [address] Dr. Carroll PryorBARNegativeNormalNEGATIVEZanesville City HospitalComment on above: Performed By: #### CVDTBH #### [facility] [address] [place] [address] Dr. Carroll PryorBUPNegativeNormalNEGATIVEZanesville City HospitalComment on above: Performed By: #### CVDTBH #### [facility] [address] [place] [address] Dr. Carroll UlrichZONegativeNormalNEGATIVEZanesville City HospitalComment on above: Performed By: #### CVDTBH #### [facility] [address] [place] [address] Dr. Carroll MunozCNegativeNormalNEGSycamore Medical CenterComment on above: Performed By: #### CVDTBH #### [facility] [address] [place] [address] [address] Rita's Medical CenterComment on above: Result Comment: AMP (Amphetamine): 500ng/mL, BAR (Barbituates): 200 ng/mL, BZO (Benzodiazepines): 150 ng/mL, BUP (Buprenorphine): 10 ng/mL, VA (Cocaine): 150 ng/mL, mAMP (Methamphetamine): 500 ng/mL, MTD (Methadone): 200 ng/mL, OPI (Opiates): 100 ng/mL, OXY (Oxycodone): 100 ng/mL, PCP (Phencyclidine): 25 ng/mL, PPX (Propoxyphene): 300 ng/mL, THC (Cannabinoids): 50 ng/mL, TCA (Trycyclic Antidepressants): 300 ng/mLPerformed By: #### CVDTBH #### [facility] [address] [place] [address] Dr. Carroll PryorDRUG CUT HEADERDRUG CLASS TEST SYSTEM CUT-OFF CONCENTRATIONS ARE FOLLOWS:NormalLutheran Hospital on above:Performed By: #### CVDTBH #### [facility] [address] [place] [address] Dr. Carroll PryormAMPNegativeNormalNEGATIVEZanesville City HospitalComment on above: Performed By: #### CVDTBH #### [facility] [address] [address] [address] Carroll PryorMTDNegativeNormalNEGSycamore Medical CenterComment on above: Performed By: #### CVDTBH #### [facility] [address] [address] [address] Carroll PryorOPINegativeNormalNEGSycamore Medical CenterComment on above: Performed By: #### CVDTBH #### [facility] [address] [address] [address] Carroll PryorOXYNegativeNormalNEGSycamore Medical CenterComment on above: Performed By: #### CVDTBH #### [facility] [address] [place] [address] Dr. Carroll PryorPCPNegativeNormalNEGSycamore Medical CenterComtrinity health [facility] on above: Performed By: #### CVDTBH #### [facility] [address] [place] [address] Dr. Carroll PryorPPXNegativeNormalNEGSycamore Medical CenterComtrinity health [facility] on above: Performed By: #### CVDTBH #### [facility] [address] [place] [address] Dr. Carroll PryorTCANegativeNormalNEGSycamore Medical CenterComtrinity health [facility] on above: Performed By: #### CVDTBH #### [facility] [address] [place] [address] Dr. Carroll PryorTHCNegativeNormalNEGSycamore Medical CenterComtrinity health [facility] on above: Performed By: #### CVDTBH #### [facility] [address] [address] [address] Carroll Frias AND SCREENon 37-30-2365FDKY AND SCREENNegativePomerene HospitalComment on above:Performed By: #### UACSIND #### [facility] [address] [place] [address] Dr. Carroll Diaz (CLEAN/CATCH) RECHARGER/MICRO IF IND.on 63-63-9883Irfsekqew Ql (U) NegativeNormalNEGATIVEZanesville City HospitalComment on above:Performed By: #### UACSIND #### [facility] [address] [address] [address] Carroll Brewer (U)CLEARNormalCLEARZanesville City HospitalComment on above: Performed By: #### UACSIND #### [facility] [address] [address] [address] Carroll Vaz (U)LT. YELLOWNormalYELLOWZanesville City HospitalComment on above:Performed By: #### UACSIND #### [facility] [address] [address] [address] Carroll PryorGlucose Ql (U)NegativeNormalNEGATIVEZanesville City HospitalComment on above:Performed By: #### UACSIND #### [facility] [address] [place] [address] Dr. Carroll PryorHemoglobin Ql (U)NegativeNormalNEGATIVEMercy Health [facility] Hospital on above:Performed By: #### UACSIND #### [facility] [address] [address] [address] Carroll PryorKetones Ql (U)TRACEAbnormalNEGATIVEZanesville City HospitalComment on above:Performed By: #### UACSIND #### [facility] [address] [address] [address] Carroll PryorLEUKOCYTESNegativeNormalNEGATIVEZanesville City HospitalComment on above:Performed By: #### UACSIND #### [facility] [address] [address] [address] Carroll PryorNitrite Ql (U)NegativeNormalNEGATIVEZanesville City HospitalComment on above:Performed By: #### UACSIND #### [facility] [address] [address] [address] Carroll PryorpH (U)6.0 [pH]Normal5-9Z[facility]ville City HospitalComment on above: Performed By: #### UACSIND #### [facility] [address] [place] [address] Dr. Carroll Taylor GRAVITY>=1.347Eyueqolh2.005-<=1.025The [facility] Comment on above:Performed By: #### UACSIND #### [facility] [address] [place] [address] Dr. Carroll Diaz PROTEINNegativeNormalNEGATIVE/ TRACEZanesville City Hospital Comment on above:Performed By: #### UACSIND #### [facility] [address] [place] [address] Dr. Carroll Vincent MICRO INDNOT INDICATEDPomerene HospitalComment on above:Performed By: #### UACSIND #### [facility] [address] [place] [address] Dr. Carroll Posey Qn (U)0.2 {Kulwinder'U}/dLNormal0.2 - 1.0The [facility] OhioComment on above:Performed By: #### UACSIND #### [facility] [address] [place] [address] Dr. Carroll Gomezurslucía Assessmenton 84-97-5928Hwzptah Assessment [id number]#1.00CD:127NoSelect Medical Specialty Hospital - Boardman, IncCULTURE OTHERon 79-89-9465WHWXVOV OTHERCulture Observations: No growth of aerobes at 48 hours. Culture Observations: No growth of anaerobes at 72 hours.NormalZanesville City HospitalComment on above: Performed By: #### OTHCX #### [facility] [address] [place] [address] Dr. Carroll PryorGRAM STAINon 85-67-5155VPTEQDCCLL ORGANISMS OBSERVEDPomerene HospitalComment on above:Performed By: #### CVDTBH #### [facility] [address] [place] [address] Dr. Carroll AldanaPHTHEROIDSPomerene HospitalComment on above:Performed By: #### CVDTBH #### [facility] [address] [address] [address] Carroll SanchezTHELIALSPomerene HospitalComment on above:Performed By: #### CVDTBH #### [facility] [address] [address] [address] Carroll WilsonNGAL ELEMENTSPomerene HospitalComtrinity health [facility] on above: Performed By: #### CVDTBH #### [facility] [address] [address] [address] Carroll Ferro NEG [facility] HospitalComment on above: Performed By: #### CVDTBH #### [facility] [address] [address] [address] Carroll Ferro NEG DIPPLOCOCCIPomerene HospitalComtrinity health [facility] on above: Performed By: #### CVDTBH #### [facility] [address] [address] [address] Carroll Ferro POS [facility] HospitalCom[facility] on above: Performed By: #### CVDTBH #### [facility] [address] [address] [address] Carroll Ferro POSITIVE COCCLancaster Municipal HospitalComment on above: Performed By: #### CVDTBH #### [facility] [address] [address] [address] Carroll Ferro STAIN SOURCERight [facility] on above:Performed By: #### CVDTBH #### [facility] [address] [address] [address] Carroll Moraes_DIPTHPomerene HospitalComtrinity health [facility] hospital on above:Performed By: #### CVDTBH #### [facility] [address] [address] [address] Carroll HendricksonBCCASSIA UC HealthComtrinity health [facility] on above:Performed By: #### CVDTBH #### [facility] [address] [address] [address] Carroll Jett FINE NEEDLE ASP EXPon 42-41-0397GM FINE NEEDLE ASP EXP EXAMINATION: US FINE [...] Electronically authenticated by: JOHN OSORIO Date: 2022-06-18 13:Pomerene HospitalGROUP B STREP CULTUREon 06-15-2022. agalactiae Ag Ql (Unsp spec)Culture Observations: NEGATIVE FOR GROUP B STREPTOCOCCUS.NormalThe [facility] OhioComment on above: Performed By: #### GBSCX #### [facility] [address] [place] [address] Dr. Carroll Jett HEAD_NECKon 96-81-0081TI HEAD_NECKEXAM: US ST HEAD_NECK HISTORY: Mass of head ; right cheek [...] Electronically authenticated by: KELSI MANN Date: 2022-06-10 16:Pomerene HospitalOutside Recordson 00-91-0255Zwirwya Records [id number]#1.00CD:127[facility] Shock Trauma CenterInsurance Correspondence Officeon 72-01-4688Iivauskbb Correspondence [id number]#1.00CD:127[facility] HospitalCoding Summary.on 18-91-0938Eradhl Summary. CD:[id number]:[id number]+PGhlYWQ+RA8IPHHiU95cdWSgaC5SQ0nVYI0QMJWUPDXJYW7FNI0ey EB2JCktF4FwbtVe [file] c2U6 (more content not included)...NormalSumma Health Wadsworth - Rittman Medical CenterABO/Rh History Checkon 44-23-4193IXW/Rh History CheckPatient discharged priorNormal [facility] - Rittman Medical CenterComment on above:Performed By: #### 4805228, 85321363, 28783328, 83712598 ####[facility] [address] [place], [place] [address]SOQ/Rhon 82-20-7227AVQ/RhPositiveInvalid Interpretation CodeSumma Health Wadsworth - Rittman Medical CenterComment on above:Performed By: #### [id number], 05540726, 21439494, [id number] ####[facility] [address] [place], [place] [address]MXIVfp 20-13-1118CRME Gel Interp NegativeNormalSumma Health Wadsworth - Rittman Medical CenterComment on above:Performed By: #### 4470821, 60663000, 33171898, 19479191 ####[address] [place], [place] [address]Ijlx Diffon 42-51-2438Tkdwtruyv/100 WBC (Bld)0.5 %Normal0.0-2.0Sum[facility] Wadsworth - Rittman Medical CenterComment on above:Order Comment: Order Added by Discern Expert.Performed By: #### 5158355, 4577719, 7935800, 3741678, 12332929, 3635835, 2028424, 63822621, 58294380, 8524411 ####[facility] [address] [place] [address] Basophils/Leukocytes Auto (Bld) [Pure # fraction]0.1 E9/LNormal0.0-0.2Fisher [facility] Shock Trauma CenterComment on above:Order Comment: Order Added by Discern Expert.Performed By: #### 6476602, 2013979, 1590293, 4784840, 67037577, 9651226, 6009547, 45785866, 80845974, 7812322 ####[facility] [address] [place], [place] [address]Biwtspduiiy/100 WBC (Bld)0.7 %Normal 0.0-8.0Sum[facility] W[facility] - Rittman Medical CenterComment on above:Order Comment: Order Added by Discern Expert.Performed By: #### 9858687, 4270925, 9469548, 0735579, 67197000, 1227023, 8779047, 41529973, 72798777, 2071694 ####[address] [address]Xaliqkuyuon/Leukocytes Auto (Bld) [Pure # fraction]0.1 E9/LNormal0.0-0.5FBethesda North HospitalComment on above:Order Comment: Order Added by Discern Expert.Performed By: #### 1077565, 6891815, 2295052, 2230994, 61442943, 1987643, 3408449, 39470279, 19689183, 6168720 ####[facility] [address] [place], [place] [address]Xyyfkmfgusm/100 WBC (Bld)14.1 %Wxspgm96.0-50.0[facility] Comment on above:Order Comment: Order Added by Discern Expert.Performed By: #### 1253036, 9594828, 6069044, 4767597, 60804967, 1410606, 0299910, 53880333, 35554963, 8462872 ####[address] [address]Degpvbzejpo/Leukocytes Auto (Bld) [Pure # fraction]1.6 E9/L Normal1.0-4.0Sum[facility] W[facility] - Rittman Medical CenterComment on above:Order Comment: Order Added by Discern Expert.Performed By: #### 8272981, 9680506, 0536430, 2985509, 97605568, 9739321, 1075791, 30792558, 08489055, 7293916 ####[facility] [address] [place], [place] [address]Ahycjtecq/100 WBC (Bld)10.6 % Normal4.0-14.0Sum[facility] - Rittman Medical CenterComment on above:Order Comment: Order Added by Discern Expert.Performed By: #### 7987646, 8649859, 2958448, 0870634, 70338662, 8662380, 8615963, 89922135, 38594263, 0465514 ####[address] [address]Ipzvbeojc/Leukocytes Auto (Bld) [Pure # fraction]1.2 E9/LHigh0.2-1.0Sum[facility] - Rittman Medical CenterComment on above:Order Comment: Order Added by Discern Expert.Performed By: #### 1073332, 1763871, 8515326, 3935663, 50138213, 1987097, 3818893, 41830174, 70948603, 4773947 ####[address] [address]Hvwsurfhrli/100 WBC (Bld)74.1 %Latfzk73.0-75.0[facility] Comment on above:Order Comment: Order Added by Discern Expert.Performed By: #### 8945115, 9660327, 2173991, 7282936, 93149983, 0823161, 8892245, 87831854, 80428809, 6706220 ####[address] [place], [place] [address]Adbmvlkxett/Leukocytes Auto (Bld) [Pure # fraction]8.6 E9/L High2.0-7.5FBethesda North HospitalComment on above:Order Comment: Order Added by Discern Expert.Performed By: #### 6155270, 5344976, 3584635, 7497106, 70594267, 9479653, 5476944, 76134332, 12484245, 8823432 ####[facility] [address] [place], [place] [address]FSKPP BANKOrdered By: Eliu Nails on 13-46-4812LAT/Rh InterpPositiveInvalid Interpretation CodeMERCY HOSP[facility] BB SubsectionABSC Gel InterpNegative (05/28/22 4:15 AM)NormalMERCY HOSPITAL [facility] BB SubsectionFMHV0 mLInvalid Interpretation Code [facility] Man SeroBMPon 32-13-4760Pmuz nitrogen/Creatinine [Mass ratio]UTCAbnormal 05-20Sum[facility] W[facility] - Rittman Medical CenterComment on above:Result Comment: Result verified by Discern Rule. Performed result UT (Unable to Calculate) was sent as an Alpha code due the inability to calculate a valid numeric value.Performed By: #### 2266360, 8525281, 7976519, 1278028, 51147847, 1515312, 8033308, 93927589, 23024759, 3408558 ####[facility] [address] [place], [place] [address]Fzgne gap [Moles/Vol]13 mmol/LNormal6-16Sum[facility] W[facility] - Rittman Medical CenterComment on above:Performed By: #### 9084600, 1204541, 7948927, 3671535, 86167747, 1340691, 6570713, 96906377, 59291041, 9327654 ####[facility] [address] [place], [place] [address]Ypvkqwo [Mass/Vol]8.4 mg/dL Low8.9-11.1FBethesda North HospitalComment on above:Performed By: #### 6309594, 0809261, 6711008, 9819276, 01504709, 8019986, 3425225, 59259018, 60648868, 0527683 ####[facility] [address] [place]NB[place], [place] [address]Mwdqtglj [Moles/Vol]105 mmol/OHfjwkf157-597VwpwyxSumma Health Wadsworth - Rittman Medical CenterComment on above:Performed By: #### 5646368, 4528358, 1574744, 0705886, 20513534, 3945559, 4737927, 21919128, 40930810, 1911625 ####[facility] [address] [place], [place] [address]FJ0 [Moles/Vol] 21 mmol/LYqrqic08-28IhjivhSumma Health Wadsworth - Rittman Medical CenterComment on above:Performed By: #### 2466200, 7961795, 8350603, 5042148, 74481115, 5040018, 2278953, 18201954, 34851100, 4356159 ####[facility] [address] [place], [place] [address]Zkinslcmnj [Mass/Vol]0.5 mg/dLNormal0.5-1.3FBethesda North HospitalComment on above:Performed By: #### 0699463, 1170792, 3124945, 6107236, 04625089, 7203838, 8487158, 16582348, 81402753, 4462184 ####[facility] [address] [place], [place] [address]Rlybpkj [Mass/Vol]95 mg/uUDirytv60-837DwtpnvSumma Health Wadsworth - Rittman Medical CenterComment on above:Result Comment: If this glucose result represents a fasting glucose, interpretation should refer tothe following reference range: 55-99 mg/dLPerformed By: #### 6717233, 1844688, 3245958, 5986090, 11130869, 0769763, 5320499, 02392732, 34362808, 7573166 ####[facility] [address] [place], [place] [address]Uwtquzokf [Moles/Vol]3.5 mmol/LNormal3.5-5.3FBethesda North HospitalComment on above:Performed By: #### 6350870, 8530402, 6773685, 9198262, 27703721, 0857255, 1245553, 78646575, 10523677, 2137674 ####[facility] [address] [place], [place] [address]Zqvdze [Moles/Vol]135 mmol/IKokaco389-858GrnmubSumma Health Wadsworth - Rittman Medical CenterComment on above: Performed By: #### 1516602, 3421280, 4627479, 7097595, 84059420, 7808696, 3238249, 08698902, 78099891, 7641888 ####[facility] [address] [place], [place] [address]Orbv nitrogen [Mass/Vol]mg/dLNormal 5-21Sum[facility] - Rittman Medical CenterComment on above:Performed By: #### 0913880, 1707746, 0958930, 6444778, 99789209, 9535434, 3600874, 28368988, 37893337, 4052755 ####[facility] [address] [place], [place] [address]Elkrh Bank ID#on [id number]#[id number] Interpretation CodeSumma Health Wadsworth - Rittman Medical CenterComment on above:Performed By: #### 6108151, 68554621, 52032426, 34390329 ####[facility] [address] [place], [place] [address]CFO w/ Auto Diffon 05-33-8065Xvxcglzhgmj distribution width (RBC) [Ratio]13.2 %Alglur71.9-14.2FBethesda North HospitalComment on above: Performed By: #### 7779605, 4004826, 2361159, 2455553, 41114759, 7040521, 0940318, 07935289, 11698484, 4067906 ####[facility] [address] [place], [place] [address]Qihmbffilk (Bld) [Volume fraction] 24.6 %Low34.0-46.0Sum[facility] - Rittman Medical CenterComment on above:Performed By: #### 7572195, 8798000, 2461989, 0625267, 68691842, 0429030, 1892621, 12832747, 66040921, 6600151 ####[facility] [address] [place], [place] [address]Xykwijwpvf (Bld) [Mass/Vol]8.4 g/dLLow12.0-16.0Sum[facility] - Rittman Medical CenterComment on above:Performed By: #### 2646848, 2077655, 1479428, 9816100, 12909634, 2375026, 0901720, 27149999, 85376381, 9741991 ####[facility] [address] [place], [place] [address]ISL (RBC) [Entitic mass]30.0 bmFdsgep20.0-34.0Sum[facility] - Rittman Medical CenterComment on above: Performed By: #### 3865661, 8395479, 2443053, 7596660, 48217793, 8777601, 4588005, 05281063, 75056633, 1537683 ####[facility] [address] [place], [place] [address]VWXV (RBC) [Mass/Vol]34.2 g/dLNormal 31.4-36.0[facility] Medical CenterComment on above:Performed By: #### 9556192, 7538531, 6547316, 9230541, 84705416, 1910689, 2997982, 64092191, 57831930, 7337227 ####[facility] [address] [place], [place] [address]HMM (RBC) [Entitic vol]87.7 fTNnjxce05.0-100.0[facility] Comment on above:Performed By: #### 6242683, 7201466, 0834271, 1713714, 99039236, 9106948, 7522102, 90454298, 94548667, 4727682 ####[facility] [address] [place], [place] [address]Lxtdojff mean volume (Bld) [Entitic vol]8.6 fLNormal6.4-10.8[facility] Medical CenterComment on above: Performed By: #### 3177559, 4974585, 7771592, 7449269, 12895567, 2525480, 5057925, 76981755, 33615299, 6543083 ####[facility] [address] [place], [place] [address]Uamzcxnkl (Bld) [#/Vol]258.0 E9/L Zsvdsk107.0-500.0[facility] Medical CenterComment on above:Performed By: #### 1366076, 3233749, 8761123, 6240720, 19457933, 3320259, 2625363, 64206992, 10483762, 9962732 ####[facility] [address] [place], [place] [address]EDS (Bld) [#/Vol]2.8 E12/LLow4.3-5.9[facility] CenterComment on above:Performed By: #### 1006818, 9607324, 2762497, 2280697, 21184493, 3951687, 1570783, 06324243, 33363883, 3413913 ####[facility] [address] [place], [place] [address]ZZE corrected for nucl RBC Auto (Bld) [#/Vol]11.7 E9/LHigh4.0-11.0[facility] CenterComment on above:Performed By: #### 1110983, 6947555, 4584197, 1508454, 95707672, 7853976, 1245976, 18234597, 25878878, 7019776 ####[facility] [address] [place], [place] [address]OLCOQWLLUMydquni By: SYSTEM SYSTEM on 48-37-6599Ggqnzaf [Mass/Vol]2.4 g/dLLow3.3 - 5.0 gm/dLFTMC Remisol Albumin/Globulin [Mass ratio]0.6 {ratio}Low1.1 - 2.2[facility] RemisolALP [Catalytic activity/Vol]86 [iU]/lAzifqw85 - 98 Int._Unit/LFTMC RemisolALT No additional P-5'-P [Catalytic activity/Vol]7 [iU]/dNormal6 - 46 Int._Unit/LFTMC RemisolAnion gap [Moles/Vol]13 mmol/LNormal6 - 16 mEq/LFTMC RemisolAST [Catalytic activity/Vol]13 [iU]/dNormal5 - 43 Int._Unit/LFTMC RemisolBilirubin [Mass/Vol] 0.7 mg/dLNormal0.0 - 1.1 mg/dLFTMC RemisolBilirubin.direct [Mass/Vol]0.5 mg/dL High0.1 - 0.4 mg/dLFTMC RemisolBilirubin.indirect [Mass or moles/Vol]0.2 mg/dL Normal0.1 - 0.9 mg/dLFTMC RemisolCalcium [Mass/Vol]8.4 mg/dLLow8.9 - 11.1 mg/dL [facility] RemisolChloride [Moles/Vol]105 mmol/YDnvrdz361 - 111 mmol/LFTMC RemisolCO2 [Moles/Vol]21 mmol/VUilosm40 - 31 mmol/LFTMC RemisolCreatinine [Mass/Vol]0.5 mg/dLNormal0.5 - 1.3 mg/dLFTMC RemisolGFR/1.73 sq M.predicted among blacks MDRD (S/P/Bld) [Vol rate/Area]mL/min/1.73 v3Rwgaop>=59mL/min/1.73 m2[facility] Chem S GFR/1.73 sq M.predicted among non-blacks MDRD (S/P/Bld) [Vol rate/Area] mL/min/1.73 k4Wdzsrh>=59mL/min/1.73 m2[facility] Chem SGlobulin (S) [Mass/Vol]4.2 g/dL High1.4 - 4.0 gm/dLFT RemisolGlucose [Mass/Vol]95 mg/cKVkegdd37 - 199 mg/dL [facility] RemisolPotassium [Moles/Vol]3.5 mmol/LNormal3.5 - 5.3 mmol/LFTMC Remisol Protein [Mass/Vol]6.6 g/dLNormal6.0 - 7.8 gm/dLFTMC RemisolSodium [Moles/Vol]135 mmol/DQboutt328 - 145 mmol/LFTMC RemisolUrate [Mass/Vol]3.5 mg/dLNormal2.2 - 7.4 mg/dL[facility] RemisolUrea nitrogen [Mass/Vol]mg/dLNormal5 - 21 mg/dL[facility] Remisol Urea nitrogen/Creatinine [Mass ratio]Unable to CalculateInvalid Interpretation Code - 20[facility] RemisolCOAGULATIONOrdered By: Eliu Nails on 26-13-7521bDCU Coag (PPP) [Time]22.4 sLow25.1 - 36.5 second(s)[facility] Auto CoagFibrin+Fibrinogen fragments (S) [Mass/Vol]<10 (05/28/22 4:15 AM)Normal<10[facility] Man SeroFibrinogen Coag (PPP) [Mass/Vol]619 mg/pDNfki738 - 393 mg/dLMER[facility] Auto CoagINR Coag (PPP) [Relative time]1.0 {INR} Invalid Interpretation CodeMER[facility]OS[facility] Auto CoagPT Coag (PPP) [Time]11.2 sNormal9.4 - 12.5 second(s)[facility] Auto CoagEMS Documentationon 04-62-8936GIM Documentation [id number]#1.00CD:127NoSelect Medical Specialty Hospital - Boardman, IncEMS [id number]#1.00CD:127Noal [facility] CenterEMS Documentation [id number]#1.00CD:127NoSelect Medical Specialty Hospital - [facility], IncEMS [id number]#1.00CD:127 NormalSumma Health Wadsworth - Rittman Medical CenterFSPon 86-09-6680Wswyiz+Fibrinogen fragments (S) [Mass/Vol]<10Normal<10[facility] Medical CenterComment on above:Performed By: #### 1150603, 1464041, 0788388, 6265591, 12836339, 2867296, 1082970, 95916323, 82568735, 2335618 ####[facility] [address] [place], [place] [address]Dwhok Stainon 46-32-7281JFFG4 mLInvalid Interpretation Code [facility] CenterComment on above:Performed By: #### 3274138, 4425457, 8460085, 1511972, 14469746, 1061234, 8230389, 26797382, 25074275, 7998373 ####[facility] [address] [place] [address] Negative ControlNegativeNormalSumma Health Wadsworth - Rittman Medical CenterComment on above: Performed By: #### 4525903, 9844727, 0855633, 9066997, 10749753, 7577938, 7444929, 02305074, 45661223, 4654498 ####[facility] [address] [place], [place] [address]Vvhjgstvkofm 95-11-6092Wjwbrzlmhh Coag (PPP) [Mass/Vol]619 mg/nPLnwi378-246HkxywoSumma Health Wadsworth - Rittman Medical CenterComment on above:Performed By: #### 5518920, 7521146, 8066871, 0087567, 31907649, 0555960, 7787797, 02251095, 81798297, 1162611 ####[facility] [address] [place], [place] [address]VMPGIUNQGGCcvvtel By: SYSTEM SYSTEM on 98-34-4033Fubwgjhtc/100 WBC (Bld)0.5 %Normal0.0 - 2.0 %[facility] HemeAutoSS Basophils/Leukocytes Auto (Bld) [Pure # fraction]0.1 E9/LNormal0.0 - 0.2 E9/L [facility] HemeAutoSSEosinophils/100 WBC (Bld)0.7 %Normal0.0 - 8.0 %[facility] HemeAutoSS Eosinophils/Leukocytes Auto (Bld) [Pure # fraction]0.1 E9/LNormal0.0 - 0.5 E9/L [facility] HemeAutoSSLymphocytes/100 WBC (Bld)14.1 %Pizcun68.0 - 50.0 %[facility] HemeAutoSS Lymphocytes/Leukocytes Auto (Bld) [Pure # fraction]1.6 E9/LNormal1.0 - 4.0 E9/L [facility] HemeAutoSSMonocytes/100 WBC (Bld)10.6 %Normal4.0 - 14.0 %[facility] HemeAutoSS Monocytes/Leukocytes Auto (Bld) [Pure # fraction]1.2 E9/LHigh0.2 - 1.0 E9/LFTMC HemeAutoSSNeutrophils/100 WBC (Bld)74.1 %Zmrbhp14.0 - 75.0 %[facility] HemeAutoSS Neutrophils/Leukocytes Auto (Bld) [Pure # fraction]8.6 E9/LHigh2.0 - 7.5 E9/L [facility] HemeAutoSSHEMATOLOGYOrdered By: Eliu Nails on 20-69-9418Zwgooykcsdy distribution width (RBC) [Ratio]13.2 %Ukgfmu11.9 - 14.2 %[facility] HemeAutoSS Hematocrit (Bld) [Volume fraction]24.6 %Low34.0 - 46.0 %[facility] HemeAutoSS Hemoglobin (Bld) [Mass/Vol]8.4 g/dLLow12.0 - 16.0 gm/dLFTMC HemeAutoSSMCH (RBC) [Entitic mass]30.0 yxNomcyc06.0 - 34.0 pgFTMC HemeAutoSSMCHC (RBC) [Mass/Vol] 34.2 g/tCXlgkgz06.4 - 36.0 gm/dLFTMC HemeAutoSSMCV (RBC) [Entitic vol]87.7 fL Aofflz53.0 - 100.0 fLFTMC HemeAutoSSPlatelet mean volume (Bld) [Entitic vol]8.6 fLNormal6.4 - 10.8 fLFTMC HemeAutoSSPlatelets (Bld) [#/Vol]258.0 E9/KWchsta160.0 - 500.0 E9/LFTMC HemeAutoSSRBC (Bld) [#/Vol]2.8 E12/LLow4.3 - 5.9 E12/LFTMC HemeAutoSSWBC corrected for nucl RBC Auto (Bld) [#/Vol]11.7 E9/LHigh4.0 - 11.0 E9/LFTMC HemeAutoSSHep Func Panelon 98-83-4876Efucdhg [Mass/Vol]2.4 g/dLLow 3.3-5.0[facility] CenterComment on above:Performed By: #### 0504005, 2956172, 6418313, 2824531, 88952145, 2869650, 6625631, 58415061, 77598371, 7726864 ####[facility] [address] [place], [place] [address]Wyuafvp/Globulin (S) [Mass conc ratio]0.6Low1.1-2.2FBethesda North HospitalComment on above:Performed By: #### 9502018, 9760077, 9736163, 9682247, 48603747, 4797356, 4785456, 74069317, 04247276, 2531828 ####[facility] [address] [place], [place] [address]IOV [Catalytic activity/Vol]86 Int._Unit/BOwtgwx10-70EdbuoqSumma Health Wadsworth - Rittman Medical CenterComment on above:Performed By: #### 0119013, 6849514, 2792571, 3964905, 51146400, 3178478, 5679882, 08493399, 96355875, 5948958 ####[facility] [address] [place], [place] [address]OAG No additional P-5'-P [Catalytic activity/Vol]7 Int._Unit/LNormal6-46[facility] CenterComment on above:Performed By: #### 9444700, 4503725, 9819863, 9024671, 09720274, 9652056, 7971225, 61060911, 70739956, 6285164 ####[facility] [address] [place], [place] [address]ENT [Catalytic activity/Vol]13 Int._Unit/LNormal5-43[facility] CenterComment on above:Performed By: #### 6933594, 4550365, 2928820, 7809130, 59785231, 1489345, 1297227, 89290476, 15138192, 9819187 ####[facility] [place] [address] Bilirubin [Mass/Vol]0.7 mg/dLNormal0.0-1.1FBethesda North HospitalComment on above:Performed By: #### 6896986, 7586818, 8629307, 5780057, 18688062, 9306278, 0826521, 69190417, 06559876, 8887929 ####[facility] [address] [place], [place] [address]Uzlsguzlz.direct [Mass/Vol]0.5 mg/dL High0.1-0.4FBethesda North HospitalComment on above:Performed By: #### 0416382, 2186038, 2718961, 0690362, 33401228, 0207502, 7276257, 23745930, 97410821, 0385349 ####[facility] [address] [place] [address]Pdjtcxmcd.indirect [Mass or moles/Vol]0.2 mg/dLNormal0.1-0.9 [facility] CenterComment on above:Performed By: #### 1290839, 3246836, 4464962, 6783702, 69783432, 2430722, 9974153, 38605815, 73470682, 7622990 ####[address] [address] Globulin (S) [Mass/Vol]4.2 g/dLHigh1.4-4.0[facility] CenterComment on above:Performed By: #### 2104423, 3112317, 8430085, 5038335, 92947897, 9537396, 1124895, 89018942, 79601909, 7164103 ####[facility] [address] [place], [place] [address]Znwnpiy [Mass/Vol]6.6 g/dLNormal 6.0-7.8[facility] Medical CenterComment on above:Performed By: #### 8697914, 9174468, 1999538, 3572947, 84553445, 2827194, 1796495, 08656670, 62645555, 0077551 ####[facility] [address] [place], [place] [address]Bwzybxaje Clinical Summaryon 99-25-8642Ayzuzwryp Clinical Summary [address] [address] Clinical Summary Person Information Name: DEEPTI CARDOZA Stephanie/[facility] Age: 22 Years : 2000 Sex: Female PCP: Juan Carlos Khan MD Marital Status: Single Phone: [phone] Race: White Ethnicity: Non- or Language: Barbadian Visit Id: Visit Reason: FACIAL ABRASION Speciality: Acuity: Obs Enc Type: Inpatient Med Service: Obstetrics Arrival: 05/26/2022 17:28:35 Discharge: 05/28/2022 13:15:00 Dispo Type: Critical Access Hosp Address: [address] [place] [id number] Provider Notes: Diagnosis: 1:; 2:Facial abscess; 3:Acute [...] range between ( 80.0 and 100.0 ) Dukes Auto: 10.6 % -- Normal range between ( 4.0 and 14.0 ) MPV: 8.6 fL -- Normal range between ( 6.4 and 10.8 ) Neutro Auto: 74.1 % -- Normal range between ( 36.0 and 75.0 ) Platelet: 258.0 E9/L -- Normal range between ( 150.0 and 500.0 ) WBC: 11.7 E9/L -- Normal range between ( 4.0 and 11.0 ) Dukes Absolute: 1.2 E9/L -- Normal range between [...] ABDIAZIZ VILLANUEVA, Denis Ariza (more content not included)...[facility] HospitalInpatient Patient Summaryon 82-69-7258Qhematgkm Patient Summary [address] [address] Patient Discharge Instructions PERSON INFORMATION Name: DEEPTI CARDOZA Date of : 2000 Current Date: 05/28/2022 13:28:46 PHYSICIANS Admitting Physician: Dl White MD Primary Care Physician: Juan Carlos Khan MD PCP Comment: Discharge Diagnosis: 1:; 2:Facial abscess; 3:Acute abscess of maxillary sinus; 4:Starvation ketoacidosis Condition at Discharge: Other: pt transferred for [facility] to assume care due to levelof care needed. Dr. Freed transferred pt to [facility] DEEPTI CARDOZA has been given [...] up: With: Address: When: Rajendra RUSS [facility]ly [facility], 1928–[facility], [address] [place] [address] [place] [address] Business (1) In the event [...] Last Dose: Next Dose: Pharmacy Information: Other: [facility] PATIENT EDUCATION INFORMATION Instructions: Medication Leaflets: You may receive a survey from Nickolas Malloy asking you to rate your care experience. Your feedback is important and will help us understand what we do well and how we can improve the quality of care we provide to you, your loved ones and our community. It?s an honor to serve you. Thank you [facility] HospitalInsurance Correspondence Officeon 58-50-6136Didzcdhbi Correspondence [id number]#1.00CD:127Normal [facility] CenterOutside Recordson 68-20-1691Txgzuoi Records [id number]#1.00CD:127NormalSumma Health Wadsworth - Rittman Medical CenterPT & PTTon 28-81-3495hMHY Coag (PPP) [Time]22.4 second(s)Low25.1-36.5 [facility] CenterComment on above:Result Comment: Parameter 15 days - 4 weeks 1 - [...] the same coagulation reagent and instrumentation as [facility]. Currently there are no coagulation studies available worldwide for children to 14 days, andno normal ranges. Heparin therapeutic range (represented by Anti-Factor Xa activity of 0.2 - 0.4 U/mL) corresponds to PTT of 56.6 - 109.0 sec.Performed By: #### 9563667, 4542719, 1404176, 1299110, 16939536, 3871439, 8104667, 97760206, 02612549, 0677597 ####[facility] [address] Adolfo Wen[place], [place] [address]BXD Coag (PPP) [Relative time]1.0 {INR}Invalid Interpretation [facility] CenterComment on above:Result Comment: INR results are specifically intended to assess patients stabilized on long-term Anticoagulation therapy suggested INR?s ?Less Intensive Anticoagulation? 2.0 ? 3.0 Conventional Range 3.0 ? 4.5Performed By: #### 7683866, 8578293, 4708621, 1456663, 33735700, 3928740, 7883870, 73029924, 87322268, 0638036 ####[facility] [address] [place], [place] [address]TM Coag (PPP) [Time]11.2 second(s)Normal9.4-12.5[facility] Trauma CenterComment on above: Result Comment: 15 days - 4 weeks 1 - [...] the same coagulation reagent and instrumentation as [facility]. Currently there are no coagulation studies available worldwide for children to 14 days, andno normal ranges.Performed By: #### 7009122, 4590569, 8356633, 8539791, 08864600, 5096715, 3446183, 00608156, 98232127, 3496130 ####[facility] [address] [place], [place] [address]Muptdfwwuglzn/Work Noteson 05-28-2022 Prescriptions/Work [id number]#1.00CD:127 NormalFisher R Adams [facility]ley Shock Trauma CenterProgress Note-Physicianon 99-97-9514Wucvqnma Note-PhysicianAssessment/Plan 22-year-old with second (first 1 uneventful with the baby of 7 pounds 7 ounces)at 33 weeks of and 5 days presents to emergency department due to severe facial pain and inability to to eat. 1. (Z34.90: Encounter for supervision of normal , unspecified, unspecified trimester) Continue with vitamin Starvation ketoacidosis has resolved Routine monitoring for baby every shift Will transfer patient to a place with MFM and OMFS 2. Facial abscess (L02.01: Cutaneous abscess of face) Worse today Spoke to ENT. preferrers patient going to tertiary care with OMFS Will continue with Unasyn and warm compress NPO Transfer to community hospital once bed is available 3. Acute abscess of maxillary sinus (J01.00: Acute maxillary sinusitis, unspecified) will need OMFS Transfer to [facility] Continue with Tylenol Antibiotics as [...] made to ensure accuracy, however, inadvertently computerized real estate acquisition analyst mistakes may be present. Denis Freed Hospitalist [...] and red. She looks much more uncomfortable. Denseand hard Cardiovascular: regular rate and rhythm, normal [...] 04:15:00) Lymph Auto: 14.1 % (05/28/22 04:15:00) Dukes Auto: 10.6 % (05/28/22 04:15:00) Eos Auto: 0.7 % (05/28/22 04:15:00) Basophil Auto: 0.5 % (05/28/22 04:15:00) Neutro Absolute: 8.6 E9/L High (05/28/22 04:15:00) Lymph Absolute: 1.6 E9/L (05/28/22 04:15:00) Dukes Absolute: 1.2 E9/L High (05/28/22 04:15:00) Eos [...] 04:15:00) eGFR AA: >6 (more content not included)...[facility] Comment on above:Result Comment: Electronically Signed By: Denis FREED MD\.br\Date and Time Signed: 05/28/22 09:31 [facility] Documentson 05-28-2022 Transfer [id number]#1.00CD:127Normal [facility] CenterTransfer Documents [id number]#1.00CD:127NormalSumma Health Wadsworth - Rittman Medical CenterUric Acidon 47-27-7528Dbahk [Mass/Vol]3.5 mg/dLNormal2.2-7.4FBethesda North HospitalComment on above:Performed By: #### 1678714, 0803784, 8998145, 6802967, 46262397, 2513939, 0533475, 98725993, 60969412, 1501151 ####[facility] [address] [place], [place] [address]lBDVpk 65-94-8685TVX/1.73 sq M.predicted among blacks MDRD (S/P/Bld) [Vol rate/Area] mL/min/{1.73_m2}Normal>=59[facility] Medical CenterComment on above:Order Comment: Order added by Discern Expert.Result Comment: eGFR is race adjusted. AA=.Performed By: #### 4882719, 7810677, 4024270, 2112966, 89472683, 7367731, 5117414, 50012508, 32408313, 6010706 ####[facility] [address] [place], [place] [address]WZC/1.73 sq M.predicted among non-blacks MDRD (S/P/Bld) [Vol rate/Area]mL/min/{1.73_m2}Normal>=59[facility] Medical CenterComment on above:Order Comment: Order added by Discern Expert. Result Comment: Chronic kidney disease could be indicated at eGFR's of less than 60 mL/min/1.73m2. Kidney failure is indicated at less than 15 mL/min/1.73m2. Performed By: #### 1957500, 4480485, 6063201, 9038643, 36189731, 2427444, 3879636, 21938038, 37408299, 5370974 ####[facility] [address] [place], [place] [address]Klgh Diffon 02-15-3229Mebklwsbb/100 WBC (Bld)0.2 %Normal0.0-2.0[facility] Medical CenterComment on above:Order Comment: Order Added by Discern Expert.Performed By: #### 7255316, 1826043, 01281359, 3171385, 2420021 #### [facility] [address] [place] [address]Ifvvbhxjt/Leukocytes Auto (Bld) [Pure # fraction]0.0 E9/LNormal 0.0-0.2FBethesda North HospitalComment on above:Order Comment: Order Added by Discern Expert.Performed By: #### 3810465, 2457181, 94316360, 3543163, 7565157 #### [facility] [address] [place] [address]Ddnzwrlsbdr/100 WBC (Bld)0.3 %Normal0.0-8.0[facility] Medical CenterComment on above:Order Comment: Order Added by Discern Expert.Performed By: #### 0930727, 9876595, 24858446, 2413890, 9877252 #### [facility] [address] [place] [address]Orfaaanmkyn/Leukocytes Auto (Bld) [Pure # fraction]0.0 E9/L Normal0.0-0.5FBethesda North HospitalComment on above:Order Comment: Order Added by Discern Expert.Performed By: #### 0469130, 0743744, 91292559, 3599444, 5971618 #### [facility] [address] [place] [address]Clowutdmhka/100 WBC (Bld)8.3 %Low14.0-50.0[facility] Medical CenterComment on above:Order Comment: Order Added by Discern Expert.Performed By: #### 6924076, 8053166, 92144505, 5203915, 1496031 #### [facility] [address] [place] [address]Yqxzpownzyv/Leukocytes Auto (Bld) [Pure # fraction]1.2 E9/L Normal1.0-4.0[facility] Medical CenterComment on above:Order Comment: Order Added by Discern Expert.Performed By: #### 3402674, 1236703, 00169322, 8610084, 6603623 #### [facility] [address] [place] [address]Xuedhftyw/100 WBC (Bld)11.6 %Normal4.0-14.0[facility] Medical CenterComment on above:Order Comment: Order Added by Discern Expert.Performed By: #### 9603138, 5594370, 01812906, 7590879, 1081189 #### [facility] [address] [place] [address]Tsqscfpxg/Leukocytes Auto (Bld) [Pure # fraction]1.7 E9/LHigh 0.2-1.0[facility] CenterComment on above:Order Comment: Order Added by Discern Expert.Performed By: #### 7304447, 9437399, 13477452, 3956171, 9717174 #### [facility] [address] [place] [address]Xrersjjidpp/100 WBC (Bld)79.6 %High36.0-75.0[facility] Medical CenterComment on above:Order Comment: Order Added by Discern Expert. Performed By: #### 0799260, 6651643, 06105575, 3481282, 4830136 #### [facility] [address] [place], [place] [address]Cehayfchptw/Leukocytes Auto (Bld) [Pure # fraction]11.8 E9/L High2.0-7.5FBethesda North HospitalComment on above:Order Comment: Order Added by Discern Expert.Performed By: #### 6009446, 3812794, 17920816, 7428469, 6502135 #### [facility] [address] [place] [address]MESrv 05-84-6079Xkivqjnzq [Moles/Vol]3.3 mmol/LLow3.5-5.3FBethesda North HospitalComment on above:Performed By: #### 0879792, 6539213, 95017220, 0583286, 0870386 #### [facility] [address] [place], [place] [address]Skme nitrogen/Creatinine [Mass ratio]BSHUnyttipb18-00MgntvtSumma Health Wadsworth - Rittman Medical CenterComment on above:Result Comment: Result verified by Discern Rule. Performed result UTC (Unable to Calculate) was sent as an Alpha code due the inability to calculate a valid numeric value.Performed By: #### 9584026, 6827642, 17819970, 8838428, 0767830 #### [facility] [address] [place], [place] [address]Ubqou gap [Moles/Vol]11 mmol/LNormal6-16[facility] Medical CenterComment on above:Performed By: #### [id number], [id number], [id number], [id number], [id number] #### [facility] [address], [place] [address]Iuqwcgb [Mass/Vol]8.3 mg/dLLow8.9-11.1FBethesda North HospitalComment on above:Performed By: #### [id number], [id number], [id number], [id number], [id number] #### [facility] [address], [place] [address]Uvyfjwio [Moles/Vol]104 mmol/MUmkzft057-368OizxbfSumma Health Wadsworth - Rittman Medical CenterComment on above:Performed By: #### [id number], [id number], [id number], [id number], [id number] #### [facility] [address], [place] [address]TF6 [Moles/Vol]20 mmol/MPze12-54FlhjzwSumma Health Wadsworth - [facility] Comment on above:Performed By: #### [id number], [id number], [id number], [id number], [id number] #### [facility] [address], [place] [address]Stwexyxfzs [Mass/Vol]0.5 mg/dLNormal0.5-1.3FBethesda North HospitalComment on above:Performed By: #### [id number], [id number], [id number], [id number], [id number] #### [facility] [address], [place] [address]Jfrfmxk [Mass/Vol]98 mg/nHVjhxgf13-773ZhzevhSumma Health Wadsworth - Rittman Medical CenterComment on above:Result Comment: If this glucose result represents a fasting glucose, interpretation should refer tothe following reference range: 55-99 mg/dLPerformed By: #### [id number], [id number], [id number], [id number], [id number] #### [facility] [facility] [address] [place] [address] 33285Zxzlyr [Moles/Vol]132 mmol/OVak592-527SwuejhSumma Health [facility] - [facility]ittman Medical CenterComment on above:Performed By: #### 5716506, 5424537, 76246834, 9207315, 3742194 #### [facility] [address], [place] [address]Whgv nitrogen [Mass/Vol]mg/dLNormal5-21[facility] Medical CenterComment on above:Performed By: #### 8040238, 0425562, 91314783, 7027358, 2678504 #### [facility] [address] [place] [address] 17614OAO w/ Auto Diffon 67-47-3539Xehurrhqjds distribution width (RBC) [Ratio]13.0 %Lfhljp38.9-14.2FBethesda North HospitalComment on above: Performed By: #### 4557337, 4392451, 60325933, 4950818, 5283208 #### [facility] [address], [place] [address]Wazzxrtwjd (Bld) [Volume fraction]25.2 %Low34.0-46.0[facility] Medical CenterComment on above:Performed By: #### 8318494, 3778675, 03708056, 0759689, 9830303 #### [facility] [address] [place] [address]Suhfcejlbu (Bld) [Mass/Vol]8.6 g/dLLow12.0-16.0[facility] CenterComment on above:Performed By: #### 1118653, 3392924, 62352255, 1170365, 0272819 #### [facility] [address] [place] [address] 45912GGC (RBC) [Entitic mass]29.8 mtYwypua97.0-34.0[facility] Medical CenterComment on above:Performed By: #### 3560116, 7310494, 96830996, 8916843, 9428780 #### [facility] [address] [place] [address] 51793SOHH (RBC) [Mass/Vol]34.0 g/oCJlkymz92.4-36.0[facility] CenterComment on above:Performed By: #### 6451409, 4790153, 19312132, 4253491, 5445564 #### [facility] [address] [place] [address]OAG (RBC) [Entitic vol]87.6 zELidejd10.0-100.0[facility] CenterComment on above:Performed By: #### 2060297, 3069079, 56540186, 9024100, 7686282 #### [facility] [address] [place] [address]Hwhznuha mean volume (Bld) [Entitic vol]8.9 fLNormal6.4-10.8 [facility] CenterComment on above:Performed By: #### 3106469, 2179511, 77570597, 5743093, 1813717 #### [facility] [address] [place] [address] 779[address]Cavavfrqg (Bld) [#/Vol]270.0 E9/XXiuvjx727.0-500.0[facility] Medical CenterComment on above:Performed By: #### 4852851, 9570166, 11924327, 9689888, 9283380 #### [facility] [address], [place] [address]PAL (Bld) [#/Vol]2.9 E12/LLow4.3-5.9[facility] Comment on above:Performed By: #### 3660117, 1649367, 52346670, 9014722, 4933617 #### [facility] [address], [place] [address]BSC corrected for nucl RBC Auto (Bld) [#/Vol]14.8 E9/LHigh 4.0-11.0[facility] CenterComment on above:Performed By: #### 5191782, 9913837, 92329728, 7112353, 7929147 #### [facility] [address], [place] [address]JMNYQNCVMDvzfrbv By: SYSTEM SYSTEM on 49-03-9912Vtwdw gap [Moles/Vol]11 mmol/LNormal6 - 16 mEq/LFTMC RemisolCalcium [Mass/Vol]8.3 mg/dLLow 8.9 - 11.1 mg/dLFTMC RemisolChloride [Moles/Vol]104 mmol/VRnbntj543 - 111 mmol/L [facility] RemisolCO2 [Moles/Vol]20 mmol/LLow21 - 31 mmol/LFTMC RemisolCreatinine [Mass/Vol]0.5 mg/dLNormal0.5 - 1.3 mg/dLFTMC RemisolGFR/1.73 sq M.predicted among blacks MDRD (S/P/Bld) [Vol rate/Area]mL/min/1.73 u2Tsmxge>=59mL/min/1.73 m2[facility] Chem SGFR/1.73 sq M.predicted among non-blacks MDRD (S/P/Bld) [Vol rate/Area]mL/min/1.73 v6Lqtzle>=59mL/min/1.73 m2[facility] Chem SGlucose [Mass/Vol]98 mg/kFTgyxdy03 - 199 mg/dLFTMC RemisolMagnesium [Mass/Vol]1.5 mg/dLNormal1.3 - 2.4 mg/dLFTMC RemisolSodium [Moles/Vol]132 mmol/PNgv542 - 145 mmol/LFTMC Remisol Urea nitrogen [Mass/Vol]mg/dLNormal5 - 21 mg/dLFTMC RemisolUrea nitrogen/Creatinine [Mass ratio]Unable to CalculateInvalid Interpretation Code10 [facility] [place] RemisolCHEMISTRYOrdered By: Maggie Sequeira on 66-78-4768Ntzirlxve [Moles/Vol]3.3 mmol/LLow3.5 - 5.3 mmol/LFTMC RemisolCoding Summary.on 05-27-2022 Coding Summary. CD:[id number] [file] [id number] (more content not included)...[facility] HospitalConsultation Noteon 70-49-9544Ntesfgensegu NoteENT Full consult dict. Imp: Right facial cellulitis Right dental abscess Right facial pain Plan: 1. Continue IV antibiotics 2. Warm compresses 3. Follow for progress 4. Should be considered for dental extraction if not improvingNormBluffton HospitalComment on above:Result Comment: Electronically Signed By: Asim Monroe DO\.br\Date and Time Signed: 05/27/22 12:59 EDTHEMATOLOGY Ordered By: SYSTEM SYSTEM on 74-20-9102Titsczfby/100 WBC (Bld)0.2 %Normal0.0 - 2.0 %[facility] HemeAutoSSBasophils/Leukocytes Auto (Bld) [Pure # fraction]0.0 E9/L Normal0.0 - 0.2 E9/LFTMC HemeAutoSSEosinophils/100 WBC (Bld)0.3 %Normal0.0 - 8.0 %[facility] HemeAutoSSEosinophils/Leukocytes Auto (Bld) [Pure # fraction]0.0 E9/L Normal0.0 - 0.5 E9/LFTMC HemeAutoSSLymphocytes/100 WBC (Bld)8.3 %Low14.0 - 50.0 %[facility] HemeAutoSSLymphocytes/Leukocytes Auto (Bld) [Pure # fraction]1.2 E9/L Normal1.0 - 4.0 E9/LFTMC HemeAutoSSMonocytes/100 WBC (Bld)11.6 %Normal4.0 - 14.0 %[facility] HemeAutoSSMonocytes/Leukocytes Auto (Bld) [Pure # fraction]1.7 E9/LHigh0.2 - 1.0 E9/LFTMC HemeAutoSSNeutrophils/100 WBC (Bld)79.6 %High36.0 - 75.0 %[facility] HemeAutoSSNeutrophils/Leukocytes Auto (Bld) [Pure # fraction]11.8 E9/LHigh2.0 - 7.5 E9/LFTMC HemeAutoSSHEMATOLOGYOrdered By: Edson De Jesus on 05-27-2022 Erythrocyte distribution width (RBC) [Ratio]13.0 %Shhhdo23.9 - 14.2 %[facility] HemeAutoSSHematocrit (Bld) [Volume fraction]25.2 %Low34.0 - 46.0 %[facility] HemeAutoSSHemoglobin (Bld) [Mass/Vol]8.6 g/dLLow12.0 - 16.0 gm/dLFTMC HemeAutoSS MCH (RBC) [Entitic mass]29.8 dtBqltkl82.0 - 34.0 pgFTMC HemeAutoSSMCHC (RBC) [Mass/Vol]34.0 g/sLOasthq42.4 - 36.0 gm/dLFTMC HemeAutoSSMCV (RBC) [Entitic vol] 87.6 kPQwzyhy55.0 - 100.0 fLFTMC HemeAutoSSPlatelet mean volume (Bld) [Entitic vol]8.9 fLNormal6.4 - 10.8 fLFTMC HemeAutoSSPlatelets (Bld) [#/Vol]270.0 E9/L Rokxjg139.0 - 500.0 E9/LFTMC HemeAutoSSRBC (Bld) [#/Vol]2.9 E12/LLow4.3 - 5.9 E12/LFTMC HemeAutoSSWBC corrected for nucl RBC Auto (Bld) [#/Vol]14.8 E9/LHigh 4.0 - 11.0 E9/LFNEWMAN MEMORIAL H[facility] HemeAutoSSInsurance Correspondence Officeon 05-27-2022 Insurance Correspondence Office [id number]:127NormalFisher R Adams Cowley Shock Trauma CenterMagnesiumon 50-81-0799Mjqwpxqbq [Mass/Vol]1.5 mg/dLNormal1.3-2.4[facility] Trauma CenterComment on above:Performed By: #### 1016127, 5619872, 74733405, 6194179, 2117776 #### [facility] [address], [place] [address]Cmkxxwqc Note-Physicianon 99-81-9620Dmoelezq Note-Physician Assessment/Plan 22-year-old with second (first 1 [...] IP Consult New/Estab Pt Low 55 Min 09848 2. Facial abscess (L02.01: Cutaneous abscess of face) Continue with Unasyn Abscess is draining Continue with warm compresses We will stop IV fluids and encourage oral intake Will use liquid Tylenol and told nurse to use arxfzh-fcf-grnxe for today and use IV pain medicationfor breakthrough pain. Still left Tylenol as needed Ordered: Initial IP Consult New/Estab Pt Low 55 Min 77453 3. Acute abscess of maxillary sinus (J01.00: Acute maxillary sinusitis, unspecified) Continue with Tylenol and Nubain Antibiotics as ordered Awaiting ENT evaluation Ordered: Initial IP Consult New/Estab Pt Low 55 Min 70523 4. Starvation ketoacidosis (T73.0XXA: Starvation, initial encounter) Resolved Will let patient eat and drink normally and encouraging oral intake Stopping IV fluids We will still repeat labs tomorrow morning Ordered: Initial IP Consult New/Estab Pt Low 55 Min 84348 Orders: acetaminophen, 640 mg = 20 mL, [...] made to ensure accuracy, however, inadvertently computerized real estate acquisition analyst mistakes may be present. Dr. Denis Freed Hospitalist at [facility] Subjective Patient feels still soreness and discomfort. No other complaints. Talked about eye being open more.There is drainage coming out with the warm compresses. Review of Systems Soreness. Still able to swallow and no difficulty breathing Objective Vitals & Measurements T: 37.9 ?C(Oral) TMIN: 36.8 ?C(Oral) TMAX: 37.9 ?C(Oral) HR: 110(Monitored) RR: 20 BP: 133/58 SpO2:98% HT: 167.5 cm WT: 68.2 kg Intake [...] equal & normal bilaterally, (more content not included)...[facility] HospitalComment on above: Result Comment: Electronically Signed By: Denis FREED MD.favio\Date and Time Signed: 05/27/22 08:28 EDTeGFRon 58-11-3174REI/1.73 sq M.predicted among blacks MDRD (S/P/Bld) [Vol rate/Area]mL/min/{1.73_m2}Normal>=59[facility] CenterComment on above:Order Comment: Order added by Discern Expert.Result Comment: eGFR is race adjusted. AA=.Performed By: #### 4521763, 5061821, 12690516, 5300367, 1428422 #### [facility] [address], [place] [address]EUW/1.73 sq M.predicted among non-blacks MDRD (S/P/Bld) [Vol rate/Area]mL/min/{1.73_m2}Normal>=59[facility] Medical CenterComment on above: Order Comment: Order added by Discern Expert.Result Comment: Chronic kidney disease could be indicated at eGFR's of less than 60 mL/min/1.73m2. Kidney failure is indicated at less than 15 mL/min/1.73m2.Performed By: #### 3878289, 9378660, 24546767, 4026753, 3541017 #### [facility] [address], [place] [address]Rmag Diffon 48-44-4049Aqxinactx/100 WBC (Bld)0.2 %Normal0.0-2.0 [facility] CenterComment on above:Order Comment: Order Added by Discern Expert.Performed By: #### 5642167, 5897113, 59174140, 3180435, 9121055, 03625201 ####[facility] [address] [place], [place] [address]Nmzqazalo/Leukocytes Auto (Bld) [Pure # fraction]0.0 E9/LNormal0.0-0.2 [facility] CenterComment on above:Order Comment: Order Added by Discern Expert.Performed By: #### 0748261, 1421105, 42096020, 1137784, 8056343, 77263092 ####Jonathan [address] [address]Ijhdgqhlhpn/100 WBC (Bld)0.1 %Normal0.0-8.0[facility] Comment on above:Order Comment: Order Added by Discern Expert.Performed By: #### 9948875, 7742740, 88097157, 0416453, 2372996, 07564636 ####[address] [address]Fl[place]/Leukocytes Auto (Bld) [Pure # fraction]0.0 E9/LNormal0.0-0.5FBethesda North HospitalComment on above:Order Comment: Order Added by Discern Expert.Performed By: #### 2363409, 0503114, 83138599, 9544511, 2857422, 88221368 ####[address] [address]Egnkjnsyvsj/100 WBC (Bld)7.1 % Low14.0-50.0[facility] CenterComment on above:Order Comment: Order Added by Discern Expert.Performed By: #### 1974605, 2672532, 97144098, 4797788, 2636124, 83653736 ####[address] [address]Kvsrfsugdwk/Leukocytes Auto (Bld) [Pure # fraction]1.1 E9/L Normal1.0-4.0[facility] CenterComment on above:Order Comment: Order Added by Discern Expert.Performed By: #### 1176191, 6104153, 99215994, 8527942, 3245849, 31173968 ####[address] [address]Povjlcglp/100 WBC (Bld)7.7 %Normal4.0-14.0[facility] CenterComment on above:Order Comment: Order Added by Discern Expert. Performed By: #### 4686085, 8698843, 55543011, 1948872, 4421168, 55471799 ####[address] [place] [address] Monocytes/Leukocytes Auto (Bld) [Pure # fraction]1.2 E9/LHigh0.2-1.0[facility] CenterComment on above:Order Comment: Order Added by Discern Expert. Performed By: #### 8343459, 6033043, 26485144, 6661660, 1613610, 82981025 ####[address] [place] [address] Neutrophils/100 WBC (Bld)84.9 %High36.0-75.0[facility] CenterComment on above:Order Comment: Order Added by Discern Expert.Performed By: #### 4540006, 7349068, 70548755, 9268998, 8911182, 46178833 ####[address] [place], [place] [address]Qkozcpdpkls/Leukocytes Auto (Bld) [Pure # fraction]13.6 E9/LHigh2.0-7.5FBethesda North HospitalComment on above:Order Comment: Order Added by Discern Expert.Performed By: #### 7152917, 4208934, 78210051, 3661152, 9589453, 24289790 ####[address] [place], [place] [address]RSFei 41-05-7122Iotq nitrogen/Creatinine [Mass ratio]CCEQfcsynoo71-19KsgjmmSumma Health [facility] Comment on above:Result Comment: Result verified by Discern Rule. Performed result UTC (Unable to Calculate) was sent as an Alpha code due the inability to calculate a valid numeric value.Performed By: #### 7551038, 7832444, 04160499, 9444736, 7943469, 90943575 ####[address] [place], [place] [address]Horvk gap [Moles/Vol]21 mmol/LHigh 6-16[facility] CenterComment on above:Performed By: #### 4982951, 3487431, 30574131, 4507890, 4912946, 76835055 ####[facility] [address] [place], [place] [address]Hjsayya [Mass/Vol]9.3 mg/dLNormal 8.9-11.1FBethesda North HospitalComment on above:Performed By: #### 2634294, 8537283, 71849668, 3164015, 1338121, 16071276 ####[facility] [address] [place], [place] [address]Jwfzaequ [Moles/Vol]101 mmol/LNormal 101-111[facility] CenterComment on above:Performed By: #### 1415005, 4109311, 38308102, 6418367, 2273013, 92849366 ####[facility] [address] [place], [place] [address]HJ4 [Moles/Vol]11 mmol/WFotnhdzg87-74 [facility] CenterComment on above:Result Comment: Critical Result verified by repeat analysis\Critical Result S_CO2:11.0) Called to ILYA SAMPLES AT by FIORELLA MOMIN and read back for confirmation at 05/26/2022 15:30:3 Performed By: #### 7715337, 0516468, 52470157, 4904493, 0558920, 57807069 ####[facility] [address] [place] [address] Creatinine [Mass/Vol]0.6 mg/dLNormal0.5-1.3FBethesda North HospitalComment on above:Performed By: #### 8006936, 2218586, 55151487, 1712366, 1274514, 03664480 ####[facility] [address] [place] [address] Glucose [Mass/Vol]63 mg/rSTunedv25-010YdjbopSumma Health [facility] - [facility] Medical CenterComment on above:Result Comment: If this glucose result represents a fasting glucose, interpretation should refer tothe following reference range: 55-99 mg/dL Performed By: #### 7153466, 4469900, 05558329, 1266107, 4122869, 09026674 ####[facility] [address] [place] [address] Potassium [Moles/Vol]4.0 mmol/LNormal3.5-5.3FBethesda North HospitalComment on above:Performed By: #### 8644212, 7457174, 27031898, 8701166, 8684750, 79897630 ####[facility] [address] [place], [place] [address]Awvpui [Moles/Vol]129 mmol/RQhk263-760XunmcqSumma Health [facility] - [facility]itt[facility] Medical CenterComment on above:Performed By: #### 3028061, 7342472, 05797917, 7335617, 2709922, 79763010 ####[facility] [address] [place], [place] [address]Qefh nitrogen [Mass/Vol]mg/dLNormal5-21[facility] CenterComment on above: Performed By: #### 5301063, 1681679, 84753072, 4420979, 4110521, 30109513 ####[facility] [address] [place], [place] [address]DJS w/ Auto Diffon 38-74-1158Bfoorykdtmv distribution width (RBC) [Ratio]12.9 % Tbejtr49.9-14.2FBethesda North HospitalComment on above:Order Comment: called for pt in wr x2. will check back later wez821 05/26/2022 14:13:36 EDTPerformed By: #### 0896176, 0328496, 32610554, 4610832, 0614204, 90683667 ####[facility] [address] [place], [place] [address]Hqkmpchfxe (Bld) [Volume fraction]32.5 %Low34.0-46.0[facility] CenterComment on above: Order Comment: called for pt in wr x2. will check back later mir439 05/26/2022 14:13:36 EDTPerformed By: #### 3157957, 3847704, 08547485, 0614200, 9556208, 41855849 ####[facility] [address] [place], [place] [address]Wxtliyeekq (Bld) [Mass/Vol]10.8 g/dLLow12.0-16.0[facility] Comment on above:Order Comment: called for pt in wr x2. will check back later yqn534 05/26/2022 14:13:36 EDTPerformed By: #### 8375473, 3660839, 94277860, 9532969, 1462845, 59748624 ####[facility] [address] [place], [place] [address]OKI (RBC) [Entitic mass]29.9 hnKofaso95.0-34.0 [facility] CenterComment on above:Order Comment: called for pt in wr x2. will check back later wpy910 05/26/2022 14:13:36 EDTPerformed By: #### 0693086, 4108132, 70378340, 3501267, 4266803, 62976867 ####[address] [place], [place] [address]THWZ (RBC) [Mass/Vol]33.3 g/dL Jumypy85.4-36.0[facility] CenterComment on above:Order Comment: called for pt in wr x2. will check back later tbt396 05/26/2022 14:13:36 EDTPerformed By: #### 5947335, 7170861, 24209048, 1081353, 5417371, 36354577 ####[facility] [address] [place], [place] [address]KHC (RBC) [Entitic vol]89.7 nLRcvrzp46.0-100.0[facility] CenterComment on above:Order Comment: called for pt in wr x2. will check back later tpo851 05/26/2022 14:13:36 EDTPerformed By: #### 8954366, 3945141, 49446828, 7342462, 9102134, 28772240 ####[address] [place], [place] [address]Wdahqqga mean volume (Bld) [Entitic vol]8.5 fLNormal6.4-10.8[facility] CenterComment on above:Order Comment: called for pt in wr x2. will check back later dow280 05/26/2022 14:13:36 EDTPerformed By: #### 5017294, 2237720, 04832100, 4492703, 7211121, 70374878 ####[facility] [address] [place], [place] [address]Wdgymnwti (Bld) [#/Vol]288.0 E9/L Gwsupq425.0-500.0[facility] CenterComment on above:Order Comment: called for pt in wr x2. will check back later hyy598 05/26/2022 14:13:36 EDT Performed By: #### 8621812, 6183085, 20169612, 5979668, 8395067, 38300197 ####[address] [place], [place] [address]ZRY (Bld) [#/Vol]3.6 E12/LLow4.3-5.9[facility] CenterComment on above: Order Comment: called for pt in wr x2. will check back later duv269 05/26/2022 14:13:36 EDTPerformed By: #### 8560743, 7329097, 50444512, 2391165, 6934671, 24625307 ####[address] [place], [place] [address]PHC corrected for nucl RBC Auto (Bld) [#/Vol]16.0 E9/LHigh4.0-11.0[facility] CenterComment on above:Order Comment: called for pt in wr x2. will check back later [id number] 05/26/2022 14:13:36 EDTResult Comment: Slide reviewed by MICHELLE.Performed By: #### 6013169, 0574735, 92974260, 7144178, 9949663, 30600882 ####[address] [place] [address] CHEMISTRYOrdered By: SYSTEM SYSTEM on 39-98-5346Iuwqq gap [Moles/Vol]21 mmol/L High6 - 16 mEq/LFTMC RemisolCalcium [Mass/Vol]9.3 mg/dLNormal8.9 - 11.1 mg/dL [facility] RemisolChloride [Moles/Vol]101 mmol/LMdcutm545 - 111 mmol/LFTMC RemisolCO2 [Moles/Vol]11 mmol/LInvalid Interpretation Code21 - 31 mmol/LFTMC RemisolComment on above:Result Comment: Critical Result verified by repeat analysis\Critical Result S_CO2:11.0) Called to ILYA HICKS AT by FIORELLA MOMIN and read back for confirmation at 05/26/2022 15:30:3Creatinine [Mass/Vol]0.6 mg/dLNormal0.5 - 1.3 mg/dLFTMC RemisolGFR/1.73 sq M.predicted among blacks MDRD (S/P/Bld) [Vol rate/Area]mL/min/1.73 n9Lgdmau>=59mL/min/1.73 m2[facility] Chem SGFR/1.73 sq M.predicted among non-blacks MDRD (S/P/Bld) [Vol rate/Area]mL/min/1.73 w4Qvzzvy >=59mL/min/1.73 m2[facility] Chem SGlucose [Mass/Vol]63 mg/qBKgjxzi93 - 199 mg/dLFTMC RemisolLactate [Mass/Vol]0.8 mmol/LNormal0.5 - 2.2 mmol/LFTMC RemisolPotassium [Moles/Vol]4.0 mmol/LNormal3.5 - 5.3 mmol/LFTMC RemisolSodium [Moles/Vol]129 mmol/QAtr063 - 145 mmol/LFTMC RemisolUrea nitrogen [Mass/Vol]mg/dLNormal5 - 21 mg/dLFTMC RemisolUrea nitrogen/Creatinine [Mass ratio]Unable to CalculateInvalid Interpretation Code10 - 20[facility] RemisolCT Maxillofacial w/ Contraston 05-26-2022 CT Maxillofacial w/ ContrastExam Date/Time: 05/26/2022 15:32 EDT Reason for Exam: [...] 07/07/2022 14:37 EST by Negro Rodrigez DO JNBellevue HospitalConsent for Treatmenton 67-91-7760Zwyzcla for Treatment [id number]:127[facility] HospitalConsent for [id number]#1.00CD:127 [facility] Clinical Summaryon [id number] Clinical Summary [id number] ED Clinical Summary Person Information Name: DEEPTI CARDOZA [place] Age: 22 Years : 2000 Sex: Female Language: Barbadian PCP: Juan Carlos Khan MD Marital Status: Single Visit Id: [...] 05/26/2022 17:46:04 05/26/2022 17:46:04 05/26/2022 17:46:04 ADDRESS: [address] [place] [id number] PHYS DOC NOTES: MEDICAL INFORMATION: Prescriptions Given: Medications [...] up: DIAGNOSIS: 1:Facial abscess; 2:Facial cellulitis; 3:Starvation ketoacidosisNozainalJonathan Aguirre Medical CenterED Note-Physicianon 13-26-5619SQ Note-PhysicianBasic Information Time Seen: Domitila Mariano M.D. 05/26/2022 [...] weekend it got worse. [place] [facility] [place] on Tuesday who tried [...] was given 1 L of normal saline thenD5 and normal saline. The case is discussed with Dr. Monroe who agreed with Carlos and he will see the patient in [...] mL, Soln-IV, IV, Once, Stop date 05/26/22 14:56:00EDT, STAT, Start date 05/26/22 14:56:00 EDT, mL/hr, [...] 1000 mL 1,000 mL, 1000 mL, IV [id number] [F], 1000 mL, IV Sodium Chloride 0.9% [...] Vitamin B Complex, Vitamin C, Minerals and L- Methylfolate oral capsule,1 cap(s), Oral, Daily Allergies No Known Allergies Social History Alcohol - No Risk, 01/11/2022 Substance Abuse - No Risk, 01/11/2022 Tobacco - No Risk, 01/11/2022 Lab Res (more content not included)...[facility] HospitalComment on above:Result Comment: Electronically Signed By: Montserrat Verduzco, Domitila Vargas\.br\Date and Time Signed: 05/26/2217:54 EDTED Patient Education Noteon 15-42-1740VM Patient Education NoteNoProMedica [facility] Patient Summaryon [id number] Patient Summary [id number] Patient Discharge Instructions Person Information Name: DEEPTI CARDOZA Age: 22 Years Arrival Date: 05/26/2022 12:44:59 Discharge Diagnosis: 1:Facial abscess; 2:Facial cellulitis; 3:Starvation ketoacidosis Primary Care Physician: Juan Carlos Khan MD Provider Information Primary Provider: Domitila Mariano M.D. Advanced Buggy Man:None The exam and treatment you received in the Emergency Department were for an urgent problem and are not intended as complete care. It is important that you follow up with a doctor, nurse practitioner,or physician?s quality control assistant for ongoing care. If your symptoms become worse or you do not improve as expected and you are unable to reach your usual health care provider, you should return to the Emergency Department. We are available 24 hours a day. DEEPTI CARDOZA has been given the following list of patient education materials, prescriptions andfollow-up instructions: Follow-up Instructions: In the event that this physician does not participate in your insurance network, please consult with your insurance company to find a nearby participating provider. Patient Education Materials: A MESSAGE TO ALL PATIENTS REGARDING OPIOIDS PRESCRIPTION OPIOIDS: WHAT YOU NEED TO KNOW Prescription opioids can be used to help relieve wxftumdi-ip-csddjf pain and are often prescribed following a [...] and have fewer risks and side effects. Optionsmay include: ? Pain relievers such as acetaminophen, [...] unused prescription opioids: Find your community drug take- back program or yourClipsource mail-back program, or flush them down the toilet, following guidance from the Food and Drug Administration (www.fda.gov/Drugs/ResourcesForYou). ? Visit www.cdc.gov/drugoverdose to learn about the risks of opioids abuse and overdose. ? If you believe you may be struggling with addiction, tell your health manager care management and ask for guidance or call [facility]?S National Helpline at 8-366-011-RMPR. y Source: [place] Department of Health and Human Services/Center for Disease Control & Prevention [facility] Medications G (more content not included)...[facility] HEMATOLOGYOrdered By: SYSTEM SYSTEM on 49-46-3568Vjzyxmwmh/100 WBC (Bld)0.2 % Normal0.0 - 2.0 %[facility] HemeAutoSSBasophils/Leukocytes Auto (Bld) [Pure # fraction]0.0 E9/LNormal0.0 - 0.2 E9/L[facility] HemeAutoSSEosinophils/100 WBC (Bld)0.1 %Normal0.0 - 8.0 %[facility] HemeAutoSSEosinophils/Leukocytes Auto (Bld) [Pure # fraction]0.0 E9/LNormal0.0 - 0.5 E9/LFT[facility] HemeAutoSSLymphocytes/100 WBC (Bld)7.1 %Low14.0 - 50.0 %[facility] HemeAutoSSLymphocytes/Leukocytes Auto (Bld) [Pure # fraction]1.1 E9/LNormal1.0 - 4.0 E9/L[facility] HemeAutoSSMonocytes/100 WBC (Bld)7.7 % Normal4.0 - 14.0 %[facility] HemeAutoSSMonocytes/Leukocytes Auto (Bld) [Pure # fraction]1.2 E9/LHigh0.2 - 1.0 E9/L[facility] HemeAutoSSNeutrophils/100 WBC (Bld)84.9 %High36.0 - 75.0 %[facility] HemeAutoSSNeutrophils/Leukocytes Auto (Bld) [Pure # fraction]13.6 E9/LHigh2.0 - 7.5 E9/L[facility] HemeAutoSSHEMATOLOGYOrdered By: Shyann Garcia on 95-38-4759Dckgogynmra distribution width (RBC) [Ratio]12.9 % Dobozy72.9 - 14.2 %[facility] HemeAutoSSHematocrit (Bld) [Volume fraction]32.5 %Low 34.0 - 46.0 %[facility] HemeAutoSSHemoglobin (Bld) [Mass/Vol]10.8 g/dLLow12.0 - 16.0 gm/dLFTMC HemeAutoSSMCH (RBC) [Entitic mass]29.9 zzRngrvs45.0 - 34.0 pgFTMC HemeAutoSSMCHC (RBC) [Mass/Vol]33.3 g/sPFnwbsi45.4 - 36.0 gm/dLFTMC HemeAutoSS MCV (RBC) [Entitic vol]89.7 bGScbizu11.0 - 100.0 fLFTMC HemeAutoSSPlatelet mean volume (Bld) [Entitic vol]8.5 fLNormal6.4 - 10.8 fLFTMC HemeAutoSSPlatelets (Bld) [#/Vol]288.0 E9/JQegxug686.0 - 500.0 E9/L[facility] HemeAutoSSRBC (Bld) [#/Vol] 3.6 E12/LLow4.3 - 5.9 E12/L[facility] HemeAutoSSSed Rate Qoepalego61 mm/hHigh0 - 34 mm/hrFTMC HemeAutoSSWBC corrected for nucl RBC Auto (Bld) [#/Vol]16.0 E9/LHigh 4.0 - 11.0 E9/L[facility] HemeAutoSSComment on above:Result Comment: Slide reviewed by MICHELLE.Lactic Acidon 03-96-5741Heescae [Mass/Vol]0.8 mmol/LNormal0.5-2.2Fisher [facility] Trauma CenterComment on above:Performed By: #### [id number], [id number], [id number], [id number], [id number], [id number] ####[address] [address]Nviyxzbc Note-Nurseon 05-26-2022 Progress Note-NursePatient brought back to ED 14 at this time.NormalSumma Health Wadsworth - Rittman Medical CenterRAD - Consent to Procedureon 11-73-0472VZS - Consent to Procedure [id number]#[id number]:127NormalPremier Healthed Rate Automatedon 70-85-0779Jkd Rate Gkulgnprs56 mm/hrHigh0-34[facility] Rittman Medical CenterComment on above:Performed By: #### [id number], [id number], [id number], [id number], [id number], [id number] ####[address] [address]BX With Cult Reflexon 05-26-2022 Bilirubin Ql (U)NegativeNormalNegativeSumma Health Wadsworth - Rittman Medical CenterComment on above:Performed By: #### [id number] ####[address] [address]Bcwgbkb (U)CLEARNormalClearSumma Health Wadsworth - Rittman Medical CenterComment on above:Performed By: #### [id number] ####[address] [address]Mgzsc (U)YELLOWNormalYellow [facility] Medical CenterComment on above:Performed By: #### [id number] ####[address] [address] Epithelial cells.squamous LM.HPF (Urine sed) [#/Area]0-9Hluyhi2-5Xqypml R [facility] Shock Trauma CenterComment on above:Performed By: #### [id number] ####[address] [address]Smhhksy Test strip (U) [Mass/Vol]NegativeNormalNegativeSumma Health Wadsworth - Rittman Medical CenterComment on above: Performed By: #### [id number] ####[address] [address]Xvxtcmatum Ql (U)TRACEAbnormalNegativeSumma Health Wadsworth - Rittman Medical CenterComment on above:Performed By: #### [id number] ####[address] [address]Nqaqwje (U) [Mass/Vol] 3+AbnormalNegativeSumma Health Wadsworth - Rittman Medical CenterComment on above:Performed By: #### [id number] ####[address] [address]Qfvmyaf.plasma/[place].RBC (Bld) [Mass ratio]9-5Wtdlzr3-6Wdngzy [facility] Shock Trauma CenterComment on above:Performed By: #### [id number] ####[address] [address]Otbnypa Ql (U)Negative NormalNegativeSumma Health Wadsworth - Rittman Medical CenterComment on above:Performed By: #### [id number] ####[address] [address]cX (U)5.5 [pH]Invalid Interpretation Code5.0-9.0[facility] Comment on above:Performed By: #### [id number] ####[address] [address]Tjqsfmb (U) [Mass/Vol]NegativeNormal NegativeSumma Health Wadsworth - Rittman Medical CenterComment on above:Performed By: #### [id number] ####[address] [address] Specific gravity (U) [Rel density]1.020Invalid Interpretation Code1.005-1.030 [facility] Ritt[facility] Medical CenterComment on above:Performed By: #### [id number] ####[address] [address]Ndxp of Urine collection methodClean CatchNormalSumma Health Wadsworth - Rittman Medical CenterComment on above:Performed By: #### [id number] ####[address] [address]Jqzjlkfbkdix Qn (U)0.2 {Kulwinder'U}/dLNormal0.0-1.0 [facility] Trauma CenterComment on above:Performed By: #### [id number] ####[facility] [address] [place], [place] [address]UIL Auto Ql (U)NegativeNormalNegativeFisher R [facility] Cow[facility] Shock Trauma CenterComment on above: Performed By: #### [id number] ####[facility] [address] [place], [place] [address]ACZ LM.HPF (Urine sed) [#/Area]0-9Nrtaac4-2Wpyykp [facility] Trauma CenterComment on above:Performed By: #### [id number] ####[facility] [address] [place], [place] [address]XAWHGJXRRY Ordered By: Fiorella Momin on 12-51-2262Eyauprldi Ql (U)Negative (05/26/22 4:17 PM)NormalNegative[facility] UA Auto SSClarity (U)Clear (05/26/22 4:17 PM)NormalClearFNEWMAN MEMORIAL [facility] UA Auto SSColor (U)Yellow (05/26/22 4:17 PM)NormalYellowMERCY HOS[facility] UA Auto SSEpithelial cells.squamous LM.HPF (Urine sed) [#/Area]0-2 /HPFNormal0-2/HPFFT UA Auto SSGlucose Test strip (U) [Mass/Vol]Negative (05/26/22 4:17 PM)NormalNegativeMER[facility] UA Auto SSHemoglobin Ql (U)Trace *ABN* (05/26/22 4:17 PM)Invalid Interpretation CodeNegativeMER[facility] UA Auto SSKetones (U) [Mass/Vol]3+ *ABN* (05/26/22 4:17 PM)Invalid Interpretation CodeNegativeMER[facility] UA Auto SS [place].plasma/[place].RBC (Bld) [Mass ratio]0-3 /HPFNormal0-3/HPFFT UA Auto SSNitrite Ql (U)Negative (05/26/22 4:17 PM)NormalNegativeMER[facility] UA Auto SSpH (U)5.5 *NA* (05/26/22 4:17 PM)Invalid Interpretation Code5.0 - 9.0[facility] UA Auto SSProtein (U) [Mass/Vol]Negative (05/26/22 4:17 PM)NormalNegativeMER[facility] UA Auto SSSpecific gravity (U) [Rel density]1.020 *NA* (05/26/22 4:17 PM)Invalid Interpretation Code1.005 - 1.030[facility] UA Auto SSUA Spec DescClean Catch (05/26/22 4:17 PM)NormalMERCY HOSPITAL [facility] UA Auto SSUrobilinogen Qn (U)0.8732662 {Kulwinder'U}/dLNormal0.0 - 1.0 EU/dLMERCY HOSPITAL [facility] UA Auto SSWBC Auto Ql (U)Negative (05/26/22 4:17 PM)NormalNegativeMER[facility] UA Auto SSWBC LM.HPF (Urine sed) [#/Area]0- 5 /HPFNormal0-5/HPFMERCY HOSPITAL [facility] UA Auto SSeGFRon 01-15-6895KYH/1.73 sq M.predicted among blacks MDRD (S/P/Bld) [Vol rate/Area]mL/min/{1.73_m2}Normal>=59Sum[facility] Health [facility] - Rittman Medical CenterComment on above:Order Comment: Order added by Discern Expert. Result Comment: eGFR is race adjusted. AA=.Performed By: #### [id number], [id number], [id number], 0076120, 0154343, [id number] ####[facility] [address] [place], [place] [address]XBJ/1.73 sq M.predicted among non-blacks MDRD (S/P/Bld) [Vol rate/Area]mL/min/{1.73_m2}Normal>=59Sum[facility] Rittman Medical CenterComment on above:Order Comment: Order added by Discern Expert. Result Comment: Chronic kidney disease could be indicated at eGFR's of less than 60 mL/min/1.73m2. Kidney failure is indicated at less than 15 mL/min/1.73m2. Performed By: #### [id number], [id number], [id number], [id number], 6478077, [id number] ####[facility] [address] [place], [place] [address]N[place] PREG GROWTHon 72-34-7506AV PREG GROWTHEXAMINATION: US PREG GROWTH HISTORY: Large for gestation [...] Electronically authenticated by: JOHN OSORIO Date: 2022-05-06 17:01[facility]ome[facility] HospitalGLUCOSE - 1HRon 00-52-5684Uwvpgut [Mass/Vol]112 mg/dLCritically cbva44-424Csz [facility] OhioComment on above:Performed By: #### CBC #### [facility] [address] [place] [address] Dr. Carroll PryorHEMOGRAM AND PLATELon 21-94-1029Milgtdisoc (Bld) [Volume fraction]31.2 %Critically low36.0-48.0The [facility] OhioComment on above: Performed By: #### CBC #### [facility] [address] [address] [address] Carroll PryorHemoglobin (Bld) [Mass/Vol]10.7 g/dLCritically low12.0-16.0The [facility] OhioComment on above:Performed By: #### CBC #### [facility] [address] [place] [address] Dr. Carroll PryorUNITED [facility] (RBC) [Entitic mass]31.7 juOivtrb01.7-34.0The [facility] OhioComment on above:Performed By: #### CBC #### [facility] [address] [place] [address] Dr. Carroll Agarwal (RBC) [Mass/Vol]34.3 g/xDYdtmpd43.9-35.2The Houston HospitalComment on above:Performed By: #### CBC #### [facility] [address] [place] [address] Dr. Carroll Agarwal (RBC) [Entitic vol]92.3 bCFlxsuu78.0-99.0The [facility] OhioComment on above:Performed By: #### CBC #### [facility] [address] [place] [address] Dr. Carroll PryorPLT257 103/vcBazdjw377-585Zzv [facility] OhioComment on above: Performed By: #### CBC #### [facility] [address] [place] [address] Dr. Carroll PryorRBC3.38 106/ulCritically low4.20-5.40The [facility] OhioComment on above:Performed By: #### CBC #### [facility] [address] [place] [address] Dr. Carroll PryorWBC10.3 103/ulNormal4.0-11.0The [facility] OhioComment on above:Performed By: #### CBC #### [facility] [address] [place] [address] Dr. Carroll Carey ACOG PANEL 2: 21 to 29on 04-02-2022..NormalThe [facility] OhioComment on above:Result Comment: Performed at: BAPerformed By: #### BMP #### [facility] [address] [place] [address] Dr. Carroll Valle Gdln ACOG Cjivwtj91-06UsmqltMyvUC HealthComment on above:Performed By: #### BMP #### [facility] [address] [place] [address] Dr. Carroll PryorDIAGNOSIS:[facility] on above: Result Comment: NEGATIVE FOR INTRAEPITHELIAL LESION OR MALIGNANCY. Performed at: [facility] Hospitalformed By: #### BMP #### [facility] [address] [place] [address] Dr. Carroll PryorMethodology:[facility] on above: Result Comment: This liquid based ThinPrep(R) pap test was screened with the use of an image guided system. Performed at: Performed By: #### BMP #### [facility] [address] [place] [address] Dr. Carroll PryorNote:CommentSCCI Hospital Lima on above:Result Comment: The Pap smear is a screening test designed to aid in the detection of premalignant and malignant conditions of the uterine cervix. It is not a diagnostic procedure and should not be used as the sole means of detecting cervical cancer. Both false-positive and false-negative reports do occur. . Performed at: [facility] Valleyformed By: #### BMP #### [facility] [address] [place] [address] Dr. Carroll PryorPerformed by:CommentSCCI Hospital Lima on above: Result Comment: Kailee Mota Clean Room Assembler (ASCP) Performed at: [facility] Hospitalformed By: #### BMP #### [address] [place] [address] [address] Carroll PryorReflex Criteria:[facility] on above:Result Comment: The HPV DNA reflex criteria were not met with this specimen result therefore, no HPV testing was performed. . Performed at: [facility] Hospitalformed By: #### BMP #### [facility] [address] [place] [address] Dr. Carroll PryorSpecimekathleen adequacy:[facility] on above:Result Comment: Satisfactory for evaluation. No endocervical component is identified. Performed at: [facility] Hospitalformed By: #### BMP #### [facility] [address] [place] [address] Dr. Carroll PryorCHLAMYDIA/GONOCOCCUS ERINN (SWAB/URINE/PAPon 39-81-1865Fqprseytn trachomatis, NAANegativeNormalNegativeThe [facility] OhioComment on above: Performed By: #### CBC #### [facility] [address] [place] [address] Dr. Carroll PryorNeisseria gonorrhoeae, NAANegativeNormalNegativeThe [facility] OhioComment on above:Performed By: #### CBC #### [facility] [address] [place] [address] Dr. Carroll PryorVAGINITIS/VAGINOSIS DNA PROBEon 68-54-2938Smavoko speciesNegative NormalNegativeThe [facility] OhioComment on above:Performed By: #### UACSIND #### [facility] [address] [place] [address] Dr. Carroll PryorGardnerella vaginalisNegativeLaresNegativeZanesville City Hospital Comment on above:Performed By: #### UACSIND #### [facility] [address] [place] [address] Dr. Carroll PryorTrichomonas vaginalisNegativeNormalNegLake County Memorial Hospital [facility] Comment on above:Performed By: #### UACSIND #### [facility] [address] [place] [address] Dr. Carroll Jett PREG ANATOMY SINGLEon 49-51-9259YZ PREG ANATOMY SINGLE EXAMINATION: US PREG ANATOMY [...] Electronically authenticated by: KELSI MANN Date: 2022-03-01 16:35NoThe [facility] AUTO DIFFon 65-79-4721QVPE #0.0 103/ulNormal0.0-0.1The [facility] OhioComment on above:Performed By: #### CVDTBH #### [facility] [address] [place] [address] Dr. Carroll PryorBasophils/100 WBC (Bld)0.2 %Normal0.2-2.0The [facility] Comment on above:Performed By: #### CVDTBH #### [facility] [address] [place] [address] Dr. Carroll Amaral #0.1 103/ulNormal0.0-0.7The [facility] OhioComment on above: Performed By: #### ALONTBH #### [facility] [address] [place] [address] Dr. Carroll Castleosinophils/100 WBC (Bld)0.6 %Critically low0.9-7.0The [facility] OhioComment on above:Performed By: #### CVDTBH #### [facility] [address] [place] [address] Dr. Carroll Castlerythrocyte distribution width (RBC) [Ratio]12.0 %Ihpock22.0-15.0 The [facility] OhioComment on above:Performed By: #### ALONTBH #### [facility] [address] [place] [address] Dr. Yilan ChangHematocrit (Bld) [Volume fraction]29.6 %Critically low36.0-48.0 The [facility] OhioComment on above:Performed By: #### CVDTBH #### [facility] [address] [place] [address] Dr. Carroll PryorHemoglobin (Bld) [Mass/Vol]10.5 g/dLCritically low12.0-16.0[facility] HospitalComment on above:Performed By: #### CVDTBH #### [facility] [address] [place] [address] Dr. Carroll Iqbal #0.05 10e3/ulCritically high0.00-0.03[facility] Comment on above:Performed By: #### CVDTBH #### [facility] [address] [place] [address] Dr. Carroll Iqbal %0.6 %Critically high0.0-0.5The [facility] OhioComment on above:Performed By: #### CVDTBH #### [facility] [address] [place] [address] Dr. Carroll BowenH #0.3 103/ulCritically low1.2-3.8The [facility] Comment on above:Performed By: #### CVDTBH #### [facility] [address] [place] [address] Dr. Carroll Ngomphocytes/100 WBC (Bld)2.9 %Critically low20.5-60.0[facility] HospitalComment on above:Performed By: #### CVDTBH #### [facility] [address] [place] [address] Dr. Carroll PryorMANUAL DIFF REQNONormalThe [facility] OhioComment on above: Performed By: #### CVDTBH #### [facility] [address] [place] [address] Dr. Carroll Kaye (RBC) [Entitic mass]31.5 bcFyhcjp41.7-34.0The [facility] OhioComment on above:Performed By: #### CVDTBH #### [facility] [address] [address] [address] Carroll AgarwalHC (RBC) [Mass/Vol]35.5 g/dLCritically high29.9-35.2The [facility] OhioComment on above:Performed By: #### CVDTBH #### [facility] [address] [place] [address] Dr. Carroll AgarwalV (RBC) [Entitic vol]88.9 qUGvsnam91.0-99.0The [facility] OhioComment on above:Performed By: #### CVDTBH #### [facility] [address] [place] [address] Dr. Carroll Braga #0.5 103/ulNormal0.3-0.8The [facility] OhioComment on above:Performed By: #### CVDTBH #### [facility] [address] [place] [address] Dr. Carroll Kcocytes/100 WBC (Bld)5.8 %Normal1.7-12.0The [facility] Comment on above:Performed By: #### CVDTBH #### [facility] [address] [place] [address] Dr. Carroll Lema #7.8 103/ulCritically high1.4-6.5The [facility] Comment on above:Performed By: #### CVDTBH #### [facility] [address] [place] [address] Dr. Carroll Damonutrophils/100 WBC (Bld)89.9 %Critically high43.0-75.0The [facility] OhioComment on above:Performed By: #### CVDTBH #### [facility] [address] [place] [address] Dr. Carroll Serralet mean volume (Bld) [Entitic vol]10.4 fLNormal9.5-13.5The [facility] OhioComment on above:Performed By: #### CVDTBH #### [facility] [address] [place] [address] Dr. Carroll MooreT214 103/lhTcroww986-252Wvp [facility] OhioComment on above: Performed By: #### CVDTBH #### [facility] [address] [place] [address] Dr. Carroll PryorRBC3.33 106/ulCritically low4.20-5.40The [facility] OhioComment on above:Performed By: #### CVDTBH #### [facility] [address] [place] [address] Dr. Carroll PryorWBC8.6 103/ulNormal4.0-11.0The [facility] OhioComment on above: Performed By: #### CVDTBH #### [facility] [address] [place] [address] Dr. Carroll Mullinsd-19 PCR ([facility])on 48-99-4639MSER-CoV-2 (COVID-19) RNA ERINN+probe Ql (Unsp spec)DetectedCritically abnormalNOT DETECTEDThe [facility] OhioComment on above:Result Comment: This test is not yet approved or cleared by the [place] FDA. When there are no FDA-approved or cleared tests available, and other criteria are met, FDA can make tests available under an emergency access mechanism called an Emergency Use Authorization (EUA). The EUA for this test is supported by the Management Scientist of Health and Human Service's declaration that circumstances exist to justify the emergency use of in vitro diagnostics for the detection and/or diagnosis of the virusthat causes COVID-19. This EUA will remain in effect for the duration of the COVID-19 declaration ju stifying emergency of IVDs, unless it is terminated or revoked by the FDA (after which the test mayno longer be used).Performed By: #### UACSIND #### [facility] [address] [place] [address] Dr. Carroll Sims 14(COMP METB)on 56-04-5691Ijezjuv [Mass/Vol]3.1 g/dL Critically low3.4-5.0The [facility] OhioComment on above:Performed By: #### CVDTBH #### [facility] [address] [place] [address] Dr. Yilan ChangAlbumin/Globulin [Mass ratio]0.8 {ratio}NormalThe [facility] OhioComment on above:Performed By: #### CVDTBH #### [facility] [address] [place] [address] Dr. Carroll ThompsonP [Catalytic activity/Vol]40 U/LCritically kxc99-703Ijp [facility] OhioComment on above:Performed By: #### CVDTBH #### [facility] [address] [place] [address] Dr. Carroll ThompsonT [Catalytic activity/Vol]10 U/LCritically wqd18-18Tbg [facility] OhioComment on above:Performed By: #### CVDTBH #### [facility] [address] [place] [address] Dr. Carroll Josephon gap [Moles/Vol]15.3 mmol/LNormalThe [facility] Comment on above:Performed By: #### CVDTBH #### [facility] [address] [place] [address] Dr. Carroll PryorAST [Catalytic activity/Vol]11 U/LCritically ixw47-30Zny [facility] OhioComment on above:Performed By: #### CVDTBH #### [facility] [address] [place] [address] Dr. Carroll PryorBilirubin [Mass/Vol]0.3 mg/dLNormal0.2-1.0[facility] Comment on above:Performed By: #### CVDTBH #### [facility] [address] [place] [address] Dr. Carroll PryorCalcium [Mass/Vol]8.7 mg/dLNormal8.5-10.1[facility] Comment on above:Performed By: #### CVDTBH #### [facility] [address] [place] [address] Dr. Carroll PryorChloride [Moles/Vol]103 mmol/MKvywuc72-296VuuZanesville City Hospital Comment on above:Performed By: #### CVDTBH #### [facility] [address] [place] [address] Dr. Carroll PryorCO2 [Moles/Vol]19.1 mmol/LCritically low21.0-32.0The [facility] OhioComment on above:Performed By: #### CVDTBH #### [facility] [address] [address] [address] Carroll PryorCreatinine [Mass/Vol]0.60 mg/dLNormal0.55-1.02The [facility] OhioComment on above:Performed By: #### CVDTBH #### [facility] [address] [address] [address] Carroll CastleGFR-AF SOMALI>60Normal>=60The [facility] OhioComment on above:Performed By: #### CVDTBH #### [facility] [address] [address] [address] Carroll CastleGFR-NON AF SOMALI>60Normal>=60The [facility] OhioComment on above:Performed By: #### CVDTBH #### [facility] [place] [facility] [address] [address] [address] Carroll PryorGlobulin (S) [Mass/Vol]3.8 g/dLNormalThe [facility] OhioComment on above:Performed By: #### CVDTBH #### [facility] [place] [facility] [address] [address] [address] Carroll PryorGlucose [Mass/Vol]88 mg/rTSlgakk85-914Fig [facility] [place] Comment on above:Performed By: #### CVDTBH #### [facility] [place] [facility] [address] [address] [address] Carroll PryorPotassium [Moles/Vol]3.4 mmol/LCritically low3.5-5.1The [facility] OhioComment on above:Performed By: #### CVDTBH #### [facility] [place] [facility] [address] [address] [address] Carroll PryorProtein [Mass/Vol]6.9 g/dLNormal6.4-8.2The [facility] [place] Comment on above:Performed By: #### CVDTBH #### [facility] [place] [facility] [address] [address] [address] Carroll PryorSodium [Moles/Vol]134 mmol/LCritically iws555-455Bad [facility] OhioComment on above:Performed By: #### CVDTBH #### [facility] [place] [facility] [address] [place] [address] Dr. Carroll Howell nitrogen [Mass/Vol]5.0 mg/dLCritically low7.0-18.0The [facility] OhioComment on above:Performed By: #### CVDTBH #### [facility] [place] [facility] [address] [address] [address] Carroll Howell nitrogen/Creatinine [Mass ratio]8.3 mg/mgNormalThe [facility] OhioComment on above:Performed By: #### CVDTBH #### [facility] [place] [facility] [address] [place] [address] Dr. Carroll Ramos Urineon 64-45-9130Wryohgcf identified Cx Nom (U)Microbiology PROCEDURE: Urine Culture [R1] SOURCE: U CleanCatch BODY SITE: COLLECTED DATE/TIME: 01/11/2022 19:59 EDT RECEIVED DATE/TIME: 01/11/2022 21:31 EDT START DATE/TIME: 01/11/2022 21:31 EDT FREE TEXT SOURCE: NUSRAT VILLANUEVA, Hayden SILVERIO MD, Hayden FINAL REPORTS Final Report [] Verified Date/Time: 01/13/2022 06:56 EDT 300 cfu/ml Mixed skin contaminants Performing Locations R1: This test was performed at: [facility], [address] [place] [address], [facility] , , XdcvokRuutbeOhioHealth Van Wert HospitalComment on above:Performed By: #### [id number], [id number] ####[facility] [address] [place] [address]UGHMVLUWW/GONOCOCCUS ERINN (SWAB/URINE/PAPon 01-13-2022 Chlamydia trachomatis, NAANegativeNormalNegativeThe [facility] OhioComment on above:Performed By: #### CBC #### [facility] [place] [facility] [address], [place] [address] Dr. Carroll Damonisseria gonorrhoeae, NAANegativeNormalNegativeThe [facility] OhioComment on above:Performed By: #### CBC #### [facility] [place] [facility] [address], [place] [address] Dr. Carroll Blackmon Summary.on 13-38-2324Utygim Summary. CD:[id number]:[id number]+PGhlYWQ+JO1DXNSaD59wyPGwjO6KS3wASI5KOZFPMOTFMK8CTX5ul AL4ONxpG1NlplOo [file] c2U6 (more content not included)...NormalSumma Health Wadsworth - Rittman Medical CenterNursing Assessmenton 64-12-2031Haaiebv Assessment [id number]#1.00CD:127NormBluffton HospitalConsent for Treatmenton 31-10-8248Yxvunds for Treatment [id number]#1.00CD:[address] [place], [place] [address]Discharge Instructionson 25-38-0524Gvxmwzbco Instructions [id number]#1.00CD:127rmBluffton HospitalER URINE PROFILEon 59-48-6044Pyvsrxesp Ql (U)NegativeNormalNEGATIVEZanesville City HospitalComment on above:Performed By: #### YULIET ROGERS #### [facility] [place] [facility] [address] [address] [address] Carroll Brewer (U)CLEARNormalCLEARZanesville City HospitalComment on above: Performed By: #### YULIET ROGERS #### [facility] [place] [facility] [address] [address] [address] Carroll Vaz (U)YELLOWNormalYELLOWZanesville City HospitalComment on above: Performed By: #### YULIET ROGERS #### [facility] [place] [facility] [address] [address] [address] Carroll Husain micrscopic examination will be performed if indicated. NormalThe Houston HospitalComment on above:Performed By: #### JEREMIAH ROGERSRO #### [facility] [place] [facility] [address] [address] [address] Carroll PryorGlucose Ql (U)NegativeNormalNEGATIVEOhiohealth Berger Hospital HospitalComment on above:Performed By: #### SUE UMJULIETARO #### [facility] [place] [facility] [address] [place] [address] Dr. Carroll PryorHemoglobin Ql (U)LARGEAbnormalNEGATIVEMercy Health [facility]ain Hospital on above:Performed By: #### JEREMIAH ROGERSRO #### [facility] [place] [facility] [address] [place] [address] Dr. Carroll PryorKetones Ql (U)NegativeNormalNEGATIVEZanesville City HospitalComment on above:Performed By: #### SUE UMJULIETARO #### [facility] [place] [facility] [address] [place] [address] Dr. Carroll PryorLEUKOCYTESNegativeNormalNEGATIVEZanesville City HospitalComment on above:Performed By: #### JEREMIAH ROGERSRO #### [facility] [place] [facility] [address] [place] [address] Dr. Carroll PryorNitrite Ql (U)NegativeNormalNEGATIVEZanesville City HospitalComment on above:Performed By: #### SUE UMICRO #### [facility] [place] [facility] [address] [place] [address] Dr. Carroll PryorpH (U)6.0 [pH]Normal5-9Zanesville City HospitalComment on above: Performed By: #### SUE UMJULIETARO #### [facility] [place] [facility] [address] [place] [address] Dr. Carroll PryorSPEC GRAVITY1.771Lhpxrj5.005-<=1.025The [facility] OhioComment on above:Performed By: #### JEREMIAH ROGERSRO #### [facility] [place] [facility] [address] [place] [address] Dr. Carroll Diaz PROTEINNegativeNormalNEGATIVE/ TRACEThe [facility] [place] Comment on above:Performed By: #### YULIET ROGERS #### [facility] [place] [facility] [address] [place] [address] Dr. Carroll Vincent MICRO INDINDICATEDNormalThe [facility] OhioComment on above: Performed By: #### YULIET ROGERS #### [facility] [place] [facility] [address] [address] [address] Carroll Brinkbilinogen Qn (U)0.2 {Kulwinder'U}/dLNormal0.2 - 1.0The [facility] OhioComment on above:Performed By: #### YULIET ROGERS #### [facility] [place] [facility] [address] [place] [address] Dr. Carroll PryorInpatient Clinical Summaryon 37-87-9814Qyymqsgli Clinical Summary [address] [address] Clinical Summary Person Information Name: DEEPTI CARDOZA [facility] Age: 21 Years : 2000 Sex: Female PCP: Juan Carlos Khan MD Marital Status: Single Race: White Ethnicity: Non- or Language: Barbadian Visit Id: Visit Reason: CRAMPING-14 WKS Speciality: Acuity: Obs Enc Type: OB Triage Med Service: Obstetrics Arrival: 01/11/2022 19:10:53 Discharge: 01/11/2022 20:44:00 Dispo Type: Home (Routine DC) Address: [address] [place] [address] [address] [facility] [phone] Provider Notes: Diagnosis: Problems Active (01/11/2022) Smoking [...] Directed as needed Allergy symptoms. ethinyl estradiol-norethindrone (June08/20) 1 Tablets By Mouth every day. multivitamin, [...] Follow up: With: Address: When: Hayden SILVERIO [address] [place] [address], [facility], [facility] [place] [phone] Business (1) Within 1 to 2 days Comments: Call for any problems. Call physician for heavy vaginal bleeding Call office in the morning to schedule an ultrasound Patient Education Information:[facility] HospitalInpatient Patient Summaryon 59-83-0813Hkqrcfkmk Patient Summary [address] [address] Patient Discharge Instructions PERSON INFORMATION Name: DEEPTI CARDOZA Date of : 2000 Current Date: 01/11/2022 21:07:24 PHYSICIANS Admitting Physician: Hayden SILVERIO MD Primary Care Physician: Juan Carlos Khan MD PCP Comment: Discharge Diagnosis: Condition [...] Follow up: With: Address: When: Hayden SILVERIO [address] [place] [address], [address], [facility] [place] [phone] Business (1) Within 1 to 2 days Comments: Call for any problems. Call physician for heavy vaginal bleeding Call office in the morning to schedule an ultrasound In the event that this physician does not participate in your insurance network, please consult with your insurance company to find a nearby participating provider. Comment: INANI JANNA J, have received the attached patient [...] to serve you. [facility] NormalSumma Health W[facility] - Rittman Medical CenterInsurance Correspondenceon 29-30-2890Pypgvzrpk Correspondence [id number]#1.00CD:127NormalSumma Health Wadsworth - Rittman Medical CenterUA With Cult Reflexon 43-65-9905Zpzdxzcy LM Ql (Urine sed)TRACENormalTrace [facility]itt[facility] Medical CenterComment on above:Performed By: #### [id number], [id number] ####[facility] [address] [place] [address] Bilirubin Ql (U)NegativeNormalNegativeSumma Health Wadsworth - Rittman Medical CenterComment on above:Performed By: #### [id number], [id number] ####[address] [address]Fbornip (U)CLEARNormalClearSumma Health Wadsworth - Rittman Medical CenterComment on above:Performed By: #### [id number], [id number] ####[facility] [address] [place] [address]Veiyo (U)YELLOWNormalYellowSumma Health Wadsworth - Rittman Medical CenterComment on above:Performed By: #### [id number], [id number] ####[address] [address]Embuktiqoy cells.squamous LM.HPF (Urine sed) [#/Area]0-2 Normal0-2Fisher [facility] Cow[facility] Shock Trauma CenterComment on above:Performed By: #### [id number], [id number] ####[facility] [address] [place], [place] [address]Uzwvdqx Test strip (U) [Mass/Vol]NegativeNormalNegative [facility] - Rittman Medical CenterComment on above:Performed By: #### [id number], [id number] ####[facility] [address] [place] [address] Hemoglobin Ql (U)2+AbnormalNegativeSumma Health Wadsworth - Rittman Medical CenterComment on above: Performed By: #### [id number], [id number] ####[place] [address] [address]Gnbatoc (U) [Mass/Vol]NegativeNormal NegativeSumma Health Wadsworth - Rittman Medical CenterComment on above:Performed By: #### [id number], [id number] ####[address] [address]Nqvjyet.plasma/[place].RBC (Bld) [Mass ratio]4-57Fxyeew2-4Nikvyz R Adams Cowley Shock Trauma CenterComment on above:Performed By: #### [id number], [id number] ####[address] [address]Mdxtydb Ql (U) NegativeNormalNegativeSumma Health Wadsworth - Rittman Medical CenterComment on above:Performed By: #### [id number], [id number] ####[address] [address]oT (U)6.0 [pH]Invalid Interpretation Code5.0-9.0Sum[facility] Health [facility] - Rittman Medical CenterComment on above:Performed By: #### [id number], [id number] ####[address] [address]Nsafjgx (U) [Mass/Vol]NegativeNormalNegativeSumma Health Wadsworth - Rittman Medical CenterComment on above: Performed By: #### [id number], [id number] ####[address] [address]Jlqoazbo gravity (U) [Rel density] 1.025Invalid Interpretation Code1.005-1.030Sum[facility] Health W[facility] - Rittman Medical CenterComment on above:Performed By: #### [id number], [id number] ####[address] [address]Wywr of Urine collection methodClean CatchNormalSumma Health Wadsworth - Rittman Medical CenterComment on above:Performed By: #### [id number], [id number] ####[address] [address]Gqwqlotlkxfw Qn (U)0.2 {Kulwinder'U}/dLNormal0.0-1.0Summa Health W[facility] - Rittman Medical CenterComment on above:Performed By: #### [id number], [id number] ####[facility] [address] [place], [place] [address]DFW Auto Ql (U)NegativeNormalNegativeSumma Health Wadsworth - Rittman Medical CenterComment on above: Performed By: #### [id number], [id number] ####[facility] [address] [place], [place] [address]MNY LM.HPF (Urine sed) [#/Area]6-15 Abnormal0-5Fisher R [facility] Cow[facility] Shock Trauma CenterComment on above:Performed By: #### [id number], [id number] ####[facility] [address] [place], [place] [address]GJWXZAQYLFAdfhrmr By: Fiorella Momin on 28-68-1169Devcdkvw LM Ql (Urine sed)Trace /HPFNormalTrace/HPFMER[facility] UA Auto SSBilirubin Ql (U)Negative (01/11/22 7:59 PM)NormalNegativeMERCY HOS[facility] [place] [facility] Auto SSClarity (U)Clear (01/11/22 7:59 PM)NormalClearFNEWMAN MEMORIAL [facility] – [facility] UA Auto SSColor (U)Yellow (01/11/22 7:59 PM)NormalYellowMERCY HOSPITAL [facility] [place] [facility]A Auto SSEpithelial cells.squamous LM.HPF (Urine sed) [#/Area]0-2 /HPFNormal0-2/HPFFTMC UA Auto SSGlucose Test strip (U) [Mass/Vol]Negative (01/11/22 7:59 PM)NormalNegativeMERCY HOS[facility] [place] [facility]A Auto SSHemoglobin Ql (U)2+ *ABN* (01/11/22 7:59 PM)Invalid Interpretation CodeNegativeMER[facility]OS[facility] [place] [facility]A Auto SSKetones (U) [Mass/Vol]Negative (01/11/22 7:59 PM)NormalNegativeMERCY HOS[facility] [place] [facility]A Auto SSLithium.plasma/[place].RBC (Bld) [Mass ratio]4-20 /HPFNormal0-3/HPFFTMC UA Auto SSNitrite Ql (U)Negative (01/11/22 7:59 PM)NormalNegativeMER[facility]OS[facility] [place] [facility] Auto SSpH (U)6.0 *NA* (01/11/22 7:59 PM)Invalid Interpretation Code5.0 - 9.0[facility] Auto SSProtein (U) [Mass/Vol]Negative (01/11/22 7:59 PM)NormalNegativeMERCY HOS[facility] [place] [facility]A Auto SSSpecific gravity (U) [Rel density] 1.025 *NA* (01/11/22 7:59 PM)Invalid Interpretation Code1.005 - 1.030[facility] Auto SSUA Spec DescClean Catch (01/11/22 7:59 PM)NormalMERCY HOSPITAL [facility] [place] UA Auto SSUrobilinogen Qn (U)0.911[address] {Kulwinder'U}/dLNormal0.0 - 1.0 EU/dLMERCY HOSPITAL [facility] [place] [facility]A Auto SSWBC Auto Ql (U)Negative (01/11/22 7:59 PM)NormalNegativeMERCY [facility]OS[facility] [place] [facility] Auto SSWBC LM.HPF (Urine sed) [#/Area]6- 15 /HPFInvalid Interpretation Code0-5/HPFMERCY HOSPITAL [facility] [place] [facility]A Auto SSURINE MICROSCOPIC ONLYon 62-52-9078VCJXYHCPUQGVZRcwvftkjRLAH SEENZanesville City HospitalComment on above: Performed By: #### SUE UMICRO #### [facility] [place] [facility] [address] [place] [address] Dr. Carroll Flores identified Cx Nom (U)NOT INDICATEDNormalThe [facility] on above:Performed By: #### ERUR UMICRO #### [facility] [place] [facility] [address] [address] [address] Carroll MorganENAbnormalNONE SEENZanesville City HospitalComtrinity health mus[facility] hospital on above: Performed By: #### ERUR, UMICRO #### [facility] [place] [facility] [address] [address] [address] Carroll Byrnes LM Nom (Urine sed)NONE SEENNormalNONE SEENLutheran Hospital on above:Performed By: #### ERUR, UMICRO #### [facility] [place] [facility] [address] [place] [address] Dr. Hodges ChangEpithelial cells LM Ql (Urine sed)MODERATEAbnormalNONE SEEN /RARE The [facility] OhioComment on above:Performed By: #### ERUR, UMICRO #### [facility] [place] [facility] [address] [address] [address] Carroll AUSTINRALEWISormalLutheran Hospital on above: Performed By: #### ERUR, UMICRO #### [facility] [place] [facility] [address] [address] [address] Carroll TranCOUSNONE SEENNormalNONE SEENHocking Valley Community Hospitalment on above:Performed By: #### ERUR, UMICRO #### [facility] [place] [facility] [address] [address] [address] Carroll PryorJitcoJSR42-77Zusruyoj9-2Zty Bellevue HospitalComment on above: Performed By: #### ERUR, UMICRO #### [facility] [place] [facility] [address] [address] [address] Carroll PryorWBC0-2AbnormalNONE SEENHocking Valley Community Hospitalment on above: Performed By: #### ERUR, UMICRO #### [facility] [place] [facility] [address] [address] [address] Carroll Jett PREG PLACENTAon 64-79-7755TG PREG PLACENTAEXAMINATION: US PREG PLACENTA HISTORY: Abnormal vaginal bleeding COMPARISON: No relevant comparison available. FINDINGS: PLACENTA: Posterior, grade 0. No mass, subchorionic hematoma, or abruption. HEART RATE: 142 OTHER: None. IMPRESSION: 1. Early intrauterine 14 weeks, 2 days. 2. Unremarkable posterior placenta. Electronically authenticated by: KELSI MANN Date: 2022-01-11 13:58NoUC HealthWET PREPon 35-57-1200WFPM CELLSNONE SEENNormalNONE SEENHocking Valley Community Hospitalment on above:Performed By: #### CBC #### [facility] [place] [facility] [address] [address] [address] Carroll WilsonNGHOA ELEMENTSNONE SEENNormalNONE SEENMercy Health [facility]ain Hospital on above:Performed By: #### CBC #### [facility] [place] [facility] [address] [address] [address] Carroll PryorRBC -WET PREPNONE SEENNormalNONE SEENZanesville City HospitalComment on above:Performed By: #### CBC #### [facility] [place] [facility] [address] [place] [address] Dr. Carroll PryorTRICHOMONASNONE SEENNormalNONE SEENThe [facility] OhioComment on above:Performed By: #### CBC #### [facility] [place] [facility] [address] [place] [address] Dr. Carroll PryorWBC- WET PREPNONE SEENNormalNONE SEENZanesville City HospitalComment on above:Performed By: #### CBC #### [facility] [place] [facility] [address] [place] [address] Dr. Carroll Bermeo PREP BACTERIANONE SEENNormalNONE SEENZanesville City Hospital Comment on above:Performed By: #### CBC #### [facility] [place] [facility] [address] [place] [address] Dr. Carroll Armando B SURFACE ANTIGEN SCREENon 63-72-2729FNkVz ScreenNegative NormalNegativeThe [facility] OhioComment on above:Performed By: #### CVDTBH #### [facility] [place] [facility] [address] [place] [address] Dr. Carroll Cooper C VIRUS AB W/ REFLEX QUANTon 23-09-2143DYX AB0.1 s/co ratioNormal0.0-0.9The [facility] OhioComtrinity health [facility] on above:Performed By: #### CVDTBH #### [facility] [place] [facility] [address] [place] [address] Dr. Carroll PryorInterpretation:CommentPomerene HospitalComment on above:Result Comment: Negative Not infected with HCV, unless recent infection is suspected or other evidence exists to indicate HCV infection.Performed By: #### CVDTBH #### [facility] [place] [facility] [address] [place] [address] Dr. Carroll Bowers 1 AND 2 WITH REFLEXon 20-30-5698IWS Screen 4th Generation wRfxNon-ReactiveNormalNon ReactiveThe [facility] OhioComment on above:Result Comment: HIV Negative HIV-1/HIV-2 antibodies and HIV-1 p24 antigen were NOT detected. There is no laboratory evidence of HIV infection.Performed By: #### CVDTBH #### [facility] [place] [facility] [address] [place] [address] Dr. Carroll Cao QUANTon 93-36-8799Vrpvw Plasma Reagin, QuantNon-Reactive NormalNonRea<1:1The [facility] OhioComment on above:Result Comment: Please Note: This test does not meet current guidelines for screening and diagnosis of syphilis. This test is intended for following treatment response in patients being treated for syphilis infection. To screen for syphilis infection, a reflex cascade that includes both RPR and a treponema-specific assay should be utilized, such as Treponema pallidum (Syphilis) Screening [place]oke (847781) or Rapid Plasma Reagin (RPR) Test With Reflex to Quantitative RPR and Confirmatory Treponema pallidum Antibodies (346833).Performed By: #### BMP #### [facility] [place] [facility] [address] [place] [address] Dr. Carroll Tracy AB IGGon 20-39-1241Ocpqmes Antibodies, IgG1.27 index NormalImmune >0.99The [facility] OhioComment on above:Result Comment: Non- immune <0.90 Equivocal 0.90 - 0.99 Immune >0.99Performed By: #### CVDTBH #### [facility] [place] [facility] [address] [place] [address] Dr. Carroll Atkinson AUTO DIFFon 51-47-6863IMRV #0.0 103/ulNormal0.0-0.1The [facility] OhioComment on above:Performed By: #### UACSIND #### [facility] [place] [facility] [address] [place] [address] Dr. Carroll PryorBasophils/100 WBC (Bld)0.2 %Normal0.2-2.0The [facility] [place] Comment on above:Performed By: #### UACSIND #### [facility] [place] [facility] [address] [place] [address] Dr. Hodges ChangEO #0.1 103/ulNormal0.0-0.7The [place] HospitalComment on above: Performed By: #### UACSIND #### [facility] [place] [facility] [address] [place] [address] Dr. Carroll Castleosinophils/100 WBC (Bld)0.4 %Critically low0.9-7.0The [facility] OhioComment on above:Performed By: #### UACSIND #### [facility] [place] [facility] [address] [place] [address] Dr. Carroll Castlerythrocyte distribution width (RBC) [Ratio]11.7 %Aiblxs13.0-15.0 The [facility] OhioComment on above:Performed By: #### UACSIND #### [facility] [place] [facility] [address] [place] [address] Dr. Carroll PryorHematocrit (Bld) [Volume fraction]37.9 %Tptgni75.0-48.0The [facility] OhioComment on above:Performed By: #### UACSIND #### [facility] [place] [facility] [address] [place] [address] Dr. Carroll PryorHemoglobin (Bld) [Mass/Vol]13.0 g/wZZrqtsg64.0-16.0The [facility] OhioComment on above:Performed By: #### UACSIND #### [facility] [place] [facility] [address] [place] [address] Dr. Carroll Iqbal #0.05 10e3/ulCritically high0.00-0.03The [facility] [place] Comment on above:Performed By: #### UACSIND #### [facility] [place] [facility] [address] [place] [address] Dr. Carroll Iqbal %0.4 %Normal0.0-0.5The [facility] OhioComment on above: Performed By: #### UACSIND #### [facility] [place] [facility] [address] [place] [address] Dr. Carroll Holguin #1.6 103/ulNormal1.2-3.8The [facility] OhioComment on above:Performed By: #### UACSIND #### [facility] [place] [facility] [address] [place] [address] Dr. Carroll Ngomphocytes/100 WBC (Bld)12.6 %Critically low20.5-60.0The [facility] OhioComment on above:Performed By: #### UACSIND #### [facility] [place] [facility] [address] [place] [address] Dr. Carroll MarvinUAL DIFF REQNONormalThe [facility] OhioComment on above: Performed By: #### UACSIND #### [facility] [place] [facility] [address] [place] [address] Dr. Carroll Agarwal (RBC) [Entitic mass]30.3 znLxdmmo96.7-34.0The [facility] OhioComment on above:Performed By: #### UACSIND #### [facility] [place] [facility] [address] [place] [address] Dr. Carroll Agarwal (RBC) [Mass/Vol]34.3 g/yKFzfgfi10.9-35.2The [facility] OhioComment on above:Performed By: #### UACSIND #### [facility] [place] [facility] [address] [place] [address] Dr. Carroll Agarwal (RBC) [Entitic vol]88.3 uBHawxwi71.0-99.0The [facility] OhioComment on above:Performed By: #### UACSIND #### [facility] [place] [facility] [address] [place] [address] Dr. Carroll Braga #0.7 103/ulNormal0.3-0.8The [facility] OhioComment on above:Performed By: #### UACSIND #### [facility] [place] [facility] [address] [place] [address] Dr. Carroll Kcocytes/100 WBC (Bld)5.2 %Normal1.7-12.0The [facility] Comment on above:Performed By: #### UACSIND #### [facility] [address] [place] [address] Dr. Carroll Lema #10.5 103/ulCritically high1.4-6.5The [facility] Comment on above:Performed By: #### UACSIND #### [facility] [address] [address] [address] Carroll Damonutrophils/100 WBC (Bld)81.2 %Critically high43.0-75.0The [facility] OhioComment on above:Performed By: #### UACSIND #### [facility] [address] [place] [address] Dr. Carroll PryorPlatelet mean volume (Bld) [Entitic vol]9.9 fLNormal9.5-13.5The [facility] OhioComment on above:Performed By: #### UACSIND #### [facility] [address] [place] [address] Dr. Carroll PryorPLT285 103/qkJffaad168-923Zds [facility] OhioComment on above: Performed By: #### UACSIND #### [facility] [address] [place] [address] Dr. Carroll PryorRBC4.29 106/ulNormal4.20-5.40The [facility] OhioComment on above:Performed By: #### UACSIND #### [facility] [address] [place] [address] Dr. Carroll PryorWBC12.9 103/ulCritically high4.0-11.0The [facility] OhioComment on above:Performed By: #### UACSIND #### [facility] [address] [place] [address] Dr. Carroll PryorCULTURE URINEon 82-94-8587VWNYDHY URINECulture Observations: MODERATE GROWTH OF MIXED GENITAL BRIAN. NO POTENTIAL PATHOGENS SEEN.NormalThe [facility] OhioComment on above:Performed By: #### UACSIND #### [facility] [address] [place] [address] Dr. Carroll PryorGLYCOHEMOGLOBIN A1Con 34-00-8072URA RECOMMENDATIONSEE BELOWNormal The [facility] OhioComment on above:Result Comment: ADA RECOMMENDED LIMIT 4.0 - 6.0 ADA THERAPEUTIC TARGET < 7.0 ACTION SUGGESTED > 7.0Performed By: #### CVDTBH #### [facility] [address] [place] [address] Dr. Carroll PryorGlucose [Mass/Vol]105 mg/dLNoUC HealthComment on above:Performed By: #### CVDTBH #### [facility] [address] [place] [address] Dr. Carroll PryorHbA1c (Bld) [Mass fraction]5.3 %Normal4.5-6.2The [facility] OhioComment on above:Performed By: #### CVDTBH #### [facility] [address] [place] [address] Dr. Carroll Sarah BOX TEST PT SEND OUTon [id number] TO REF LAB12/23/2021 NormalThe [facility] OhioComment on above:Performed By: #### NBOX #### [facility] [address] [place] [address] Dr. Carroll PryorTYPE AND SCREENon 44-63-0916EQRO AND SCREENNegativeNoUC HealthComment on above:Performed By: #### UACSIND #### [facility] [address] [place] [address] Dr. Carroll KimC AUTO DIFFon 50-32-1920OZVC #0.0 103/ulNormal0.0-0.1The [facility] OhioComment on above:Performed By: #### CBC #### [facility] [address] [place] [address] Dr. Carroll PryorBasophils/100 WBC (Bld)0.3 %Normal0.2-2.0The [facility] Comment on above:Performed By: #### CBC #### [facility] [address] [place] [address] Dr. Carroll Amaral #0.1 103/ulNormal0.0-0.7The [facility] OhioComment on above: Performed By: #### CBC #### [facility] [address] [place] [address] Dr. Carroll Castleosinophils/100 WBC (Bld)1.2 %Normal0.9-7.0The [facility] Comment on above:Performed By: #### CBC #### [facility] [address] [place] [address] Dr. Carroll Castlerythrocyte distribution width (RBC) [Ratio]11.4 %Bggquy74.0-15.0 [facility] HospitalComment on above:Performed By: #### CBC #### [facility] [address] [place] [address] Dr. Carroll PryorHematocrit (Bld) [Volume fraction]35.4 %Critically low36.0-48.0 [facility] HospitalComment on above:Performed By: #### CBC #### [facility] [address] [place] [address] Dr. Carroll PryorHemoglobin (Bld) [Mass/Vol]12.2 g/qHGbttif20.0-16.0The [facility] OhioComment on above:Performed By: #### CBC #### [facility] [address] [place] [address] Dr. Carroll Iqbal #0.02 10e3/ulNormal0.00-0.03The [facility] OhioComment on above:Performed By: #### CBC #### [facility] [address] [place] [address] Dr. Carroll Iqbal %0.3 %Normal0.0-0.5ThSelect Medical Specialty Hospital - AkronComment on above: Performed By: #### CBC #### [facility] [address] [place] [address] Dr. Carroll BowenH #1.4 103/ulNormal1.2-3.8The [facility] OhioComment on above:Performed By: #### CBC #### [facility] [address] [place] [address] Dr. Carroll Ngomphocytes/100 WBC (Bld)18.4 %Critically low20.5-60.0[facility] HospitalComment on above:Performed By: #### CBC #### [facility] [address] [place] [address] Dr. Yilan ChangMANUAL DIFF REQNONormalThe [facility] OhioComment on above: Performed By: #### CBC #### [facility] [address] [place] [address] Dr. Carroll Agarwal (RBC) [Entitic mass]30.7 jzLglidg65.7-34.0The [facility] OhioComment on above:Performed By: #### CBC #### [facility] [address] [place] [address] Dr. Carroll Agarwal (RBC) [Mass/Vol]34.5 g/gEHdpjhn68.9-35.2The Houston HospitalComment on above:Performed By: #### CBC #### [facility] [address] [place] [address] Dr. Carroll Agarwal (RBC) [Entitic vol]88.9 iTHghtrd72.0-99.0The [facility] OhioComment on above:Performed By: #### CBC #### [facility] [address] [place] [address] Dr. Carroll Braga #0.4 103/ulNormal0.3-0.8The [facility] OhioComment on above:Performed By: #### CBC #### [facility] [address] [place] [address] Dr. Carroll Kcocytes/100 WBC (Bld)5.5 %Normal1.7-12.0The [facility] Comment on above:Performed By: #### CBC #### [facility] [address] [place] [address] Dr. Carroll Lema #5.6 103/ulNormal1.4-6.5The [facility] OhioComment on above:Performed By: #### CBC #### [facility] [address] [place] [address] Dr. Carroll aDmonutrophils/100 WBC (Bld)74.3 %Gjohqo90.0-75.0The [facility] OhioComment on above:Performed By: #### CBC #### [facility] [address] [place] [address] Dr. Carroll Garibay mean volume (Bld) [Entitic vol]10.1 fLNormal9.5-13.5The [facility] OhioComment on above:Performed By: #### CBC #### [facility] [address] [place] [address] Dr. Carroll PryorPLT251 103/dvWzrnpa700-970Hax [facility] OhioComment on above: Performed By: #### CBC #### [facility] [address] [place] [address] Dr. Carroll PryorRBC3.98 106/ulCritically low4.20-5.40The [facility] OhioComment on above:Performed By: #### CBC #### [facility] [address] [place] [address] Dr. Carroll PryorWBC7.5 103/ulNormal4.0-11.0The [facility] OhioComment on above: Performed By: #### CBC #### [facility] [address] [place] [address] Dr. Carroll Chinchilla URINE PROFILEon 83-03-9354Hzefczjac Ql (U)NegativeNormal NEGATIVEZanesville City HospitalComtrinity [facility] on above:Performed By: #### CVDTBH #### [facility] [address] [place] [address] Dr. Carroll Brewer (U)CLEARNormalCLEARZanesville City HospitalComtrinity health [facility] on above: Performed By: #### CVDTBH #### [facility] [address] [place] [address] Dr. Carroll Vaz (U)YELLOWNormalYELLOWZanesville City HospitalComment on above: Performed By: #### CVDTBH #### [facility] [address] [place] [address] Dr. Carroll Husain micrscopic examination will be performed if indicated. NormalThe [facility] OhioComtr[facility] health [facility] on above:Performed By: #### CVDTBH #### [facility] [address] [place] [address] Dr. Carroll PryorGlucose Ql (U)NegativeNormalNEGATIVEZanesville City HospitalComment on above:Performed By: #### CVDTBH #### [facility] [address] [address] [address] Carroll PryorHemoglobin Ql (U)NegativeNormalNEGSycamore Medical Center Comment on above:Performed By: #### CVDTBH #### [facility] [address] [address] [address] Carroll PryorKetones Ql (U)NegativeNormalNEGATIVEZanesville City HospitalComment on above:Performed By: #### CVDTBH #### [facility] [address] [address] [address] Carroll PryorLEUKOCYTESNegativeNormalNEGATIVEZanesville City HospitalComment on above:Performed By: #### CVDTBH #### [facility] [address] [place] [address] Dr. Carroll PryorNitrite Ql (U)NegativeNormalNEGATIVEZanesville City HospitalComment on above:Performed By: #### CVDTBH #### [facility] [address] [place] [address] Dr. Carroll PryorpH (U)6.0 [pH]Normal5-9[facility] HospitalComment on above: Performed By: #### CVDTBH #### [facility] [address] [place] [address] Dr. Carroll PryorSPEC GRAVITY>=1.405Ubbzohqm0.005-<=1.025[facility] Comment on above:Performed By: #### CVDTBH #### [facility] [address] [place] [address] Dr. Carroll Diaz PROTEINNegativeNormalNEGATIVE/ TRACEZanesville City Hospital Comment on above:Performed By: #### CVDTBH #### [facility] [address] [place] [address] Dr. Carroll Vincent MICRO INDNOT [facility] CenterComment on above:Performed By: #### CVDTBH #### [facility] [address] [place] [address] Dr. Carroll PryorUrobilinogen Qn (U)0.2 {Kulwinder'U}/dLNormal0.2 - 1.0The [facility] OhioComment on above:Performed By: #### CVDTBH #### [facility] [address] [address] [address] Carroll CornejoF CHEM 8 (BAS METB)on 94-53-1896Xfixa gap [Moles/Vol]10.2 mmol/LNormalThe [facility] OhioComment on above:Performed By: #### BMP #### [facility] [address] [address] [address] Carroll PryorCalcium [Mass/Vol]8.7 mg/dLNormal8.5-10.1The [facility] Comment on above:Performed By: #### BMP #### [facility] [address] [place] [address] Dr. Carroll PryorChloride [Moles/Vol]106 mmol/TYiofql32-925Xum [facility] Comment on above:Performed By: #### BMP #### [facility] [address] [place] [address] Dr. Carroll PryroCO2 [Moles/Vol]26.8 mmol/KZpxcmo35.0-32.0The [facility] Comment on above:Performed By: #### BMP #### [facility] [address] [place] [address] Dr. Carroll PryorCreatinine [Mass/Vol]0.56 mg/dLNormal0.55-1.02The [facility] OhioComment on above:Performed By: #### BMP #### [facility] [address] [place] [address] Dr. Carroll CastleGFR-AF SOMALI>60Normal>=60The [facility] OhioComment on above:Performed By: #### BMP #### [facility] [address] [address] [address] Carroll CastleGFR-NON AF SOMALI>60Normal>=60The [facility] OhioComment on above:Performed By: #### BMP #### [facility] [address] [address] [address] Carroll PryorGlucose [Mass/Vol]89 mg/rBRnykym81-684NxqZanesville City Hospital Comment on above:Performed By: #### BMP #### [facility] [address] [address] [address] Carroll PryorPotassium [Moles/Vol]4.0 mmol/LNormal3.5-5.1[facility] Comment on above:Performed By: #### BMP #### [facility] [address] [address] [address] Carroll PryorSodium [Moles/Vol]139 mmol/VEzxqce972-492Fcy [facility] Comment on above:Performed By: #### BMP #### [facility] [address] [place] [address] Dr. Carroll PryorUrea nitrogen [Mass/Vol]6.0 mg/dLCritically low7.0-18.0[facility] HospitalComment on above:Performed By: #### BMP #### [facility] [address] [place] [address] Dr. Carroll Howell nitrogen/Creatinine [Mass ratio]10.7 mg/mgNormalThe [facility] OhioComment on above:Performed By: #### BMP #### [facility] [address] [place] [address] Dr. Carroll PryorUS KIDNEYS BLADDERon 10-92-1012OQ KIDNEYS BLADDEREXAM: US KIDNEYS BLADDER HISTORY: Personal history of urinary calculi COMPARISON: [...] Electronically authenticated by: EMILY PETERSON Date: 2021-12-16 12:21[facility] HospitalUS PREG TVon [id number] PREG TVEXAMINATION: US PREG TV HISTORY: Missed period COMPARISON: [...] Electronically authenticated by: JOHN OSORIO Date: 2021-12-04 16:14[facility] HospitalPREG QUANT HCGon 82-10-9014ZWD QUIHW707 mIU/mLNProMedica Toledo HospitalComment on above:Performed By: #### CBC #### [facility] [address] [place] [address] Dr. Carroll NICHOLSON BELOWPomerene HospitalComment on above: Result Comment: 5-50 0-1 WEEK 40-300 1-2 WEEKS 100-1,000 2-3 WEEKS 500-6,000 3-4 WEEKS 5,000-200,000 1-2 MONTHS 10,000-100,000 2-3 MONTHS 3,000-50,000 2ND TRIMESTER 1,000-50,000 3RD TRIMESTERPerformed By: #### CBC #### [facility] [address] [place] [address] Dr. Carroll Narvaez AND RH TYPEon [id number] and Rh group Nom (Bld)ABO Rh Typing A Rh PositiveNormalThe [facility] OhioComment on above:Performed By: #### UACSIND #### [facility] [address] [place] [address] Dr. Carroll Atkinson AUTO DIFFon 55-21-4347KESF #0.0 103/ulNormal0.0-0.1The [facility] OhioComment on above:Performed By: #### CBC #### [facility] [address] [place] [address] Dr. Carroll PryorBasophils/100 WBC (Bld)0.3 %Normal0.2-2.0The [facility] Comment on above:Performed By: #### CBC #### [facility] [address] [place] [address] Dr. Carroll Amaral #0.2 103/ulNormal0.0-0.7The [facility] OhioComment on above: Performed By: #### CBC #### [facility] [address] [place] [address] Dr. Carroll Castleosinophils/100 WBC (Bld)2.4 %Normal0.9-7.0The [facility] Comment on above:Performed By: #### CBC #### [facility] [address] [place] [address] Dr. Carroll Castlerythrocyte distribution width (RBC) [Ratio]11.8 %Icwolk33.0-15.0 The [facility] OhioComment on above:Performed By: #### CBC #### [facility] [address] [place] [address] Dr. Carroll PryorHematocrit (Bld) [Volume fraction]40.8 %Rvwove03.0-48.0The [facility] OhioComment on above:Performed By: #### CBC #### [facility] [address] [place] [address] Dr. Carroll PryorHemoglobin (Bld) [Mass/Vol]13.7 g/uMPmijrp74.0-16.0The [facility] OhioComment on above:Performed By: #### CBC #### [facility] [address] [place] [address] Dr. Carroll Iqbal #0.01 10e3/ulNormal0.00-0.03The [facility] OhioComment on above:Performed By: #### CBC #### [facility] [address] [place] [address] Dr. Carroll Iqbal %0.1 %Normal0.0-0.5The [facility] OhioComtr[facility] on above: Performed By: #### CBC #### [facility] [address] [place] [address] Dr. Carroll Holguin #2.1 103/ulNormal1.2-3.8The [facility] OhioComment on above:Performed By: #### CBC #### [facility] [address] [place] [address] Dr. Carroll Bowenhocytes/100 WBC (Bld)31.2 %Fueboz25.5-60.0The [facility] OhioComment on above:Performed By: #### CBC #### [facility] [address] [place] [address] Dr. Carroll MarvinUAL DIFF REQNONormalThe [facility] OhioComment on above: Performed By: #### CBC #### [facility] [address] [place] [address] Dr. Carroll Agarwal (RBC) [Entitic mass]30.0 eyJimkwo99.7-34.0The [facility] OhioComment on above:Performed By: #### CBC #### [facility] [address] [place] [address] Dr. Carroll Agarwal (RBC) [Mass/Vol]33.6 g/dLCbeilk20.9-35.2The [facility] OhioComment on above:Performed By: #### CBC #### [facility] [address] [address] [address] Carroll AgarwalV (RBC) [Entitic vol]89.5 bKBnioao70.0-99.0The [facility] OhioComment on above:Performed By: #### CBC #### [facility] [address] [address] [address] Carroll Braga #0.5 103/ulNormal0.3-0.8The [facility] OhioComment on above:Performed By: #### CBC #### [facility] [address] [place] [address] Dr. Carroll cKocytes/100 WBC (Bld)7.7 %Normal1.7-12.0The [facility] on above:Performed By: #### CBC #### [facility] [address] [place] [address] Dr. Carroll Lema #3.9 103/ulNormal1.4-6.5The [facility] OhioComment on above:Performed By: #### CBC #### [facility] [address] [place] [address] Dr. Carroll Damonutrophils/100 WBC (Bld)58.3 %Lzbvlf81.0-75.0The [facility]amisburgment on above:Performed By: #### CBC #### [facility] [address] [place] [address] Dr. Carroll Serralet mean volume (Bld) [Entitic vol]9.7 fLNormal9.5-13.5The [facility] OhioComment on above:Performed By: #### CBC #### [facility] [address] [place] [address] Dr. Carroll PryorPLT301 103/xwXwvics074-183Qfj [facility] OhioComment on above: Performed By: #### CBC #### [facility] [address] [place] [address] Dr. Carroll PryorRBC4.56 106/ulNormal4.20-5.40The [facility] Miamisburgment on above:Performed By: #### CBC #### [facility] [address] [address] [address] Carroll PryorWBC6.7 103/ulNormal4.0-11.0[facility] on above: Performed By: #### CBC #### [facility] [address] [address] [address] Carroll Chinchilla URINE PROFILEon 88-44-9801Xngzmitzp Ql (U)NegativeNormal NEGATIVELutheran Hospital on above:Performed By: #### CBC #### [facility] [address] [address] [address] Carroll PryorClarity (U)CLEARNormalCLEARLutheran Hospital on above: Performed By: #### CBC #### [facility] [address] [address] [address] Carroll PryorColor (U)YELLOWNormalYELLOWHocking Valley Community Hospitalment on above: Performed By: #### CBC #### [facility] [address] [address] [address] Carroll LuuGEORGE micrscopic examination will be performed if indicated. NormalLutheran Hospital on above:Performed By: #### CBC #### [facility] [address] [address] [address] Carroll PryorGlucose Ql (U)NegativeNormalNEGATIVEHocking Valley Community Hospitalment on above:Performed By: #### CBC #### [facility] [address] [address] [address] Carroll PryorHemoglobin Ql (U)LARGEAbnormalNEGATIVEMercy Health [facility] Hospital on above:Performed By: #### CBC #### [facility] [address] [address] [address] Carroll PryorKetones Ql (U)NegativeNormalNEGATIVEHocking Valley Community Hospitalment on above:Performed By: #### CBC #### [facility] [address] [address] [address] Carroll PryorLEUKOCYTESNegativeNormalNEGATIVEThe Hilaria HospitalComment on above:Performed By: #### CBC #### [facility] [address] [address] [address] Carroll Arceo Ql (U)NegativeNormalNEGATIVEThe [facility] OhioComment on above:Performed By: #### CBC #### [facility] [address] [place] [address] Dr. Carroll PryorpH (U)6.0 [pH]Normal5-9The [facility] OhioComment on above: Performed By: #### CBC #### [facility] [address] [place] [address] Dr. Carroll PryorSPEC GRAVITY1.434Rfdfoqzo4.005-<=1.025[facility] Comment on above:Performed By: #### CBC #### [facility] [address] [place] [address] Dr. Carroll Diaz PROTEINNegativeNormalNEGATIVE/ TRACEZanesville City Hospital Comment on above:Performed By: #### CBC #### [facility] [address] [place] [address] Dr. Carroll Vincent MICRO INDINDICATEDPomerene HospitalComment on above: Performed By: #### CBC #### [facility] [address] [place] [address] Dr. Carroll Brinkbilinogen Qn (U)0.2 {Kulwinder'U}/dLNormal0.2 - 1.0Z[facility] City HospitalComment on above:Performed By: #### CBC #### [facility] [address] [place] [address] Dr. Carroll Hurst QUANT HCGon 88-69-4305AVA YIVWE803 mIU/mLNormalThe [facility] OhioComment on above:Performed By: #### UACSIND #### [facility] [address] [place] [address] Dr. Carroll Contreras RANGESEE BELOWPomerene HospitalComment on above: Result Comment: 5-50 0-1 WEEK 40-300 1-2 WEEKS 100-1,000 2-3 WEEKS 500-6,000 3-4 WEEKS 5,000-200,000 1-2 MONTHS 10,000-100,000 2-3 MONTHS 3,000-50,000 2ND TRIMESTER 1,000-50,000 3RD TRIMESTERPerformed By: #### UACSIND #### [facility] [address] [place] [address] Dr. Carroll PryorPREGNANCY URon 12-47-7545WJRFDIZGM, QUALPositiveAbnormalNEGATIVE The [facility] on above:Performed By: #### UACSIND #### [facility] [address] [address] [address] Carroll Beltran MICROSCOPIC ONLYon 76-24-2760OCFOSYLYOAFB SEENNormalNONE SEENLutheran Hospital on above:Performed By: #### CBC #### [facility] [facility] [address] [place] [address] Dr. Carroll Flores identified Cx Nom (U)NOT INDICATEDNoHighland District Hospital on above:Performed By: #### CBC #### [facility] [address] [place] [address] Dr. Carroll Daley SEENNormalNONE SEENLutheran Hospital on above:Performed By: #### CBC #### [facility] [address] [place] [address] Dr. Carroll Kangystals LM Nom (Urine sed)NONE SEENNormalNONE SEENLutheran Hospital on above:Performed By: #### CBC #### [facility] [address] [place] [address] Dr. Carroll Sanchezthelial cells LM Ql (Urine sed)FEWAbnormalNONE SEEN /RAREThe [facility] on above:Performed By: #### CBC #### [facility] [address] [place] [address] Dr. Carroll SaulACEAbnormalNONE SEENZanesville City HospitalComtrinity health [facility] on above:Performed By: #### CBC #### [facility] [address] [place] [address] Dr. Carroll WallaceDqdnoUDF6-4Mtiyqpfd1-0Tze Bellevue HospitalComment on above:Performed By: #### CBC #### [facility] [place] [facility] [address], [place] [address] Dr. Carroll PryorWBC0-2AbnormalNONE SEENThe [facility] [place]Comment on above: Performed By: #### CBC #### [facility] [place] [facility] [address], [place] [address] Dr. Carroll Jett PREG TVon 21-92-9422RS PREG TVEXAM: US PREG TV HISTORY: Abdominal pain COMPARISON: [...] Electronically authenticated by: TARA BURNHAM Date: 2021-09-05 21:10NoUC HealthCovid-19 PCR (CVDTBH)on 77-01-5302CUWU-CoV-2 (COVID-19) RNA ERINN+probe Ql (Unsp spec)Not detectedNormalNOT DETECTEDZanesville City Hospital Comment on above:Result Comment: This test is not yet approved or cleared by the [place] FDA. When there are no FDA-approved or cleared tests available, and other criteria are met, FDA can make tests available under an emergency access mechanism called an Emergency Use Authorization (EUA). The EUA for this test is supported by the Management Scientist of Health and Human Service's (HHS's) declaration that circumstances exist to justify the emergency use of in vitro diagnostics for the detection and/or diagnosis of the virus that causes COVID- 19. This EUA will remain in effect (meaning [...] of clinical signs and symptoms consistent with SARS-CoV-2.Performed By: #### CBC #### [facility] [address] [place] [address] Dr. Carroll PryorXR KNEE LEFT STANDARD EXTENDED VWon 01-01-3434NR KNEE LEFT STANDARD EXTENDED VWEXAMINATION:4 VIEWS OF THE LEFT KNEE05/05/2017 5:09 pmCOMPARISON:None.HISTORY:ORDERING SYSTEM PROVIDED HISTORY: Dislocation of left patella, [...] No joint effusion.Lucencies within the patella may berelated to prior surgery. Tracks areseen within the medial femoral condyle from prior surgery.IMPRESSION: No acute findings.Interpreted by:LATISHA Lyleigned by:Dwight Myers MD05/05/17Final resultNormalMercy Southview Medical Center Vital Signs Date TimeVital SignValuePerforming YoulafezyXtzvvkwp66-43-4949 10:40-0400Body cuvgdn305.6 cmMabean CHERRY Work Phone: NOUniversity HospitalRcybxythur60-06-6889 10:40-0400Body mass index (BMI) [Ratio]20.18 kg/d0Dtxfbbybean CHERRY Work Phone: [facility] HospitalOqmoogpatm00-43-3314 10:40-0400Body ibnwom40.7 kg Dwight CHERRY Work Phone: [facility] HospitalXnkszhuxmc50-64-4636 08:56-0400Body fexfkx357.1 cmJuan Carlos Khan MD Work Phone: [phone]09-18-2025 08:56-0400 Body mass index (BMI) [Ratio]20.7 kg/m6GkvgmcrJuan Carlos Khan MD Work Phone: [phone]09-18-2025 08:56-0400 Body artifo62.69 kgJuan Carlos Khan MD Work Phone: [phone])[address] [place], [place] 9807209-11-2025 14:06-0400 Body stygqu726.1 cmJuan Carlos Khan MD Work Phone: 1(168)[address] [place], [place] 9807209-11-2025 14:06-0400 Body mass index (BMI) [Ratio]21.5 kg/g8ZaklnkrJuan Carlos Khan MD Work Phone: 1(442)[address] [place], [place] 9807209-11-2025 14:06-0400 Body svysdndegrr45.7 [degF]Juan Carlos Khan MD Work Phone: 1(137)[address] [place], [place] 9807209-11-2025 14:06-0400 Body .74 kgJuan Carlos Khan MD Work Phone: 1(027)[address] [place], [place] 9807209-11-2025 14:06-0400 Diastolic blood noukkjii78 mm[Hg]Juan Carlos Khan MD Work Phone: 1(145)[address] [place], [place] 9807209-11-2025 14:06-0400 Heart rate85 /Kofi Khan MD Work Phone: 1(712)[address] [place], [place] 9807209-11-2025 14:06-0400 Respiratory rate18 /Kofi Khan MD Work Phone: [phone])[address] [place], [place] 9807209-11-2025 14:06-0400 SaO2% (BldA) [Mass fraction]99 %Juan Carlos Khan MD Work Phone: 1([phone])[address] [place], [place] 9807209-11-2025 14:06-0400 Systolic blood bgwgigtb041 mm[Hg]Juan Carlos Khan MD Work Phone: [facility]10-28-2022 13:18-0400 Hourly RoundingBrian Printy [address] [place], [place] [address]Comment on above:Result Comment: [facility] transport team taking pt for transfer at this time.05-28-2022 13:12-0400Hourly RoundingBrian Printy [address] [place], [place] [address]Comment on above:Result Comment: Maxine at [facility] called and reported pt on way.05-28-2022 13:08-0400Hourly RoundingBrian Printy [address] [place], [place] [address]Comment on above:Result Comment: [facility] team here for er18-76-7790 12:22-0400Promise to Return Dl Printy [address] [place], [place] 9201410-28-2022 12:01-0400 Promise to ReturnBrian Printy [address] [place], [place] 9201410-28-2022 11:43-0400 Promise to ReturnBrian Printy [address] [place], [place] 9201410-28-2022 10:30-0400Blood Pressure LocationBrian Printy [address] [place], [place] 9201410-28-2022 10:30-0400Body ypulwcbauko33.24 [degF]Dl Printy [address] [place], [place] 9201410-28-2022 10:30-0400 Diastolic blood ythxhiqc63 mm[Hg]Dl Printy [address] [place], [place] 9201410-28-2022 10:30-0400Mean blood pifvoods87 mm[Hg]Dl Printy [facility]10-28-2022 10:30-0400 Respiratory rate18 /minBrian Printy [address] [place], [place] 1375510-28-2022 10:30-6135GyJ4% (BldA) [Mass fraction]98 %Dl Printy [address] [place], [place] 9201410-28-2022 10:30-0400 Systolic blood hcmyqqmg986 mm[Hg]Dl Printy [address] [place], [place] 1375510-28-2022 07:45-0400Blood Pressure LocationBrian Printy [address] [place], [place] 1375510-28-2022 07:45-0400Body alkkbwwgfwp50.42 [degF]Dl Printy [address] [place], [place] 1375510-28-2022 07:45-0400 Diastolic blood totoxkbh75 mm[Hg]Dl Printy [address] [place], [place] 1375510-28-2022 07:45-0400Heart rate88 /minBrian Printy [address] [place], [place] 1375510-28-2022 07:45-0400Mean blood dehucmmi85 mm[Hg]Dl Printy [address] [place], [place] 1375510-28-2022 07:45-0400 Respiratory rate18 /minBrian Printy [address] [place], [place] 9201410-28-2022 07:45-0422RhK3% (BldA) [Mass fraction]98 %Dl Printy [address] [place], [place] 1375510-28-2022 07:45-0400 Systolic blood mm[Hg]Dl Printy [address] [place], [place] 1375510-28-2022 03:54-0400Blood Pressure LocationBrian Printy [address] [place], [place] 1375510-28-2022 03:54-0400Body fxvbbbcxgto62.24 [degF]Dl Printy [address] [place], [place] 9201410-28-2022 03:54-0400 Diastolic blood ermkqsmm33 mm[Hg][employer]l [employer] [address] [place], [place] 9201410-28-2022 03:54-0400Heart rate92 /minBrian Siine [address] [place], [place] 9201410-28-2022 03:54-0400Mean blood lizcfzbs00 mm[Hg]Dl Siine [address] [place], [place] 9201410-28-2022 03:54-0400 Respiratory rate18 /minBrian Siine [address] [place], [place] 9201410-28-2022 03:54-0400 Systolic blood tspluhjo668 mm[Hg]Dl Siine [address]10-28-2022 00:07-0400Heart rate97 /minBrian Siine [address] [place], [place] 9201410-28-2022 00:07-6538IqR3% (BldA) [Mass fraction]98 %Dl Siine [address] [place], [place] 9201410-26-2022 18:04-0400Body vrxqwjmrall37.68 [degF]Dl Siine [address] [place], [place] 1375510-26-2022 17:37-0400 [facility]ingSt[facility]10-26-2022 17:37-0400 [facility]St[facility]10-26-2022 17:37-0400 SaO2% (BldA) [Mass fraction]100 %[facility] 05-26-2022 16:45-0400Hourly RoundingUnc Health Pardeeit [facility] 05-26-2022 16:45-0400[facility]St. [facility] 05-26-2022 15:45-0400Hour[facility]ingSt[facility] 05-26-2022 15:45-0400[facility] ReturnSt[facility] 05-26-2022 15:37-0400Diastolic blood npsohitp82 mm[Hg][facility]10-26-2022 15:37-0400Heart etwe252 /minSt. Elizabeth Hospital10-26-2022 15:37-0400Mean blood cesdklxk66 mm[Hg][facility]10-26-2022 15:37-0400Respiratory rate16 /minSouth[facility]10-26-2022 15:37-2128VnM9% (BldA) [Mass fraction] 100 %[facility]10-26-2022 15:37-0400Systolic blood paeckmxl457 mm[Hg][facility]10-26-2022 12:48-0400 Body ihdcwreydfp23.68 [degF][facility]10-26-2022 12:48-0400Diastolic blood fxfreicz80 mm[Hg][facility]10-26-2022 12:48-0400Heart isjr520 /[facility]10-26-2022 12:48-0400Respiratory rate16 /minSt. Elizabeth Hospital10-26-2022 12:48-3259DrY1% (BldA) [Mass fraction]100 %[facility]10-26-2022 12:48-0400Systolic blood fpstsitf965 mm[Hg][facility]06-13-2022 20:44-0400Hourly RoundingGregkt ASTORGALUCAS [facility] HospitalComment on above:Result Comment: Patient discharged to private vehicle. No s/s of distress noted at the time of discharge.01-11-2022 20:30-0400Hourly RoundingGregory NUSRAT [facility] HospitalComment on above:Result Comment: Discharge instructions given and appropriate questions answered. Patient up to the bathroom to change.01-11-2022 19:25-0400Blood Pressure LocationHayden SILVERIO [facility]06-13-2022 19:25-0400Body ivyjrvgazqk74.06 [degF]Hayden SILVERIO [address] [place], [place] 1730906-13-2022 19:25-0400 Diastolic blood cuzfgeup72 mm[Hg]Hayden SILVERIO [address] [place], [place] 1911206-13-2022 19:25-0400Heart rate87 /minHayden SILVERIO [address] [place], [place] 1730906-13-2022 19:25-0400 Hourly RoundingHayden SILVERIO [address] [place], [place] [address]Comment on above:Result Comment: Patient admitted to floor complaining of cramping that radiate to hips and back. Patient states cramping started last night with some brown discharge. Patient rates cramping 05/10. Call light in reach. Urine sent to lab.01-11-2022 19:25-0400Mean blood xigzqrvw40 mm[Hg]Hayden SILVERIO [facility]06-13-2022 19:25-0400 Respiratory rate16 /minHayden SILVERIO [facility]06-13-2022 19:25-0400 Systolic blood omoiasiq580 mm[Hg]Hayden SILVERIO [facility] Encounters Encounter DateEncounter TypeCare ProviderFacilityStart: 06-07-2025 End: 75-76-3417Xzelbd Genevieve CHERRY Work Phone: [facility]Start: 06-07-2025 End: 06-99-4243Zgxewhxavier CHERRY Work Phone: [facility]icsStart: 06-07-2025 End: 46-15-1689Qhboem outpatient visit 25 minutesDwight CHERRY Work Phone: [facility] OrthopaedicsComment on above:Pain of left thumb (Primary Dx); Sprain of metacarpophalangeal (MCP) joint of left thumb, initial encounterStart: 06-07-2025 End: 89-65-2142lwfkhuozqrXFSDFHX J MEYERNot AvailableStart: 05-28-2025 End: 27-57-7652Rzmivlmvx encounterCourtmarco a Randall OT Work Phone: NOXU Kalpesh Physical TherapyComment on above:OT Initial Eval; Fu x2; fu x3; Final x4 (Received no attempts back.)Start: 05-10-2025 End: 19-33-3402Mrdftu Genevieve CHERRY Work Phone: [facility]opaedicsStart: 05-10-2025 End: 80-69-1596Rdwzrg Genevieve CHERRY Work Phone: [facility]icsStart: 05-10-2025 End: 82-58-6572evpwirtgmyOZFKSPN J MEYERNot AvailableStart: 05-10-2025 End: 17-82-5088Jeovvw outpatient visit 10 minutesMabean CHERRY Work Phone: [facility]opaedicsComment on above:Pain of left thumb (Primary Dx); Sprain of metacarpophalangeal (MCP) joint of left thumb, initial encounterStart: 04-26-2025 End: 85-00-4416Ggqnox Genevieve CHERRY Work Phone: [facility]edicsStart: 04-26-2025 End: 34-39-1790Vjncgd Genevieve CHERRY Work Phone: [facility]icsStart: 04-26-2025 End: 71-99-6841Mcwssn outpatient new 30 minutesMabean CHERRY Work Phone: [facility] OrthopaedicsComment on above:Pain of left thumb (Primary Dx); Sprain of interphalangeal joint of left thumb, initial encounter; Sprain of metacarpophalangeal (MCP) joint of left thumb, initial encounterStart: 04-26-2025 End: 80-65-8718cqxgzmigkmAXJHQAU J MEYERNot AvailableStart: 04-18-2025 End: 13-48-3163yqxvayoxgpBaqgetd M Hoy MD Work Phone: [facility] Work Phone: Start: 04-18-2025 End: 69-21-2585Rdyglin encounter procedureSam Decker -[facility] [place] Work Phone: Start: 04-11-2025 End: 49-42-2622wnfbndzaooPeptrxa M Hoy MD Work Phone: [facility] Work Phone: Start: 04-11-2025 End: 98-96-7661Hdvrhzf encounter procedureClau Gregory [employer]-[facility] Kalpesh Work Phone: Start: 07-08-2022 End: 50-63-9596rufdfzpxjtSR RAJENDRA FAZIOFacility:R0Aqfri: 07-03-2022 End: 56-57-6063Teneswbapf and management of inpatientDR RAJENDRA FAZIOFacility:H1 Start: 06-26-2022 End: 29-59-6233iiembddxczIFHYHU NAGYFacility:P3Lqfag: 06-18-2022 End: 03-80-2998tqmktlmyghDW JUAN CARLOS HOYFacility:D7Veuhy: 06-15-2022 End: 94-62-0428axfdkhqffvNP JUAN CARLOS HOYFacility:V5Bcuyx: 06-10-2022 End: 01-16-4388dmkolhpjcqDX JUAN CARLOS HOYFacility:L9Clqol: 05-26-2022 End: 21-47-7450Hapjbyvamb and management of inpatientJames D KastenFacility:[facility] Start: 05-26-2022 End: 92-86-5389Ygnycuyjob and management of inpatientBrian Elia White [facility] Start: 05-26-2022 End: 26-81-8026Ogkkgjgud department patient visitAstrit H FacundoariFacility:[facility] Start: 05-26-2022 End: 72-48-0017Jkrhwtynt department patient visitNishit P ABDIAZIZMagruder Memorial Hospital Start: 05-25-2022 End: 02-27-4518oqazygafrtEYDVRYT D KATKOFacility:Z5Evocb: 05-21-2022 End: 96-14-2703qkmixnrqxdDCZBBA RODRIGUEZFacility:G9Pizih: 05-06-2022 End: 59-90-7523sjuqskchzvOQ JUAN CARLOS HOYFacility:C8Cghjs: 04-21-2022 End: 12-18-9441uejwivepipED JUAN CARLOS HOYFacility:S0Igzii: 03-29-2022 End: 61-77-3890scmfbtyskuBL JUAN CARLOS HOYFacility:D0Zoxnj: 03-01-2022 End: 79-39-5656lyzapthpcaID RAJENDRA FAZIOFacility:F2Okqxp: 02-22-2022 End: 53-64-7935petdeesfiaXI NETO PAYFacility:D1Vnjaa: 01-11-2022 End: 54-61-1304mdqvnqxxojOsqmrwo KARASIKFacility:BANNERtart: 01-11-2022 End: 82-51-1568KN TriageGregory NUSRAT [facility] Start: 01-11-2022 End: 92-88-7433cyamvsolotUXLUTA RODRIGUEZFacility:C2Cpxku: 12-23-2021 End: 50-15-4557sjdnnmrnydXV RAJENDRA FAZIOFacility:Z1Fdqku: 12-16-2021 End: 05-45-1560jqqmpyradmDW CHERY HAYFacility:A2Uwcwk: 12-04-2021 End: 71-09-1806rgryymeybfFI RAJENDRA FAZIOFacility:Q8Wjjyh: 09-92-3108jzciwoovczQZ RAJENDRA FAZIOFacility:W6Wijth: 82-75-8953kypgbnxzkgJJ RAJENDRA FAZIOFacility:U4Tbcsi: 09-06-2021 End: 68-93-1472mgwgtikzukQJ CHERY HAYFacility:T6Nbovw: 09-05-2021 End: 99-67-5805breokdshufZK ANTOINETTE Owen SMITHFacility:H3Bjarx: 08-06-2021 End: 93-51-9196auarlfikyzZX JUAN CARLOS KHANFacility:P9Bscsa: 07-11-2018 End: 88-70-6692Ojcbnjq encounter procedureDEFAULT PHYSICIANFacility:UTMCStart: 05-05-2017 End: 54-99-5380OpigesdzwaJNOUV MARIE YEAGERMerSouthview Medical Center Procedures DateProcedureProcedure DetailPerforming ClinicianStart: 01-20-1943Uewnw X-ray of left thumbDougluna Khan MD Work Phone: Start: 99-37-8326Urcgobhn of Products of Conception, External ApproachDR RAJENDRA FAZIOStart: 99-41-0653Qqcwraey of Amniotic Fluid, Therapeutic from Products of Conception, Via Natural or Artificial OpeningDR RAJENDRA FAZIOStart: 28-87-5833Ucmfwquobndv of Other Hormone into Peripheral Vein, Percutaneous ApproachDR RAJENDRA FAZIOStart: 17-67-5617Iwsbgf Perineum Skin, External ApproachDR RAJENDRA FAZIOStart: 02-30-7962Jfjxlgdueh exam knee complete 4/more Waylon GUZMANtart: 26-29-9253Mipvdos of operative procedure on knee Denis ABDIAZIZStart: 27-55-0449XxqhmzfzhyzsnIwtqpr ABDIAZIZ Plan of Treatment DateCare ActivityDetailAuthorStart: 06-21-2025 End: 62-45-9232Knqjarn encounter /21/2025 10:00 AM EST Office Visit [facility] [address] [place] [phone] Dwight Davalos PA [address] [place] [phone] [facility] OrthopaedicsStart: 06-07-2025 End: 31-82-8416DG Hand - left WO contrastMR hand left wo IV contrast Imaging Routine Sprain of metacarpophalangeal (MCP) joint of left thumb, initial encounter Expected: 06/07/2025, Expires: 06/07/2026[facility] Work Phone: Comment on above:Expected: 06/07/2025, Expires: 06/07/2026Start: 06-07-2025 End: 28-44-4058Ocoihrq encounter procedureNOYork General Hospital OrthopaedicsComment on above:Pain of left thumb (Primary Dx); Sprain of metacarpophalangeal (MCP) joint of left thumb, initial encounterStart: 05-10-2025 End: 83-28-7235Yjhghur encounter exfuuzagw96/10/2025 10:15 AM EDT Office Visit [facility] [address] [place] [phone] Dwight Davalos PA [address] [facility] [place] [phone] [facility] OrthopaedicsStart: 04-26-2025 End: 57-79-8616Ftocdca encounter wrupoxfmh24/26/2025 10:45 AM EDT Office Visit [facility] [address] [place] [phone] Dwight Davalos PA [address] [facility]OLSA[facility] [phone] Pain of left thumb (Primary Dx)[facility] Comment on above:Pain of left thumb (Primary Dx)XR Thumb - left [facility] Payers DatePayer CategoryPayerPolicy [id number] [employer] Insurance [id number] [id number] [id number] [id number] [id number] 2.16.840.1.534331.3.57[id number] 2.16.840.1.155339.3.57[id number] 2.16.840.1.065288.3.57[id number] 2.16.840.1.331074.3.57[id number] 2.16.840.1.357649.3.57[id number] 2.16.840.1.098892.3.57[id number] 2.16.840.1.877345.3.579.[id number] 2.16.840.1.858468.3.579.2.75035-41-5987Mpmppyg3397434 2.16.840.1.574483.3.579.2.50145-60-9439Xzehqwa8478863 2.16.840.1.578620.3.579.2.25257-93-6466Tjdcpyu2971314 2.16.840.1.104742.3.579.2.40262-44-0754Ggjnllb8241698 2.16.840.1.677550.3.579.2.73607-46-3133Lzexegp9502198 2.16.840.1.222841.3.579.2.84341-88-8669Iusvfrw0885258 2.16.840.1.672586.3.579.2.02934-04-6001Vjbxcdb6843651 2.16.840.1.184033.3.579.2.88553-35-3006Olsddjc5346162 2.16.840.1.491753.3.579.2.41032-76-1018Johgltn8973388 2.16.840.1.548737.3.579.2.96641-37-7495Tmiwbyn1099581 2.16840.1.655285.3.579.2.51904-09-2279Buzrwza3836470 2.16840.1.731291.3.579.2.38119-79-2275Bhgdmvl7504648 2.16.840.1.416628.3.579.2.66451-90-9320Csbbnib3993831 2.16.840.1.474462.3.579.2.68820-90-7884Dpjriwt3797102 2.16.840.1.055635.3.579.2.37548-42-9417Ogmpxdo1165312 2.16840.1.512576.3.579.2.26273-67-8571Qbypjve4262826 2.16.840.1.602571.3.579.2.99846-23-3089Acmobzl0917158 2.16.840.1.020674.3.579.2.21043-98-2456Jhoragd3916407 2.16.840.1.685347.3.579.2.96212-62-2909Hwxmslw53386241 2.16.840.1.323332.3.579.2.311669-06-6020Amzvudm28764727 2.16.840.1.516202.3.579.2.623513-54-5957Haphngq59000568 2.16.840.1.256493.3.579.2.1259 [id number] 1960Self-pay 18-52-3321Hfnv-[id number] 2..840.1.966756.3.579.2.593 [id number] 2.840.1.085850.3.579.2.531 Social History DateTypeDetailFacilityTobacco smoking statusNo Smoking Status EnteredMagruder Memorial HospitalComment on above:deniesStart: 02-07-2023 End: 74-66-3366Yjs Assigned At [facility]. Charles HospitalTobacco smoking statusNo Smoking Status EnteredTrumbull Memorial Hospitaltart: 01-20-2018 End: 83-78-2584Limzfbo smoking status NHISNever smoked tobacco (finding) [facility] HospitalexFemale (finding)[facility] Hospitaltart: 44-23-7634Amt Assigned At [facility] Hospitaltart: 00-79-9448Dnofkgo use and exposureSmokeless tobacco non-userNOMS HealthcareStart: 02-07-2023 End: 40-02-9696Xnzyohzib beverage intakeLifetime non-drinker (finding)[facility] HealthcareStart: 02-07-2023 End: 49-97-2667Yprtwxn of Social functionNOMS HealthcareStart: 08-83-1546Nas assigned at birthNot on fileNOMS HealthcareStart: 84-03-4884NhuZqyxivFHST Healthcare Functional Status XfqdNwfctkqfnhGgwhtdWjprltyb30-14-7276Makbmxdfzp StatusNoMagruder Memorial Hospital10-26-2022Functional StatusN/[facility]06-13-2022 Functional StatusN/[facility] Clinical Notes 01-11-2022 to 06-07-2025 Note Date & JoioPmwwGetxwtaz60-99-5024 History of Present illness Narrative* DILIP Collins - 06/07/2025 10:15 AM EST Images from the original note were not included. Orthopedic Office note: NAME: Deepti Cardoza : 2000 EST PT RECHECK LT THUMB [...] Scheduling Instructions: MRI LT HAND WITHOUT CONTRAST [facility]; PLEASE CALL PT TO SCHEDULE - ATTENTION [...] requiring urgent evaluation. Visit was preformed using [employer]-boat pilot speech recognition. documented in this encounterJefferson Memorial HospitalLsgeybmtun61-92-9393 Telephone encounter Note* Telephone Encounter - Janet Tellez - 05/28/2025 2:12 PM EDT Tried to contact, 4x's, to schedule OT for thumb pain; lm 4x's. Received no attempts of call back(s). Jefferson Memorial HospitalKikgcnppvn11-41-9684 Miscellaneous Notes* Telephone Encounter - Janet Tellez - 05/28/2025 2:12 PM EDT Tried to contact, 4x's, to schedule OT for thumb pain; lm 4x's. Received no attempts of call back(s). documented in this encounterJefferson Memorial HospitalZguywzmnwc57-63-5989 History of Present illness Narrative* DILIP Collins - 05/10/2025 10:15 AM EDT Images from the original note were not included. Orthopedic Office note: NAME: Deepti Cardoza : 2000 EST PT RECHECK LT THUMB INJURY (2ND OPINION) 04/10/25 (4WKS 2DAY)- S/P MDP 04/26/25; PT NOTES LESS SWELLING WHILE TAKING XRAY LT THUMB 04/18/25 [facility] (PUSHED TO CHANGE) XRAY LT THUMB 04/11/25 [facility] (PUSHED TO CHANGE) MDP 04/26/25 [facility] PT C/O PAIN BASE OF THUMB- HURTS WITH ANY MOVEMENT- WEARS BRACE @ WORK- +TYLENOL/MOTRIN- DIFFICULTYGRIPPING GRASPING RT HAND DOMINANT . NGUYEN: PT STATES SHE WAS SWINGING HER SON ON A SWING AND HE KICKED HER FINGER 04/10/25 Physical Exam General Appearance: Normal. Respiratory: No acute distress. Cardiovascular: Radial pulse is 2+. Capillary refill less than 2 seconds. Musculoskeletal: Left hand: Normal inspection. Slight swelling at the MCP joint of the thumb. No evidence of nail injury. Near full range of motion with stiffness on terminal extension and flexion. No tenderness at the IP joint. No pain to the distal phalanx. Nontender along the first dorsal compartment with Peter's test, but pain over the MCP joint radiating back along the 1st metacarpal. No pain to anatomical snuffbox. Wrist joint nontender. No palpable instability or laxity with valgusor varus stressing with the thumb in full extension and 45 degrees of flexion at the MCP joint. Skin: Warm and dry, no rash. Neurological: Normal. Orders Placed This Encounter Procedures Ambulatory referral to Occupational Therapy Standing Status: Future Expected Date: 05/10/2025 Expiration Date: 11/08/2025 Referral Priority: Routine Referral Type: Consultation Referral Reason: Consult and Treat Referred to Provider: Isa Randall OT Requested Specialty: Occupational Therapy Number of Visits Requested: 1 Procedures Results ICD-10-CM 1. Pain of left thumb M79.645 Ambulatory referral to Occupational Therapy 2. Sprain of metacarpophalangeal (MCP) joint of left thumb, initial encounter S63.642A Ambulatory referral to Occupational Therapy Assessment & Plan Sprain of the metacarpophalangeal (MCP) joint of the thumb The patient demonstrates near full range of motion, noting stiffness on terminal extension and flexion. The IP joint is no longer tender, and she has no pain to the distal phalanx. She is aware of the possibility of a bone contusion. Given her injury and symptoms, she appears to be improving with the use of the Medrol Dosepak. Diagnostic plan: A referral to a hand therapist for more conservative measures before pursuing MRI was discussed and mutually agreed upon. Treatment plan: She may continue to splint her thumb during periods of heavy use; otherwise, discontinue the splint to encourage range of motion and prevent stiffness. Clinical decision making: If symptoms are not improving, an MRI would be considered for further evaluation. Follow-up: Recheck progress in 4 weeks. Questions answered in laymen terms at the bedside. The diagnosis, home exercise plan and any ongoing restrictions/ recommendations reviewed. If unable to be reached in office, I recommend evaluation at nearest Emergency Room if any symptoms worsened or new symptoms develop for requiring urgent evaluation. Visit was preformed using [employer]-boat pilot speech recognition. documented in this encounterJefferson Memorial [id number] History of Present illness Narrative* DILIP Collins - 04/26/2025 10:45 AM EDT Images from the original note were not included. Orthopedic Office note: NAME: Deepti Cardoza : 2000 NEW PT; DR KHAN REFERRAL WITH LT THUMB INJURY (2ND OPINION) 04/10/25 (2WKS 2DAY)- PT STATES SHE WAS SWINGING HER SON ON A SWING AND HE KICKED HER FINGER 04/10/25- WENT TO [facility] [place]; XRAY- DR DECKER HAS BEEN TX; BRACE/XRAY XRAY LT THUMB 04/18/25 [facility] (PUSHED TO CHANGE) XRAY LT THUMB 04/11/25 [facility] (PUSHED TO CHANGE) PT HAS BEEN TOLD TO REMOVE BRACE TO WORK ON ROM- +TYLENOL - NOTES SOME SHOOTING PAIN- +THROBBING RT HAND DOMINANT Physical Exam General Appearance: Normal. Respiratory: No acute distress. Musculoskeletal: Left hand shows no evidence of swelling, warmth, or erythema. Local tenderness is present at the MCP joint and IP joint of the thumb with flexion, with tightness noted over the dorsal aspect of the proximal phalanx. Compartments are soft. Minimal soreness is present at the CMC joint. No pain is felt at the anatomical snuffbox. No pain is felt at the wrist or mid wrist region withscapholunate palpation. The patient can oppose her thumb to all fingers, make the okay sign withoutdifficulty, and hold against stress without significant pain or weakness. Gentle stressing of the UCL appears to be intact, but there is some global soreness with stressing of the IP and MCP joints re spectively. Near full flexion and extension with tightness noted on terminal flexion. Compartments are soft. Radial pulses are 2+. Capillary refill is less than 2 seconds. No palpable triggering. Skin: No evidence of rash. Neurological: Normal. No orders of the defined types were placed in this encounter. Procedures Results Xray (L) thumnb 04/18/25: [facility]- no acute fx - Imaging: - X-rays of the left hand (two sets) reviewed with the patient at bedside Xray 04/11/25: [facility]: Fracture involving the base of distal phalanx ( one view only) Personal review not seen ICD-10-CM 1. Pain of left thumb M79.645 2. Sprain of interphalangeal joint of left thumb, initial encounter S63.622A 3. Sprain of metacarpophalangeal (MCP) joint of left thumb, initial encounter S63.642A Assessment & Plan Left hand sprain Two sets of x-rays were reviewed at bedside. Given the location of symptoms, a fracture is less likely, and the symptoms are mostly concerning for a sprain. Treatment plan: Ice, elevation, and topical Voltaren gel were discussed as important measures. Given the length of symptoms with attempts at bracing, a Medrol Dosepak will be prescribed to help with inflammation. The patient plans to work on hand and thumb range of motion to prevent stiffness. Clinical decision making: Detailed discussion of risks and benefits. If symptoms are not improving,especially at the MCP joint, an MRI will be considered for further evaluation of UCL integrity. Follow-up: Follow up in 2 weeks. Questions answered in laymen terms at the bedside. The diagnosis, home exercise plan and any ongoing restrictions/ recommendations reviewed. If unable to be reached in office, I recommend evaluation at nearest Emergency Room if any symptoms worsened or new symptoms develop for requiring urgent evaluation. Visit was preformed using [employer]boat pilot speech recognition. documented in this encounterJefferson Memorial [id number] Evaluation note* Diagnosis Onset Date Resolution Status Admit Date Fracture of thumb, left, closed acuteSeptember 2024 2:05pmInjury of left thumbacuteSeptember 2024 2:05pm [facility] Work Phone: 1(367) 604-565809-11-2025 Evaluation note* Diagnosis Onset Date Resolution Status Admit Date Fracture of thumb, left, closed acuteSeptember 2024 2:05pmInjury of left thumbacuteSeptember 2024 2:05pmInjury of left thumbacuteSeptember 2024 8:47am [facility] Work Phone: 1(733) 174-492311-02-2022 NotePatient: DEEPTI CARDOZA Age: 22 years Sex: Female : 2000 Associated Diagnoses: None Author: Dl White MD History of Present Illness Patient is Para [...] list: All Problems Anxiety / SNOMED CT 39279514 / Confirmed Asthma / SNOMED CT 778736155 / Confirmed Facial abscess / SNOMED CT 456660778 / Confirmed / SNOMED CT 337534272 / Confirmed Histories History History (0,0,0,0) No previous pregnancies history have been recorded Family History: No family history items have been selected or recorded. Procedure history: History of knee surgery (2643819928) in 2016 at 16 Years. Tonsillectomy (667450294) in 2009 at 10 Years. Social History Social & Psychosocial History Social History Alcohol No Risk (01/11/2022) Comment: denies (05/26/2022 14:Anabela Echeverria RN) Substance Abuse No Risk (01/11/2022) Comment: denies (05/26/2022 14:Anabela Echeverria RN) Tobacco No Risk (01/11/2022) Comment: denies (05/26/2022 14:Anabela Echeverria RN) Psychosocial History Family/Social (05/26/22) Emotional Support Available: [...] Oriented. Psychiatric: Cooperative. Impression and Plan Diagnosis (OEL08-NV Z34.90, Discharge, Medical). Facial abscess (CLN81-XK L02.01, Discharge, Medical). Acute abscess of maxillary sinus (IWP57-TV J01.00, Discharge, Medical). Starvation ketoacidosis (NMM41-SR T73.0XXA, Discharge, Medical). Plan Admit.[facility] CenterComment on above:Result Comment: Electronically Signed By: Christopher VILLANUEVA, Dl Thomas.favio\Date and Time Signed: 06/02/22 17:03 EDT 06-02-2022 NoteMicrobiology PROCEDURE: Blood Culture Charcoal [R1] SOURCE: Blood BODY SITE: Arm R COLLECTED DATE/TIME: 05/26/2022 14:17 EDT RECEIVED DATE/TIME: 05/26/2022 14:40 EDT START DATE/TIME: 05/26/2022 14:41 EDT FREE TEXT SOURCE: rt giovanni Mariano M.D., Domitlia Mariano M.D., Domitila Vargas FINAL REPORTS Final Report [] Verified Date/Time: 06/02/2022 16:02 EDT No growth at 7 days. Performing Locations R1: This test was performed at: [facility], [address] [place] [address], [address] [place] [address], GgztmcSumma Health Wadsworth - Rittman Medical CenterComment on above:Performed By: #### [id number] ####[facility] [address] [place], [place] [id number] NoteHOSPITAL REGULATIONS: All Positive and Important Negative Findings Shall Be Recorded Date of Consultation: 05/27/2022 Attending Physician: Dl White M.D. Consulting Physician: Delfina HuttonN.T.: CONSULTATION CHIEF COMPLAINT: Right-sided facial pain and [...] maintain good hydration to allow for a catch basin cleaner mouth and possible drainage of the abscess transorally. Will watch this patient very closely for any airway compromise. Would think that potentially dental extraction may be necessary to prevent further infections or to allow for the abscess to be drained. Currently the patient seems to be doing quite well on intravenous antibiotics. Asim Monroe D.O. ls Dictated: 05/27/2022 [id number] Transcribed: 05/28/2022 cc:Dl White M.D.[facility] Medical CenterComment on above:Result Comment: Electronically Signed By: Asim Monroe DO\.br\Date and Time Signed: 06/01/22 11:02 [id number] NoteTRANSFER SUMMARY 05/28/2022 DIAGNOSIS:Intrauterine at 33 weeks [...] uncomplicated. Transfer for management of oral abscess. Luba Arias Dictated: 05/28/2022 [id number] Transcribed: 05/28/2022[facility] CenterComment on above:Result Comment: Electronically Signed By: Omari Friedman MD\.br\Date and Time Signed: 05/28/22 14:06 [id number] NoteThe following Patient Education Materials have been given to the patient: [facility]MateC[facility]10[facility]28-[facility] Evaluation + Plan note Extracted from:Title:APSO NoteAuthor:Denis FREED MD PDate:05/28/22 22-year-old with s econd (first 1 uneventful [...] Will transfer patient to a place with MFM and OMFS 2. Facial abscess (L02.01: Cutaneous abscess of face) Worse today Spoke to ENT. preferrers patient going to tertiary care with OMFS Will continue with Unasyn and warm compress NPO Transfer to community hospital once bed is available 3. Acute abscess of maxillary sinus (J01.00: Acute maxillary sinusitis, unspecified) will need [facility] Continue with Tylenol Antibiotics as ordered 4. [...] made to ensure accuracy, however, inadvertently computerized real estate acquisition analyst mistakes may be present. Denis Freed Hospitalist Extracted from:Title:Right facial pain/swellingAuthor:Asim Monroe DO SDate: 05/27/22 ENT Full consult dict. Imp: Right facial cellulitis Right dental abscess Right facial pain Plan: 1. Continue IV antibiotics 2. Warm compresses 3. Follow for progress 4. Should be considered for dental extraction if not improving Extracted from:Title:APSO NoteAuthor:Denis FREED MD PDate:05/27/22 22-year-old with s econd (first 1 uneventful [...] IP Consult New/Estab Pt Low 55 Min 57436 2. Facial abscess (L02.01: Cutaneous abscess of face) Continue with Unasyn Abscess is draining Continue with warm compresses We will stop IV fluids and encourage oral intake Will use liquid Tylenol and told nurse to use [id number] for today and use IV pain medicationfor breakthrough pain. Still left Tylenol as needed Ordered: Initial IP Consult New/Estab Pt Low 55 Min 49304 3. Acute abscess of maxillary sinus (J01.00: Acute maxillary sinusitis, unspecified) Continue with Tylenol and Nubain Antibiotics as ordered Awaiting ENT evaluation Ordered: Initial IP Consult New/Estab Pt Low 55 Min 38709 4. Starvation ketoacidosis (T73.0XXA: Starvation, initial encounter) Resolved Will let patient eat and drink normally and encouraging oral intake Stopping IV fluids We will still repeat labs tomorrow morning Ordered: Initial IP Consult New/Estab Pt Low 55 Min 61495 Orders: acetaminophen, 640 mg = 20 mL, [...] made to ensure accuracy, however, inadvertently computerized real estate acquisition analyst mistakes may be present. Dr. Denis Freed Hospitalist at [facility] Extracted from:Title:Consult NoteAuthor:Denis FREED MD PDate:05/26/22 22-year-old with s econd (first 1 uneventful with the baby of 7 pounds 7 ounces) at 33 weeks of and 4 days presents to emergency department due to severe facial pain and inability to to eat. 1. (Z34.90: Encounter for supervision of normal , unspecified, unspecified trimester) Management as per SCIENCE CONSULTANT service Routine monitoring of the baby given [...] made to ensure accuracy, however, inadvertently computerized real estate acquisition analyst mistakes may be present. Dr. Denis Freed Hospitalist at [facility]10-28-2022 NotePROGRESS NOTE: 05/27/2022 The patient is doing [...] awaiting definitive management plan. Omari Friedman M.D. Dictated: 05/27/2022 [id number] Transcribed: 05/27/2022[facility] CenterComment on above:Result Comment: Electronically Signed By: Elder VILLANUEVA, Omari Chacon\.br\Date and Time Signed: 05/28/22 10:24 [id number] NoteReason for Consultation Starvation ketoacidosis History of [...] , unspecified, unspecified trimester) Management as per SCIENCE CONSULTANT service Routine monitoring of the baby given [...] date 05/26/22 17:48:00 EDT (more content not included)...[facility] CenterComment on above:Result Comment: Electronically Signed By: Denis FREED MD.favio\Date and Time Signed: 05/26/22 18:12 [id number] Hospital Discharge instructions Follow Up Care 05/26/2022 17:30:39 With:Rajendra VILLAVICENCIO Address: [address] , [facility] [place] [address]- Business (1) When: Unknown [facility]10-26-2022 Evaluation + Plan noteExtracted from: Title:ED NoteAuthor:Domitila Mariano M.D. HDate:05/26/22 1. Facial abscess (L02.01: C utaneous abscess of face) 2. Facial cellulitis (L03.211: Cellulitis of face) 3. Starvation ketoacidosis (T73.0XXA: Starvation, initial encounter) Orders: Sodium Chloride 0.9% intravenous solution, 1,000 mL, Soln-IV, IV, Once, Stop date 05/26/22 14:56:00EDT, STAT, Start date 05/26/22 14:56:00 EDT, mL/hr, Infuse over 61, minute(s) Automated Diff Basic Metabolic Panel Blood Culture Charcoal CBC w/ Auto Diff Consult to ENT Consult to Hospitalist CT Maxillofacial w/ Contrast eGFR Extra Blue Tube Extra SST Tube Lactic Acid Sedimentation Rate Automated UA With Cult Reflex Diagnostic Tests Pending * Blood Culture Charcoal 05/26/22 [facility]06-13-2022 NoteThe following Patient Education Materials have been given to the patient: EducationMaterialPerson [facility] Hospitaler [facility]06-13[facility]22 Hospital Discharge instructions Follow Up Care 01/11/2022 19:15:06 With:Hayden SILVERIO Address: [address] [place] [address] [address] [place] [place] [phone] Business (1) When:1 to 2 days Comments:Call for any problems.Call physician for heavy vaginal bleedingCall office in the morning to schedule an ultrasound [facility]06-13-2022 Evaluation + Plan note Diagnostic Tests Pending * Urine Culture 01/11/22 [facility]* Diagnosis Onset Date Resolution Status Admit Date Fracture of thumb, left, closed acuteSeptember 2024 2:05pmInjury of left thumbacuteSeptember 2024 2:05pm [facility] Work Phone: Evaluation note* Diagnosis Pain of left thumb- Primary Sprain of interphalangeal joint of left thumb, initial encounter Sprain of metacarpophalangeal (MCP) joint of left thumb, initial encounter documented in this encounter [facility] HealthcareEvaluation note* Diagnosis Pain of left thumb- Primary Sprain of metacarpophalangeal (MCP) joint of left thumb, initial encounter documented in this encounter [facility] HealthcareEvaluation note* Diagnosis Pain of left thumb- Primary Sprain of metacarpophalangeal (MCP) joint of left thumb, initial encounter documented in this encounter [facility] HealthcareHospital course Narrative No data available for this section [facility] Dis[facility] instructions No data available for this section [facility] HospitalProgress note No data available for this section [facility] HospitalReason for referral (narrative)No reason for referral information availableMercy Health [facility] Work Phone: Summary Purpose Family History [...] Injury of left thumb April 11 2:05pm Chief Complaint Admit Date Left thumb injury April 11, 2025 2:05pm S69.92XA - Unspecified injury of left wr ist, hand April 11, 2025 2:22pm [facility] LT THUMB FX WX Septemb er 2024 8:47am Reason for Visit Admit Date Fracture of thumb, left, closed Septembe r 2024 2:05pm Injury of left thumb April 11 2:05pm Injury of left thumb April 18 8:47am Additional Source Comments INFORMATION SOURCE (unrecogn ized section and content) DATE CREATED AUTHOR 01/24/2018 [facility] DATE CREATED AUTHOR AUTHOR'S ORGANIZ ATION 07/13/2018 [facility] DATE CREATED AUTHOR AUTHOR'S ORGANIZ ATION 07/08/2022 [facility] DATE CREATED AUTHOR AUTHOR'S ORGANIZ ATION 07/22/2022 [facility] DATE CREATED AUTHOR AUTHOR'S ORGANIZ ATION 04/15/2025 [facility] DATE CREATED AUTHOR AUTHOR'S ORGANIZ ATION 06/09/2025 [facility] EPIC Care Team (unrecognized sect ion and content) Team Status: Active Member Role Status Dates Juan Carlos Khan MD Primary Care Provider Active Team Status: Inactive Member Role Status Dates Juan Carlos Khan MD Primary Care Provider Active Start: April 11, 2025 End: April 11, 2025Clau Gregory APRN DAY CAMP UNIT LEADER-CAttending Provider ActiveStart: April 11, 2025 End: April 11, 2025 Team Status: Active Member Role Status Dates Juan Carlos Khan MD Primary Care Provider Active Start: April 11, 2025 Clau Gregory APRN [employer] CAMP UNIT LEADER-CAttending ProviderActiveStart: April 11, 2025 Team Status: Inactive Member Role Status Dates Juan Carlos Khan MD Primary Care Provider Active Start: April 18, 2025 End: April 18, 2025Joel Browne ProviderActiveStart: April 18, 2025 End: April 18, 2025Team MemberRelationshipSpecialtyStart DateEnd Date Juan Carlos Khan MD [address] [place] [phone] PCP - GeneralFamily Medicine04/23/25Team MemberRelationshipSpecialtyStart DateEnd Date Juan Carlos Khan MD [address] [place] [facility] [place] [address] PCP - GeneralFamily Medicine04/23/25Team MemberRelationshipSpecialtyStart DateEnd Date Juan Carlos Khan MD [address] [place] [facility] [place] [address] PCP - GeneralFamily Medicine04/23/25Team MemberRelationshipSpecialtyStart DateEnd Date Juan Carlos Khan MD [address] [place] [facility] [place] [address] PCP - GeneralFamily Medicine04/23/25Team MemberRelationshipSpecialtyStart DateEnd Date Juan Carlos Khan MD [address] [place] [facility] [place] [address] PCP - GeneralFamily Medicine04/23/25Team MemberRelationshipSpecialtyStart DateEnd Date Juan Carlos Khan MD [address] [place] [facility] [place] [address] PCP - GeneralFamily Medicine04/23/25Team MemberRelationshipSpecialtyStart DateEnd Date Juan Carlos Khan MD [address] [place] [facility] [place] [address] PCP - GeneralFamily Medicine04/23/25 Goals (unrecognized section and content) Goals may be documented in a n alternate section Reason for Visit (unrecogniz ed section and content) ReasonCommentsPainReasonCommentsPainReasonOnset DateCommentsOT Initial Eval 05/13/2025Fu x205/17/2025fu x31Final x41Received no attempts back. FOR RECORDS PERTAINING TO PATIENTS WHO ARE [...] BE BASED ON THE PRIMARY CLINICAL RECORDS. [facility], [facility]. provides no warranty or guarantee of the accuracy or completeness of information in this document.
== END 2025-06-21 08:21 | disposition home or self-care (01) ==
LOC: MRI 08:20
PROVIDERS: PCP Family Medicine; Visit Provider Personal Emergency Response Attendant
DX: S63.642A Sprain of metacarpophalangeal joint of left thumb, initial encounter (principal)
CPT/HCPCS: 73218